=== PATIENT | male | born 1940 | race Caucasian/White ===

== ENCOUNTER 2019-05-10 14:50 | Outpatient (RCR) | payer MEDICARE, SELFPAY ==
[2019-05-10 15:14] LABS: Basophils % 0.4 %; Eosinophils # 0.1 10^3/uL (0.0-0.8); Eosinophils % 1.7 %; Hematocrit 33.7 % (42.0-52.0); Hemoglobin 11.3 g/dL (11.7-16.6); Lymphocytes # 1.3 10^3/uL (0.8-4.8); Lymphocytes % 24.7 %; Mean Corpuscular HGB Conc 33.5 g/dL (30.0-36.0); Mean Corpuscular Hemoglobin 32.1 pg (28.0-34.0); Mean Corpuscular Volume 95.7 fL (80-94); Mean Platelet Volume 10.3 fL (7.4-10.4); Monocytes # 0.6 10^3/uL (0.2-0.9); Monocytes % 11.3 %; Neutrophils # 3.3 10^3/uL (1.8-7.7); Neutrophils % 61.7 %; Nucleated Red Blood Cells % 0 %; Platelet Count 207 10^3/cmm (130-400); Red Blood Count 3.52 10^6/uL (4.1-5.3); Red Cell Distribution Width 12.4 % (12.1-15.1); White Blood Count 5.4 10^3/uL (4.0-10.0)
[2019-05-10 16:06] LABS: Prostate Specific Antigen 6.06 ng/mL (0-4)
[2019-05-10 16:17] LABS: Alanine Aminotransferase 18 U/L (0-41); Albumin Level 4.3 g/dL (3.5-5.2); Alkaline Phosphatase 73 IU/L (40-130); Anion Gap 15.7 (5-19); Aspartate Amino Transferase 27 U/L (0-40); Blood Urea Nitrogen 14 mg/dL (8-23); Calcium 9.5 mg/Dl (8.8-10.2); Carbon Dioxide 27 mmol/L (22-29); Chloride 94 mmol/L (98-107); Globulin 2.6 g/dL (1.3-4.6); Glucose 111 mg/dL (74-106); Potassium 4.7 mmol/L (3.5-5.1); Sodium 132 mmol/L (136-145); Total Bilirubin 0.2 mg/dL (0.15-1.2); Total Protein 6.9 g/dL (6.6-8.7)
--- NOTE | 2019-05-14 06:52 | ONC FU_ITS ---
Dr. Boyce Patient Follow-Up Note Patient: Matthew Case Unit #: [id number]: 1940 Dicatated By: Hubert Boyec M.D.Date of Visit:May 10, 2019 Onc Med Follow-up/Prog Note Chief Complaint: Prostate cancer. History of Present Illness: This is a 79 year-old man with [place] score 9 adenocarcinoma of the prostate. By clinical evaluation his disease is stage IV (T2c, N1, M1a). He had presented with a significantly elevated PSA level. By his account it was 28 ng/mL when Dr. Benedict checked it in March. As of 05/05/2018 it had increased to 66 ng/mL. He was referred to Dr. Copeland, and he underwent TRUSP/biopsy on 06/02/2018. Pathology showed prostatic adenocarcinoma involving both lobes. The Alex scores varied from 7 to 9. His staging CT abdomen/pelvis on 06/21/2018 showed heterogeneously enhancing enlarged prostate measuring 4.1 x 4.2 x 5.7 cm. There were enlarged periaortic, aortocaval, and retroperitoneal lymph nodes, the largest measuring 2.5-3 cm, consistent with metastatic disease. There were additional enlarged iliac chain lymph nodes, right geater than left, measuring 1.5-2.0 cm, also consistent with metastatic disease. Also noted was a lytic lesion within the right ilium measuring 2.1 cm, indeterminate. Additional smaller lytic lesions were noted in the ileum bilaterally. There were no sclerotic or blastic lesions identified. An hepatic cyst near the dome of the liver measured 2.7 cm. Bone scan on 06/21/2018 showed no evidence for metastatic disease. In particular, there was no uptake noted in the right ilium. He had seen Dr. Copeland for follow-up on 06/23/2018. Given the CT findings, he was recommended to begin androgen deprivation therapy, and he was given a prescription for bicalutamide 50 mg daily. I had seen him initially on 07/07/2018. At that point he had not started the medication yet. I had a fairly lengthy discussion with him regarding treatment options. He ultimately decided on antiandrogen therapy with bicalutamide 150 mg daily. His other medical illnesses include GERD, degenerative arthritis, and glaucoma. He has a history of smoking 2 packs of cigarettes daily for 20 years. He quit smoking 35 years ago. INTERIM HISTORY: He was seen for a follow-up visit on 08/17/2018. He was tolerating the bicalutamide well, and his PSA level had decreased to 2.97 ng/mL. As of his follow-up visit on 11/07/2018 there was further decrease in the PSA to 0.75 ng/mL. He continued treatment with bicalutamide 150 mg daily. However, in December he opted to stop treatment due to worsening symptoms, mainlly pain and swelling in his breasts. At his followup visit on 02/07/2019 his PSA had increased to 2.95 ng/mL. He then restarted the bicalutamide. He is seen for a scheduled visit. He has been feeling good generally. His breasts have been sensitive since he has been back on the bicalutamide, but it has been tolerable. He has otherwise been tolerating the treatment well. He has good energy and activity tolerance. His appetite has been good. He has gained weight. He has no fever, night sweats, or hot flashes. He has no shortness of breath, cough, or chest pain. He has no GI complaints. He has no complaints other than urinary frequency and nocturia. He had been having pain in his right hip area, but it resolved with Celebrex. He has no other joint or bone pain. He has no focal neurologic symptoms. Medications: C 1000 1 Tablet (of 1000 mg) Oral daily, CeleBREX 1 Capsule (of 200 mg) Oral daily PRN, Cholecalciferol 1 Tablet (of 4000 Units) Oral daily, Flomax 1 (0.4 mg) Capsule Oral at bedtime, Lucentis 1 Injectable q 12 weeks, Lumigan 1 drop(s) (of 0.01 %) Solution Ophthalmic at bedtime, Move Free Joint Health Advance 1 Tablet Oral daily, NexIUM 1 Capsule (of 20 mg) Capsule Delayed Release Oral daily, PreserVision AREDS 2 1 Capsule Oral daily, salmom 1 Capsule daily, SM Lutein 1 Capsule (of 20 mg) Oral daily, Sudafed 1 Tablet (of 30 mg) Oral daily PRN, Turmeric 1 - 2 Capsule Oral daily PRN, ZyrTEC Allergy 1 Tablet (of 10 mg) Oral PRN Allergies: No Known Allergies. Review of Systems: Constitutional - His energy is good. He has normal activity. His appetite is good. His weight is up a 5 pounds. No fever, night sweats, or hot flashes. ECOG score is 0, ENMT - No sinus congestion/drainage. No mouth sores. No sore throat or difficulty swallowing, Hematologic/Lymphatic - No abnormal bruising or bleeding, Breasts - He has breast tenderness, Respiratory - No shortness of breath. No cough. No pleuritic pain or hemoptysis, Cardiovascular - No angina pain. No palpitations, Gastrointestinal - No nausea or vomiting. His acid reflux is managed adequately with Nexium. No diarrhea or constipation. No blood in the stool or black stools, Genitourinary (M) - No dysuria or hematuria. He has frequent urination. No urgency or incontinence, Musculoskeletal - He was having pain in his right hip area, but it improved with Celebrex, Integumentary - No skin complications, Neurologic - He has occasional headache. No dizziness. No numbness/paresthesias or other focal neurologic symptoms, Psychiatric - No anxiety or depression. No insomnia. Vital Signs: Performed on May 10, 2019 16:11 Height - 72.00 in Weight - 161.4 lbs (HIGH) BSA - 1.94 sq.m BMI - 21.89 Temperature - 98.4 F Pulse - 75 /min Respiration - 22 /min BP - 115/78 mm(hg) O2 Sat - 99 % Pain - 0 Physical Examination: Constitutional - He looks pretty good generally, Eyes - Sclerae nonicteric. Conjunctivae clear, ENMT - No lesions noted in the oral cavity, Hematologic/Lymphatic - No cervical, clavicular, or axillary adenopathy, Respiratory - Lungs are clear with good air movement bilaterally, Cardiovascular - Heart rhythm is regular. There is a I/ systolic murmur. There is no gallop or rub noted, Abdomen - Soft. Liver and spleen are not enlarged. There is no abdominal mass or ascites noted and there is no inguinal adenopathy, Extremities - No edema. Pedal pulses are palpable bilaterally, Neurologic - No focal neurologic deficits noted. Lab/Imaging: Test performed on May 10, 2019 14:55 Glucose 111 mg/dL BUN 14 mg/dL Creatinine 1.1 mg/dL Cr Clearance (Est) 58.24 mL/min Sodium 132 mmol/L Potassium 4.7 mmol/L Chloride 94 mmol/L CO2 27 mmol/L Calcium 9.5 mg/dL Protein, Total 6.9 g/dL Albumin 4.3 g/dL Globulin 2.6 g/dL Bilirubin, Total 0.2 mg/dL Alkaline Phosphatase 73 IU/L AST (SGOT) 27 IU/L ALT (SGPT) 18 IU/L WBC 5.4 10^9/L RBC 3.52 10^12/L HGB 11.3 g/dL HCT 33.7 % MCV 95.7 fl MCH 32.1 pg MCHC 33.5 g/dL RDW 12.4 % Platelet Count 207 10^9/L MPV 10.3 fL Neutrophils (Gran) 3.3 10^9/L Lymphocytes 1.3 10^9/L Monocytes 0.6 10^9/L Eosinophils 0.1 10^9/L Basophils 0.0 10^9/L Manual Lymphocytes 24.7 % Manual Monocytes 11.3 % Manual Eosinophils 1.7 % Manual Basophils 0.4 % NRBCs 0.0 /100 WBC PSA 6.06 ng/mL Impression: 1. Patient with Alex score 9 adenocarcinoma of the prostate. By clinical evaluation his disease was stage IV (T2c, N1, M1a) with CT evidence of retroperitoneal and bilateral iliac chain lymph node involvement. 2. There was also possible lytic bone involvementin the right ilium by CT scan. 3. He had bladder outlet obstructive symptoms, but those improved with tamsulosin. His other medical illnesses include: 4. GERD. 5. Degenerative arthritis. 6. Glaucoma. In July 2018 he began antiandrogen therapy with bicalutamide 150 mg daily. As of his follow-up visit on 11/07/2018 he had been tolerating it well. He had been showing a very good clinical response with his PSA level decreased to 0.75 ng/mL. However, in December he stopped the medication due to increasing swelling and tenderness in both breasts. As such, there has been an increase in his PSA level. As of his follow-up visit on 02/07/2019 his PSA level had increased to 2.95 ng/mL. He then restarted the bicalutamide at 150 mg daily. He has been able to tolerate it with acceptable toxicity, but his PSA level has continued to increase, now to 6.06 ng/mL. Plan: We discussed the fact that increasing PSA level is an indication that his prostate cancer is progressing. He has not been overtly symptomatic with it, and at least for now he prefers to just continue taking bicalutamide 150 mg daily, as he has been opposed to standard androgen deprivation therapy. He will return for repeat PSA level in 6 weeks and for a follow-up visit in 3 months. Signed By: Hubert Boyce M.D. <<Signature on File>>
== END 2019-06-08 23:59 | disposition home or self-care (01) ==
LOC: ONCMED 14:50
PROVIDERS: Family Provider Internal Medicine; PCP Internal Medicine; Visit Provider Internal Medicine Medical Oncology
DX: C61 Malignant neoplasm of prostate (principal); C77.8 Secondary and unspecified malignant neoplasm of lymph nodes of multiple regions; R97.21 Rising PSA following treatment for malignant neoplasm of prostate; K21.9 Gastro-esophageal reflux disease without esophagitis; M19.90 Unspecified osteoarthritis, unspecified site; H40.9 Unspecified glaucoma; Z79.899 Other long term (current) drug therapy; Z87.891 Personal history of nicotine dependence
CPT/HCPCS: 36415; 80053; 84153; 85025; 99214

== ENCOUNTER 2019-06-21 06:07 | Outpatient (RCR) | payer MEDICARE, SELFPAY ==
[2019-06-21 16:07] LABS: Prostate Specific Antigen 17.92 ng/mL (0-4)
== END 2019-07-07 23:59 | disposition home or self-care (01) ==
LOC: ONCMED 06:07
PROVIDERS: Family Provider Internal Medicine; PCP Internal Medicine; Visit Provider Internal Medicine Medical Oncology
DX: C61 Malignant neoplasm of prostate (principal)
CPT/HCPCS: 36415; 84153

== ENCOUNTER 2019-08-02 10:27 | Outpatient (CLI) | payer MEDICARE, SELFPAY ==
[2019-08-02 10:55] LABS: Basophils % 0.7 %; Eosinophils # 0.1 10^3/uL (0.0-0.8); Eosinophils % 0.8 %; Hematocrit 37.4 % (42.0-52.0); Hemoglobin 12.3 g/dL (11.7-16.6); Lymphocytes # 0.9 10^3/uL (0.8-4.8); Lymphocytes % 15.6 %; Mean Corpuscular HGB Conc 32.9 g/dL (30.0-36.0); Mean Corpuscular Hemoglobin 31.3 pg (28.0-34.0); Mean Corpuscular Volume 95.2 fL (80-94); Mean Platelet Volume 10.3 fL (7.4-10.4); Monocytes # 0.6 10^3/uL (0.2-0.9); Monocytes % 9.2 %; Neutrophils # 4.4 10^3/uL (1.8-7.7); Neutrophils % 73.5 %; Nucleated Red Blood Cells % 0 %; Platelet Count 210 10^3/cmm (130-400); Red Blood Count 3.93 10^6/uL (4.1-5.3)
[2019-08-02 11:15] LABS: Alanine Aminotransferase 15 U/L (0-41); Albumin Level 4.4 g/dL (3.5-5.2); Alkaline Phosphatase 81 IU/L (40-130); Anion Gap 15.6 (5-19); Aspartate Amino Transferase 26 U/L (0-40); Blood Urea Nitrogen 11 mg/dL (8-23); Calcium 9.7 mg/dL (8.5-10.5); Carbon Dioxide 27 mmol/L (22-29); Chloride 95 mmol/L (98-107); Globulin 2.3 g/dL (1.3-4.6); Glucose 99 mg/dL (65-115); Osmolality Calculated 272 mOsm/kg (285-295); Potassium 4.6 mmol/L (3.5-5.1); Sodium 133 mmol/L (136-145); Total Bilirubin 0.2 mg/dL (0.15-1.2); Total Protein 6.7 g/dL (6.6-8.7)
[2019-08-02 11:22] LABS: Prostate Specific Antigen 54.03 ng/mL (0-4)
--- NOTE | 2019-08-02 18:38 | ONC FU_ITS ---
Dr. Boyce Patient Follow-Up Note Patient: Matthew Case Unit #: [id number]: [id number] Dicatated By: Hubert Boyce M.D.Date of Visit:Aug 02, 2019 Onc Med Follow-up/Prog Note Chief Complaint: Prostate cancer. History of Present Illness: This is a 79 year-old man with [place] score 9 adenocarcinoma of the prostate. By clinical evaluation his disease is stage IV (T2c, N1, M1a). He had presented with a significantly elevated PSA level. By his account it was 28 ng/mL when Dr. Benedict checked it in March. As of 05/05/2018 it had increased to 66 ng/mL. He was referred to Dr. Copeland, and he underwent TRUSP/biopsy on 06/02/2018. Pathology showed prostatic adenocarcinoma involving both lobes. The Alex scores varied from 7 to 9. His staging CT abdomen/pelvis on 06/21/2018 showed heterogeneously enhancing enlarged prostate measuring 4.1 x 4.2 x 5.7 cm. There were enlarged periaortic, aortocaval, and retroperitoneal lymph nodes, the largest measuring 2.5-3 cm, consistent with metastatic disease. There were additional enlarged iliac chain lymph nodes, right geater than left, measuring 1.5-2.0 cm, also consistent with metastatic disease. Also noted was a lytic lesion within the right ilium measuring 2.1 cm, indeterminate. Additional smaller lytic lesions were noted in the ileum bilaterally. There were no sclerotic or blastic lesions identified. An hepatic cyst near the dome of the liver measured 2.7 cm. Bone scan on 06/21/2018 showed no evidence for metastatic disease. In particular, there was no uptake noted in the right ilium. He had seen Dr. Copeland for follow-up on 06/23/2018. Given the CT findings, he was recommended to begin androgen deprivation therapy, and he was given a prescription for bicalutamide 50 mg daily. I had seen him initially on 07/07/2018. At that point he had not started the medication yet. I had a fairly lengthy discussion with him regarding treatment options. He ultimately decided on antiandrogen therapy with bicalutamide 150 mg daily. His other medical illnesses include GERD, degenerative arthritis, and glaucoma. He has a history of smoking 2 packs of cigarettes daily for 20 years. He quit smoking 35 years ago. INTERIM HISTORY: He was seen for a follow-up visit on 08/17/2018. He was tolerating the bicalutamide well, and his PSA level had decreased to 2.97 ng/mL. As of his follow-up visit on 11/07/2018 there was further decrease in the PSA to 0.75 ng/mL. He continued treatment with bicalutamide 150 mg daily. However, in December he opted to stop treatment due to worsening symptoms, mainlly pain and swelling in his breasts. At his followup visit on 02/07/2019 his PSA had increased to 2.95 ng/mL. He then restarted the bicalutamide. At his followup visit on 05/10/2019 his PSA was up to 6.06 ng/mL, and as of 06/21/2019 it was up to 17.92 ng/mL. He is seen for a scheduled visit. He is still feeling pretty good. His energy has been OK. His ECOG score is 0. His appetite has not been as good. He has been losing weight gradually. He has no fever, hot flashes, or night sweats. He continues to have some soreness in his nipples. He indicates that he had not been taking his bicalutamide consistently since his last visit, and recently he has not been taking it at all. He has no shortness of breath, cough, or chest pain. He has had some nausea in the morning, and on one occasion he had vomiting. Bowel function has been OK. He has urinary frequency and nocturia. He takes glucosamine for joint pain. He has no focal neurologic symptoms. Medications: C 1000 1 Tablet (of 1000 mg) Oral daily, CeleBREX 1 Capsule (of 200 mg) Oral daily PRN, Cholecalciferol 1 Tablet (of 4000 Units) Oral daily, Flomax 1 (0.4 mg) Capsule Oral at bedtime, Lucentis 1 Injectable q 12 weeks, Lumigan 1 drop(s) (of 0.01 %) Solution Ophthalmic at bedtime, Move Free Joint Health Advance 1 Tablet Oral daily, NexIUM 1 Capsule (of 20 mg) Capsule Delayed Release Oral daily, PreserVision AREDS 2 1 Capsule Oral daily, salmom 1 Capsule daily, SM Lutein 1 Capsule (of 20 mg) Oral daily, Sudafed 1 Tablet (of 30 mg) Oral daily PRN, Turmeric 1 - 2 Capsule Oral daily PRN, ZyrTEC Allergy 1 Tablet (of 10 mg) Oral PRN Allergies: No Known Allergies. Review of Systems: Constitutional - His energy level is good. He is able to do all his normal activities. His appetite is good and weight is down a few pounds from his last visit. No fever, chills, hot flashes, or night sweats. ECOG score is 0, ENMT - He has chronic allergies. No mouth sores. No sore throat or difficulty swallowing, Hematologic/Lymphatic - No abnormal bruising or bleeding, Respiratory - No shortness of breath. No cough. No pleuritic pain or hemoptysis, Cardiovascular - No angina pain. No palpitations, Gastrointestinal - He has been having intermittent nausea in the mornings for a few weeks. He had one episode of vomiting. No heartburn or acid reflux. No diarrhea or constipation. No blood in the stool or black stools, Genitourinary (M) - No dysuria or hematuria. He has urinary frequency mainly at night. No urgency or incontinence, Musculoskeletal - No joint or bone pain, Integumentary - No skin complications, Neurologic - No headache or dizziness. No numbness/paresthesias or other focal neurologic symptoms, Psychiatric - No anxiety or depression. No insomnia. Vital Signs: Performed on Aug 02, 2019 12:47 Height - 72.00 in Weight - 158 lbs (LOW) BSA - 1.93 sq.m BMI - 21.43 Temperature - 97.2 F (LOW) Pulse - 72 /min Respiration - 17 /min BP - 106/68 mm(hg) O2 Sat - 98 % Pain - 0 Physical Examination: Constitutional - He looks pretty good generally, Eyes - Sclerae nonicteric. Conjunctivae clear, ENMT - No lesions noted in the oral cavity, Hematologic/Lymphatic - No cervical, clavicular, or axillary adenopathy, Respiratory - Lungs are clear with good air movement bilaterally, Cardiovascular - Heart rhythm is regular. There is a I/ systolic murmur. There is no gallop or rub noted, Abdomen - Soft. Liver and spleen are not enlarged. There is no abdominal mass or ascites noted and there is no inguinal adenopathy, Extremities - No edema, Neurologic - No focal neurologic deficits noted. Lab/Imaging: Test performed on Aug 02, 2019 10:40 Sodium 133 mmol/L Potassium 4.6 mmol/L Chloride 95 mmol/L CO2 27 mmol/L Anion Gap 15.6 BUN 11 mg/dL Creatinine 1.2 mg/dL Cr Clearance (Est) 52.26 mL/min Glucose 99 mg/dL Calcium 9.7 mg/dL Protein, Total 6.7 g/dL Albumin 4.4 g/dL Globulin 2.3 g/dL Bilirubin, Total 0.2 mg/dL ALT (SGPT) 15 U/L AST (SGOT) 26 U/L Alkaline Phosphatase 81 IU/L WBC 6.0 10 3/uL RBC 3.93 10 6/uL HGB 12.3 g/dL HCT 37.4 % MCV 95.2 fL MCH 31.3 pg MCHC 32.9 g/dL RDW 12.0 % Platelet Count 210 10 3/cmm MPV 10.3 fL Neutrophils 4.4 10 3/uL Lymphocytes 0.9 10 3/uL Monocytes 0.6 10 3/uL Eosinophils 0.1 10 3/uL Basophils 0.0 10 3/uL Neutrophil % 73.5 % Lymphocyte % 15.6 % Monocyte % 9.2 % Eosinophil % 0.8 % Basophils % 0.7 % PSA 54.03 ng/mL Impression: 1. Patient with [place] score 9 adenocarcinoma of the prostate. By clinical evaluation his disease was stage IV (T2c, N1, M1a) with CT evidence of retroperitoneal and bilateral iliac chain lymph node involvement. 2. There was also possible lytic bone involvementin the right ilium by CT scan. 3. He had bladder outlet obstructive symptoms, but those improved with tamsulosin. His other medical illnesses include: 4. GERD. 5. Degenerative arthritis. 6. Glaucoma. In July 2018 he began antiandrogen therapy with bicalutamide 150 mg daily. As of his follow-up visit on 11/07/2018 he had been tolerating it well. He had been showing a very good clinical response with his PSA level decreased to 0.75 ng/mL. However, in December he stopped the medication due to increasing swelling and tenderness in both breasts. As such, there has been an increase in his PSA level. As of his follow-up visit on 02/07/2019 his PSA level had increased to 2.95 ng/mL. He then restarted the bicalutamide at 150 mg daily. He has been able to tolerate it with acceptable toxicity, but his PSA level continued to increase. As of 05/10/2027 was up to 6.06 ng/mL and by 06/21/2019 it was up to 17.92 ng/mL. It has now further increased to 54.03 ng/mL, though he has pretty much been off treatment during this time. As yet he is not overtly symptomatic with the prostate cancer, but the rate of increase of his PSA level is a poor prognostic indication. Plan: We discussed options for further management. He has been very reluctant about the prospect of going on androgen deprivation therapy, but at this point with his PSA level increasing as it is, I have encouraged him to begin treatment with Zoladex in combination with enzalutamide. He is aware that this will likely cause hot flashes and his breast symptoms may worsen. He is likely to experience at least some fatigue. However, he indicates that he is willing now to proceed with treatment, and I will have him return for his initial Zoladex injection as soon as we have verification of insurance coverage for it and the enzalutamide. Signed By: Hubert Boyce M.D. <<Signature on File>>
== END 2019-08-02 10:28 | disposition home or self-care (01) ==
LOC: ONCMED 10:29
PROVIDERS: Family Provider Internal Medicine; PCP Internal Medicine; Visit Provider Internal Medicine Medical Oncology
DX: C61 Malignant neoplasm of prostate (principal); C77.8 Secondary and unspecified malignant neoplasm of lymph nodes of multiple regions; R97.21 Rising PSA following treatment for malignant neoplasm of prostate; T38.6X Poisoning by, adverse effect of and underdosing of antigonadotrophins, antiestrogens, antiandrogens, not elsewhere classified; Z91.128 Patient's intentional underdosing of medication regimen for other reason; K21.9 Gastro-esophageal reflux disease without esophagitis; M19.90 Unspecified osteoarthritis, unspecified site; H40.9 Unspecified glaucoma; Z79.899 Other long term (current) drug therapy; Z87.891 Personal history of nicotine dependence
CPT/HCPCS: 36415; 80053; 84153; 85025; 99214

== ENCOUNTER 2019-09-03 10:47 | Outpatient (CLI) | payer MEDICARE, SELFPAY ==
[2019-09-03 11:40] LABS: Basophils % 0.7 %; Eosinophils # 0.1 10^3/uL (0.0-0.8); Eosinophils % 1.4 %; Hematocrit 36.2 % (42.0-52.0); Lymphocytes % 23.7 %; Mean Corpuscular HGB Conc 33.1 g/dL (30.0-36.0); Mean Corpuscular Volume 96.5 fL (80-94); Mean Platelet Volume 10.4 fL (7.4-10.4); Monocytes # 0.5 10^3/uL (0.2-0.9); Monocytes % 12.8 %; Neutrophils # 2.5 10^3/uL (1.8-7.7); Neutrophils % 61.2 %; Nucleated Red Blood Cells % 0 %; Platelet Count 218 10^3/cmm (130-400); Red Blood Count 3.75 10^6/uL (4.1-5.3); Red Cell Distribution Width 12.2 % (12.1-15.1); White Blood Count 4.1 10^3/uL (4.0-10.0)
[2019-09-03 12:15] LABS: Prostate Specific Antigen Scr 61.38 ng/mL (0-4)
[2019-09-03 12:27] LABS: Alanine Aminotransferase 15 U/L (0-41); Albumin Level 4.3 g/dL (3.5-5.2); Alkaline Phosphatase 86 IU/L (40-130); Anion Gap 16.6 (5-19); Aspartate Amino Transferase 26 U/L (0-40); Blood Urea Nitrogen 15 mg/dL (8-23); Calcium 9.6 mg/dL (8.5-10.5); Carbon Dioxide 26 mmol/L (22-29); Chloride 94 mmol/L (98-107); Globulin 2.8 g/dL (1.3-4.6); Glucose 103 mg/dL (65-115); Osmolality Calculated 271 mOsm/kg (285-295); Potassium 4.6 mmol/L (3.5-5.1); Sodium 132 mmol/L (136-145); Total Bilirubin 0.2 mg/dL (0.15-1.2); Total Protein 7.1 g/dL (6.6-8.7)
== END 2019-09-03 10:48 | disposition home or self-care (01) ==
PROVIDERS: Family Provider Internal Medicine; PCP Internal Medicine; Visit Provider Internal Medicine Medical Oncology
DX: C61 Malignant neoplasm of prostate (principal); C77.2 Secondary and unspecified malignant neoplasm of intra-abdominal lymph nodes; R97.21 Rising PSA following treatment for malignant neoplasm of prostate; Z79.818 Long term (current) use of other agents affecting estrogen receptors and estrogen levels; Z79.899 Other long term (current) drug therapy
CPT/HCPCS: 36415; 80053; 84403; 85025; G0103

== ENCOUNTER 2019-09-04 14:09 | Outpatient (CLI) | payer MEDICARE, SELFPAY ==
[2019-09-04] MEDS: goserelin acetate 10.8 mg Implant IM (15:20)
--- NOTE | 2019-09-05 14:15 | ONC FU_ITS ---
Dr. Boyce Patient Follow-Up Note Patient: Matthew Case Unit #: [id number]: 1940 Dicatated By: Hubert Boyce M.D.Date of Visit:Sep 04, 2019 Onc Med Follow-up/Prog Note Chief Complaint: Prostate cancer. History of Present Illness: This is a 79 year-old man with [place] score 9 adenocarcinoma of the prostate. By clinical evaluation his disease is stage IV (T2c, N1, M1a). He had presented with a significantly elevated PSA level. By his account it was 28 ng/mL when Dr. Benedict checked it in March. As of 05/05/2018 it had increased to 66 ng/mL. He was referred to Dr. Copeland, and he underwent TRUSP/biopsy on 06/02/2018. Pathology showed prostatic adenocarcinoma involving both lobes. The Alex scores varied from 7 to 9. His staging CT abdomen/pelvis on 06/21/2018 showed heterogeneously enhancing enlarged prostate measuring 4.1 x 4.2 x 5.7 cm. There were enlarged periaortic, aortocaval, and retroperitoneal lymph nodes, the largest measuring 2.5-3 cm, consistent with metastatic disease. There were additional enlarged iliac chain lymph nodes, right geater than left, measuring 1.5-2.0 cm, also consistent with metastatic disease. Also noted was a lytic lesion within the right ilium measuring 2.1 cm, indeterminate. Additional smaller lytic lesions were noted in the ileum bilaterally. There were no sclerotic or blastic lesions identified. An hepatic cyst near the dome of the liver measured 2.7 cm. Bone scan on 06/21/2018 showed no evidence for metastatic disease. In particular, there was no uptake noted in the right ilium. He had seen Dr. Copeland for follow-up on 06/23/2018. Given the CT findings, he was recommended to begin androgen deprivation therapy, and he was given a prescription for bicalutamide 50 mg daily. I had seen him initially on 07/07/2018. At that point he had not started the medication yet. I had a fairly lengthy discussion with him regarding treatment options. He ultimately decided on antiandrogen therapy with bicalutamide 150 mg daily. His other medical illnesses include GERD, degenerative arthritis, and glaucoma. He has a history of smoking 2 packs of cigarettes daily for 20 years. He quit smoking 35 years ago. INTERIM HISTORY: He was seen for a follow-up visit on 08/17/2018. He was tolerating the bicalutamide well, and his PSA level had decreased to 2.97 ng/mL. As of his follow-up visit on 11/07/2018 there was further decrease in the PSA to 0.75 ng/mL. He continued treatment with bicalutamide 150 mg daily. However, in December he opted to stop treatment due to worsening symptoms, mainlly pain and swelling in his breasts. At his followup visit on 02/07/2019 his PSA had increased to 2.95 ng/mL. He then restarted the bicalutamide. At his followup visit on 05/10/2019 his PSA was up to 6.06 ng/mL, and as of 06/21/2019 it was up to 17.92 ng/mL. At that time he was still very reluctant to begin on standard androgen deprivation therapy, preferring to continue bicalutamide 150 mg daily. As of 08/02/2019 the PSA had increased to 54.03, and at that point he did agree to begin the process of a insurance coverage for treatment with Zoladex in combination with enzalutamide. He is seen for a scheduled visit. He is still feeling okay. He says he has good energy and activity tolerance. His ECOG score is 0. Appetite is been okay and his weight has been stable. He does complain that he has nausea, like morning sickness, which he thinks may be associated with the bicalutamide. He has had vomiting occasionally. His acid reflux has been adequately managed with Nexium. He has had no diarrhea. He does not have fever, night sweats, or hot flashes. He does have urinary frequency and nocturia. He has pain occasionally in his right shoulder, but no other joint or bone pain. He has no focal neurologic symptoms. Medications: C 1000 1 Tablet (of 1000 mg) Oral daily, CeleBREX 1 Capsule (of 200 mg) Oral daily PRN, Cholecalciferol 1 Tablet (of 4000 Units) Oral daily, Flomax 1 (0.4 mg) Capsule Oral at bedtime, Lucentis 1 Injectable q 12 weeks, Lumigan 1 drop(s) (of 0.01 %) Solution Ophthalmic at bedtime, Move Free [facility] Advance 1 Tablet Oral daily, NexIUM 1 Capsule (of 20 mg) Capsule Delayed Release Oral daily, PreserVision AREDS 2 1 Capsule Oral daily, salmom 1 Capsule daily, SM Lutein 1 Capsule (of 20 mg) Oral daily, Sudafed 1 Tablet (of 30 mg) Oral daily PRN, Turmeric 1 - 2 Capsule Oral daily PRN, ZyrTEC Allergy 1 Tablet (of 10 mg) Oral PRN Allergies: No Known Allergies. Review of Systems: Constitutional - His energy level is good. He is able to do all his normal activities. His appetite is good and weight is down a few pounds from his last visit. No fever, chills, hot flashes, or night sweats. ECOG score is 0, ENMT - He has chronic allergies. No mouth sores. No sore throat or difficulty swallowing, Hematologic/Lymphatic - No abnormal bruising or bleeding, Respiratory - No shortness of breath. No cough. No pleuritic pain or hemoptysis, Cardiovascular - No angina pain. No palpitations, Gastrointestinal - He has been having intermittent nausea in the mornings for a few weeks. He had one episode of vomiting. No heartburn or acid reflux. No diarrhea or constipation. No blood in the stool or black stools, Genitourinary (M) - No dysuria or hematuria. He has urinary frequency mainly at night. No urgency or incontinence, Musculoskeletal - No joint or bone pain, Integumentary - No skin complications, Neurologic - No headache or dizziness. No numbness/paresthesias or other focal neurologic symptoms, Psychiatric - No anxiety or depression. No insomnia. Vital Signs: Performed on Sep 04, 2019 14:19 Height - 72.00 in Weight - 155.6 lbs (LOW) BSA - 1.91 sq.m BMI - 21.10 Temperature - 98.2 F (LOW) Pulse - 79 /min Respiration - 20 /min BP - 120/75 mm(hg) O2 Sat - 99 % Pain - 0 Physical Examination: Constitutional - He looks pretty good generally, Eyes - Sclerae nonicteric. Conjunctivae clear, ENMT - No lesions noted in the oral cavity, Hematologic/Lymphatic - No cervical, clavicular, or axillary adenopathy, Respiratory - Lungs are clear with good air movement bilaterally, Cardiovascular - Heart rhythm is regular. There is no murmur, gallop, or rub noted, Abdomen - Soft. Liver and spleen are not enlarged. There is no abdominal mass or ascites noted and there is no inguinal adenopathy, Extremities - No edema, Neurologic - No focal neurologic deficits noted. Lab/Imaging: CBC shows hemoglobin 12.0 g, white blood cell count 4100, and platelet count 218,000. Comprehensive metabolic profile is unremarkable. The PSA level is now up to 61.38 ng/mL. Impression: 1. Patient with [place] score 9 adenocarcinoma of the prostate. By clinical evaluation his disease was stage IV (T2c, N1, M1a) with CT evidence of retroperitoneal and bilateral iliac chain lymph node involvement. 2. There was also possible lytic bone involvementin the right ilium by CT scan. 3. He had bladder outlet obstructive symptoms, but those improved with tamsulosin. His other medical illnesses include: 4. GERD. 5. Degenerative arthritis. 6. Glaucoma. In July 2018 he began antiandrogen therapy with bicalutamide 150 mg daily. As of his follow-up visit on 11/07/2018 he had been tolerating it well. He had been showing a very good clinical response with his PSA level decreased to 0.75 ng/mL. However, in December he stopped the medication due to increasing swelling and tenderness in both breasts. As such, there has been an increase in his PSA level. As of his follow-up visit on 02/07/2019 his PSA level had increased to 2.95 ng/mL. He then restarted the bicalutamide at 150 mg daily. He has been able to tolerate it with acceptable toxicity, but his PSA level continued to increase. As of 05/10/2027 was up to 6.06 ng/mL and by 06/21/2019 it was up to 17.92 ng/mL. As of 08/02/2019 it had further increased to 54.03 ng/mL, and at that point he did agree to begin the process of getting insurance approval for androgen deprivation therapy with Zoladex in combination with enzalutamide. During that interval there has been further increase in the PSA level to 61.38 ng/mL. Plan: He will now start androgen deprivation therapy with Zoladex 10.8 mg every 3 months. He will continue bicalutamide 50 mg daily for the next 7 days and then start the enzalutamide at 160 mg daily. I reviewed anticipated side effects. He is well aware of the fact that it will likely cause hot flashes that may increase his breast tenderness. There can be mood changes and it is likely that he will experience some fatigue with the enzalutamide. Due to potential for medication interaction, he will transition from Nexium to famotidine 20 mg twice daily. He will be given a prescription for a ondansetron to take as needed for nausea. There is also potential for interaction with Celebrex, but he takes that only very occasionally. He will be scheduled for a follow-up visit in 1 month. Signed By: Hubert Boyce M.D. <<Signature on File>>
== END 2019-09-04 14:10 | disposition home or self-care (01) ==
LOC: ONCMED 14:09
PROVIDERS: Family Provider Internal Medicine; PCP Internal Medicine; Visit Provider Internal Medicine Medical Oncology
DX: C61 Malignant neoplasm of prostate (principal); C77.8 Secondary and unspecified malignant neoplasm of lymph nodes of multiple regions; K21.9 Gastro-esophageal reflux disease without esophagitis; M19.90 Unspecified osteoarthritis, unspecified site; H40.9 Unspecified glaucoma; Z79.818 Long term (current) use of other agents affecting estrogen receptors and estrogen levels; Z79.899 Other long term (current) drug therapy
CPT/HCPCS: 96372; 96402; 99214; J9202

== ENCOUNTER 2019-09-19 13:56 | Outpatient (CLI) | payer MEDICARE, SELFPAY ==
--- NOTE | 2019-09-21 16:01 | ONC FU_ITS ---
[facility] Patient Note Patient: Matthew Case Unit #: [id number]: 1940 Dictated By: Solange McfarlaneDate of Visit: September 19, 2019 Onc MED Follow-Up/Prog Note Chief Complaint: Prostate cancer. History of Present Illness: This is a 79 year-old man with [place] score 9 adenocarcinoma of the prostate. By clinical evaluation his disease is stage IV (T2c, N1, M1a). He had presented with a significantly elevated PSA level. By his account it was 28 ng/mL when Dr. Benedict checked it in March. As of 05/05/2018 it had increased to 66 ng/mL. He was referred to Dr. Copeland, and he underwent TRUSP/biopsy on 06/02/2018. Pathology showed prostatic adenocarcinoma involving both lobes. The [place] scores varied from 7 to 9. His staging CT abdomen/pelvis on 06/21/2018 showed heterogeneously enhancing enlarged prostate measuring 4.1 x 4.2 x 5.7 cm. There were enlarged periaortic, aortocaval, and retroperitoneal lymph nodes, the largest measuring 2.5-3 cm, consistent with metastatic disease. There were additional enlarged iliac chain lymph nodes, right geater than left, measuring 1.5-2.0 cm, also consistent with metastatic disease. Also noted was a lytic lesion within the right ilium measuring 2.1 cm, indeterminate. Additional smaller lytic lesions were noted in the ileum bilaterally. There were no sclerotic or blastic lesions identified. An hepatic cyst near the dome of the liver measured 2.7 cm. Bone scan on 06/21/2018 showed no evidence for metastatic disease. In particular, there was no uptake noted in the right ilium. He had seen Dr. Copeland for follow-up on 06/23/2018. Given the CT findings, he was recommended to begin androgen deprivation therapy, and he was given a prescription for bicalutamide [address] Boyce had seen him initially on 07/07/2018. At that point he had not started the medication yet. Dr Boyce had a fairly lengthy discussion with him regarding treatment options. He ultimately decided on antiandrogen therapy with bicalutamide 150 mg daily. His other medical illnesses include GERD, degenerative arthritis, and glaucoma. He has a history of smoking 2 packs of cigarettes daily for 20 years. He quit smoking 35 years ago. INTERIM HISTORY: He was seen for a follow-up visit on 08/17/2018. He was tolerating the bicalutamide well, and his PSA level had decreased to 2.97 ng/mL. As of his follow-up visit on 11/07/2018 there was further decrease in the PSA to 0.75 ng/mL. He continued treatment with bicalutamide 150 mg daily. However, in December he opted to stop treatment due to worsening symptoms, mainlly pain and swelling in his breasts. At his followup visit on 02/07/2019 his PSA had increased to 2.95 ng/mL. He then restarted the bicalutamide. At his followup visit on 05/10/2019 his PSA was up to 6.06 ng/mL, and as of 06/21/2019 it was up to 17.92 ng/mL. At that time he was still very reluctant to begin on standard androgen deprivation therapy, preferring to continue bicalutamide 150 mg daily. As of 08/02/2019 the PSA had increased to 54.03, and at that point he did agree to begin the process of a insurance coverage for treatment with Zoladex in combination with enzalutamide. Mr Case did have Zoladex injection at 10.8 mg on September 04, 2019. He states that he began the Xtandi approximately 10 days ago. Mr. Case is here today for follow-up after starting the Xtandi and for concerns of persistent, worsening constipation. He states he is taking Xtandi 4-40 mg tablets daily. He states he has been having significant constipation. He had some prior to starting the Xtandi but has worsened since starting the Xtandi. He states he is taking 2-3 stool softeners daily, he is using psyllium seeds and is drinking prune juice and eating prunes. He states he has had a small amount of bowel movement 2 to 3 days ago but none since. He did resort to using an enema and states that he did get some results at that time but has still felt pretty uncomfortable abdomen cardona. He states when his constipation as is it currently is, he does not eat as well as normal. He has had no vomiting. He denies any nausea. He denies any fever or chills. He states other than the constipation he would feel really good. His ECOG is 1 Past Medical History: Gastroesophageal reflux disease Glaucoma Osteoarthritis Past Surgical History: Bilateral cataract excisions Dental implants Right inguinal hernia repair Tonsillectomy TRUSP/biopsy in 2019 Colonoscopy in 2012 Allergies: No Known Allergies. Medications: C 1000 1 Tablet (of 1000 mg) Oral daily CeleBREX 1 Capsule (of 200 mg) Oral daily PRN Cholecalciferol 1 Tablet (of 4000 Units) Oral daily Enzalutamide 160 mg (of 40 mg) Capsule Oral daily Flomax 1 (0.4 mg) Capsule Oral at bedtime Lucentis 1 Injectable q 12 weeks Lumigan 1 drop(s) (of 0.01 %) Solution Ophthalmic at bedtime Move Free [facility] Advance 1 Tablet Oral daily PreserVision AREDS 2 1 Capsule Oral daily salmom 1 Capsule daily SM Lutein 1 Capsule (of 20 mg) Oral daily Sudafed 1 Tablet (of 30 mg) Oral daily PRN Turmeric 1 - 2 Capsule Oral daily PRN Zoladex Subcutaneous ZyrTEC Allergy 1 Tablet (of 10 mg) Oral PRN Family History: Mr. Case's mother at age 49: scleroderma. Mr. Case's father at age 86: Alzheimer's disease. Mr. Case has 3 brothers: 2 alive, 1 . Mr. Case's first brother's prostate cancer. Another brother's colon cancer. He has 1 sister who is alive. Father with dementia at age 86. Mother with scleroderma at age 49. One brother had colon cancer and heart disease and at age 86. Another brother has been treated for prostate cancer. Social History: Mr. Case is and he is retired. Mr. Case quit smoking 35 years ago but had smoked 2.0 packs/day for 20 years. He is a former drinker who had consumed 7 drinks/day 2 days/week. He has a history of smoking 2 packs of cigarettes daily for 20 years. He quit smoking 35 years ago. He drinks 2 glasses of wine daily. Review Of Symptoms: Constitutional Denies fevers, chills, night sweats, excessive fatigue or weight loss. Appetite okay . Allergic/Immunologic No reactions. Eyes Denies significant visual changes. No diplopia. No amaurosis. ENMT Denies changes in hearing, sore throat, mouth sores, difficulty or changes in swallowing ability, and/or sinus drainage. Hematologic/Lymphatic Denies easy bruising or bleeding. The patient denies any tender or palpable lymph nodes. Respiratory Denies dyspnea on exertion, chest pain, cough or hemoptysis. Denies orthopnea. Cardiovascular Denies anginal chest pain, palpitations or orthopnea. Gastrointestinal Denies nausea, vomiting, diarrhea, GI bleeding. Denies change in stool color and heartburn or early satiety. Significant constipation-see above. Genitourinary (M) Denies hematuria, dysuria, increased frequency, urgency, hesitancy or incontinence. Musculoskeletal Denies joint pain, swelling or redness. No decreased range of motion. Integumentary Denies chronic rashes, inflammation, ulcerations or skin changes. Neurologic Denies headache, blurred vision, and no areas of focal weakness or numbness. Normal gait. No sensory problems. Psychiatric Denies insomnia, depression, kurtis or mood swings. Vital Signs: Performed on September 19, 2019 14:10 Height - 72.00 in Weight - 154.2 lbs (LOW) BSA - 1.91 sq.m BMI - 20.91 Temperature - 98.1 F (LOW) Pulse - 78 /min Respiration - 17 /min BP - 122/80 mm(hg) O2 Sat - 100 % Pain - 0,1 - No physically strenuous activity, but ambulatory and able to carry out light or sedentary work (e.g. office work, light house work). (ECOG) Physical Examination: Constitutional Alert, oriented, no acute distress. Skin pink, warm and dry. Head Normocephalic; atraumatic. Eyes Conjunctivae and sclerae are clear and without icterus. Pupils are reactive and equal. ENMT No oral exudates, ulcers, masses, thrush or mucositis. Oropharynx clear. Tongue normal. Neck Supple without masses or thyromegaly. No jugular venous distension. Respiratory Lungs are clear to auscultation without rhonchi or wheezing. Cardiovascular Regular rate and rhythm of heart without murmurs,clicks, gallops or rubs. Abdomen Non-tender, non-distended, no masses or ascites. Good bowel sounds noted in all quads. No guarding or rebound tenderness. No pulsatile masses. Back/Spine Non-tender to palpation. Extremities No visible deformities, no cyanosis, clubbing or edema. Musculoskeletal No tenderness or swelling, normal range of motion without obvious weakness. Integumentary No rashes or lesions. Neurologic No sensory or motor deficits, normal cerebellar function, normal gait. Psychiatric Alert and oriented times three. Coherent speech. Verbalizes understanding of our discussions today. Laboratory:Test performed on Sep 03, 2019 11:10 Sodium 132 mmol/L Testosterone, Total 1053.0 ng/dL Potassium 4.6 mmol/L Chloride 94 mmol/L CO2 26 mmol/L Anion Gap 16.6 BUN 15 mg/dL Creatinine 1.1 mg/dL Cr Clearance (Est) 56.14 mL/min Glucose 103 mg/dL Calcium 9.6 mg/dL Protein, Total 7.1 g/dL Albumin 4.3 g/dL Globulin 2.8 g/dL Bilirubin, Total 0.2 mg/dL ALT (SGPT) 15 U/L AST (SGOT) 26 U/L Alkaline Phosphatase 86 IU/L WBC 4.1 10 3/uL RBC 3.75 10 6/uL HGB 12.0 g/dL HCT 36.2 % MCV 96.5 fL MCH 32.0 pg MCHC 33.1 g/dL RDW 12.2 % Platelet Count 218 10 3/cmm MPV 10.4 fL Neutrophils 2.5 10 3/uL Lymphocytes 1.0 10 3/uL Monocytes 0.5 10 3/uL Eosinophils 0.1 10 3/uL Basophils 0.0 10 3/uL Neutrophil % 61.2 % Lymphocyte % 23.7 % Monocyte % 12.8 % Eosinophil % 1.4 % Basophils % 0.7 % PSA 61.38 ng/mL Impression: 1. Patient with Alex score 9 adenocarcinoma of the prostate. By clinical evaluation his disease was stage IV (T2c, N1, M1a) with CT evidence of retroperitoneal and bilateral iliac chain lymph node involvement. 2. There was also possible lytic bone involvementin the right ilium by CT scan. 3. He had bladder outlet obstructive symptoms, but those improved with tamsulosin. His other medical illnesses include: 4. GERD. 5. Degenerative arthritis. 6. Glaucoma. In July 2018 he began antiandrogen therapy with bicalutamide 150 mg daily. As of his follow-up visit on 11/07/2018 he had been tolerating it well. He had been showing a very good clinical response with his PSA level decreased to 0.75 ng/mL. However, in December he stopped the medication due to increasing swelling and tenderness in both breasts. As such, there has been an increase in his PSA level. As of his follow-up visit on 02/07/2019 his PSA level had increased to 2.95 ng/mL. He then restarted the bicalutamide at 150 mg daily. He has been able to tolerate it with acceptable toxicity, but his PSA level continued to increase. As of 05/10/2027 was up to 6.06 ng/mL and by 06/21/2019 it was up to 17.92 ng/mL. As of 08/02/2019 it had further increased to 54.03 ng/mL, and at that point he did agree to begin the process of getting insurance approval for androgen deprivation therapy with Zoladex in combination with enzalutamide. During that interval there has been further increase in the PSA level to 61.38 ng/mL. Mr. Case began androgen deprivation therapy with Zoladex 10.8 mg on September 04, 2019. He has stopped the bicalutamide. He has started enzalutamide (Xtandi) at 160 mg daily (this is four 40 mg tablets daily). He states he started it approximately 7-10 days ago. He now presents with concerns of significant constipation. Plan: 1. I have asked Mr. Case to hold his Xtandi for the next 3 to 4 days to see if we can get his bowels to moving more normally. 2. We have discussed increasing his stool softeners up to a max of 8 a day. I did encourage him to try senna S for stimulation of the bowel. We also discussed that he could try MiraLAX but once his bowels get moving we would like for him to stop that. He is aware that we could call in prescription lactulose but he wants to try these couple of things first. 3. If his bowels move well with just increasing his stool softeners and adding the senna S he may resume the Xtandi at 2 tablets daily for 2 to 3 days and increase to 3-day for 3 to 4 days and then 4 daily to see if this will help avoid the severe constipation that he is currently having. 4. Mr. Case has been instructed to contact me no later than Tuesday if he is not having relief with his current plan. 5. He is scheduled for follow-up lab on October 04 and follow-up visit on October 09, 2019 and December 04, 2019. 6. Mr. Case was encouraged to contact us in the interim again as instructed if his constipation is not getting relief or if he is having any other questions or problems. Signed By: Solange Mcfarlane-VIKTOR, AOCNP Hubert Boyce MD <<Signature on File>>
== END 2019-09-19 13:57 | disposition home or self-care (01) ==
LOC: ONCMED 13:59
PROVIDERS: PCP Internal Medicine; Visit Provider Nurse Practitioner
DX: C61 Malignant neoplasm of prostate (principal); C77.2 Secondary and unspecified malignant neoplasm of intra-abdominal lymph nodes; K59.03 Drug induced constipation; T38.6X5A Adverse effect of antigonadotrophins, antiestrogens, antiandrogens, not elsewhere classified, initial encounter; K21.9 Gastro-esophageal reflux disease without esophagitis; M19.90 Unspecified osteoarthritis, unspecified site; H40.9 Unspecified glaucoma; Z79.818 Long term (current) use of other agents affecting estrogen receptors and estrogen levels
CPT/HCPCS: 99214

== ENCOUNTER 2019-10-05 10:15 | Outpatient (CLI) | payer MEDICARE, SELFPAY ==
[2019-10-05 10:42] LABS: Basophils # 0.1 10^3/uL (0.0-0.1); Eosinophils # 0.1 10^3/uL (0.0-0.8); Hematocrit 36.2 % (42.0-52.0); Hemoglobin 11.6 g/dL (11.7-16.6); Lymphocytes # 1.3 10^3/uL (0.8-4.8); Lymphocytes % 24.6 %; Mean Corpuscular Volume 96.8 fL (80-94); Mean Platelet Volume 10.4 fL (7.4-10.4); Monocytes # 0.6 10^3/uL (0.2-0.9); Neutrophils # 3.1 10^3/uL (1.8-7.7); Neutrophils % 60.2 %; Nucleated Red Blood Cells % 0 %; Platelet Count 213 10^3/cmm (130-400); Red Blood Count 3.74 10^6/uL (4.1-5.3); Red Cell Distribution Width 12.5 % (12.1-15.1); White Blood Count 5.1 10^3/uL (4.0-10.0)
[2019-10-05 11:37] LABS: Prostate Specific Antigen 9.14 ng/mL (0-4)
== END 2019-10-05 10:16 | disposition home or self-care (01) ==
LOC: ONCMED 10:16
PROVIDERS: PCP Internal Medicine; Visit Provider Internal Medicine Medical Oncology
DX: C61 Malignant neoplasm of prostate (principal); C77.2 Secondary and unspecified malignant neoplasm of intra-abdominal lymph nodes
CPT/HCPCS: 36415; 84153; 85025

== ENCOUNTER 2019-10-09 12:45 | Outpatient (CLI) | payer MEDICARE, SELFPAY ==
--- NOTE | 2019-10-13 10:58 | ONC FU_ITS ---
Dr. Boyce Patient Follow-Up Note Patient: Matthew Case Unit #: [id number]: 1940 Dicatated By: Hubert Boyce M.D.Date of Visit:Oct 09, 2019 Onc Med Follow-up/Prog Note Chief Complaint: Prostate cancer. History of Present Illness: This is a 79 year-old man with [place] score 9 adenocarcinoma of the prostate. By clinical evaluation his disease is stage IV (T2c, N1, M1a). He had presented with a significantly elevated PSA level. By his account it was 28 ng/mL when Dr. Benedict checked it in March. As of 05/05/2018 it had increased to 66 ng/mL. He was referred to Dr. Copeland, and he underwent TRUSP/biopsy on 06/02/2018. Pathology showed prostatic adenocarcinoma involving both lobes. The Alex scores varied from 7 to 9. His staging CT abdomen/pelvis on 06/21/2018 showed heterogeneously enhancing enlarged prostate measuring 4.1 x 4.2 x 5.7 cm. There were enlarged periaortic, aortocaval, and retroperitoneal lymph nodes, the largest measuring 2.5-3 cm, consistent with metastatic disease. There were additional enlarged iliac chain lymph nodes, right geater than left, measuring 1.5-2.0 cm, also consistent with metastatic disease. Also noted was a lytic lesion within the right ilium measuring 2.1 cm, indeterminate. Additional smaller lytic lesions were noted in the ileum bilaterally. There were no sclerotic or blastic lesions identified. An hepatic cyst near the dome of the liver measured 2.7 cm. Bone scan on 06/21/2018 showed no evidence for metastatic disease. In particular, there was no uptake noted in the right ilium. He had seen Dr. Copeland for follow-up on 06/23/2018. Given the CT findings, he was recommended to begin androgen deprivation therapy, and he was given a prescription for bicalutamide 50 mg daily. I had seen him initially on 07/07/2018. At that point he had not started the medication yet. I had a fairly lengthy discussion with him regarding treatment options. He ultimately decided on antiandrogen therapy with bicalutamide 150 mg daily. His other medical illnesses include GERD, degenerative arthritis, and glaucoma. He has a history of smoking 2 packs of cigarettes daily for 20 years. He quit smoking 35 years ago. INTERIM HISTORY: He was seen for a follow-up visit on 08/17/2018. He was tolerating the bicalutamide well, and his PSA level had decreased to 2.97 ng/mL. As of his follow-up visit on 11/07/2018 there was further decrease in the PSA to 0.75 ng/mL. He continued treatment with bicalutamide 150 mg daily. However, in December he opted to stop treatment due to worsening symptoms, mainlly pain and swelling in his breasts. At his followup visit on 02/07/2019 his PSA had increased to 2.95 ng/mL. He then restarted the bicalutamide. At his followup visit on 05/10/2019 his PSA was up to 6.06 ng/mL, and as of 06/21/2019 it was up to 17.92 ng/mL. At that time he was still very reluctant to begin on standard androgen deprivation therapy, preferring to continue bicalutamide 150 mg daily. As of 08/02/2019 the PSA had increased to 54.03, and at that point he did agree to begin treatment with Zoladex in combination with enzalutamide. He received his initial infusion of Zoladex on 09/04/2019. He began enzalutamide at 160 mg daily on 09/11/2019. He is seen for a scheduled visit. He indicates that he had developed constipation after starting the enzalutamide. He initially was not able to manage it adequately with senna/docusate, but bowel function has been better lately with MiraLAX. He did stop his enzalutamide for for 5 days, but then restarted it at 120 mg daily. His energy is still pretty good, though he does have some fatigue. His ECOG score is 1. He has good appetite. He has not had fever. He is having some hot flashes and night sweating. He has no shortness of breath, cough, or chest pain. He reports having occasional nausea. His acid reflux is managed adequately with Pepcid. He has some urinary frequency and urgency. Recently he has had a little bit of pain at the base of his spine. He has no other joint or bone pain. He has no focal neurologic symptoms. Medications: C 1000 1 Tablet (of 1000 mg) Oral daily, CeleBREX 1 Capsule (of 200 mg) Oral daily PRN, Cholecalciferol 1 Tablet (of 4000 Units) Oral daily, Enzalutamide 160 mg (of 40 mg) Capsule Oral daily, Flomax 1 (0.4 mg) Capsule Oral at bedtime, Lucentis 1 Injectable q 12 weeks, Lumigan 1 drop(s) (of 0.01 %) Solution Ophthalmic at bedtime, Move Free [employer] [facility] Advance 1 Tablet Oral daily, PreserVision AREDS 2 1 Capsule Oral daily, salmom 1 Capsule daily, SM Lutein 1 Capsule (of 20 mg) Oral daily, Sudafed 1 Tablet (of 30 mg) Oral daily PRN, Turmeric 1 - 2 Capsule Oral daily PRN, Zoladex Subcutaneous, ZyrTEC Allergy 1 Tablet (of 10 mg) Oral PRN Allergies: No Known Allergies. Review of Systems: Constitutional - He feels pretty good generally. He does have some fatigue. His appetite is good and weight is stable. No fever. He does have some hot flashes and night sweating. ECOG score is 1, ENMT - He has seasonal allergies. This is well managed with over the counter medications. No mouth sores. No sore throat or difficulty swallowing, Hematologic/Lymphatic - No abnormal bruising or bleeding, Respiratory - No shortness of breath. No cough. No pleuritic pain or hemoptysis, Cardiovascular - No angina pain. No palpitations, Gastrointestinal - He has nausea or vomiting. He had occasional heartburn that is adequately managed with Tums. No diarrhea or constipation. No blood in the stool or black stools, Genitourinary (M) - No dysuria or hematuria. He has urinary frequency with urgency. No incontinence, Musculoskeletal - He has some pain in his back today, Integumentary - No skin complications, Neurologic - He has only rare headache. No dizziness. No numbness or tingling. No other focal neurologic symptoms, Psychiatric - No anxiety or depression. No insomnia. Vital Signs: Performed on Oct 09, 2019 13:08 Height - 72.00 in Weight - 152.6 lbs (LOW) BSA - 1.90 sq.m BMI - 20.70 Temperature - 98.0 F (LOW) Pulse - 83 /min Respiration - 18 /min BP - 95/67 mm(hg) O2 Sat - 99 % Pain - 2 Physical Examination: Constitutional - He looks pretty good generally, Eyes - Sclerae nonicteric. Conjunctivae clear, ENMT - No lesions noted in the oral cavity, Hematologic/Lymphatic - No cervical, clavicular, or axillary adenopathy, Respiratory - Lungs are clear with good air movement bilaterally, Cardiovascular - Heart rhythm is regular. There is no murmur, gallop, or rub noted, Abdomen - Soft. Liver and spleen are not enlarged. There is no abdominal mass or ascites noted and there is no inguinal adenopathy, Extremities - No edema, Neurologic - No focal neurologic deficits noted. Lab/Imaging: Test performed on October 05, 2019 10:22 WBC 5.1 10 3/uL RBC 3.74 10 6/uL HGB 11.6 g/dL HCT 36.2 % MCV 96.8 fL MCH 31.0 pg MCHC 32.0 g/dL RDW 12.5 % Platelet Count 213 10 3/cmm MPV 10.4 fL Neutrophils 3.1 10 3/uL Lymphocytes 1.3 10 3/uL Monocytes 0.6 10 3/uL Eosinophils 0.1 10 3/uL Basophils 0.1 10 3/uL Neutrophil % 60.2 % Lymphocyte % 24.6 % Monocyte % 12.0 % Eosinophil % 2.0 % Basophils % 1.0 % PSA 9.14 ng/mL Impression: 1. Patient with Alex score 9 adenocarcinoma of the prostate. By clinical evaluation his disease was stage IV (T2c, N1, M1a) with CT evidence of retroperitoneal and bilateral iliac chain lymph node involvement. 2. There was also possible lytic bone involvementin the right ilium by CT scan. 3. He had bladder outlet obstructive symptoms, but those improved with tamsulosin. His other medical illnesses include: 4. GERD. 5. Degenerative arthritis. 6. Glaucoma. In July 2018 he began antiandrogen therapy with bicalutamide 150 mg daily. As of his follow-up visit on 11/07/2018 he had been tolerating it well. He had been showing a very good clinical response with his PSA level decreased to 0.75 ng/mL. However, in December he stopped the medication due to increasing swelling and tenderness in both breasts. As such, there has been an increase in his PSA level. As of his follow-up visit on 02/07/2019 his PSA level had increased to 2.95 ng/mL. He then restarted the bicalutamide at 150 mg daily. He has been able to tolerate it with acceptable toxicity, but his PSA level continued to increase. As of 08/02/2019 his PSA had increased to 54.03 ng/mL. At that point he did agree to begin treatment with Zoladex in combination with enzalutamide. He received his initial injection of Zoladex on 09/04/2019, and he began enzalutamide at 160 mg daily on 09/11/2019. He did develop constipation initially after starting the enzalutamide, but that is now being managed adequately with MiraLAX. He also is having some fatigue. As expected, he has some hot flashes and night sweating. Overall, he is still doing pretty well clinically, and there has been a significant decline in the PSA level. Plan: He will continue enzalutamide with the dosage reduced to 120 mg daily. He will be scheduled for a follow-up visit in 1 month, at which time he will be due for his second dose of Zoladex. Signed By: Hubert Boyce M.D. <<Signature on File>>
== END 2019-10-09 12:46 | disposition home or self-care (01) ==
LOC: ONCMED 12:47
PROVIDERS: PCP Internal Medicine; Visit Provider Internal Medicine Medical Oncology
DX: C61 Malignant neoplasm of prostate (principal); C77.8 Secondary and unspecified malignant neoplasm of lymph nodes of multiple regions; R53.83 Other fatigue; K21.9 Gastro-esophageal reflux disease without esophagitis; M19.90 Unspecified osteoarthritis, unspecified site; H40.9 Unspecified glaucoma; Z79.818 Long term (current) use of other agents affecting estrogen receptors and estrogen levels; Z79.899 Other long term (current) drug therapy
CPT/HCPCS: 99214

== ENCOUNTER 2019-11-06 10:46 | Outpatient (CLI) | payer MEDICARE, SELFPAY ==
[2019-11-06 11:45] LABS: Prostate Specific Antigen Scr 1.72 ng/mL (0-4)
== END 2019-11-06 10:47 | disposition home or self-care (01) ==
LOC: ONCMED 10:51
PROVIDERS: PCP Internal Medicine; Visit Provider Internal Medicine Medical Oncology
DX: C61 Malignant neoplasm of prostate (principal); C77.2 Secondary and unspecified malignant neoplasm of intra-abdominal lymph nodes
CPT/HCPCS: 36415; 84153; G0103

== ENCOUNTER 2019-11-08 15:57 | Outpatient (CLI) | payer MEDICARE, SELFPAY ==
--- NOTE | 2019-11-11 09:09 | ONC FU_ITS ---
Dr. Boyce Patient Follow-Up Note Patient: Matthew Case Unit #: [id number]: 1940 Dicatated By: Hubert Boyce M.D.Date of Visit:Nov 08, 2019 Onc Med Follow-up/Prog Note Chief Complaint: Prostate cancer. History of Present Illness: This is a 79 year-old man with [place] score 9 adenocarcinoma of the prostate. By clinical evaluation his disease is stage IV (T2c, N1, M1a). He had presented with a significantly elevated PSA level. By his account it was 28 ng/mL when Dr. Benedict checked it in March. As of 05/05/2018 it had increased to 66 ng/mL. He was referred to Dr. Copeland, and he underwent TRUSP/biopsy on 06/02/2018. Pathology showed prostatic adenocarcinoma involving both lobes. The Alex scores varied from 7 to 9. His staging CT abdomen/pelvis on 06/21/2018 showed heterogeneously enhancing enlarged prostate measuring 4.1 x 4.2 x 5.7 cm. There were enlarged periaortic, aortocaval, and retroperitoneal lymph nodes, the largest measuring 2.5-3 cm, consistent with metastatic disease. There were additional enlarged iliac chain lymph nodes, right geater than left, measuring 1.5-2.0 cm, also consistent with metastatic disease. Also noted was a lytic lesion within the right ilium measuring 2.1 cm, indeterminate. Additional smaller lytic lesions were noted in the ileum bilaterally. There were no sclerotic or blastic lesions identified. An hepatic cyst near the dome of the liver measured 2.7 cm. Bone scan on 06/21/2018 showed no evidence for metastatic disease. In particular, there was no uptake noted in the right ilium. He had seen Dr. Copeland for follow-up on 06/23/2018. Given the CT findings, he was recommended to begin androgen deprivation therapy, and he was given a prescription for bicalutamide 50 mg daily. I had seen him initially on 07/07/2018. At that point he had not started the medication yet. I had a fairly lengthy discussion with him regarding treatment options. He ultimately decided on antiandrogen therapy with bicalutamide 150 mg daily. His other medical illnesses include GERD, degenerative arthritis, and glaucoma. He has a history of smoking 2 packs of cigarettes daily for 20 years. He quit smoking 35 years ago. INTERIM HISTORY: He was seen for a follow-up visit on 08/17/2018. He was tolerating the bicalutamide well, and his PSA level had decreased to 2.97 ng/mL. As of his follow-up visit on 11/07/2018 there was further decrease in the PSA to 0.75 ng/mL. He continued treatment with bicalutamide 150 mg daily. However, in December he opted to stop treatment due to worsening symptoms, mainlly pain and swelling in his breasts. At his followup visit on 02/07/2019 his PSA had increased to 2.95 ng/mL. He then restarted the bicalutamide. At his followup visit on 05/10/2019 his PSA was up to 6.06 ng/mL, and as of 06/21/2019 it was up to 17.92 ng/mL. At that time he was still very reluctant to begin on standard androgen deprivation therapy, preferring to continue bicalutamide 150 mg daily. As of 08/02/2019 the PSA had increased to 54.03, and at that point he did agree to begin treatment with Zoladex in combination with enzalutamide. He received his initial infusion of Zoladex on 09/04/2019. He began enzalutamide at 160 mg daily on 09/11/2019. I had seen him for a follow-up visit on 10/09/2019. He was having significant fatigue with the enzalutamide, but his PSA level had decreased to 9.14 ng/mL. He continued treatment, but with the dosage reduced to 120 mg daily. He is seen for a scheduled visit. He has been feeling pretty good generally. He has been having hot flashes, and he has been sweating a lot, but with the dosage of enzalutamide reduced 220 mg daily he has better energy and he has normal activity. His appetite is good and his weight is stable. He has had no fever. He has some allergy related sinus symptoms. He has no shortness of breath, cough, or chest pain. He still has nausea occasionally. He has ongoing problems with constipation, but he is managing it adequately taking MiraLAX every other day. He has urinary frequency and nocturia. He has a little joint pain and he says his back hurts a little bit. He says the right side of his head has been sore to touch. He has no focal neurologic symptoms. Medications: C 1000 1 Tablet (of 1000 mg) Oral daily, CeleBREX 1 Capsule (of 200 mg) Oral daily PRN, Cholecalciferol 1 Tablet (of 4000 Units) Oral daily, Enzalutamide 160 mg (of 40 mg) Capsule Oral daily, Flomax 1 (0.4 mg) Capsule Oral at bedtime, Lucentis 1 Injectable q 12 weeks, Lumigan 1 drop(s) (of 0.01 %) Solution Ophthalmic at bedtime, Move Free [employer] [facility] Advance 1 Tablet Oral daily, PreserVision AREDS 2 1 Capsule Oral daily, salmom 1 Capsule daily, SM Lutein 1 Capsule (of 20 mg) Oral daily, Sudafed 1 Tablet (of 30 mg) Oral daily PRN, Turmeric 1 - 2 Capsule Oral daily PRN, Zoladex Subcutaneous, ZyrTEC Allergy 1 Tablet (of 10 mg) Oral PRN Allergies: No Known Allergies. Review of Systems: Constitutional - He has good energy, and he has normal activity. Appetite is good and weight is stable. No fever. He is having hot flashes and sweating. ECOG score is 0, ENMT - He has allergy related sinus symptoms. No mouth sores. No sore throat or difficulty swallowing, Hematologic/Lymphatic - No abnormal bruising or bleeding, Respiratory - No shortness of breath. No cough. No pleuritic pain or hemoptysis, Cardiovascular - No angina pain. No palpitations, Gastrointestinal - He has occasional nausea but no vomiting. No heartburn or acid reflux. He has constipation, which he is managed adequately taking Miralax every other day. No blood in the stool or black stools, Genitourinary (M) - No dysuria or hematuria. He has urinary frequency and nocturia. No urgency or incontinence, Musculoskeletal - He has some joint pain, and he has a little pain in his back, Integumentary - No skin rash, Neurologic - No actual headache, but the right side of his head is sore to touch. No dizziness. No numbness or tingling. No other focal neurologic symptoms, Psychiatric - No anxiety or depression. He has difficulty sleeping. Vital Signs: Performed on Nov 08, 2019 16:05 Height - 72.00 in Weight - 168.2 lbs (HIGH) BSA - 1.98 sq.m BMI - 22.81 Temperature - 97.3 F (LOW) Pulse - 82 /min Respiration - 18 /min BP - 126/82 mm(hg) O2 Sat - 100 % Pain - 1 Physical Examination: Constitutional - He looks pretty good generally, Eyes - Sclerae nonicteric. Conjunctivae clear, ENMT - No lesions noted in the oral cavity, Hematologic/Lymphatic - No cervical, clavicular, or axillary adenopathy, Respiratory - Lungs are clear with good air movement bilaterally, Cardiovascular - Heart rhythm is regular. There is no murmur, gallop, or rub noted, Abdomen - Soft. Liver and spleen are not enlarged. There is no abdominal mass or ascites noted and there is no inguinal adenopathy, Extremities - No edema, Neurologic - No focal neurologic deficits noted. Lab/Imaging: His PSA on 11/06/2019 had decreased to 1.72 ng/mL. Impression: 1. Patient with Alex score 9 adenocarcinoma of the prostate. By clinical evaluation his disease was stage IV (T2c, N1, M1a) with CT evidence of retroperitoneal and bilateral iliac chain lymph node involvement. 2. There was also possible lytic bone involvementin the right ilium by CT scan. 3. He had bladder outlet obstructive symptoms, but those improved with tamsulosin. His other medical illnesses include: 4. GERD. 5. Degenerative arthritis. 6. Glaucoma. In July 2018 he began antiandrogen therapy with bicalutamide 150 mg daily. As of his follow-up visit on 11/07/2018 he had been tolerating it well. He had been showing a very good clinical response with his PSA level decreased to 0.75 ng/mL. However, in December he stopped the medication due to increasing swelling and tenderness in both breasts. As such, there has been an increase in his PSA level. As of his follow-up visit on 02/07/2019 his PSA level had increased to 2.95 ng/mL. He then restarted the bicalutamide at 150 mg daily. He has been able to tolerate it with acceptable toxicity, but his PSA level continued to increase. As of 08/02/2019 his PSA had increased to 54.03 ng/mL. At that point he did agree to begin treatment with Zoladex in combination with enzalutamide. He received his initial injection of Zoladex on 09/04/2019, and he began enzalutamide at 160 mg daily on 09/11/2019. He developed constipation initially after starting the enzalutamide, but that has been managed adequately with MiraLAX. As expected, he also had hot flashes and sweating, and he initially was having significant fatigue. The fatigue has improved with a dose reduction to 120 mg daily. Overall, he has been doing pretty well clinically, and he has had a significant decline in his PSA level. Plan: He will continue enzalutamide at 120 mg daily. He will be scheduled for a follow-up visit in 1 month, at which time he will be due for his second dose of Zoladex. Signed By: Hubert Boyce M.D. <<Signature on File>>
== END 2019-11-08 15:58 | disposition home or self-care (01) ==
LOC: ONCMED 16:00
PROVIDERS: PCP Internal Medicine; Visit Provider Internal Medicine Medical Oncology
DX: C61 Malignant neoplasm of prostate (principal); C77.2 Secondary and unspecified malignant neoplasm of intra-abdominal lymph nodes; M19.90 Unspecified osteoarthritis, unspecified site; H40.9 Unspecified glaucoma; K21.9 Gastro-esophageal reflux disease without esophagitis
CPT/HCPCS: 99214

== ENCOUNTER 2019-12-05 15:32 | Outpatient (CLI) | payer MEDICARE, SELFPAY ==
[2019-12-05 16:10] LABS: Basophils % 0.6 %; Eosinophils # 0.1 10^3/uL (0.0-0.8); Eosinophils % 1.8 %; Hematocrit 35.2 % (42.0-52.0); Hemoglobin 11.3 g/dL (11.7-16.6); Lymphocytes # 1.4 10^3/uL (0.8-4.8); Lymphocytes % 28.7 %; Mean Corpuscular HGB Conc 32.1 g/dL (30.0-36.0); Mean Corpuscular Hemoglobin 31.6 pg (28.0-34.0); Mean Corpuscular Volume 98.3 fL (80-94); Mean Platelet Volume 10.6 fL (7.4-10.4); Monocytes # 0.7 10^3/uL (0.2-0.9); Monocytes % 12.9 %; Neutrophils # 2.77 10^3/uL (1.8-7.7); Neutrophils % 55.2 %; Nucleated Red Blood Cells % 0 %; Platelet Count 215 10^3/cmm (130-400); Red Blood Count 3.58 10^6/uL (4.1-5.3); Red Cell Distribution Width 12.9 % (12.1-15.1)
[2019-12-05 16:38] LABS: Prostate Specific Antigen 0.908 ng/mL (0-4)
[2019-12-05 16:52] LABS: Alanine Aminotransferase 18 U/L (0-41); Albumin Level 4.4 g/dL (3.5-5.2); Alkaline Phosphatase 79 IU/L (40-130); Anion Gap 13.6 (5-19); Aspartate Amino Transferase 22 U/L (0-40); Blood Urea Nitrogen 14 mg/dL (8-23); Calcium 9.2 mg/dL (8.5-10.5); Carbon Dioxide 28 mmol/L (22-29); Chloride 103 mmol/L (98-107); Globulin 2.4 g/dL (1.3-4.6); Glucose 93 mg/dL (65-115); Osmolality Calculated 286 mOsm/kg (285-295); Potassium 4.6 mmol/L (3.5-5.1); Sodium 140 mmol/L (136-145); Total Bilirubin 0.2 mg/dL (0.15-1.2); Total Protein 6.8 g/dL (6.6-8.7)
[2019-12-05 18:26] LABS: Testosterone Total 2.5 ng/dL (193-740)
== END 2019-12-05 15:33 | disposition home or self-care (01) ==
LOC: ONCMED 15:35
PROVIDERS: PCP Internal Medicine; Visit Provider Internal Medicine Medical Oncology
DX: C61 Malignant neoplasm of prostate (principal); C77.2 Secondary and unspecified malignant neoplasm of intra-abdominal lymph nodes; K21.9 Gastro-esophageal reflux disease without esophagitis; M19.90 Unspecified osteoarthritis, unspecified site; H40.9 Unspecified glaucoma
CPT/HCPCS: 80053; 84153; 84403; 85025

== ENCOUNTER 2019-12-10 14:33 | Outpatient (CLI) | payer MEDICARE, SELFPAY ==
[2019-12-10] MEDS: lidocaine 1% INJ 20 mL INJECTION (15:29)
[2019-12-10] MEDS: goserelin acetate 10.8 mg Implant IM (15:40)
--- NOTE | 2019-12-14 23:57 | ONC FU_ITS ---
Jul[facility]apata Patient Note Patient: Matthew Case Unit #: [id number]: [id number] Dictated By: Solange McfarlaneDate of Visit: Dec 10, 2019 Onc MED Follow-Up/Prog Note Chief Complaint: Prostate cancer. 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 By clinical evaluation his disease is stage IV (T2c, N1, M1a). He had presented with a significantly elevated PSA level. By his account it was 28 ng/mL when Dr. Benedict checked it in March. As of 05/05/2018 it had increased to 66 ng/mL. He was referred to Dr. Copeland, and he underwent TRUSP/biopsy on 06/02/2018. Pathology showed prostatic adenocarcinoma involving both lobes. The Alex scores varied from 7 to 9. His staging CT abdomen/pelvis on 06/21/2018 showed heterogeneously enhancing enlarged prostate measuring 4.1 x 4.2 x 5.7 cm. There were enlarged periaortic, aortocaval, and retroperitoneal lymph nodes, the largest measuring 2.5-3 cm, consistent with metastatic disease. There were additional enlarged iliac chain lymph nodes, right geater than left, measuring 1.5-2.0 cm, also consistent with metastatic disease. Also noted was a lytic lesion within the right ilium measuring 2.1 cm, indeterminate. Additional smaller lytic lesions were noted in the ileum bilaterally. There were no sclerotic or blastic lesions identified. An hepatic cyst near the dome of the liver measured 2.7 cm. Bone scan on 06/21/2018 showed no evidence for metastatic disease. In particular, there was no uptake noted in the right ilium. He had seen Dr. Copeland for follow-up on 06/23/2018. Given the CT findings, he was recommended to begin androgen deprivation therapy, and he was given a prescription for bicalutamide [address] Boyce had seen him initially on 07/07/2018. At that point he had not started the medication yet. Dr Boyce had a fairly lengthy discussion with him regarding treatment options. He ultimately decided on antiandrogen therapy with bicalutamide 150 mg daily. His other medical illnesses include GERD, degenerative arthritis, and glaucoma. He has a history of smoking 2 packs of cigarettes daily for 20 years. He quit smoking 35 years ago. INTERIM HISTORY: He was seen for a follow-up visit on 08/17/2018. He was tolerating the bicalutamide well, and his PSA level had decreased to 2.97 ng/mL. As of his follow-up visit on 11/07/2018 there was further decrease in the PSA to 0.75 ng/mL. He continued treatment with bicalutamide 150 mg daily. However, in December he opted to stop treatment due to worsening symptoms, mainlly pain and swelling in his breasts. At his followup visit on 02/07/2019 his PSA had increased to 2.95 ng/mL. He then restarted the bicalutamide. At his followup visit on 05/10/2019 his PSA was up to 6.06 ng/mL, and as of 06/21/2019 it was up to 17.92 ng/mL. At that time he was still very reluctant to begin on standard androgen deprivation therapy, preferring to continue bicalutamide 150 mg daily. As of 08/02/2019 the PSA had increased to 54.03, and at that point he did agree to begin treatment with Zoladex in combination with enzalutamide. He received his initial infusion of Zoladex on 09/04/2019. He began enzalutamide at 160 mg daily on 09/11/2019. Dr Boyce had seen him for a follow-up visit on 10/09/2019. He was having significant fatigue with the enzalutamide, but his PSA level had decreased to 9.14 ng/mL. He continued treatment, but with the dosage reduced to 120 mg daily. He was seen for a scheduled visit in November 2019. He had been feeling pretty good generally. He had been having hot flashes, and he had been sweating a lot, but with the dosage of enzalutamide reduced 120 mg daily he had better energy and he had normal activity. Mr. Case is here today for follow-up. He clarifies that he is taking the enzalutamide at 2 tablets daily which is 80 mg. He states he reduced it after his last visit here. He states overall he feels that he is doing well. He states that he has been having sweating but is not interested in trying Effexor at this time. He has had slight gynecomastia but states is not a problem at this point. He will watch this and let us know if he feels it is worsening. He states he has had no further breast tenderness. He states his appetite is good. He denies any pain. He states he has had some itching on his back and has some moles that are that he cannot watch and would like referral to the whipper. We will set this up for him to see dermatology. He denies any shortness of breath orthopnea. He denies any nausea or vomiting. He is had no diarrhea or constipation. He states his face is puffy at times but that is not bothersome. He remains very active. He states his energy is good. His ECOG is 0. Past Medical History: Gastroesophageal reflux disease Glaucoma Osteoarthritis Past Surgical History: Bilateral cataract excisions Dental implants Right inguinal hernia repair Tonsillectomy TRUSP/biopsy in 2019 Colonoscopy in 2012 Allergies: No Known Allergies. Medications: C 1000 1 Tablet (of 1000 mg) Oral daily CeleBREX 1 Capsule (of 200 mg) Oral daily PRN Cholecalciferol 1 Tablet (of 4000 Units) Oral daily Enzalutamide 2 Capsule (of 40 mg) Oral daily Flomax 1 (0.4 mg) Capsule Oral at bedtime Krill Oil Capsule Oral Lucentis 1 Injectable q 12 weeks Lumigan 1 drop(s) (of 0.01 %) Solution Ophthalmic at bedtime Move Free [employer] Advance 1 Tablet Oral daily PreserVision AREDS 2 1 Capsule Oral daily Sudafed 1 Tablet (of 30 mg) Oral daily PRN Turmeric 1 - 2 Capsule Oral daily PRN Zoladex Subcutaneous ZyrTEC Allergy 1 Tablet (of 10 mg) Oral PRN Family History: Mr. Case's mother at age 49: scleroderma. Mr. Case's father at age 86: Alzheimer's disease. Mr. Case has 3 brothers: 2 alive, 1 . Mr. Case's first brother's prostate cancer. Another brother's colon cancer. He has 1 sister who is alive. Father with dementia at age 86. Mother with scleroderma at age 49. One brother had colon cancer and heart disease and at age 86. Another brother has been treated for prostate cancer. Social History: Mr. Case is and he is retired. Mr. Case quit smoking 35 years ago but had smoked 2.0 packs/day for 20 years. He is a former drinker who had consumed 7 drinks/day 2 days/week. He has a history of smoking 2 packs of cigarettes daily for 20 years. He quit smoking 35 years ago. He drinks 2 glasses of wine daily. Review Of Symptoms: Constitutional Denies fevers, chills, night sweats, excessive fatigue or weight loss. Appetite okay . Allergic/Immunologic No reactions. Eyes Denies significant visual changes. No diplopia. No amaurosis. ENMT Denies changes in hearing, sore throat, mouth sores, difficulty or changes in swallowing ability, and/or sinus drainage. Hematologic/Lymphatic Denies easy bruising or bleeding. The patient denies any tender or palpable lymph nodes. Respiratory Denies dyspnea on exertion, chest pain, cough or hemoptysis. Denies orthopnea. Cardiovascular Denies anginal chest pain, palpitations or orthopnea. Gastrointestinal Denies nausea, vomiting, diarrhea, GI bleeding. Denies change in stool color and heartburn or early satiety. Chronic constipation-see above. Genitourinary (M) Denies hematuria, dysuria, increased frequency, urgency, hesitancy or incontinence. Musculoskeletal Denies joint pain, swelling or redness. No decreased range of motion. Integumentary Denies chronic rashes, inflammation, ulcerations or skin changes. Neurologic Denies headache, blurred vision, and no areas of focal weakness or numbness. Normal gait. No sensory problems. Psychiatric Denies insomnia, depression, kurtis or mood swings. Vital Signs: Performed on Dec 10, 2019 14:49 Height - 72.00 in Weight - 164.2 lbs (LOW) BSA - 1.96 sq.m BMI - 22.27 Temperature - 98.6 F Pulse - 80 /min Respiration - 17 /min BP - 128/75 mm(hg) O2 Sat - 99 % Pain - 0,0 - Fully active, able to carry on all predisease activities without restrictions. (ECOG) Physical Examination: Constitutional Alert, oriented, no acute distress. Skin pink, warm and dry. Head Normocephalic; atraumatic. Eyes Conjunctivae and sclerae are clear and without icterus. Pupils are reactive and equal. Neck Supple without masses or thyromegaly. No jugular venous distension. Respiratory Lungs are clear to auscultation without rhonchi or wheezing. Cardiovascular Regular rate and rhythm of heart without murmurs,clicks, gallops or rubs. Abdomen Non-tender, non-distended, no masses or ascites. Good bowel sounds noted in all quads. No guarding or rebound tenderness. No pulsatile masses. Back/Spine Non-tender to palpation. Extremities No visible deformities, no cyanosis, clubbing or edema. Musculoskeletal No tenderness or swelling, normal range of motion without obvious weakness. Integumentary No rashes or lesions. Neurologic No sensory or motor deficits, normal cerebellar function, normal gait. Psychiatric Alert and oriented times three. Coherent speech. Verbalizes understanding of our discussions today. Laboratory:Test performed on Dec 05, 2019 15:40 Sodium 140 mmol/L Testosterone, Total 2.5 ng/dL Potassium 4.6 mmol/L Chloride 103 mmol/L CO2 28 mmol/L Anion Gap 13.6 BUN 14 mg/dL Creatinine 1.1 mg/dL Cr Clearance (Est) 60.6900 mL/min Glucose 93 mg/dL Calcium 9.2 mg/dL Protein, Total 6.8 g/dL Albumin 4.4 g/dL Globulin 2.4 g/dL Bilirubin, Total 0.2 mg/dL ALT (SGPT) 18 U/L AST (SGOT) 22 U/L Alkaline Phosphatase 79 IU/L WBC 5.0 10 3/uL RBC 3.58 10 6/uL HGB 11.3 g/dL HCT 35.2 % MCV 98.3 fL MCH 31.6 pg MCHC 32.1 g/dL RDW 12.9 % Platelet Count 215 10 3/cmm MPV 10.6 fL Neutrophils 2.77 10 3/uL Lymphocytes 1.4 10 3/uL Monocytes 0.7 10 3/uL Eosinophils 0.1 10 3/uL Basophils 0.0 10 3/uL Neutrophil % 55.2 % Lymphocyte % 28.7 % Monocyte % 12.9 % Eosinophil % 1.8 % Basophils % 0.6 % NRBC % 0 % PSA 0.908 ng/mL Impression: 1. 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 By clinical evaluation his disease was stage IV (T2c, N1, M1a) with CT evidence of retroperitoneal and bilateral iliac chain lymph node involvement. 2. There was also possible lytic bone involvementin the right ilium by CT scan. 3. He had bladder outlet obstructive symptoms, but those improved with tamsulosin. His other medical illnesses include: 4. GERD. 5. Degenerative arthritis. 6. Glaucoma. In July 2018 he began antiandrogen therapy with bicalutamide 150 mg daily. As of his follow-up visit on 11/07/2018 he had been tolerating it well. He had been showing a very good clinical response with his PSA level decreased to 0.75 ng/mL. However, in December he stopped the medication due to increasing swelling and tenderness in both breasts. As such, there has been an increase in his PSA level. As of his follow-up visit on 02/07/2019 his PSA level had increased to 2.95 ng/mL. He then restarted the bicalutamide at 150 mg daily. He has been able to tolerate it with acceptable toxicity, but his PSA level continued to increase. As of 08/02/2019 his PSA had increased to 54.03 ng/mL. At that point he did agree to begin treatment with Zoladex in combination with enzalutamide. He received his initial injection of Zoladex on 09/04/2019, and he began enzalutamide at 160 mg daily on 09/11/2019. He developed constipation initially after starting the enzalutamide, but that has been managed adequately with MiraLAX. As expected, he also had hot flashes and sweating, and he initially was having significant fatigue. The fatigue has improved with a dose reduction to 120 mg daily. on 12/10/2019, Mr Case stated that he has been taking 80 mg (2 tablets not 3) of the Xtandi since his last visit. Overall, he has been doing pretty well clinically, and he has had a significant decline in his PSA level. Plan: 1. Continue enzalutamide (Xtandi) at 80 mg po daily. 2. Continue Zoladex 10.8 mg-he is due today. 3. He states he would like to see whipper for multiple moles on his back. He states he cannot monitor them obviously as they are on his back. We [place] this [place] with [place] [facility] [place] 4. Labs from December 05, 2019 were reviewed in detail and discussed with Mr. Case and a copy was given to him. CBC is 5.0, hemoglobin 11.3, platelets 215,000 ANC is 2700. Creatinine 1.1 LFTs are normal his PSA is 0.91. 5. He will continue his bowel regimen with 2 stool softeners and laxatives twice a day as needed for constipation. 6. We will plan to see him back in 6 weeks with CBC CMP PSA. He is tolerating the enzalutamide at 80 mg well. And his PSA is remaining low. It has improved from 61.4 on September 03 2019-0.91 today. 7. Mr. Case was instructed to contact us in interim should questions or problems arise. Signed By: Solange Mcfarlane-, AOP Hubert Boyce MD <<Signature on File>>
== END 2019-12-10 14:34 | disposition home or self-care (01) ==
LOC: ONCMED 14:39
PROVIDERS: PCP Internal Medicine; Visit Provider Nurse Practitioner
DX: C61 Malignant neoplasm of prostate (principal); C77.2 Secondary and unspecified malignant neoplasm of intra-abdominal lymph nodes; K21.9 Gastro-esophageal reflux disease without esophagitis; M19.90 Unspecified osteoarthritis, unspecified site; H40.9 Unspecified glaucoma; N32.0 Bladder-neck obstruction; Z79.899 Other long term (current) drug therapy; Z79.818 Long term (current) use of other agents affecting estrogen receptors and estrogen levels; Z87.891 Personal history of nicotine dependence
CPT/HCPCS: 96372; 96402; 99214; J9202

== ENCOUNTER 2020-01-22 14:55 | Outpatient (CLI) | payer MEDICARE, SELFPAY ==
[2020-01-22 15:30] LABS: Basophils % 0.5 %; Eosinophils # 0.1 10^3/uL (0.0-0.8); Eosinophils % 1.1 %; Hematocrit 38.8 % (42.0-52.0); Hemoglobin 12.6 g/dL (11.7-16.6); Lymphocytes # 1.5 10^3/uL (0.8-4.8); Lymphocytes % 20.5 %; Mean Corpuscular HGB Conc 32.5 g/dL (30.0-36.0); Mean Corpuscular Hemoglobin 31.7 pg (28.0-34.0); Mean Corpuscular Volume 97.5 fL (80-94); Mean Platelet Volume 10.9 fL (7.4-10.4); Monocytes # 0.7 10^3/uL (0.2-0.9); Monocytes % 9.8 %; Neutrophils # 5.08 10^3/uL (1.8-7.7); Neutrophils % 67.8 %; Nucleated Red Blood Cells % 0 %; Platelet Count 204 10^3/cmm (130-400); Red Blood Count 3.98 10^6/uL (4.1-5.3); Red Cell Distribution Width 12.5 % (12.1-15.1); White Blood Count 7.5 10^3/uL (4.0-10.0)
[2020-01-22 15:53] LABS: Alanine Aminotransferase 18 U/L (0-41); Albumin Level 4.4 g/dL (3.5-5.2); Alkaline Phosphatase 79 IU/L (40-130); Anion Gap 15.1 (5-19); Aspartate Amino Transferase 21 U/L (0-40); Blood Urea Nitrogen 17 mg/dL (8-23); Calcium 8.9 mg/dL (8.5-10.5); Carbon Dioxide 27 mmol/L (22-29); Chloride 97 mmol/L (98-107); Globulin 2.9 g/dL (1.3-4.6); Glucose 99 mg/dL (65-115); Osmolality Calculated 274 mOsm/kg (285-295); Potassium 5.1 mmol/L (3.5-5.1); Sodium 134 mmol/L (136-145); Total Bilirubin 0.2 mg/dL (0.15-1.2); Total Protein 7.3 g/dL (6.6-8.7)
[2020-01-22 18:37] LABS: Prostate Specific Antigen 0.601 ng/mL (0-4)
== END 2020-01-22 14:56 | disposition home or self-care (01) ==
LOC: ONCMED 15:00
PROVIDERS: PCP Internal Medicine; Visit Provider Nurse Practitioner
DX: C61 Malignant neoplasm of prostate (principal); C77.2 Secondary and unspecified malignant neoplasm of intra-abdominal lymph nodes; Z51.81 Encounter for therapeutic drug level monitoring; Z79.899 Other long term (current) drug therapy
CPT/HCPCS: 80053; 84153; 85025

== ENCOUNTER 2020-01-24 05:55 | Outpatient (CLI) | payer MEDICARE, SELFPAY ==
--- NOTE | 2020-01-27 09:56 | ONC FU_ITS ---
Dr. Boyce Patient Follow-Up Note Patient: Matthew Case Unit #: [id number]: [id number] Dicatated By: Hubert Boyce M.D.Date of Visit:Jan 24, 2020 Onc Med Follow-up/Prog Note Chief Complaint: Prostate cancer. History of Present Illness: This is a 79 year-old man with Screven score 9 adenocarcinoma of the prostate. By clinical evaluation his disease is stage IV (T2c, N1, M1a). He had presented with a significantly elevated PSA level. By his account it was 28 ng/mL when Dr. Benedict checked it in March. As of 05/05/2018 it had increased to 66 ng/mL. He was referred to Dr. Copeland, and he underwent TRUSP/biopsy on 06/02/2018. Pathology showed prostatic adenocarcinoma involving both lobes. The Alex scores varied from 7 to 9. His staging CT abdomen/pelvis on 06/21/2018 showed heterogeneously enhancing enlarged prostate measuring 4.1 x 4.2 x 5.7 cm. There were enlarged periaortic, aortocaval, and retroperitoneal lymph nodes, the largest measuring 2.5-3 cm, consistent with metastatic disease. There were additional enlarged iliac chain lymph nodes, right geater than left, measuring 1.5-2.0 cm, also consistent with metastatic disease. Also noted was a lytic lesion within the right ilium measuring 2.1 cm, indeterminate. Additional smaller lytic lesions were noted in the ileum bilaterally. There were no sclerotic or blastic lesions identified. An hepatic cyst near the dome of the liver measured 2.7 cm. Bone scan on 06/21/2018 showed no evidence for metastatic disease. In particular, there was no uptake noted in the right ilium. He had seen Dr. Copeland for follow-up on 06/23/2018. Given the CT findings, he was recommended to begin androgen deprivation therapy, and he was given a prescription for bicalutamide 50 mg daily. I had seen him initially on 07/07/2018. At that point he had not started the medication yet. I had a fairly lengthy discussion with him regarding treatment options. He ultimately decided on antiandrogen therapy with bicalutamide 150 mg daily. His other medical illnesses include GERD, degenerative arthritis, and glaucoma. He has a history of smoking 2 packs of cigarettes daily for 20 years. He quit smoking 35 years ago. INTERIM HISTORY: He was seen for a follow-up visit on 08/17/2018. He was tolerating the bicalutamide well, and his PSA level had decreased to 2.97 ng/mL. As of his follow-up visit on 11/07/2018 there was further decrease in the PSA to 0.75 ng/mL. He continued treatment with bicalutamide 150 mg daily. However, in December he opted to stop treatment due to worsening symptoms, mainlly pain and swelling in his breasts. At his followup visit on 02/07/2019 his PSA had increased to 2.95 ng/mL. He then restarted the bicalutamide. At his followup visit on 05/10/2019 his PSA was up to 6.06 ng/mL, and as of 06/21/2019 it was up to 17.92 ng/mL. At that time he was still very reluctant to begin on standard androgen deprivation therapy, preferring to continue bicalutamide 150 mg daily. As of 08/02/2019 the PSA had increased to 54.03, and at that point he did agree to begin treatment with Zoladex in combination with enzalutamide. He received his initial infusion of Zoladex on 09/04/2019. He began enzalutamide at 160 mg daily on 09/11/2019. I had seen him for a follow-up visit on 10/09/2019. He was having significant fatigue with the enzalutamide, but his PSA level had decreased to 9.14 ng/mL. He continued treatment, but with the dosage reduced to 120 mg daily. As of 11/06/2019 the PSA had decreased to 1.72 ng/mL on 12/05/2019 it had further decreased to 0.908 ng/mL. At that point he had further decreased the enzalutamide dosage to 80 mg daily due to worsening fatigue. He is seen for a scheduled visit. He has been feeling pretty good generally. He says his energy is good. He has normal activity. ECOG score is 0. Appetite also is good. He has not had fever or night sweats, but he still has lots of hot flashes. He has no shortness of breath, cough, or chest pain. He occasionally has had nausea, but none recently. Bowel function has been adequate with senna/docusate. He has frequent urination. He does have some back pain with activity. He has no other joint or bone pain. He has no focal neurologic symptoms. Medications: C 1000 1 Tablet (of 1000 mg) Oral daily, CeleBREX 1 Capsule (of 200 mg) Oral daily PRN, Cholecalciferol 1 Tablet (of 4000 Units) Oral daily, Enzalutamide 2 Capsule (of 40 mg) Oral daily, Flomax 1 (0.4 mg) Capsule Oral at bedtime, Krill Oil Capsule Oral, Lucentis 1 Injectable q 12 weeks, Lumigan 1 drop(s) (of 0.01 %) Solution Ophthalmic at bedtime, Move Free [facility] Advance 1 Tablet Oral daily, PreserVision AREDS 2 1 Capsule Oral daily, Sudafed 1 Tablet (of 30 mg) Oral daily PRN, Turmeric 1 - 2 Capsule Oral daily PRN, Zoladex Subcutaneous, ZyrTEC Allergy 1 Tablet (of 10 mg) Oral PRN Allergies: No Known Allergies. Review of Systems: Constitutional - He has good energy and activity tolerance. Appetite is good and weight is stable. No fever or night sweats. He is having lots of hot flashes. ECOG score is 0, ENMT - He has nasal congestion. No mouth sores. No sore throat or difficulty swallowing, Hematologic/Lymphatic - No abnormal bruising or bleeding, Respiratory - No shortness of breath. No cough. No pleuritic pain or hemoptysis, Cardiovascular - No angina pain. No palpitations, Gastrointestinal - He has had occasional nausea, but none lately. No heartburn or acid reflux. His constipation is adequately managed with senna/docusate. No blood in the stool or black stools, Genitourinary (M) - No dysuria or hematuria. He has urinary frequency. No urgency or incontinence, Musculoskeletal - He has some back pain with activity, Integumentary - No skin rash, Neurologic - No headache or dizziness. No numbness or tingling. No other focal neurologic symptoms, Psychiatric - No anxiety or depression. No insomnia. Vital Signs: Performed on Jan 24, 2020 12:49 Height - 72.00 in Weight - 169.2 lbs (HIGH) BSA - 1.98 sq.m BMI - 22.95 Temperature - 97.5 F (LOW) Pulse - 78 /min Respiration - 18 /min BP - 117/72 mm(hg) O2 Sat - 99 % Pain - 1 Physical Examination: Constitutional - He looks pretty good generally, Eyes - Sclerae nonicteric. Conjunctivae clear, ENMT - No lesions noted in the oral cavity, Hematologic/Lymphatic - No cervical, clavicular, or axillary adenopathy, Respiratory - Lungs are clear with good air movement bilaterally, Cardiovascular - Heart rhythm is regular. There is no murmur, gallop, or rub noted, Abdomen - Soft. Liver and spleen are not enlarged. There is no abdominal mass or ascites noted and there is no inguinal adenopathy, Extremities - No edema, Integumentary - He has extensive seborrheic keratoses, particularly on the back. There is a more prominent lesion on the left arm just above the elbow, a complement of which has more of a wart-like appearance, Neurologic - No focal neurologic deficits noted. Lab/Imaging: CBC shows hemoglobin 12.6 g, white blood cell count 7500, and platelet count 204,000. Comprehensive metabolic profile is unremarkable except for mildly elevated creatinine at 1.4 mg/dL. The PSA level is down to 0.601 ng/mL. Impression: 1. Patient with Screven score 9 adenocarcinoma of the prostate. By clinical evaluation his disease was stage IV (T2c, N1, M1a) with CT evidence of retroperitoneal and bilateral iliac chain lymph node involvement. 2. There was also possible lytic bone involvementin the right ilium by CT scan. 3. He had bladder outlet obstructive symptoms, but those improved with tamsulosin. His other medical illnesses include: 4. GERD. 5. Degenerative arthritis. 6. Glaucoma. In July 2018 he began antiandrogen therapy with bicalutamide 150 mg daily. As of his follow-up visit on 11/07/2018 he had been tolerating it well. He had been showing a very good clinical response with his PSA level decreased to 0.75 ng/mL. However, in December he stopped the medication due to increasing swelling and tenderness in both breasts. As such, there has been an increase in his PSA level. As of his follow-up visit on 02/07/2019 his PSA level had increased to 2.95 ng/mL. He then restarted the bicalutamide at 150 mg daily. He has been able to tolerate it with acceptable toxicity, but his PSA level continued to increase. As of 08/02/2019 his PSA had increased to 54.03 ng/mL. At that point he did agree to begin treatment with Zoladex in combination with enzalutamide. He received his initial injection of Zoladex on 09/04/2019, and he began enzalutamide at 160 mg daily on 09/11/2019. He developed constipation initially after starting the enzalutamide, but that is now being managed adequately with senna/docusate. During follow-up he has been showing a very good response by PSA level. He has had some additional side effects with the enzalutamide, mainly fatigue and hot flashes. The fatigue has been significant enough to necessitate dose reductions. He is currently tolerating it at 80 mg daily. Plan: He will continue enzalutamide at 80 mg daily. He will be scheduled for a follow-up visit in 6 weeks, at which time he will be due for his next dose of Zoladex. In the meantime, I will schedule appointment with a manager business operations to check his skin lesions. These all have a benign appearance, but some of them are irritating to him. Signed By: Hubert Boyce M.D. <<Signature on File>>
== END 2020-01-24 05:56 | disposition home or self-care (01) ==
LOC: ONCMED 05:57
PROVIDERS: PCP Internal Medicine; Visit Provider Internal Medicine Medical Oncology
DX: C61 Malignant neoplasm of prostate (principal); C77.2 Secondary and unspecified malignant neoplasm of intra-abdominal lymph nodes; K21.9 Gastro-esophageal reflux disease without esophagitis; M19.90 Unspecified osteoarthritis, unspecified site; H40.9 Unspecified glaucoma; Z79.818 Long term (current) use of other agents affecting estrogen receptors and estrogen levels
CPT/HCPCS: 99214

== ENCOUNTER 2020-03-10 15:00 | Outpatient (CLI) | payer MEDICARE, SELFPAY ==
[2020-03-10 15:36] LABS: Basophils % 0.5 %; Eosinophils # 0.1 10^3/uL (0.0-0.8); Eosinophils % 1.5 %; Hematocrit 36.4 % (42.0-52.0); Hemoglobin 11.9 g/dL (11.7-16.6); Lymphocytes # 1.7 10^3/uL (0.8-4.8); Lymphocytes % 28.5 %; Mean Corpuscular HGB Conc 32.7 g/dL (30.0-36.0); Mean Corpuscular Hemoglobin 31.1 pg (28.0-34.0); Mean Platelet Volume 11.1 fL (7.4-10.4); Monocytes # 0.7 10^3/uL (0.2-0.9); Monocytes % 11.3 %; Nucleated Red Blood Cells % 0 %; Platelet Count 199 10^3/cmm (130-400); Red Blood Count 3.83 10^6/uL (4.1-5.3); Red Cell Distribution Width 12.6 % (12.1-15.1); White Blood Count 5.9 10^3/uL (4.0-10.0)
[2020-03-10 16:05] LABS: Prostate Specific Antigen 0.328 ng/mL (0-4)
[2020-03-10 16:16] LABS: Alanine Aminotransferase 16 U/L (0-41); Albumin Level 4.2 g/dL (3.5-5.2); Alkaline Phosphatase 89 IU/L (40-130); Anion Gap 14.4 (5-19); Aspartate Amino Transferase 20 U/L (0-40); Blood Urea Nitrogen 17 mg/dL (8-23); Calcium 9.3 mg/dL (8.5-10.5); Carbon Dioxide 29 mmol/L (22-29); Chloride 100 mmol/L (98-107); Globulin 2.6 g/dL (1.3-4.6); Glucose 123 mg/dL (65-115); Osmolality Calculated 291 mOsm/kg (285-295); Potassium 4.4 mmol/L (3.5-5.1); Sodium 139 mmol/L (136-145); Total Bilirubin 0.2 mg/dL (0.15-1.2); Total Protein 6.8 g/dL (6.6-8.7)
== END 2020-03-10 15:01 | disposition home or self-care (01) ==
LOC: ONCMED 15:04
PROVIDERS: PCP Internal Medicine; Visit Provider Internal Medicine Medical Oncology
DX: C61 Malignant neoplasm of prostate (principal); C77.2 Secondary and unspecified malignant neoplasm of intra-abdominal lymph nodes
CPT/HCPCS: 36415; 80053; 84153; 85025

== ENCOUNTER 2020-03-11 15:26 | Outpatient (CLI) | payer MEDICARE, SELFPAY ==
[2020-03-11] MEDS: lidocaine 1% INJ 20 mL INJECTION (16:04)
[2020-03-11] MEDS: goserelin acetate 10.8 mg Implant IM (16:15)
--- NOTE | 2020-03-12 07:55 | ONC FU_ITS ---
Dr. Boyce Patient Follow-Up Note Patient: Matthew Case Unit #: [id number]: 1940 Dicatated By: Hubert Boyce M.D.Date of Visit:Mar 11, 2020 Onc Med Follow-up/Prog Note Chief Complaint: Prostate cancer. History of Present Illness: This is a 80 year-old man with [place] score 9 adenocarcinoma of the prostate. By clinical evaluation his disease is stage IV (T2c, N1, M1a). He had presented with a significantly elevated PSA level. By his account it was 28 ng/mL when Dr. Benedict checked it in March. As of 05/05/2018 it had increased to 66 ng/mL. He was referred to Dr. Copeland, and he underwent TRUSP/biopsy on 06/02/2018. Pathology showed prostatic adenocarcinoma involving both lobes. The Alex scores varied from 7 to 9. His staging CT abdomen/pelvis on 06/21/2018 showed heterogeneously enhancing enlarged prostate measuring 4.1 x 4.2 x 5.7 cm. There were enlarged periaortic, aortocaval, and retroperitoneal lymph nodes, the largest measuring 2.5-3 cm, consistent with metastatic disease. There were additional enlarged iliac chain lymph nodes, right geater than left, measuring 1.5-2.0 cm, also consistent with metastatic disease. Also noted was a lytic lesion within the right ilium measuring 2.1 cm, indeterminate. Additional smaller lytic lesions were noted in the ileum bilaterally. There were no sclerotic or blastic lesions identified. An hepatic cyst near the dome of the liver measured 2.7 cm. Bone scan on 06/21/2018 showed no evidence for metastatic disease. In particular, there was no uptake noted in the right ilium. He had seen Dr. Copeland for follow-up on 06/23/2018. Given the CT findings, he was recommended to begin androgen deprivation therapy, and he was given a prescription for bicalutamide 50 mg daily. I had seen him initially on 07/07/2018. At that point he had not started the medication yet. I had a fairly lengthy discussion with him regarding treatment options. He ultimately decided on antiandrogen therapy with bicalutamide 150 mg daily. His other medical illnesses include GERD, degenerative arthritis, and glaucoma. He has a history of smoking 2 packs of cigarettes daily for 20 years. He quit smoking 35 years ago. INTERIM HISTORY: He was seen for a follow-up visit on 08/17/2018. He was tolerating the bicalutamide well, and his PSA level had decreased to 2.97 ng/mL. As of his follow-up visit on 11/07/2018 there was further decrease in the PSA to 0.75 ng/mL. He continued treatment with bicalutamide 150 mg daily. However, in December he opted to stop treatment due to worsening symptoms, mainlly pain and swelling in his breasts. At his followup visit on 02/07/2019 his PSA had increased to 2.95 ng/mL. He then restarted the bicalutamide. At his followup visit on 05/10/2019 his PSA was up to 6.06 ng/mL, and as of 06/21/2019 it was up to 17.92 ng/mL. At that time he was still very reluctant to begin on standard androgen deprivation therapy, preferring to continue bicalutamide 150 mg daily. As of 08/02/2019 the PSA had increased to 54.03, and at that point he did agree to begin treatment with Zoladex in combination with enzalutamide. He received his initial infusion of Zoladex on 09/04/2019. He began enzalutamide at 160 mg daily on 09/11/2019. I had seen him for a follow-up visit on 10/09/2019. He was having significant fatigue with the enzalutamide, but his PSA level had decreased to 9.14 ng/mL. He continued treatment, but with the dosage reduced to 120 mg daily. As of 11/06/2019 the PSA had decreased to 1.72 ng/mL on 12/05/2019 it had further decreased to 0.908 ng/mL. At that point he had further decreased the enzalutamide dosage to 80 mg daily due to worsening fatigue. During further follow-up he was able to tolerate the enzalutamide at the reduced dosage, and there was a continued decline in his PSA level. He is seen for a scheduled visit. He has been feeling pretty good generally. Energy has been okay. He has normal activity. ECOG score is 0. His appetite is good. He has not had fever. He does have a lot of hot flashes and sweating. He has no shortness of breath, cough, or chest pain. He has occasional nausea. He has ongoing problems with constipation, but it is managed adequately with senna/docusate along with MiraLAX as needed. He has urinary frequency and nocturia. He has a little back pain and he has some stiffness in his hands, attributable to gardening. He does not complain of headache or dizziness. He has no focal neurologic symptoms. Medications: C 1000 1 Tablet (of 1000 mg) Oral daily, CeleBREX 1 Capsule (of 200 mg) Oral daily PRN, Cholecalciferol 1 Tablet (of 4000 Units) Oral daily, Enzalutamide 2 Capsule (of 40 mg) Oral daily, Flomax 1 (0.4 mg) Capsule Oral at bedtime, Krill Oil Capsule Oral, Lucentis 1 Injectable q 12 weeks, Lumigan 1 drop(s) (of 0.01 %) Solution Ophthalmic at bedtime, Move Free [facility] Advance 1 Tablet Oral daily, PreserVision AREDS 2 1 Capsule Oral daily, Sudafed 1 Tablet (of 30 mg) Oral daily PRN, Turmeric 1 - 2 Capsule Oral daily PRN, Zoladex Subcutaneous, ZyrTEC Allergy 1 Tablet (of 10 mg) Oral PRN Allergies: No Known Allergies. Review of Systems: Constitutional - His energy has been okay. He has normal activity. Appetite is good. He has not had fever. He does have a lot of hot flashes and sweating. ECOG score is 0, ENMT - No sinus congestion/drainage. No mouth sores. No sore throat or difficulty swallowing, Hematologic/Lymphatic - No abnormal bruising or bleeding, Respiratory - No shortness of breath. No cough. No pleuritic pain or hemoptysis, Cardiovascular - No angina pain. No palpitations, Gastrointestinal - He occasionally has nausea. No heartburn or acid reflux. He has constipation, but bowel function remains adequate with senna/docusate along with MiraLAX as needed. No blood in the stool or black stools, Genitourinary (M) - No dysuria or hematuria. He has urinary frequency and nocturia. No urgency or incontinence, Musculoskeletal - He has had a little back pain. He occasionally has stiffness in his hands. This he attributes to activity, Integumentary - No skin rash, Neurologic - No headache or dizziness. No numbness or tingling. No other focal neurologic symptoms, Psychiatric - No anxiety or depression. He does not sleep well at night. Vital Signs: Performed on Mar 11, 2020 15:40 Height - 72.00 in Weight - 170.6 lbs (HIGH) BSA - 1.99 sq.m BMI - 23.14 Temperature - 98.3 F (LOW) Pulse - 73 /min Respiration - 20 /min BP - 129/67 mm(hg) O2 Sat - 98 % Pain - 0 Physical Examination: Constitutional - He looks pretty good generally, Eyes - Sclerae nonicteric. Conjunctivae clear, ENMT - No lesions noted in the oral cavity, Hematologic/Lymphatic - No cervical, clavicular, or axillary adenopathy, Respiratory - Lungs are clear with good air movement bilaterally, Cardiovascular - Heart rhythm is regular. There is no murmur, gallop, or rub noted, Abdomen - Soft. Liver and spleen are not enlarged. There is no abdominal mass or ascites noted and there is no inguinal adenopathy, Extremities - No edema, Neurologic - No focal neurologic deficits noted. Lab/Imaging: CBC shows hemoglobin 11.9 g, white blood cell count 5900, and platelet count 199,000. Comprehensive metabolic profile shows renal function stable with creatinine 1.3 mg/dL. Liver enzymes are normal. There has been further decrease in the PSA level, now to 0.328 ng/mL. Impression: 1. Patient with [place] score 9 adenocarcinoma of the prostate. By clinical evaluation his disease was stage IV (T2c, N1, M1a) with CT evidence of retroperitoneal and bilateral iliac chain lymph node involvement. 2. There was also possible lytic bone involvementin the right ilium by CT scan. 3. He had bladder outlet obstructive symptoms, but those improved with tamsulosin. His other medical illnesses include: 4. GERD. 5. Degenerative arthritis. 6. Glaucoma. In July 2018 he began antiandrogen therapy with bicalutamide 150 mg daily. As of his follow-up visit on 11/07/2018 he had been tolerating it well. He had been showing a very good clinical response with his PSA level decreased to 0.75 ng/mL. However, in December he stopped the medication due to increasing swelling and tenderness in both breasts. As such, there has been an increase in his PSA level. As of his follow-up visit on 02/07/2019 his PSA level had increased to 2.95 ng/mL. He then restarted the bicalutamide at 150 mg daily. He has been able to tolerate it with acceptable toxicity, but his PSA level continued to increase. As of 08/02/2019 his PSA had increased to 54.03 ng/mL. At that point he did agree to begin treatment with Zoladex in combination with enzalutamide. He received his initial injection of Zoladex on 09/04/2019, and he began enzalutamide at 160 mg daily on 09/11/2019. He developed constipation initially after starting the enzalutamide, but that is now being managed adequately with senna/docusate. During follow-up he has been showing a very good response by PSA level. He has had some additional side effects with the enzalutamide, mainly fatigue and hot flashes. With the enzalutamide dosage reduced to 80 mg daily, he has been able to tolerate it with acceptable toxicity, and there has been further gradual decline in the PSA level. Plan: He will be given Zoladex 10.8 mg by subcutaneous injection and he will continue enzalutamide 80 mg daily. He will be scheduled for a follow-up visit in 3 months. He declines a flu shot. Signed By: Hubert Boyce M.D. <<Signature on File>>
== END 2020-03-11 15:27 | disposition home or self-care (01) ==
LOC: ONCMED 15:29
PROVIDERS: PCP Internal Medicine; Visit Provider Internal Medicine Medical Oncology
DX: C61 Malignant neoplasm of prostate (principal); C77.2 Secondary and unspecified malignant neoplasm of intra-abdominal lymph nodes; C79.51 Secondary malignant neoplasm of bone; N32.0 Bladder-neck obstruction; K21.9 Gastro-esophageal reflux disease without esophagitis; M19.90 Unspecified osteoarthritis, unspecified site; H40.9 Unspecified glaucoma; R97.20 Elevated prostate specific antigen [PSA]; Z79.899 Other long term (current) drug therapy; Z79.818 Long term (current) use of other agents affecting estrogen receptors and estrogen levels
CPT/HCPCS: 96372; 96402; 99214; J9202

== ENCOUNTER 2020-06-16 13:24 | Outpatient (CLI) | payer MEDICARE, SELFPAY ==
[2020-06-16 14:16] LABS: Basophils % 0.6 %; Eosinophils # 0.1 10^3/uL (0.0-0.8); Eosinophils % 1.6 %; Hematocrit 36.8 % (42.0-52.0); Hemoglobin 11.7 g/dL (11.7-16.6); Lymphocytes # 1.2 10^3/uL (0.8-4.8); Lymphocytes % 25.2 %; Mean Corpuscular HGB Conc 31.8 g/dL (30.0-36.0); Mean Corpuscular Volume 97.4 fL (80-94); Mean Platelet Volume 10.6 fL (7.4-10.4); Monocytes # 0.7 10^3/uL (0.2-0.9); Monocytes % 13.5 %; Neutrophils # 2.87 10^3/uL (1.8-7.7); Neutrophils % 58.9 %; Nucleated Red Blood Cells % 0 %; Platelet Count 229 10^3/cmm (130-400); Red Blood Count 3.78 10^6/uL (4.1-5.3); Red Cell Distribution Width 13.2 % (12.1-15.1); White Blood Count 4.9 10^3/uL (4.0-10.0)
[2020-06-16 14:45] LABS: Prostate Specific Antigen 0.135 ng/mL (0-4); Testosterone Total 2.5 ng/dL (193-740)
[2020-06-16 14:56] LABS: Alanine Aminotransferase 12 U/L (0-41); Alkaline Phosphatase 98 IU/L (40-130); Anion Gap 10.6 (5-19); Aspartate Amino Transferase 16 U/L (0-40); Blood Urea Nitrogen 16 mg/dL (8-23); Calcium 9.1 mg/dL (8.5-10.5); Carbon Dioxide 32 mmol/L (22-29); Chloride 103 mmol/L (98-107); Globulin 3.2 g/dL (1.3-4.6); Glucose 89 mg/dL (65-115); Osmolality Calculated 293 mOsm/kg (285-295); Potassium 4.6 mmol/L (3.5-5.1); Sodium 141 mmol/L (136-145); Total Bilirubin 0.2 mg/dL (0.15-1.2); Total Protein 7.2 g/dL (6.6-8.7)
== END 2020-06-16 13:25 | disposition home or self-care (01) ==
LOC: ONCMED 13:30
PROVIDERS: PCP Internal Medicine; Visit Provider Internal Medicine Medical Oncology
DX: C61 Malignant neoplasm of prostate (principal); C77.2 Secondary and unspecified malignant neoplasm of intra-abdominal lymph nodes
CPT/HCPCS: 80053; 84153; 84403; 85025

== ENCOUNTER 2020-06-17 05:56 | Outpatient (CLI) | payer MEDICARE, SELFPAY ==
[2020-06-17] MEDS: lidocaine 1% INJ 20 mL INJECTION (14:00)
[2020-06-17] MEDS: goserelin acetate 10.8 mg Implant IM (14:10)
--- NOTE | 2020-06-18 10:26 | ONC FU_ITS ---
Dr. Boyce Patient Follow-Up Note Patient: Matthew Case Unit #: [id number]: 1940 Dicatated By: Hubert Boyce M.D.Date of Visit:Jun 17, 2020 Onc Med Follow-up/Prog Note Chief Complaint: Prostate cancer. History of Present Illness: This is a 80 year-old man with [place] score 9 adenocarcinoma of the prostate. By clinical evaluation his disease is stage IV (T2c, N1, M1a). He had presented with a significantly elevated PSA level. By his account it was 28 ng/mL when Dr. Benedict checked it in March. As of 05/05/2018 it had increased to 66 ng/mL. He was referred to Dr. Copeland, and he underwent TRUSP/biopsy on 06/02/2018. Pathology showed prostatic adenocarcinoma involving both lobes. The Alex scores varied from 7 to 9. His staging CT abdomen/pelvis on 06/21/2018 showed heterogeneously enhancing enlarged prostate measuring 4.1 x 4.2 x 5.7 cm. There were enlarged periaortic, aortocaval, and retroperitoneal lymph nodes, the largest measuring 2.5-3 cm, consistent with metastatic disease. There were additional enlarged iliac chain lymph nodes, right geater than left, measuring 1.5-2.0 cm, also consistent with metastatic disease. Also noted was a lytic lesion within the right ilium measuring 2.1 cm, indeterminate. Additional smaller lytic lesions were noted in the ileum bilaterally. There were no sclerotic or blastic lesions identified. An hepatic cyst near the dome of the liver measured 2.7 cm. Bone scan on 06/21/2018 showed no evidence for metastatic disease. In particular, there was no uptake noted in the right ilium. He had seen Dr. Copeland for follow-up on 06/23/2018. Given the CT findings, he was recommended to begin androgen deprivation therapy, and he was given a prescription for bicalutamide 50 mg daily. I had seen him initially on 07/07/2018. At that point he had not started the medication yet. I had a fairly lengthy discussion with him regarding treatment options. He ultimately decided on antiandrogen therapy with bicalutamide 150 mg daily. His other medical illnesses include GERD, degenerative arthritis, and glaucoma. He has a history of smoking 2 packs of cigarettes daily for 20 years. He quit smoking 35 years ago. INTERIM HISTORY: He was seen for a follow-up visit on 08/17/2018. He was tolerating the bicalutamide well, and his PSA level had decreased to 2.97 ng/mL. As of his follow-up visit on 11/07/2018 there was further decrease in the PSA to 0.75 ng/mL. He continued treatment with bicalutamide 150 mg daily. However, in December he opted to stop treatment due to worsening symptoms, mainlly pain and swelling in his breasts. At his followup visit on 02/07/2019 his PSA had increased to 2.95 ng/mL. He then restarted the bicalutamide. At his followup visit on 05/10/2019 his PSA was up to 6.06 ng/mL, and as of 06/21/2019 it was up to 17.92 ng/mL. At that time he was still very reluctant to begin on standard androgen deprivation therapy, preferring to continue bicalutamide 150 mg daily. As of 08/02/2019 the PSA had increased to 54.03, and at that point he did agree to begin treatment with Zoladex in combination with enzalutamide. He received his initial infusion of Zoladex on 09/04/2019. He began enzalutamide at 160 mg daily on 09/11/2019. I had seen him for a follow-up visit on 10/09/2019. He was having significant fatigue with the enzalutamide, but his PSA level had decreased to 9.14 ng/mL. He continued treatment, but with the dosage reduced to 120 mg daily. As of 11/06/2019 the PSA had decreased to 1.72 ng/mL on 12/05/2019 it had further decreased to 0.908 ng/mL. At that point he had further decreased the enzalutamide dosage to 80 mg daily due to worsening fatigue. During further follow-up he was able to tolerate the enzalutamide at the reduced dosage, and there was a continued gradual decline in his PSA level. He is seen for a scheduled visit. He has been feeling pretty good generally, though he says his energy has been slacking off and he has not been as active. ECOG score is 1. He has good appetite. He has not had fever. He does have hot flashes and sweating, and he has developed an associated skin eruption in the axillary area on both sides. He is managing it with powder. He also complains that he has had persistent sinus congestion for the past 6 weeks. He has used [id number] nasal spray and he has had antibiotic therapy with no improvement. He sometimes has shortness of breath. He does not complain of cough and he has not been having chest pain. He occasionally has nausea. His acid reflux is managed adequately with medication. He has constipation, but bowel function has been adequate with a stool softener/laxative. He has urinary frequency and nocturia. He has had some pain in the left wrist. He has no other joint or bone pain. He does not complain of headache or dizziness. He has no focal neurologic symptoms. Medications: Benadryl Allergy 1 Tablet (of 25 mg) Oral daily, C 1000 1 Tablet (of 1000 mg) Oral daily, CeleBREX 1 Capsule (of 200 mg) Oral daily PRN, Cholecalciferol 1 Tablet (of 4000 Units) Oral daily, Enzalutamide 2 Capsule (of 40 mg) Oral daily, Flomax 1 (0.4 mg) Capsule Oral at bedtime, Krill Oil Capsule Oral, Lucentis 1 Injectable q 12 weeks, Lumigan 1 drop(s) (of 0.01 %) Solution Ophthalmic at bedtime, Move Free [facility] Advance 1 Tablet Oral daily, PreserVision AREDS 2 1 Capsule Oral daily, Turmeric 1 - 2 Capsule Oral daily PRN, Zoladex Subcutaneous Allergies: No Known Allergies. Vital Signs: Performed on Jun 17, 2020 13:14 Height - 72.00 in Weight - 170.6 lbs BSA - 1.99 sq.m BMI - 23.14 Temperature - 97.7 F (LOW) Pulse - 76 /min Respiration - 16 /min BP - 142/81 mm(hg) (HIGH) O2 Sat - 100 % Pain - 0 Physical Examination: Constitutional - He looks pretty good generally, Eyes - Sclerae nonicteric. Conjunctivae clear, ENMT - No lesions noted in the oral cavity, Hematologic/Lymphatic - No cervical, clavicular, or axillary adenopathy, Respiratory - Lungs are clear with good air movement bilaterally, Cardiovascular - Heart rhythm is regular. There is no murmur, gallop, or rub noted, Abdomen - Soft. Liver and spleen are not enlarged. There is no abdominal mass or ascites noted and there is no inguinal adenopathy, Extremities - No edema, Integumentary - There is a mild erythematous skin eruption in both axilla, Neurologic - No focal neurologic deficits noted. Lab/Imaging: CBC shows hemoglobin 11.7 g, white blood cell count 4900, and platelet count 229,000. Comprehensive metabolic profile is unremarkable. PSA has further decreased to 0.135 ng/mL. Problem List: 1. [place] score 9 adenocarcinoma of the prostate. By clinical evaluation his disease was stage IV (T2c, N1, M1a) with CT evidence of retroperitoneal and bilateral iliac chain lymph node involvement. There was also possible lytic bone involvementin the right ilium by CT scan. 2. He had bladder outlet obstructive symptoms, but those improved with tamsulosin. 3. GERD. 4. Degenerative arthritis. 5. Glaucoma. Problems Addressed with this Encounter and Plan: 1. [place] score 9 adenocarcinoma of the prostate. By clinical evaluation his disease was stage IV (T2c, N1, M1a) with CT evidence of retroperitoneal and bilateral iliac chain lymph node involvement. There was also possible lytic bone involvementin the right ilium by CT scan. His baseline PSA level was 66.71 ng/mL on 05/05/2018. In July 2018 he began antiandrogen therapy with bicalutamide, as he was opposed to undergoing standard androgen deprivation therapy. He did show a very good clinical response with PSA decreasing to 0.75 ng/mL. In December 2018 he had stopped treatment due to side effects. He restarted it in February 2019, but his PSA level continued to increase. As of 08/02/2019 his PSA level was back up to 54.03 ng/mL, and at that point he began androgen deprivation therapy with Zoladex in combination with enzalutamide 160 mg daily. During subsequent follow-up the enzalutamide was decreased to 80 mg daily, but he has been able to tolerate it at the reduced dosage, and he has had continued gradual decline in the PSA level. At this point he is having a little more fatigue but overall he appears to be doing well clinically with no evidence of progression of the prostate cancer. He will be given Zoladex 10.8 mg by subcutaneous injection and he will continue enzalutamide 80 mg daily. He will be scheduled for a follow-up visit in 3 months. 2. He has a skin eruption in both axilla. This appears to be associated with excessive sweating. He is getting some benefit applying a powder topically, but he has not been using it very consistently. He is instructed now to apply the powder twice a day on a regular basis. He also will be given a prescription for Elocon cream to apply once a day. 3. He has had persistent sinusitis symptoms. He will be given a prescription for Flonase nasal spray to use twice daily and for Claritin-D to take 1 tablet twice daily for 10 days. Signed By: Hubert Boyce M.D. <<Signature on File>>
== END 2020-06-17 05:57 | disposition home or self-care (01) ==
LOC: ONCMED 05:57
PROVIDERS: PCP Internal Medicine; Visit Provider Internal Medicine Medical Oncology
DX: C61 Malignant neoplasm of prostate (principal); C77.8 Secondary and unspecified malignant neoplasm of lymph nodes of multiple regions; R21 Rash and other nonspecific skin eruption; J32.9 Chronic sinusitis, unspecified; Z79.818 Long term (current) use of other agents affecting estrogen receptors and estrogen levels; Z79.899 Other long term (current) drug therapy; Z87.891 Personal history of nicotine dependence
CPT/HCPCS: 96372; 96402; 99214; J9202

== ENCOUNTER 2020-09-15 11:01 | Outpatient (CLI) | payer MEDICARE, SELFPAY ==
[2020-09-15 11:46] LABS: Basophils % 0.5 %; Eosinophils # 0.1 10^3/uL (0.0-0.8); Eosinophils % 1.1 %; Hematocrit 38.8 % (42.0-52.0); Hemoglobin 12.4 g/dL (11.7-16.6); Lymphocytes # 1.1 10^3/uL (0.8-4.8); Lymphocytes % 17.4 %; Mean Corpuscular Hemoglobin 30.9 pg (28.0-34.0); Mean Corpuscular Volume 96.8 fL (80-94); Mean Platelet Volume 10.8 fL (7.4-10.4); Monocytes # 0.6 10^3/uL (0.2-0.9); Monocytes % 9.2 %; Neutrophils # 4.35 10^3/uL (1.8-7.7); Neutrophils % 71.5 %; Nucleated Red Blood Cells % 0 %; Platelet Count 216 10^3/cmm (130-400); Red Blood Count 4.01 10^6/uL (4.1-5.3); Red Cell Distribution Width 12.7 % (12.1-15.1); White Blood Count 6.1 10^3/uL (4.0-10.0)
[2020-09-15 12:36] LABS: Alanine Aminotransferase 17 U/L (0-41); Albumin Level 4.2 g/dL (3.5-5.2); Alkaline Phosphatase 93 IU/L (40-130); Anion Gap 14.2 (5-19); Aspartate Amino Transferase 24 U/L (0-40); Blood Urea Nitrogen 15 mg/dL (8-23); Calcium 9.3 mg/dL (8.5-10.5); Carbon Dioxide 29 mmol/L (22-29); Chloride 100 mmol/L (98-107); Globulin 2.6 g/dL (1.3-4.6); Glucose 141 mg/dL (65-115); Osmolality Calculated 291 mOsm/kg (285-295); Potassium 4.2 mmol/L (3.5-5.1); Sodium 139 mmol/L (136-145); Total Bilirubin 0.3 mg/dL (0.15-1.2); Total Protein 6.8 g/dL (6.6-8.7)
[2020-09-15] MEDS: lidocaine 1% INJ 20 mL INJECTION (12:52)
[2020-09-15] MEDS: goserelin acetate 10.8 mg Implant SUBCUT (13:10)
[2020-09-15 13:12] LABS: Testosterone Total 2.5 ng/dL (193-740)
--- NOTE | 2020-09-19 08:59 | ONC FU_ITS ---
Dr. Boyce Patient Follow-Up Note Patient: Matthew Case Unit #: [id number]: [id number] Dicatated By: Hubert Boyce M.D.Date of Visit:September 15, 2020 Onc Med Follow-up/Prog Note Chief Complaint: Prostate cancer. History of Present Illness: This is a 80 year-old man with [place] score 9 adenocarcinoma of the prostate. By clinical evaluation his disease is stage IV (T2c, N1, M1a). He had presented with a significantly elevated PSA level. By his account it was 28 ng/mL when Dr. Benedict checked it in March. As of 05/05/2018 it had increased to 66 ng/mL. He was referred to Dr. Copeland, and he underwent TRUSP/biopsy on 06/02/2018. Pathology showed prostatic adenocarcinoma involving both lobes. The Alex scores varied from 7 to 9. His staging CT abdomen/pelvis on 06/21/2018 showed heterogeneously enhancing enlarged prostate measuring 4.1 x 4.2 x 5.7 cm. There were enlarged periaortic, aortocaval, and retroperitoneal lymph nodes, the largest measuring 2.5-3 cm, consistent with metastatic disease. There were additional enlarged iliac chain lymph nodes, right geater than left, measuring 1.5-2.0 cm, also consistent with metastatic disease. Also noted was a lytic lesion within the right ilium measuring 2.1 cm, indeterminate. Additional smaller lytic lesions were noted in the ileum bilaterally. There were no sclerotic or blastic lesions identified. An hepatic cyst near the dome of the liver measured 2.7 cm. Bone scan on 06/21/2018 showed no evidence for metastatic disease. In particular, there was no uptake noted in the right ilium. He had seen Dr. Copeland for follow-up on 06/23/2018. Given the CT findings, he was recommended to begin androgen deprivation therapy, and he was given a prescription for bicalutamide 50 mg daily. I had seen him initially on 07/07/2018. At that point he had not started the medication yet. I had a fairly lengthy discussion with him regarding treatment options. He ultimately decided on antiandrogen therapy with bicalutamide 150 mg daily. His other medical illnesses include GERD, degenerative arthritis, and glaucoma. He has a history of smoking 2 packs of cigarettes daily for 20 years. He quit smoking 35 years ago. INTERIM HISTORY: He was seen for a follow-up visit on 08/17/2018. He was tolerating the bicalutamide well, and his PSA level had decreased to 2.97 ng/mL. As of his follow-up visit on 11/07/2018 there was further decrease in the PSA to 0.75 ng/mL. He continued treatment with bicalutamide 150 mg daily. However, in December he opted to stop treatment due to worsening symptoms, mainlly pain and swelling in his breasts. At his followup visit on 02/07/2019 his PSA had increased to 2.95 ng/mL. He then restarted the bicalutamide. At his followup visit on 05/10/2019 his PSA was up to 6.06 ng/mL, and as of 06/21/2019 it was up to 17.92 ng/mL. At that time he was still very reluctant to begin on standard androgen deprivation therapy, preferring to continue bicalutamide 150 mg daily. As of 08/02/2019 the PSA had increased to 54.03, and at that point he did agree to begin treatment with Zoladex in combination with enzalutamide. He received his initial infusion of Zoladex on 09/04/2019. He began enzalutamide at 160 mg daily on 09/11/2019. I had seen him for a follow-up visit on 10/09/2019. He was having significant fatigue with the enzalutamide, but his PSA level had decreased to 9.14 ng/mL. He continued treatment, but with the dosage reduced to 120 mg daily. As of 11/06/2019 the PSA had decreased to 1.72 ng/mL on 12/05/2019 it had further decreased to 0.908 ng/mL. At that point he had further decreased the enzalutamide dosage to 80 mg daily due to worsening fatigue. During further follow-up he was able to tolerate the enzalutamide at the reduced dosage, and there was a continued gradual decline in his PSA level. He is seen for a scheduled visit. He has been feeling pretty good generally, though he does have some fatigue, and he says he has been spending more time lying down. He is still doing light work. ECOG score is 1. He has good appetite. He has not had fever. He does have frequent hot flashes and sweating. He has chronic sinus symptoms. He does not complain of cough and he has not been having shortness of breath or chest pain. His stomach occasionally feels queasy. He has had some ongoing problems with constipation, though bowel function lately has been pretty good. He has frequent urination. He has been having pain in his right shoulder. He gets worse with activity. He has also been having pain in his left wrist. He has no other joint or bone pain. He has just occasional headache. He has no focal neurologic symptoms. Medications: Benadryl Allergy 1 Tablet (of 25 mg) Oral daily, C 1000 1 Tablet (of 1000 mg) Oral daily, CeleBREX 1 Capsule (of 200 mg) Oral daily PRN, Cholecalciferol 1 Tablet (of 4000 Units) Oral daily, Enzalutamide 2 Capsule (of 40 mg) Oral daily, Flomax 1 (0.4 mg) Capsule Oral at bedtime, Krill Oil Capsule Oral, Lucentis 1 Injectable q 12 weeks, Lumigan 1 drop(s) (of 0.01 %) Solution Ophthalmic at bedtime, Move Free [facility] Advance 1 Tablet Oral daily, PreserVision AREDS 2 1 Capsule Oral daily, Turmeric 1 - 2 Capsule Oral daily PRN, Zoladex Subcutaneous Allergies: No Known Allergies. Vital Signs: Performed on September 15, 2020 13:40 Height - 72.00 in Weight - 172 lbs (HIGH) BSA - 2.00 sq.m BMI - 23.33 Temperature - 98.8 F Pulse - 75 /min Respiration - 18 /min BP - 129/77 mm(hg) O2 Sat - 95 % (LOW) Pain - 0 Fatigue - 0 Physical Examination: Constitutional - He looks pretty good generally, Eyes - Sclerae nonicteric. Conjunctivae clear, ENMT - No lesions noted in the oral cavity, Hematologic/Lymphatic - No cervical, clavicular, or axillary adenopathy, Respiratory - Lungs are clear with good air movement bilaterally, Cardiovascular - Heart rhythm is regular. There is no murmur, gallop, or rub noted, Abdomen - Soft. Liver and spleen are not enlarged. There is no abdominal mass or ascites noted and there is no inguinal adenopathy, Extremities - No edema, Neurologic - No focal neurologic deficits noted. Lab/Imaging: Test performed on September 15, 2020 11:22 Sodium 139 mmol/L Testosterone, Total 2.5 ng/dL Potassium 4.2 mmol/L Chloride 100 mmol/L CO2 29 mmol/L Anion Gap 14.2 BUN 15 mg/dL Creatinine 1.0 mg/dL Cr Clearance (Est) 67.18 mL/min Glucose 141 mg/dL Osmolality - Calculated 291 mOsm/kg Calcium 9.3 mg/dL Protein, Total 6.8 g/dL Albumin 4.2 g/dL Globulin 2.6 g/dL Bilirubin, Total 0.3 mg/dL ALT (SGPT) 17 U/L AST (SGOT) 24 U/L Alkaline Phosphatase 93 IU/L WBC 6.1 10 3/uL RBC 4.01 10 6/uL HGB 12.4 g/dL HCT 38.8 % MCV 96.8 fL MCH 30.9 pg MCHC 32.0 g/dL RDW 12.7 % Platelet Count 216 10 3/cmm MPV 10.8 fL Neutrophils 4.35 10 3/uL Lymphocytes 1.1 10 3/uL Monocytes 0.6 10 3/uL Eosinophils 0.1 10 3/uL Basophils 0.0 10 3/uL Neutrophil % 71.5 % Lymphocyte % 17.4 % Monocyte % 9.2 % Eosinophil % 1.1 % Basophils % 0.5 % NRBC % 0 % PSA 0.070 ng/mL Problem List: 1. Alex score 9 adenocarcinoma of the prostate. By clinical evaluation his disease was stage IV (T2c, N1, M1a) with CT evidence of retroperitoneal and bilateral iliac chain lymph node involvement. There was also possible lytic bone involvementin the right ilium by CT scan. 2. He had bladder outlet obstructive symptoms, but those improved with tamsulosin. 3. GERD. 4. Degenerative arthritis. 5. Glaucoma. Problems Addressed with this Encounter and Plan: Patient with [place] score 9 adenocarcinoma of the prostate. By clinical evaluation his disease was stage IV (T2c, N1, M1a) with CT evidence of retroperitoneal and bilateral iliac chain lymph node involvement. There was also possible lytic bone involvementin the right ilium by CT scan. His baseline PSA level was 66.71 ng/mL on 05/05/2018. In July 2018 he began antiandrogen therapy with bicalutamide, as he was opposed to undergoing standard androgen deprivation therapy. He did show a very good clinical response with PSA decreasing to 0.75 ng/mL. In December 2018 he had stopped treatment due to side effects. He restarted it in February 2019, but his PSA level continued to increase. As of 08/02/2019 his PSA level was back up to 54.03 ng/mL, and at that point he began androgen deprivation therapy with Zoladex in combination with enzalutamide 160 mg daily. During subsequent follow-up the enzalutamide was decreased to 80 mg daily, but he has been able to tolerate it at the reduced dosage, and he has had a continued gradual decline in the PSA level, now to 0.070 ng/mL. At this point he is having a little more fatigue but overall he appears to be doing well clinically with no evidence of progression of the prostate cancer. He will be given Zoladex 10.8 mg by subcutaneous injection and he will continue enzalutamide 80 mg daily. He will be scheduled for a follow-up visit in 3 months. Signed By: Hubert Boyce M.D. <<Signature on File>>
== END 2020-09-15 11:02 | disposition home or self-care (01) ==
LOC: ONCMED 11:05
PROVIDERS: PCP Internal Medicine; Visit Provider Internal Medicine Medical Oncology
DX: C61 Malignant neoplasm of prostate (principal); C77.8 Secondary and unspecified malignant neoplasm of lymph nodes of multiple regions; Z79.818 Long term (current) use of other agents affecting estrogen receptors and estrogen levels; Z79.899 Other long term (current) drug therapy; Z87.891 Personal history of nicotine dependence
CPT/HCPCS: 80053; 84153; 84403; 85025; 96402; 99214; J9202

== ENCOUNTER 2020-12-08 11:13 | Outpatient (CLI) | payer MEDICARE, SELFPAY ==
[2020-12-08 12:05] LABS: Basophils % 0.6 %; Eosinophils # 0.1 10^3/uL (0.0-0.8); Eosinophils % 2.6 %; Hematocrit 39.7 % (42.0-52.0); Hemoglobin 12.6 g/dL (11.7-16.6); Lymphocytes # 1.5 10^3/uL (0.8-4.8); Lymphocytes % 27.1 %; Mean Corpuscular HGB Conc 31.7 g/dL (30.0-36.0); Mean Corpuscular Volume 97.8 fL (80-94); Mean Platelet Volume 11.2 fL (7.4-10.4); Monocytes # 0.6 10^3/uL (0.2-0.9); Monocytes % 10.2 %; Neutrophils # 3.18 10^3/uL (1.8-7.7); Neutrophils % 59.1 %; Nucleated Red Blood Cells % 0 %; Platelet Count 208 10^3/cmm (130-400); Red Blood Count 4.06 10^6/uL (4.1-5.3); Red Cell Distribution Width 13.8 % (12.1-15.1); White Blood Count 5.4 10^3/uL (4.0-10.0)
[2020-12-08 12:53] LABS: Prostate Specific Antigen 0.096 ng/mL (0-4); Testosterone Total 2.5 ng/dL (193-740)
[2020-12-08] MEDS: lidocaine 1% INJ 20 mL INJECTION (13:03)
[2020-12-08 13:05] LABS: Alanine Aminotransferase 9 U/L (0-41); Alkaline Phosphatase 103 IU/L (40-130); Anion Gap 13.1 (5-19); Aspartate Amino Transferase 16 U/L (0-40); Blood Urea Nitrogen 12 mg/dL (8-23); Calcium 8.9 mg/dL (8.5-10.5); Carbon Dioxide 27 mmol/L (22-29); Chloride 103 mmol/L (98-107); Globulin 2.7 g/dL (1.3-4.6); Glucose 108 mg/dL (65-115); Osmolality Calculated 288 mOsm/kg (285-295); Potassium 4.1 mmol/L (3.5-5.1); Sodium 139 mmol/L (136-145); Total Bilirubin 0.3 mg/dL (0.15-1.2); Total Protein 6.7 g/dL (6.6-8.7)
[2020-12-08] MEDS: goserelin acetate 10.8 mg Implant SUBCUT (13:15)
--- NOTE | 2020-12-12 13:19 | ONC FU_ITS ---
Dr. Boyce Patient Follow-Up Note Patient: Matthew Case Unit #: [id number]: [id number] Dicatated By: Hubert Boyce M.D.Date of Visit:Dec 08, 2020 Onc Med Follow-up/Prog Note Chief Complaint: Prostate cancer. History of Present Illness: This is a 80 year-old man with [place] score 9 adenocarcinoma of the prostate. By clinical evaluation his disease is stage IV (T2c, N1, M1a). He had presented with a significantly elevated PSA level. By his account it was 28 ng/mL when Dr. Benedict checked it in March. As of 05/05/2018 it had increased to 66 ng/mL. He was referred to Dr. Copeland, and he underwent TRUSP/biopsy on 06/02/2018. Pathology showed prostatic adenocarcinoma involving both lobes. The Alex scores varied from 7 to 9. His staging CT abdomen/pelvis on 06/21/2018 showed heterogeneously enhancing enlarged prostate measuring 4.1 x 4.2 x 5.7 cm. There were enlarged periaortic, aortocaval, and retroperitoneal lymph nodes, the largest measuring 2.5-3 cm, consistent with metastatic disease. There were additional enlarged iliac chain lymph nodes, right geater than left, measuring 1.5-2.0 cm, also consistent with metastatic disease. Also noted was a lytic lesion within the right ilium measuring 2.1 cm, indeterminate. Additional smaller lytic lesions were noted in the ileum bilaterally. There were no sclerotic or blastic lesions identified. An hepatic cyst near the dome of the liver measured 2.7 cm. Bone scan on 06/21/2018 showed no evidence for metastatic disease. In particular, there was no uptake noted in the right ilium. He had seen Dr. Copeland for follow-up on 06/23/2018. Given the CT findings, he was recommended to begin androgen deprivation therapy, and he was given a prescription for bicalutamide 50 mg daily. I had seen him initially on 07/07/2018. At that point he had not started the medication yet. I had a fairly lengthy discussion with him regarding treatment options. He ultimately decided on antiandrogen therapy with bicalutamide 150 mg daily. His other medical illnesses include GERD, degenerative arthritis, and glaucoma. He has a history of smoking 2 packs of cigarettes daily for 20 years. He quit smoking 35 years ago. INTERIM HISTORY: He was seen for a follow-up visit on 08/17/2018. He was tolerating the bicalutamide well, and his PSA level had decreased to 2.97 ng/mL. As of his follow-up visit on 11/07/2018 there was further decrease in the PSA to 0.75 ng/mL. He continued treatment with bicalutamide 150 mg daily. However, in December he opted to stop treatment due to worsening symptoms, mainlly pain and swelling in his breasts. At his followup visit on 02/07/2019 his PSA had increased to 2.95 ng/mL. He then restarted the bicalutamide. At his followup visit on 05/10/2019 his PSA was up to 6.06 ng/mL, and as of 06/21/2019 it was up to 17.92 ng/mL. At that time he was still very reluctant to begin on standard androgen deprivation therapy, preferring to continue bicalutamide 150 mg daily. As of 08/02/2019 the PSA had increased to 54.03, and at that point he did agree to begin treatment with Zoladex in combination with enzalutamide. He received his initial infusion of Zoladex on 09/04/2019. He began enzalutamide at 160 mg daily on 09/11/2019. I had seen him for a follow-up visit on 10/09/2019. He was having significant fatigue with the enzalutamide, but his PSA level had decreased to 9.14 ng/mL. He continued treatment, but with the dosage reduced to 120 mg daily. As of 11/06/2019 the PSA had decreased to 1.72 ng/mL on 12/05/2019 it had further decreased to 0.908 ng/mL. At that point he had further decreased the enzalutamide dosage to 80 mg daily due to worsening fatigue. During further follow-up he was able to tolerate the enzalutamide at the reduced dosage, and there was a continued gradual decline in his PSA level. He is seen for a scheduled visit. He does not have as much energy. He gets tired. His ECOG score is 1. He has good appetite. He has not had fever. He has a lot of hot flashes and sweating. He has no shortness of breath, cough, or chest pain. He has some nausea and he has some acid reflux. He has been having more bowel symptoms. He is prone to having constipation, for which he has been taking senna and docusate. However, lately he also has been having wet farts . Bladder function remains adequate with tamsulosin. He does have frequent urination. He has pain in his right knee. He does not complain of headache or dizziness. He has no focal neurologic symptoms. Medications: Benadryl Allergy 1 Tablet (of 25 mg) Oral daily, C 1000 1 Tablet (of 1000 mg) Oral daily, CeleBREX 1 Capsule (of 200 mg) Oral daily PRN, Cholecalciferol 1 Tablet (of 4000 Units) Oral daily, Enzalutamide 2 Capsule (of 40 mg) Oral daily, Flomax 1 (0.4 mg) Capsule Oral at bedtime, Krill Oil Capsule Oral, Lucentis 1 Injectable q 12 weeks, Lumigan 1 drop(s) (of 0.01 %) Solution Ophthalmic at bedtime, Move Free [facility] Advance 1 Tablet Oral daily, PreserVision AREDS 2 1 Capsule Oral daily, Turmeric 1 - 2 Capsule Oral daily PRN, Zoladex Subcutaneous Allergies: No Known Allergies. Vital Signs: Performed on Dec 08, 2020 12:51 Height - 72.00 in Weight - 171.8 lbs (LOW) BSA - 2.00 sq.m BMI - 23.30 Temperature - 97.4 F (LOW) Pulse - 62 /min Respiration - 18 /min BP - 137/78 mm(hg) O2 Sat - 99 % Pain - 0 Fatigue - 0 Physical Examination: Constitutional - He looks pretty good generally, Eyes - Sclerae nonicteric. Conjunctivae clear, ENMT - No lesions noted in the oral cavity, Hematologic/Lymphatic - No cervical, clavicular, or axillary adenopathy, Respiratory - Lungs are clear with good air movement bilaterally, Cardiovascular - Heart rhythm is regular. There is no murmur, gallop, or rub noted, Abdomen - Soft. Liver and spleen are not enlarged. There is no abdominal mass or ascites noted and there is no inguinal adenopathy, Extremities - No edema, Neurologic - No focal neurologic deficits noted. Lab/Imaging: Test performed on Dec 08, 2020 11:21 Sodium 139 mmol/L Testosterone, Total 2.5 ng/dL Potassium 4.1 mmol/L Chloride 103 mmol/L CO2 27 mmol/L Anion Gap 13.1 BUN 12 mg/dL Creatinine 1.0 mg/dL Cr Clearance (Est) 67.1100 mL/min Glucose 108 mg/dL Osmolality - Calculated 288 mOsm/kg Calcium 8.9 mg/dL Protein, Total 6.7 g/dL Albumin 4.0 g/dL Globulin 2.7 g/dL Bilirubin, Total 0.3 mg/dL ALT (SGPT) 9 U/L AST (SGOT) 16 U/L Alkaline Phosphatase 103 IU/L WBC 5.4 10 3/uL RBC 4.06 10 6/uL HGB 12.6 g/dL HCT 39.7 % MCV 97.8 fL MCH 31.0 pg MCHC 31.7 g/dL RDW 13.8 % Platelet Count 208 10 3/cmm MPV 11.2 fL Neutrophils 3.18 10 3/uL Lymphocytes 1.5 10 3/uL Monocytes 0.6 10 3/uL Eosinophils 0.1 10 3/uL Basophils 0.0 10 3/uL Neutrophil % 59.1 % Lymphocyte % 27.1 % Monocyte % 10.2 % Eosinophil % 2.6 % Basophils % 0.6 % NRBC % 0 % PSA 0.096 ng/mL Problem List: 1. Alex score 9 adenocarcinoma of the prostate. By clinical evaluation his disease was stage IV (T2c, N1, M1a) with CT evidence of retroperitoneal and bilateral iliac chain lymph node involvement. There was also possible lytic bone involvementin the right ilium by CT scan. 2. He had bladder outlet obstructive symptoms, but those improved with tamsulosin. 3. GERD. 4. Degenerative arthritis. 5. Glaucoma. Problems Addressed with this Encounter and Plan: Patient with [place] score 9 adenocarcinoma of the prostate. By clinical evaluation his disease was stage IV (T2c, N1, M1a) with CT evidence of retroperitoneal and bilateral iliac chain lymph node involvement. There was also possible lytic bone involvementin the right ilium by CT scan. His baseline PSA level was 66.71 ng/mL on 05/05/2018. In July 2018 he began antiandrogen therapy with bicalutamide, as he was opposed to undergoing standard androgen deprivation therapy. He did show a very good clinical response with PSA decreasing to 0.75 ng/mL. In December 2018 he had stopped treatment due to side effects. He restarted it in February 2019, but his PSA level continued to increase. As of 08/02/2019 his PSA level was back up to 54.03 ng/mL, and at that point he began androgen deprivation therapy with Zoladex in combination with enzalutamide 160 mg daily. During subsequent follow-up the enzalutamide was decreased to 80 mg daily, but he has been able to tolerate it at the reduced dosage, and he had a continued gradual decline in the PSA level. It has stabilized at 0.1 ng/mL. During followup he has continued to have fatigue and he has pretty severe hot flashes. Overall, though, he continues to do well clinically, and thus far there has been no evidence of progression of the prostate cancer. He will be given Zoladex 10.8 mg by subcutaneous injection and he will continue enzalutamide 80 mg daily. He will be scheduled for a follow-up visit in 3 months. Signed By: Hubert Boyce M.D. <<Signature on File>>
== END 2020-12-08 11:14 | disposition home or self-care (01) ==
PROVIDERS: PCP Internal Medicine; Visit Provider Internal Medicine Medical Oncology
DX: Z51.11 Encounter for antineoplastic chemotherapy (principal); C61 Malignant neoplasm of prostate; C77.8 Secondary and unspecified malignant neoplasm of lymph nodes of multiple regions; C79.51 Secondary malignant neoplasm of bone; N32.0 Bladder-neck obstruction; K21.9 Gastro-esophageal reflux disease without esophagitis; M19.90 Unspecified osteoarthritis, unspecified site; H40.9 Unspecified glaucoma; Z79.899 Other long term (current) drug therapy
CPT/HCPCS: 36415; 80053; 84153; 84403; 85025; 96372; 96402; 99214; J9202

== ENCOUNTER 2021-03-12 13:51 | Outpatient (CLI) | payer MEDICARE, SELFPAY ==
[2021-03-12 14:20] LABS: Basophils % 0.5 %; Eosinophils # 0.1 10^3/uL (0.0-0.8); Eosinophils % 1.2 %; Hematocrit 41.4 % (42.0-52.0); Hemoglobin 13.7 g/dL (11.7-16.6); Lymphocytes # 1.4 10^3/uL (0.8-4.8); Lymphocytes % 21.5 %; Mean Corpuscular HGB Conc 33.1 g/dL (30.0-36.0); Mean Corpuscular Volume 96.7 fl (80-94); Mean Platelet Volume 10.8 fL (7.4-10.4); Monocytes # 0.6 10^3/uL (0.2-0.9); Monocytes % 9.7 %; Neutrophils # 4.37 10^3/uL (1.8-7.7); Neutrophils % 66.9 %; Nucleated Red Blood Cells % 0 %; Platelet Count 218 10^3/cmm (130-400); Red Blood Count 4.28 10^6/uL (4.1-5.3); Red Cell Distribution Width 12.9 % (12.1-15.1); White Blood Count 6.5 10^3/uL (4.0-10.0)
[2021-03-12 15:05] LABS: Testosterone Total 2.5 ng/dL (193-740)
[2021-03-12 15:16] LABS: Alanine Aminotransferase 11 U/L (0-41); Albumin Level 4.3 g/dL (3.5-5.2); Alkaline Phosphatase 102 IU/L (40-130); Anion Gap 14.4 (5-19); Aspartate Amino Transferase 16 U/L (0-40); Blood Urea Nitrogen 20 mg/dL (8-23); Calcium 9.2 mg/dL (8.5-10.5); Carbon Dioxide 28 mmol/L (22-29); Chloride 102 mmol/L (98-107); Globulin 2.9 g/dL (1.3-4.6); Glucose 124 mg/dL (65-115); Osmolality Calculated 294 mOsm/kg (285-295); Potassium 4.4 mmol/L (3.5-5.1); Sodium 140 mmol/L (136-145); Total Bilirubin 0.3 mg/dL (0.15-1.2); Total Protein 7.2 g/dL (6.6-8.7)
[2021-03-12] MEDS: lidocaine 1% INJ 20 mL INJECTION (16:30)
[2021-03-12] MEDS: goserelin acetate 10.8 mg Implant SUBCUT (16:40)
--- NOTE | 2021-03-14 11:30 | ONC FU_ITS ---
Dr. Boyce Patient Follow-Up Note Patient: Matthew Case Unit #: [id number]: 1940 Dicatated By: Hubert Boyce M.D.Date of Visit:Mar 12, 2021 Onc Med Follow-up/Prog Note Chief Complaint: Prostate cancer. History of Present Illness: This is a 81 year-old man with [place] score 9 adenocarcinoma of the prostate. By clinical evaluation his disease is stage IV (T2c, N1, M1a). He had presented with a significantly elevated PSA level. By his account it was 28 ng/mL when Dr. Benedict checked it in March. As of 05/05/2018 it had increased to 66 ng/mL. He was referred to Dr. Copeland, and he underwent TRUSP/biopsy on 06/02/2018. Pathology showed prostatic adenocarcinoma involving both lobes. The Alex scores varied from 7 to 9. His staging CT abdomen/pelvis on 06/21/2018 showed heterogeneously enhancing enlarged prostate measuring 4.1 x 4.2 x 5.7 cm. There were enlarged periaortic, aortocaval, and retroperitoneal lymph nodes, the largest measuring 2.5-3 cm, consistent with metastatic disease. There were additional enlarged iliac chain lymph nodes, right geater than left, measuring 1.5-2.0 cm, also consistent with metastatic disease. Also noted was a lytic lesion within the right ilium measuring 2.1 cm, indeterminate. Additional smaller lytic lesions were noted in the ileum bilaterally. There were no sclerotic or blastic lesions identified. An hepatic cyst near the dome of the liver measured 2.7 cm. Bone scan on 06/21/2018 showed no evidence for metastatic disease. In particular, there was no uptake noted in the right ilium. He had seen Dr. Copeland for follow-up on 06/23/2018. Given the CT findings, he was recommended to begin androgen deprivation therapy, and he was given a prescription for bicalutamide 50 mg daily. I had seen him initially on 07/07/2018. At that point he had not started the medication yet. I had a fairly lengthy discussion with him regarding treatment options. He ultimately decided on antiandrogen therapy with bicalutamide 150 mg daily. His other medical illnesses include GERD, degenerative arthritis, and glaucoma. He has a history of smoking 2 packs of cigarettes daily for 20 years. He quit smoking 35 years ago. INTERIM HISTORY: He was seen for a follow-up visit on 08/17/2018. He was tolerating the bicalutamide well, and his PSA level had decreased to 2.97 ng/mL. As of his follow-up visit on 11/07/2018 there was further decrease in the PSA to 0.75 ng/mL. He continued treatment with bicalutamide 150 mg daily. However, in December he opted to stop treatment due to worsening symptoms, mainlly pain and swelling in his breasts. At his followup visit on 02/07/2019 his PSA had increased to 2.95 ng/mL. He then restarted the bicalutamide. At his followup visit on 05/10/2019 his PSA was up to 6.06 ng/mL, and as of 06/21/2019 it was up to 17.92 ng/mL. At that time he was still very reluctant to begin on standard androgen deprivation therapy, preferring to continue bicalutamide 150 mg daily. As of 08/02/2019 the PSA had increased to 54.03, and at that point he did agree to begin treatment with Zoladex in combination with enzalutamide. He received his initial infusion of Zoladex on 09/04/2019. He began enzalutamide at 160 mg daily on 09/11/2019. I had seen him for a follow-up visit on 10/09/2019. He was having significant fatigue with the enzalutamide, but his PSA level had decreased to 9.14 ng/mL. He continued treatment, but with the dosage reduced to 120 mg daily. As of 11/06/2019 the PSA had decreased to 1.72 ng/mL on 12/05/2019 it had further decreased to 0.908 ng/mL. At that point he had further decreased the enzalutamide dosage to 80 mg daily due to worsening fatigue. During further follow-up he was able to tolerate the enzalutamide at the reduced dosage, and there was a continued gradual decline in his PSA level. He is seen for a scheduled visit. Thus far he has been able to continue the enzalutamide at 80 mg daily. He still has some fatigue, but he is able to do what he needs to. His ECOG score is 1. He has good appetite. He has not had fever. He has frequent hot flashes/sweating. His sinus symptoms are adequately managed with medication. He has not had sore mouth or throat, and he does not complain of cough. He occasionally gets a little short of breath. He does not complain of chest pain. He has occasional acid reflux and he sometimes has constipation. He has frequent urination. He has no significant joint or bone pain. He does not complain of headache or dizziness, and he has no focal neurologic symptoms. Medications: C 1000 1 Tablet (of 1000 mg) Oral daily, CeleBREX 1 Capsule (of 200 mg) Oral daily PRN, Cholecalciferol 1 Tablet (of 4000 Units) Oral daily, Enzalutamide 2 Capsule (of 40 mg) Oral daily, Flomax 1 (0.4 mg) Capsule Oral at bedtime, Lucentis 1 Injectable q 12 weeks, Lumigan 1 drop(s) (of 0.01 %) Solution Ophthalmic at bedtime, Move Free [facility] Advance 1 Tablet Oral daily, PreserVision AREDS 2 1 Capsule Oral daily, Turmeric 1 - 2 Capsule Oral daily PRN, Zoladex Subcutaneous Allergies: No Known Allergies. Vital Signs: Performed on Mar 12, 2021 15:55 Height - 72.00 in Weight - 174.6 lbs (HIGH) BSA - 2.01 sq.m BMI - 23.68 Temperature - 96.6 F (LOW) Pulse - 76 /min Respiration - 18 /min BP - 150/79 mm(hg) (HIGH) O2 Sat - 96 % Pain - 0 Fatigue - 5 Physical Examination: Constitutional - He looks pretty good generally, Eyes - Sclerae nonicteric. Conjunctivae clear, ENMT - No lesions noted in the oral cavity, Hematologic/Lymphatic - No cervical, clavicular, or axillary adenopathy, Respiratory - Lungs are clear with good air movement bilaterally, Cardiovascular - Heart rhythm is regular. There is no murmur, gallop, or rub noted, Abdomen - Soft. Liver and spleen are not enlarged. There is no abdominal mass or ascites noted and there is no inguinal adenopathy, Extremities - No edema, Neurologic - No focal neurologic deficits noted. Lab/Imaging: Test performed on Mar 12, 2021 14:07 Sodium 140 mmol/L Testosterone, Total 2.5 ng/dL Potassium 4.4 mmol/L Chloride 102 mmol/L CO2 28 mmol/L Anion Gap 14.4 BUN 20 mg/dL Creatinine 0.9 mg/dL Cr Clearance (Est) 74.55 mL/min Glucose 124 mg/dL Osmolality - Calculated 294 mOsm/kg Calcium 9.2 mg/dL Protein, Total 7.2 g/dL Albumin 4.3 g/dL Globulin 2.9 g/dL Bilirubin, Total 0.3 mg/dL ALT (SGPT) 11 U/L AST (SGOT) 16 U/L Alkaline Phosphatase 102 IU/L WBC 6.5 10 3/uL RBC 4.28 10 6/uL HGB 13.7 g/dL HCT 41.4 % MCV 96.7 fl MCH 32.0 pg MCHC 33.1 g/dL RDW 12.9 % Platelet Count 218 10 3/cmm MPV 10.8 fL Neutrophils 4.37 10 3/uL Lymphocytes 1.4 10 3/uL Monocytes 0.6 10 3/uL Eosinophils 0.1 10 3/uL Basophils 0.0 10 3/uL Neutrophil % 66.9 % Lymphocyte % 21.5 % Monocyte % 9.7 % Eosinophil % 1.2 % Basophils % 0.5 % NRBC % 0 % PSA 1.560 ng/mL Problem List: 1. [place] score 9 adenocarcinoma of the prostate. By clinical evaluation his disease was stage IV (T2c, N1, M1a) with CT evidence of retroperitoneal and bilateral iliac chain lymph node involvement. There was also possible lytic bone involvementin the right ilium by CT scan. 2. He had bladder outlet obstructive symptoms, but those improved with tamsulosin. 3. GERD. 4. Degenerative arthritis. 5. Glaucoma. Problems Addressed with this Encounter and Plan: Patient with [place] score 9 adenocarcinoma of the prostate. By clinical evaluation his disease was stage IV (T2c, N1, M1a) with CT evidence of retroperitoneal and bilateral iliac chain lymph node involvement. There was also possible lytic bone involvementin the right ilium by CT scan. His baseline PSA level was 66.71 ng/mL on 05/05/2018. In July 2018 he began antiandrogen therapy with bicalutamide, as he was opposed to undergoing standard androgen deprivation therapy. He did show a very good clinical response with PSA decreasing to 0.75 ng/mL. In December 2018 he had stopped treatment due to side effects. He restarted it in February 2019, but his PSA level continued to increase. As of 08/02/2019 his PSA level was back up to 54.03 ng/mL, and at that point he began androgen deprivation therapy with Zoladex in combination with enzalutamide 160 mg daily. During subsequent follow-up the enzalutamide was decreased to 80 mg daily, but he has been able to tolerate it at the reduced dosage, and he had a continued gradual decline in the PSA level. It has stabilized at 0.1 ng/mL. During followup he has continued to have fatigue and he has pretty severe hot flashes. However, he has been able to tolerate the enzalutamide at 80 mg daily. There has now been a slight increase in his PSA level to 1.560 ng/mL compared to 0.096 ng/mL in December. With that finding, he is going to try increasing the enzalutamide to 120 mg daily. He will be given his scheduled dose of Zoladex 10.8 mg. I will see him again in 3 months, or sooner as needed. Signed By: Hubert Boyce M.D. <<Signature on File>>
== END 2021-03-12 13:52 | disposition home or self-care (01) ==
PROVIDERS: PCP Internal Medicine; Visit Provider Internal Medicine Medical Oncology
DX: C61 Malignant neoplasm of prostate (principal); C77.8 Secondary and unspecified malignant neoplasm of lymph nodes of multiple regions; C79.51 Secondary malignant neoplasm of bone; N32.0 Bladder-neck obstruction; K21.9 Gastro-esophageal reflux disease without esophagitis; M19.90 Unspecified osteoarthritis, unspecified site; H40.9 Unspecified glaucoma; Z79.899 Other long term (current) drug therapy; Z79.818 Long term (current) use of other agents affecting estrogen receptors and estrogen levels
CPT/HCPCS: 36415; 80053; 84153; 84403; 85025; 96402; 99214; J9202

== ENCOUNTER 2021-06-09 12:21 | Outpatient (CLI) | payer MEDICARE, SELFPAY ==
[2021-06-09 13:00] LABS: Basophils % 0.5 %; Eosinophils # 0.1 10^3/uL (0.0-0.8); Eosinophils % 1.2 %; Hematocrit 40.3 % (42.0-52.0); Lymphocytes # 1.5 10^3/uL (0.8-4.8); Lymphocytes % 24.5 %; Mean Corpuscular HGB Conc 32.3 g/dL (30.0-36.0); Mean Corpuscular Hemoglobin 31.2 pg (28.0-34.0); Mean Corpuscular Volume 96.6 fl (80-94); Mean Platelet Volume 10.9 fL (7.4-10.4); Monocytes # 0.8 10^3/uL (0.2-0.9); Neutrophils # 3.67 10^3/uL (1.8-7.7); Neutrophils % 60.5 %; Nucleated Red Blood Cells % 0 %; Platelet Count 227 10^3/cmm (130-400); Red Blood Count 4.17 10^6/uL (4.1-5.3); Red Cell Distribution Width 13.9 % (12.1-15.1); White Blood Count 6.1 10^3/uL (4.0-10.0)
[2021-06-09 14:02] LABS: Alanine Aminotransferase 10 U/L (0-41); Albumin Level 4.2 g/dL (3.5-5.2); Alkaline Phosphatase 118 IU/L (40-130); Aspartate Amino Transferase 18 U/L (0-40); Blood Urea Nitrogen 17 mg/dL (8-23); Calcium 8.9 mg/dL (8.5-10.5); Carbon Dioxide 28 mmol/L (22-29); Chloride 102 mmol/L (98-107); Globulin 3.1 g/dL (1.3-4.6); Glucose 93 mg/dL (65-115); Osmolality Calculated 289 mOsm/kg (285-295); Sodium 139 mmol/L (136-145); Testosterone Total 2.5 ng/dL (193-740); Total Bilirubin 0.4 mg/dL (0.15-1.2); Total Protein 7.3 g/dL (6.6-8.7)
[2021-06-09 14:06] LABS: Anion Gap 13.6 (5-19); Potassium 4.6 mmol/L (3.5-5.1)
[2021-06-09] MEDS: lidocaine 1% INJ 20 mL INJECTION (14:55)
[2021-06-09] MEDS: goserelin acetate 10.8 mg Implant SUBCUT (15:10)
== END 2021-06-09 12:22 | disposition home or self-care (01) ==
LOC: ONCMED 12:25
PROVIDERS: PCP Internal Medicine; Visit Provider Nurse Practitioner Family
DX: C61 Malignant neoplasm of prostate (principal); C77.8 Secondary and unspecified malignant neoplasm of lymph nodes of multiple regions; C79.51 Secondary malignant neoplasm of bone; N32.0 Bladder-neck obstruction; K21.9 Gastro-esophageal reflux disease without esophagitis; M19.90 Unspecified osteoarthritis, unspecified site; H40.9 Unspecified glaucoma; Z79.899 Other long term (current) drug therapy; Z79.818 Long term (current) use of other agents affecting estrogen receptors and estrogen levels
CPT/HCPCS: 36415; 80053; 84153; 84403; 85025; 96372; 96402; 99215; J9202

== ENCOUNTER 2021-07-07 13:47 | Outpatient (CLI) | payer MEDICARE, SELFPAY | END 2021-07-07 13:48 | disposition home or self-care (01) | PROVIDERS: PCP Internal Medicine; Visit Provider Internal Medicine Medical Oncology | DX: C61 Malignant neoplasm of prostate (principal) | CPT/HCPCS: 36415; 84153 ==

== ENCOUNTER 2021-08-10 13:43 | Outpatient (CLI) | payer MEDICARE, SELFPAY ==
[2021-08-10 14:16] LABS: Basophils % 0.8 %; Eosinophils # 0.1 10^3/uL (0.0-0.8); Eosinophils % 2.3 %; Hematocrit 38.5 % (42.0-52.0); Hemoglobin 12.6 g/dL (11.7-16.6); Lymphocytes # 1.2 10^3/uL (0.8-4.8); Lymphocytes % 22.4 %; Mean Corpuscular HGB Conc 32.7 g/dL (30.0-36.0); Mean Corpuscular Hemoglobin 31.7 pg (28.0-34.0); Mean Corpuscular Volume 96.7 fl (80-94); Mean Platelet Volume 11.2 fL (7.4-10.4); Monocytes # 0.7 10^3/uL (0.2-0.9); Monocytes % 12.6 %; Neutrophils # 3.22 10^3/uL (1.8-7.7); Neutrophils % 61.7 %; Nucleated Red Blood Cells % 0 %; Platelet Count 182 10^3/cmm (130-400); Red Blood Count 3.98 10^6/uL (4.1-5.3); Red Cell Distribution Width 13.2 % (12.1-15.1); White Blood Count 5.2 10^3/uL (4.0-10.0)
[2021-08-10 15:03] LABS: Alanine Aminotransferase 10 U/L (0-41); Albumin Level 4.1 g/dL (3.5-5.2); Alkaline Phosphatase 112 IU/L (40-130); Anion Gap 13.3 (5-19); Aspartate Amino Transferase 18 U/L (0-40); Blood Urea Nitrogen 18 mg/dL (8-23); Calcium 9.3 mg/dL (8.5-10.5); Carbon Dioxide 25 mmol/L (22-29); Chloride 103 mmol/L (98-107); Globulin 2.5 g/dL (1.3-4.6); Glucose 123 mg/dL (65-115); Osmolality Calculated 287 mOsm/kg (285-295); Potassium 4.3 mmol/L (3.5-5.1); Sodium 137 mmol/L (136-145); Total Bilirubin 0.3 mg/dL (0.15-1.2); Total Protein 6.6 g/dL (6.6-8.7)
== END 2021-08-10 13:44 | disposition home or self-care (01) ==
PROVIDERS: Nurse Practitioner Family; PCP Internal Medicine; Visit Provider Internal Medicine Medical Oncology
DX: C61 Malignant neoplasm of prostate (principal); C77.2 Secondary and unspecified malignant neoplasm of intra-abdominal lymph nodes
CPT/HCPCS: 36415; 80053; 84153; 85025

== ENCOUNTER 2021-09-14 11:05 | Oncology outpatient (recurring) (ONCR) | payer MEDICARE, SELFPAY ==
[2021-09-14 11:38] LABS: Basophils % 0.5 %; Eosinophils # 0.1 10^3/uL (0.0-0.8); Eosinophils % 2.6 %; Hematocrit 39.9 % (42.0-52.0); Hemoglobin 13.2 g/dL (11.7-16.6); Lymphocytes # 1.2 10^3/uL (0.8-4.8); Lymphocytes % 31.1 %; Mean Corpuscular HGB Conc 33.1 g/dL (30.0-36.0); Mean Corpuscular Hemoglobin 31.6 pg (28.0-34.0); Mean Corpuscular Volume 95.5 fl (80-94); Mean Platelet Volume 10.8 fL (7.4-10.4); Monocytes # 0.4 10^3/uL (0.2-0.9); Monocytes % 11.2 %; Neutrophils # 2.08 10^3/uL (1.8-7.7); Neutrophils % 54.3 %; Nucleated Red Blood Cells % 0 %; Platelet Count 197 10^3/cmm (130-400); Red Blood Count 4.18 10^6/uL (4.1-5.3); Red Cell Distribution Width 12.7 % (12.1-15.1); White Blood Count 3.8 10^3/uL (4.0-10.0)
[2021-09-14 12:31] LABS: Alanine Aminotransferase 11 U/L (0-41); Albumin Level 4.4 g/dL (3.5-5.2); Alkaline Phosphatase 104 IU/L (40-130); Anion Gap 15.1 (5-19); Aspartate Amino Transferase 16 U/L (0-40); Blood Urea Nitrogen 16 mg/dL (8-23); Calcium 9.5 mg/dL (8.5-10.5); Carbon Dioxide 27 mmol/L (22-29); Chloride 102 mmol/L (98-107); Globulin 2.7 g/dL (1.3-4.6); Glucose 105 mg/dL (65-115); Osmolality Calculated 292 mOsm/kg (285-295); Potassium 4.1 mmol/L (3.5-5.1); Sodium 140 mmol/L (136-145); Total Bilirubin 0.3 mg/dL (0.15-1.2); Total Protein 7.1 g/dL (6.6-8.7)
[2021-09-14] MEDS: lidocaine 1% INJ 20 mL SUBCUT (13:12)
[2021-09-14] MEDS: goserelin acetate 10.8 mg Implant SUBCUT (13:24)
== END 2021-10-06 23:59 | disposition home or self-care (01) ==
PROVIDERS: Nurse Practitioner Family; PCP Internal Medicine; Referring Provider Urology; Visit Provider Internal Medicine Medical Oncology
DX: Z51.11 Encounter for antineoplastic chemotherapy (principal); C61 Malignant neoplasm of prostate; C79.51 Secondary malignant neoplasm of bone; C77.8 Secondary and unspecified malignant neoplasm of lymph nodes of multiple regions; Z79.52 Long term (current) use of systemic steroids; Z79.818 Long term (current) use of other agents affecting estrogen receptors and estrogen levels; Z79.899 Other long term (current) drug therapy
CPT/HCPCS: 80053; 84153; 85025; 96372; 96377; 96402; 99215; 99999; J9202

== ENCOUNTER 2021-11-24 09:00 | Oncology outpatient (recurring) (ONCR) | payer MEDICARE, SELFPAY | END 2021-12-06 23:59 | disposition home or self-care (01) | PROVIDERS: PCP Internal Medicine; Referring Provider Urology; Visit Provider Internal Medicine Medical Oncology | DX: C61 Malignant neoplasm of prostate (principal); C77.2 Secondary and unspecified malignant neoplasm of intra-abdominal lymph nodes; C79.51 Secondary malignant neoplasm of bone; Z79.818 Long term (current) use of other agents affecting estrogen receptors and estrogen levels; Z87.891 Personal history of nicotine dependence | CPT/HCPCS: 36415; 84153; 99214 ==

== ENCOUNTER 2021-12-16 11:04 | Oncology outpatient (recurring) (ONCR) | payer MEDICARE, SELFPAY ==
[2021-12-16] MEDS: lidocaine 1% INJ 20 mL SUBCUT (13:51)
[2021-12-16] MEDS: goserelin acetate 10.8 mg Implant SUBCUT (13:54)
== END 2022-01-06 23:59 | disposition home or self-care (01) ==
PROVIDERS: PCP Internal Medicine; Visit Provider Internal Medicine Medical Oncology
DX: C61 Malignant neoplasm of prostate (principal); Z79.818 Long term (current) use of other agents affecting estrogen receptors and estrogen levels; Z87.891 Personal history of nicotine dependence; Z79.899 Other long term (current) drug therapy
CPT/HCPCS: 36415; 80053; 84153; 85025; 96372; 96401; 96402; 99214; 99215; J9202

== ENCOUNTER 2022-01-14 14:38 | Oncology outpatient (recurring) (ONCR) | payer MEDICARE, SELFPAY | END 2022-02-05 23:59 | disposition home or self-care (01) | PROVIDERS: PCP Internal Medicine; Visit Provider Internal Medicine Medical Oncology | DX: C61 Malignant neoplasm of prostate (principal) | CPT/HCPCS: 84153 ==

== ENCOUNTER → 2022-02-11 10:58 | Outpatient (BNVA) | payer MEDICARE, SELFPAY | PROVIDERS: PCP Internal Medicine; Visit Provider Podiatrist Foot & Ankle Surgery | DX: I73.9 Peripheral vascular disease, unspecified (principal); L60.3 Nail dystrophy | CPT/HCPCS: 99213 ==

== ENCOUNTER 2022-02-12 09:10 | Outpatient (CLI) | payer MEDICARE, SELFPAY ==
--- NOTE | 2022-02-12 09:17 | NM_ITS ---
WS: [id number] NUCLEAR MEDICINE BONE SCAN Radiopharmaceutical: 24.3 Tc-99m MDP mCi IV Injection site: antecubital Postinjection imaging delay: 1 hr CLINICAL INFORMATION: back pain COMPARISON: and CT February 12, 2022 FINDINGS: Bone lesions: Intense radiotracer uptake involving the LEFT ilium adjacent to the SI joint and medial to the SI joint involving the adjacent sacrum compatible with metastatic disease. This corresponds t o blastic lesions seen on the concurrent CT. No abnormal uptake in the RIGHT ilium. Soft tissue contours: Normal. Kidneys: Normal. Other findings: None. NM/NM bone scan whole body* [id number] IMPRESSION: 1. Metastatic disease involving the LEFT iliac wing lateral to the SI joint an d also medial to the SI joint involving the adjacent sacrum. This corresponds t o patchy blastic bony lesions on the concurrent CT. 2. No other abnormal foci of bony uptake.
[2022-02-12] MEDS: iohexol 350 mg/mL 100 mL Btl PO (09:38)
[2022-02-12] MEDS: iohexol 350 mg/mL 100 mL Btl IV (09:38)
--- NOTE | 2022-02-12 10:30 | CT_ITS ---
WS: [id number] CT ABDOMEN PELVIS TECHNIQUE: Contrast-enhanced CT of the abdomen and pelvis with coronal and sagittal reformatted image s. CLINICAL INFORMATION: Restaging COMPARISON: 2 DLP: 956.[address] scans at [facility] use at least one of these dose optimization techniques: automated e xposure control; mA and/or kV adjustment per patient size (includes targeted exams where dose is matc hed to clinical indication); or iterative reconstruction. FINDINGS: New blastic metastatic lesions involving the LEFT ilium adjacent to the SI joint and medial to the SI joint involving the adjacent sacrum compatible with metastatic disease. Slight bibasilar atelectasis. Normal GE junction. Diffuse fatty infiltration of the liver. Hepatomega ly. Hepatic cyst measuring 2.6 cm. Additional tiny hepatic cyst in the dome of the liver. Normal sple en. Normal pancreatic parenchymal enhancement. Adrenal glands are normal. Normal renal parenchymal en hancement. No hydronephrosis. Small bilateral simple renal cysts. Normal caliber abdominal aorta. Sonia iac and SMA are patent. No periaortic lymphadenopathy. No pelvic lymphadenopathy. No inguinal lymphad enopathy. Previously described lymphadenopathy has resolved. Tiny fat-containing umbilical hernia. Grade 1 anterolisthesis L4 on L5. Lucent lesions in the RIGHT i lium are stable and did not demonstrate activity on the prior bone scans. Sigmoid diverticulosis. No evidence of acute diverticulitis. Normal appendix. Prostate is decreased in size compared to previous today measuring 2.[address]/CT abdomen pelvis w con* [id number] IMPRESSION: 1. New blastic metastatic lesions involving the LEFT ilium adjacent to the SI joint and medial to the SI joint involving the adjacent sacrum compatible with metastatic disease. 2. Previously described lymphadenopathy abdomen and pelvis has resolved. 3. Prostate is decreased in size compared to previous today measuring 2.2 x 2. 9 cm. 4. No other acute findings.
== END 2022-02-12 09:11 | disposition home or self-care (01) ==
LOC: RAD 09:11
PROVIDERS: PCP Internal Medicine; Visit Provider Internal Medicine Medical Oncology
DX: C61 Malignant neoplasm of prostate (principal); C77.2 Secondary and unspecified malignant neoplasm of intra-abdominal lymph nodes
CPT/HCPCS: 74177; 78306; A9561

== ENCOUNTER 2022-02-24 11:26 | Oncology outpatient (recurring) (ONCR) | payer MEDICARE, SELFPAY ==
--- NOTE | 2022-02-10 09:43 | XR_ITS ---
WS: [id number] XR thoracic spine 2V [id number] REASON FOR EXAM: back pain FINDINGS: Mild scoliosis convex left. Mild wedging of the vertebral bodies in the mid and lower thoracic spine, chronic. No significant focal vertebral body abnormality. Mild narrowing of the intervertebral disc spaces with minor anterior osteophytosis in the mid and low er thoracic spine. XR/XR thoracic spine 2V [id number] IMPRESSION: Mild to moderate degenerative spondylosis in the thoracic spine as above.
--- NOTE | 2022-02-10 09:43 | XR_ITS ---
WS: [id number] XR lumbar spine 2-3V* [id number] REASON FOR EXAM: back pain FINDINGS: Relatively normal lumbar spine curvatures. No focal lumbar vertebral body abnormality. Intervertebral disc spaces are relatively well-maintained. There is a millimeters of anterolisthesis of L4 in relation to L3 and 4 mm of anterolisthesis of L4 i n relation to L5. Moderate degenerative change in the facet joints L3-S1. XR/XR lumbar spine 2-3V* [id number] IMPRESSION: Degenerative spondylosis of the lumbar spine as above.
--- NOTE | 2022-02-10 09:43 | XR_ITS ---
WS: [id number] XR cervical spine 3V* [id number] REASON FOR EXAM: back pain FINDINGS: Straightening of the normal lordosis of the cervical spine. No focal abnormality of the odontoid were cervical vertebrae. Moderate narrowing of the intervertebral disc spaces C4-C7. Minimal anterolisthesis of C4 on C5. Degenerative facet joint changes C4-C5. Moderate anterior and uncinate osteophytosis C4-C7. XR/XR cervical spine 3V* [id number] IMPRESSION: Degenerative spondylosis of the cervical spine as above.
--- NOTE | 2022-02-19 10:35 | N.ONRAD NP_ITS ---
Radiation Oncology Consultation Patient Name: Matthew Case Date of : 1940 Date of Service: 02/19/2022 Attending Physician: Collins Spencer M.D. Matthew Case was seen in consultation this afternoon at the request of Hubert Boyce M.D. for consideration of palliative radiotherapy in the management of metastatic prostate cancer. The patient was diagnosed in May of 2018 following an evaluation for an elevated PSA level. The initial PSA was 66 ng/mL. A TRUS biopsy diagnosed an adenocarcinoma of the prostate with a [place] score of 4+ 4 (Grade Group 4). An abdominopelvic CT scan revealed pelvic, periaortic, and retroperitoneal lymphadenopathy, in addition to lytic lesions within the bilateral thu. Androgen deprivation therapy was prescribed (August 2019) with enzalutamide (September 2019). The PSA level nadired at 0.07 ng/mL in September of 2020. The PSA gradually increased to 24.2 ng/mL in September of 2021. His treatment was changed to abiraterone and prednisone. The PSA level continued to increase and abiraterone was discontinued in November of 2021. During a routine follow-up appointment, he described worsening back pain. A nuclear bone scintigraphy (independently reviewed in [facility]) ordered on February 12, 2022 described intense radiotracer uptake involving the left ilium and sacrum that corresponded to CT imaging findings of a new blastic metastatic lesion. The previously described lymphadenopathy had resolved. A recent PSA level was 115.4 ng/mL. He was evaluated for palliative radiotherapy to the left ilium and sacrum. I discussed with Mr. Case the role for palliative radiotherapy. A planning CT scan will be acquired prior to beginning treatment to delineate the clinical target volume. The potential toxicities of pelvic radiotherapy were reviewed. The patient has verbalized understanding would like to proceed as recommended. The patient???s medical treatment has been discussed with Hubert Boyce M.D. Signed by: Dr. Collins Spencer 02/23/2022 1:53:29 PM
== END 2022-03-08 23:59 | disposition home or self-care (01) ==
PROVIDERS: PCP Internal Medicine; Visit Provider Internal Medicine Medical Oncology
DX: C61 Malignant neoplasm of prostate (principal); C77.8 Secondary and unspecified malignant neoplasm of lymph nodes of multiple regions; C79.51 Secondary malignant neoplasm of bone; Z79.52 Long term (current) use of systemic steroids; Z79.818 Long term (current) use of other agents affecting estrogen receptors and estrogen levels; Z79.899 Other long term (current) drug therapy; R11.2 Nausea with vomiting, unspecified; K59.00 Constipation, unspecified; Z87.891 Personal history of nicotine dependence
CPT/HCPCS: 36415; 72040; 72070; 72100; 84153; 99214

== ENCOUNTER 2022-03-17 09:55 | Emergency (ER) | payer MEDICARE, SELFPAY ==
[2022-03-17 10:44] VITALS: BMI 22.4
[2022-03-17 10:51] VITALS: BP 103/62; PULSE 67; RESP 16; TEMP 36.8; O2SAT 100
--- NOTE | 2022-03-17 11:05 | ED_ITS ---
HPI - Back Pain/Injury General: Chief Complaint: Back Pain/Injury Stated Complaint: Back pain, cancer pt Time Seen by Provider: 03/17/22 11:05 History of Present Illness: Mr. Case is an 82-year-old gentleman with significant past medical history of metastatic prostate cancer presenting to the emergency department due to back pain. He reports it started approximately 4 days ago overnight after he spent the day installing new blinds. He reports since that time having moderate to severe low back pain associated with movement and some radiation down the left lower extremity. Denies associated weakness. Denies falls or other trauma. No changes in ability to have bowel movements or urinate. Has tried home medications with mild to moderate relief however is now out of his home hydromorphone. No other specific changes in health, exacerbating, or alleviating factors identified. Onset (ago): day(s) Timing: constant Severity: severe Location: lumbar spine and sacrum Radiation: left upper leg Exacerbating factors: movement and walking Review of Systems General: Reports: 10 or more systems reviewed and unremarkable except in HPI and below PFSH ED PFSH: Medical History Degenerative arthritis GERD (gastroesophageal reflux disease) Glaucoma Prostate cancer Surgical History H/O cataract extraction History of hernia repair Hx of prostate biopsy (~05/2018) TRUSP with biopsy Hx of tonsillectomy Family History Father Cancer skin Brother Cancer colon Brother Cancer prostate Social History Smoking and tobacco status: former smoker Alcohol intake: current Physical Exam Const: COMMON NORMALS: alert GENERAL APPEARANCE: cooperative and well developed HENMT: COMMON NORMALS: normocephalic and atraumatic HEAD & SCALP: normocephalic and atraumatic Eye: COMMON NORMALS: conjunctivae normal CONJUNCTIVA: Yes conjunctivae normal SCLERA: sclerae normal Neck/C-Spine: COMMON NORMALS: supple GENERAL: Yes trachea midline Resp: COMMON NORMALS: normal respiratory effort EFFORT & INSPECTION: Yes able to speak in complete sentences Cardio: COMMON NORMALS: regular rate and regular rhythm RATE: regular rate RHYTHM: regular rhythm GI: COMMON NORMALS: Soft to palpation PALPATION: Yes Soft to palpation and No Tenderness to palpation present (GI) PERCUSSION: normal to percussion Back/Pelvis: LUMBAR SPINE/LOWER BACK: Yes lumbar spinal tenderness (Lower) SACRUM: tenderness Extremity: GENERAL: Yes normal exam except as noted and No edema Neuro: COMMON NORMALS: moves all extremities SENSORIUM/ORIENTATION: Yes alert and No Orientation impaired Psych: COMMON NORMALS: mental status grossly normal and Normal thought process present THOUGHT PROCESS: Normal thought process present Course Vital Signs: Vital signs: Vital Signs Temperature 98.2 F 03/17/22 10:51 Pulse Rate 77 03/17/22 13:58 Respiratory Rate 18 03/17/22 11:46 Blood Pressure 118/69 03/17/22 13:58 Pulse Oximetry 98 03/17/22 13:58 Oxygen Delivery Me thod 03/17/22 10:51 MDM - Back Pain/Injury Medical Decision Making 82-year-old gentleman with history of metastatic prostate cancer presenting with back pain. Given symptoms and clinical history no admission for laboratory studies. There is, however, indication for imaging to evaluate for pathologic fractures. CT negative for acute fracture further pathology to explain symptoms, was moderate if not worse degenerative changes Patient significantly improved with multimodal approach to pain control. Given history of cancer is reasonable to refill patient's prescriptions as well as plan for outpatient management low back pain in the context of known metastatic lesions. The results of ED evaluation were discussed with the patient including prescriptions and/or symptomatic cares (if applicable) including appropriate and responsible use, followup plan, and return precautions. The patient verbalized understanding and felt safe for discharge. Medical Records I reviewed the patient's medical records. Labs I reviewed the patient's lab results. Radiology Impressions Lumbar Spine CT 03/17/22 11:48 IMPRESSION: 1. No pathological fracture in the LEFT ilium at the site of the known metastatic bone disease. No displacement. 2. Severe central, bilateral subarticular recess and foraminal stenosis at L4- 5. 3. Moderate central with moderate to severe bilateral subarticular recess and foraminal stenosis at L5-S1. 4. Mild central, foraminal and subarticular recess stenosis at L3-4. 5. LEFT foraminal disc protrusion at L2-3. ADDENDUM: 03/18/22 1152 IMPRESSION: NEW pathologic fracture in the LEFT ilium at the site of the known metastatic bone disease. No displacement. Discharge Plan Discharge Patient Disposition: Home Clinical Impression: Acute lumbar back pain, Metastatic cancer Condition: Stable Prescriptions: New prednisone 10 mg tablet See Taper PO DAILY Qty: 42 0RF Taper: predniSONE 60-10 60 mg Daily for 2 Days and 0 Hour 50 mg Daily for 2 Days and 0 Hour 40 mg Daily for 2 Days and 0 Hour 30 mg Daily for 2 Days and 0 Hour 20 mg Daily for 2 Days and 0 Hour 10 mg Daily for 2 Days and 0 Hour Valium 2 mg tablet 2 mg PO TID PRN (Reason: muscle spasm) Qty: 10 0RF Discontinued hydromorphone 2 mg tablet 2 - 4 mg PO Q4H PRN (Reason: pain) 30 Days Qty: 60 0RF No Action triamcinolone acetonide 0.1 % ointment 1 applic topical BID Qty: 80 0RF Rx Instructions: apply to affected area no more than 2 weeks per month. not for face mupirocin 2 % ointment 1 applic topical BID Qty: 22 1RF Rx Instructions: Apply to affected areas until healed then discontinue. ascorbic acid (vitamin C) 1,000 mg tablet 1 gm PO DAILY cholecalciferol (vitamin D3) 100 mcg (4,000 unit) capsule 100 mcg PO DAILY krill oil 500 mg capsule PO Lumigan 0.01 % drops 1 drop ophthalmic (eye) DAILY PreserVision AREDS [id number] capsule 1 cap PO BID turmeric 400 mg capsule PO Lucentis 0.5 mg/0.05 mL syringe 0.5 mg INTRAVITRE Q28D Zoladex 10.8 mg implant SUBCUT celecoxib [Celebrex] 200 mg capsule 200 mg PO DAILY PRN ketoconazole 2 % shampoo 1 applic TOPICAL .2 x weekly Qty: 120 3RF Rx Instructions: Lather into scalp 2 times weekly. Allow to sit on scalp for 5 minutes before rinsing. prednisone 5 mg tablet 5 mg PO DAILY ondansetron HCl 4 mg tablet 4 mg PO Q8H PRN (Reason: nausea and vomiting) Qty: 60 0RF meloxicam 15 mg tablet 15 mg PO DAILY Qty: 30 2RF famotidine 20 mg tablet 20 mg PO BID Qty: 180 3RF tamsulosin 0.4 mg capsule See Rx Instructions .ROUTE .COMPLEX Qty: 90 3RF Dose Instruction: TAKE 1 CAPSULE BY MOUTH DAILY AT BEDTIME Rx Instructions: TAKE 1 CAPSULE BY MOUTH DAILY AT BEDTIME lubiprostone [Amitiza] 24 mcg capsule 24 mcg PO BID Qty: 60 0RF Xtandi 40 mg capsule 160 mg PO DAILY Qty: 120 0RF hydromorphone 2 mg tablet 2 - 4 mg PO QID PRN (Reason: pain) 30 Days Qty: 120 0RF Discharge Orders: Discharge ED (Routine); Ordered 03/17/22 Ordered By: Sukhjinder Bronson Referrals: Hubert Benedict DO [Primary Care Provider] - Discharge Diet: Usual diet Discharge Activity: Increase activity as tolerated Patient Instructions: Diazepam (By mouth), Acute Low Back Pain (ED), Lumbar Radiculopathy (ED), Opioid Safety, Pain Management Activity Restrictions/Additional Instructions: Thank you for visiting the emergency department. You were seen and evaluated for back pain. The exact cause of your symptoms is unclear though likely a combination of exacerbation of bone pain related to cancer and degenerative disc disease with nerve root irritation. I will refill your hydromorphone. Please use this cautiously as discussed. I will also give you a prescription for Valium for more muscle related type pain. Use these to extremely cautiously and space them out. Ensure that if using the se medications that you have someone around who can watch you for signs of [employer] or respiratory depression. Please follow-up with your primary care provider and oncologist. Return to the emergency department for uncontrolled symptoms, any numbness in the groin or perennial area, loss of control of bowel or bladder, or anything else that you are concerned about a feel needs emergency department evaluation. 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
[2022-03-17 11:46] VITALS: RESP 18
[2022-03-17] MEDS: acetaminophen 1,000 MG/100 ML PIGGYBACK 400 MG IV (11:46)
[2022-03-17] MEDS: diazePAM 2 mg Tablet PO (11:46)
[2022-03-17] MEDS: HYDROmorphone 1 mg/mL INJ 1 mL IVP (11:46)
[2022-03-17] MEDS: ketorolac 30 mg/mL INJ 15 MG IVP (11:47)
--- NOTE | 2022-03-17 11:48 | CT_ITS ---
WS: [id number] CT LUMBAR SPINE, noncontrast. HISTORY: low back pain, hx cancer TECHNIQUE: Contiguous 2.0 mm axial imaging are performed. Sagittal and coronal reformats are submitte d and reviewed. All CT scans at [facility] use at least one of these dose optimization techni ques: automated exposure control; mA and/or kV adjustment per patient size (includes targeted exams w here dose is matched to clinical indication); or iterative reconstruction. IV contrast: None DLP: 474.79 mGy.cm COMPARISON: 02/12/2022 L4 anterolisthesis by 4 mm. No acute fractures. Lytic lesion inferior L2 vertebral body. L1-2: Mild disc bulging and osteophytic ridging. L2-3: Asymmetric disc bulging. LEFT foraminal disc protrusion. L3-4: Mild annular disc bulging with ligamentum flavum and facet arthritis. Mild central, foraminal a nd subarticular stenosis. L4-5: Annular disc bulging and osteophytic ridging. Facet and ligamentum flavum hypertrophy. Severe c entral, bilateral subarticular recess and foraminal stenosis. L5-S1: Diffuse annular disc bulging encroaching upon the ventral thecal sac. Effacement of fat in the foramina. Moderate central with moderate to severe bilateral subarticular recess and foraminal steno sis. Known metastatic osteoblastic and osteolytic bone disease. Most significant involvement is in the LEF T sacrum and ilium. New pathologic fracture extends through the mixed lytic metastatic lesion in the LEFT ilium. Fracture was not present on 02/12/2022. LEFT renal cyst. CT/CT lumbar spine wo con* [id number] IMPRESSION: 1. No pathological fracture in the LEFT ilium at the site of the known metasta tic bone disease. No displacement. 2. Severe central, bilateral subarticular recess and foraminal stenosis at L4- 5. 3. Moderate central with moderate to severe bilateral subarticular recess and foraminal stenosis at L5-S1. 4. Mild central, foraminal and subarticular recess stenosis at L3-4. 5. LEFT foraminal disc protrusion at L2-3.
[2022-03-17 13:58] VITALS: BP 118/69; PULSE 77; O2SAT 98
== END 2022-03-17 14:00 | disposition home or self-care (01) ==
PROVIDERS: Emergency Provider Emergency Medicine; PCP Internal Medicine
DX: M54.50 Low back pain, unspecified (principal); C61 Malignant neoplasm of prostate; C79.51 Secondary malignant neoplasm of bone; M84.454A Pathological fracture, pelvis, initial encounter for fracture
CPT/HCPCS: 72131; 96365; 96375; 99285; J0131; J1170; J1885

== ENCOUNTER → 2022-04-06 09:02 | Outpatient (BNVA) | payer MEDICARE, SELFPAY | PROVIDERS: PCP Internal Medicine; Visit Provider Anesthesiology Pain Medicine | DX: M48.062 Spinal stenosis, lumbar region with neurogenic claudication (principal); M47.816 Spondylosis without myelopathy or radiculopathy, lumbar region; C79.51 Secondary malignant neoplasm of bone; C77.2 Secondary and unspecified malignant neoplasm of intra-abdominal lymph nodes; C61 Malignant neoplasm of prostate; I48.91 Unspecified atrial fibrillation; Z87.891 Personal history of nicotine dependence | CPT/HCPCS: 99214 ==

== ENCOUNTER 2022-04-07 14:15 | Oncology outpatient (recurring) (ONCR) | payer MEDICARE, SELFPAY ==
[2022-03-10 12:52] LABS: Basophils # 0.1 10^3/uL (0.0-0.1); Basophils % 0.6 %; Eosinophils # 0.1 10^3/uL (0.0-0.8); Eosinophils % 1.7 %; Hematocrit 34.7 % (42.0-52.0); Lymphocytes # 0.7 10^3/uL (0.8-4.8); Lymphocytes % 8.7 %; Mean Corpuscular HGB Conc 31.7 g/dL (30.0-36.0); Mean Corpuscular Hemoglobin 30.1 pg (28.0-34.0); Mean Corpuscular Volume 94.8 fl (80-94); Mean Platelet Volume 10.3 fL (7.4-10.4); Monocytes # 0.6 10^3/uL (0.2-0.9); Monocytes % 7.6 %; Neutrophils # 6.31 10^3/uL (1.8-7.7); Neutrophils % 81.1 %; Nucleated Red Blood Cells % 0 %; Platelet Count 222 10^3/cmm (130-400); Red Blood Count 3.66 10^6/uL (4.1-5.3); Red Cell Distribution Width 13.7 % (12.1-15.1); White Blood Count 7.8 10^3/uL (4.0-10.0)
[2022-03-10 13:27] LABS: Alanine Aminotransferase 12 U/L (0-41); Albumin Level 4.1 g/dL (3.5-5.2); Alkaline Phosphatase 166 U/L (40-130); Aspartate Amino Transferase 17 U/L (0-40); Blood Urea Nitrogen 17 mg/dL (8-23); Calcium 9.3 mg/dL (8.5-10.5); Carbon Dioxide 26 mmol/L (22-29); Chloride 101 mmol/L (98-107); Globulin 2.7 g/dL (1.3-4.6); Glucose 128 mg/dL (65-115); Osmolality Calculated 287 mOsm/kg (285-295); Sodium 137 mmol/L (136-145); Total Bilirubin 0.2 mg/dL (0.15-1.2); Total Protein 6.8 g/dL (6.6-8.7)
[2022-03-10] MEDS: lidocaine 1% INJ 20 mL MDV (mL) SUBCUT (16:31)
[2022-03-10] MEDS: denosumab 120 mg SDV SUBCUT (16:33)
[2022-03-10] MEDS: goserelin acetate 10.8 mg Implant SUBCUT (16:51)
--- NOTE | 2022-03-18 | CT_ITS ---
Radiation Therapy Planning CT images; total exam DLP: 685.85 mGy-cm MTDD
--- NOTE | 2022-03-18 15:00 | N.ONRD TS_ITS ---
Radiation OncologyTreatment Summary Patient Name: Matthew Case Date of : 1940 Date of Service: 03/18/2022 Attending Physician: Collins Spencer M.D. Matthew Case has completed palliative radiotherapy for the management of metastatic prostate cancer. The patient was diagnosed in May of 2018 following an evaluation for an elevated PSA level. The initial PSA was 66 ng/mL. A TRUS biopsy diagnosed an adenocarcinoma of the prostate with a [place] score of 4+ 4 (Grade Group 4). An abdominopelvic CT scan revealed pelvic, periaortic, and retroperitoneal lymphadenopathy, in addition to lytic lesions within the bilateral thu. Androgen deprivation therapy was prescribed (August 2019) with enzalutamide (September 2019). The PSA level nadired at 0.07 ng/mL in September of 2020. The PSA gradually increased to 24.2 ng/mL in September of 2021. His treatment was changed to abiraterone and prednisone. The PSA level continued to increase and abiraterone was discontinued in November of 2021. During a routine follow-up appointment, he described worsening back pain. A nuclear bone scintigraphy (independently reviewed in [facility]) ordered on February 12, 2022 described intense radiotracer uptake involving the left ilium and sacrum that corresponded to CT imaging findings of a new blastic metastatic lesion. The previously described lymphadenopathy had resolved. A recent PSA level was 115.4 ng/mL. Daily radiotherapy was administered on March 18, 2022 through March 05, 2022. A prescribed dose of 8 Gy was delivered in one fraction encompassing 0 elapsed days. The left ilium and sacrum were treated utilizing a 3-dimensional conformal radiotherapy plan with an AP/PA portal field design. The AP field utilized a 0??? gantry angle with a collimator angle of 0???. The field size measured 12 cm x 12 cm within the X-direction and 10 cm x 10 cm within the Y-direction. The SSD measured 87.8 cm with the field delivering 404 monitor units. The PA port employed a gantry angle of 180??? and a collimator angle of 0???. The field size spanned 12 cm x 12 cm within the X-direction and 10 cm x 10 cm within the Y-direction. The SSD was 91.9 cm with the port administering 446 monitor units. All treatments were performed with the Kira [employer]ent linear accelerator and an isocentric technique. The dose was calculated by Anisotropic Analytic Algorithm. Photon energies of 15 MV were prescribed with the plan normalized to deliver 100% of the prescription dose to 99% of the planning target volume. Signed by: Dr. Collins Spencer 03/18/2022 2:58:32 PM
[2022-03-25 10:17] VITALS: RESP 20
[2022-03-25] MEDS: HYDROmorphone 1 mg/mL INJ 1 mL 2 MG SUBCUT (10:17)
[2022-03-25 13:53] VITALS: BP 98/71; PULSE 52; RESP 18; TEMP 35.8; O2SAT 98
--- NOTE | 2022-03-25 15:53 | XR_ITS ---
WS: [id number] Exam: XR lumbar spine min 4V [id number] Date/Time of Exam: 03/25/2022 4:17 PM Reason For Exam: M54.9 - Dorsalgia, unspecified Comparison 02/10/2022. No acute fracture or dislocation. Mild degenerative anterolisthesis of L4 on L5 and L5 on S1. There i s about 5 mm forward movement of L4 on L5 and approximately 7 mm forward movement of L5 on S1. Facet arthropathy at all levels. Minimal degenerative retrolisthesis of L2 on L3. Mild degenerative disc na rrowing at all levels with the exception of the L3-4 level which is preserved. DJD of the SI joints. XR/XR lumbar spine min 4V [id number] IMPRESSION: 1. No acute fracture or dislocation. 2. Degenerative changes as detailed above. 3. Mild degenerative anterolisthesis of L4 on L5 and L5 on S1. Mild degenerativ e retrolisthesis of L2 on L3.
[2022-04-07] MEDS: denosumab 120 mg SDV SUBCUT (16:10)
--- NOTE | 2022-04-07 16:14 | PC.NURSE ---
Xgeva SQ given in upper outer left arm with no issues and follow up with Dr Boyce.mm
== END 2022-04-07 23:59 | disposition home or self-care (01) ==
PROVIDERS: Internal Medicine Medical Oncology; PCP Internal Medicine; Visit Provider Radiology Radiation Oncology
DX: C61 Malignant neoplasm of prostate (principal); C77.8 Secondary and unspecified malignant neoplasm of lymph nodes of multiple regions; C79.51 Secondary malignant neoplasm of bone; M54.50 Low back pain, unspecified; M25.552 Pain in left hip; R00.0 Tachycardia, unspecified; Z79.818 Long term (current) use of other agents affecting estrogen receptors and estrogen levels; Z79.899 Other long term (current) drug therapy; Z92.3 Personal history of irradiation; Z92.21 Personal history of antineoplastic chemotherapy; Z87.891 Personal history of nicotine dependence
CPT/HCPCS: 20553; 72110; 77280; 77290; 77295; 77300; 77334; 77336; 77412; 80053; 84153; 85025; 96372; 96402; 99024; 99205; 99214; J0897; J1030; J1170; J3490; J9202

== ENCOUNTER 2022-04-08 13:03 | Emergency (ER) | payer MEDICARE, SELFPAY ==
[2022-04-08] VITALS (25 sets, daily range): BP systolic 116–132; BP diastolic 78–97; PULSE 74–147; RESP 7–25; TEMP 36.4; O2SAT 96–100; BMI 22.2
--- NOTE | 2022-04-08 13:18 | ECG_ITS ---
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 Measurements Intervals [place] Rate: 144 P: 242 MI: 81 QRS: -60 QRSD: 144 T: 83 QT: 335 QTc: 520 Interpretive Statements POSSIBLE ATRIAL FLUTTER RIGHT BUNDLE BRANCH BLOCK [120+ ms QRS DURATION, UPRIGHT V1, 40+ ms S IN I/aVL/V4/V5/V6] LEFT ANTERIOR FASCICULAR BLOCK [QRS AXIS <= -45, QR IN I, RS IN II] No previous ECG available for comparison Electronically Signed On 04-10-2022 7:54:02 [employer]UNICATIONS SUPERINTENDENT by Romelia Alvarado M.D. [email or web address] [facility] hospital of meridianNeurosearchmercy health urb[facility] hospital.F2G/store/NU/[id number]
--- NOTE | 2022-04-08 13:53 | XRR_ITS ---
PROCEDURE INFORMATION: Exam: XR Chest Exam date and time: 04/08/2022 2:12 PM Age: 82 years old Clinical indication: Shortness of breath; Additional info: A-fib TECHNIQUE: Imaging protocol: Radiologic exam of the chest. Views: 1 view. COMPARISON: No relevant prior studies available. FINDINGS: Lungs: No pulmonary vascular congestion, pulmonary edema or pneumonia. Pleural spaces: No pleural effusion or pneumothorax. Heart/Mediastinum: The cardiac silhouette is not enlarged. The mediastinal contours are normal. Bones/joints: No acute osseous abnormality. XR/XR chest 1V portable [id number] IMPRESSION: No acute finding.
--- NOTE | 2022-04-08 13:56 | W.ED.ARRPALP ---
HPI - Arrhythmia/Palpitations General: Chief Complaint: Arrhythmia/Palpitations Stated Complaint: Austen sent for rapid hr Time Seen by Provider: 04/08/22 13:44 Source: patient Mode of arrival: ambulatory Limitations: no limitations History of Present Illness: This patient was referred to the emergency department by oncology because of a rapid heart rate. This is apparently discovered approximately 2 days ago and the nurse practitioner started him on a beta-migdalia he took 1 dose of that yesterday. He saw his oncologist again in follow-up today who noted that his heart rate was still persistently fast and referred him to the emergency department for further evaluation. He specifically denies any history of arrhythmias that have been diagnosed but he is aware from time to time when he is not active that his heart seems to be beating fast. He is attributed this as to hot flashes that he gets from time to time due to his metastatic prostate cancer treatment. He also states that he has been more fatigued over the past weeks than usual but he is also attributed that to her age as well as his other treatments. He denies any known history of coronary artery disease. He has been taking pseudoephedrine for the past year but stopped that 2 days ago at the recommendation of his oncologist. Denies any history of thyroid problems. He does have a mixed drink on occasion but no excessive alcohol consumption. No history of recent illness. MD complaint: rapid heart beat Onset (ago): unknown Associated symptoms: Deny anxiety, nausea, pre-syncope, syncope or vomiting Review of Systems Const: Denies: fever(s) or chills Eyes: Denies: change in vision ENMT: Denies: throat pain, odynophagia, nasal congestion or nasal obstruction Card: Reports: palpitations and dyspnea on exertion; Denies: chest pain, syncope or pre-syncope Resp: Denies: productive cough, non-productive cough, wheezing or stridor GI: Denies: abdominal pain, nausea, vomiting or diarrhea : Denies: flank pain, dysuria or urinary frequency Musc: Denies: neck pain, back pain, extremity pain or extremity swelling Skin/Breast: Denies: rash or pruritus Neuro: Denies: headache(s), numbness in extremities, weakness in extremities, frequent falls or dizziness Psych: Denies: anxiety or depression Endo: Denies: polyuria or polydipsia PFS ED PFSH: Medical History Degenerative arthritis GERD (gastroesophageal reflux disease) Glaucoma Prostate cancer Surgical History H/O cataract extraction History of hernia repair Hx of prostate biopsy (~05/2018) TRUSP with biopsy Hx of tonsillectomy Family History Father Cancer skin Brother Cancer colon Brother Cancer prostate Social History Smoking and tobacco status: former smoker Alcohol intake: current Physical Exam Narrative: EXAM NARRATIVE: He appears to be comfortable. He is pleasant makes good eye contact speech is goal-directed. Const: COMMON NORMALS: no acute distress, average body habitus, patient oriented x3 and alert GENERAL APPEARANCE: cooperative and comfortable HENMT: COMMON NORMALS: normocephalic, Normal nasal mucous membranes and turbinates present and moist oral mucous membranes HEAD & SCALP: normocephalic NOSE: Normal nasal mucous membranes and turbinates present Eye: COMMON NORMALS: Equal, round and reactive pupils present, EOMs intact bilaterally and conjunctivae normal CONJUNCTIVA: Yes conjunctivae normal PUPIL: Yes Equal, round and reactive pupils present Neck/C-Spine: COMMON NORMALS: full ROM, supple, no JVD, Thyroid normal and No carotid bruits THYROID: Thyroid normal Chest: COMMONS NORMALS: normal inspection of the chest and normal palpation of entire chest wall Resp: COMMON NORMALS: normal respiratory effort, No retractions and clear to auscultation bilaterally AUSCULTATION: clear to auscultation bilaterally Cardio: COMMON NORMALS: no JVD, No murmurs present (Cardio) and Peripheral pulses 2+ throughout RATE: tachycardic PERIPHERAL PULSES: Peripheral pulses 2+ throughout GI: COMMON NORMALS: Normal to inspection, nondistended, normoactive bowel sounds present, Soft to palpation and non-tender PALPATION: Yes Soft to palpation : COMMON NORMALS: Yes no CVA tenderness BLADDER/KIDNEY EXAM: Yes no CVA tenderness Back/Pelvis: COMMON NORMALS: no CVA tenderness, thoracic and lumbar spine normal to inspection, no thoracic nor lumbar tenderness and thoraco-lumbar ROM normal Extremity: COMMON NORMALS: normal to inspection, full ROM, capillary refill normal, no calf tenderness and no pedal edema Neuro: COMMON NORMALS: patient oriented x3, moves all extremities, no focal motor deficits and no sensory deficits noted SENSORIUM/ORIENTATION: Yes alert CRANIAL NERVES: Yes CN normal except as noted SPEECH: speech normal Psych: COMMON NORMALS: mental status grossly normal Skin: COMMON NORMALS: no rashes or lesions noted and turgor normal GENERAL SKIN EXAM: no rashes or lesions noted and turgor normal Course Reevaluation(s): Reevaluation #1: Patient's ventricular rate is well controlled after 20 mg of IV diltiazem. Underlying rhythm is consistent with atrial fibrillation/flutter. Time: 14:47 Reevaluation #2: Patient was reevaluated. His heart rate continues to be controlled in the 70s to 90 range. He was given additional 60 mg of diltiazem orally. His pressures have been very normal. No new findings on repeat examination. Discussed with Dr. Grady consulting heavy lift rigger who will follow him up. Time: 15:23 Vital Signs: Vital signs: Vital Signs Temperature 97.6 F 04/08/22 13:11 Pulse Rate 88 04/08/22 15:05 Respiratory Rate 25 H 04/08/22 15:05 Blood Pressure 127/81 04/08/22 15:05 Pulse Oximetry 97 04/08/22 15:05 Oxygen Delivery Me thod 04/08/22 14:30 MDM - Arrhythmia/Palpitations Medical Decision Making This patient presented as a referral from oncology clinic. On presentation to the emergency department he was noted to be in atrial fibrillation with a rapid ventricular response. He responded to fluids as well as a single dose of 20 mg of Cardizem IV. His laboratories are reassuring without any evidence of electrolyte abnormalities etc. His chest x-ray is normal. He has been well controlled with normal pressures since his diltiazem dose. He is clinically stable and suitable for discharge to an outpatient work-up. We discussed with on-call heavy lift rigger who agrees with the plan. We will continue him on a dose of diltiazem as well as a DOAC for stroke prevention (this was reviewed and discussed with the patient who agreed to proceed). We will order an outpatient echocardiogram as well. Stable for discharge with return precautions. Lab Data I reviewed the patient's lab results. 04/08/22 13:40 04/08/22 13:40 Radiology Impressions Chest X-Ray 04/08/22 13:53 IMPRESSION: No acute finding. Laboratory Results WBC 4.9 10^3/uL (4.0-10.0) 04/08/22 13:40 RBC 3.82 10^6/uL (4.1-5.3) L 04/08/22 13:40 Hgb 11.3 g/dL (11.7-16.6) L 04/08/22 13:40 Hct 35.9 % (42.0-52.0) L 04/08/22 13:40 MCV 94.0 fl (80-94) 04/08/22 13:40 MCH 29.6 pg (28.0-34.0) 04/08/22 13:40 MCHC 31.5 g/dL (30.0-36.0) 04/08/22 13:40 RDW 15.2 % (12.1-15.1) H 04/08/22 13:40 Plt Count 201 10^3/cmm (130-400) 04/08/22 13:40 MPV 10.4 fL (7.4-10.4) 04/08/22 13:40 Neut % (Auto) 70.2 % 04/08/22 13:40 Lymph % (Auto) 17.9 % 04/08/22 13:40 [place] % (Auto) 8.4 % 04/08/22 13:40 Eos % (Auto) 2.9 % 04/08/22 13:40 Baso % (Auto) 0.4 % 04/08/22 13:40 Neut # (Auto) 3.42 10^3/uL (1.8-7.7) 04/08/22 13:40 Lymph # (Auto) 0.9 10^3/uL (0.8-4.8) 04/08/22 13:40 [place] # (Auto) 0.4 10^3/uL (0.2-0.9) 04/08/22 13:40 Eos # (Auto) 0.1 10^3/uL (0.0-0.8) 04/08/22 13:40 Baso # (Auto) 0.0 10^3/uL (0.0-0.1) 04/08/22 13:40 Nucleated RBC % (auto) 0 % 04/08/22 13:40 Nucleated RBCs # 0.0 /100WBC 04/08/22 13:40 Sodium 137 mmol/L (136-145) 04/08/22 13:40 Potassium 4.3 mmol/L (3.5-5.1) 04/08/22 13:40 Chloride 103 mmol/L (98-107) 04/08/22 13:40 Carbon Dioxide 24 mmol/L (22-29) 04/08/22 13:40 Anion Gap 14.3 (5-19) 04/08/22 13:40 BUN 13 mg/dL (8-23) 04/08/22 13:40 Creatinine 0.9 mg/dL (0.7-1.2) 04/08/22 13:40 GFR Calculation Not Reportable 04/08/22 13:40 Glucose 108 mg/dL (65-115) 04/08/22 13:40 Calculated Osmolality 285 mOsm/kg (285-295) 04/08/22 13:40 Calcium 9.1 mg/dL (8.5-10.5) 04/08/22 13:40 Total Bilirubin 0.2 mg/dL (0.15-1.2) 04/08/22 13:40 AST 27 U/L (0-40) 04/08/22 13:40 ALT 24 U/L (0-41) 04/08/22 13:40 Alkaline Phosphatase 118 U/L (40-130) 04/08/22 13:40 Total Protein 7.0 g/dL (6.6-8.7) 04/08/22 13:40 Albumin 3.9 g/dL (3.5-5.2) 04/08/22 13:40 Globulin 3.1 g/dL (1.3-4.6) 04/08/22 13:40 TSH 3.54 uIU/mL (0.27-4.20) 04/08/22 13:40 EKG Data EKG 1: I personally reviewed and interpreted this EKG as follows: Interpretation: Initial EKG reveals a ventricular rate of 144 bpm. Suggestive of possible atrial fibrillation/atrial flutter. No acute ST-T wave changes noted. Other EKG comments: Chest X-Ray 04/08/22 13:53 IMPRESSION: No acute finding. Discharge Plan Discharge Patient Disposition: Home Clinical Impression: Atrial flutter, Atrial fibrillation Condition: Stable Prescriptions: New diltiazem HCl 120 mg capsule,extended release 24hr 120 mg PO DAILY Qty: 30 1RF rivaroxaban 2.5 mg tablet 2.5 mg PO BID Qty: 60 1RF No Action ascorbic acid (vitamin C) 1,000 mg tablet 1 gm PO DAILY krill oil 500 mg capsule 500 mg PO DAILY Lumigan 0.01 % drops 1 drop ophthalmic (eye) DAILY PreserVision AREDS [id number] capsule 1 cap PO BID turmeric 400 mg capsule 400 mg PO DAILY Lucentis 0.5 mg/0.05 mL syringe 0.5 mg INTRAVITRE Q28D Rx Instructions: left eye last injected 04/06/22 rigt eye due in May Zoladex 10.8 mg implant See Rx Instructions .ROUTE .COMPLEX Rx Instructions: subcutaneously ;last implanted in february ondansetron HCl 4 mg tablet 4 mg PO Q8H PRN (Reason: nausea and vomiting) Qty: 60 0RF bupivacaine (PF) 0.25 % (2.5 mg/mL) solution 1 ml intra-articular ONCE Qty: 1 0RF meloxicam 15 mg tablet 15 mg PO DAILY Qty: 30 2RF famotidine 20 mg tablet 20 mg PO BID Qty: 180 3RF Xtandi 40 mg capsule 160 mg PO DAILY Qty: 120 0RF Vitamin D3 50 mcg (2,000 unit) Tablet 50 mcg PO DAILY salmon oil-omega-3 fatty acids 1,000-210 mg Capsule 1 cap PO DAILY ketoconazole 2 % shampoo 1 applic TOPICAL . TWICE WEEKLY Rx Instructions: Lather into scalp 2 times weekly. Allow to sit on scalp for 5 minutes before rinsing. tamsulosin 0.4 mg capsule 0.4 mg PO BEDTIME Senna Lax 8.6 mg Tablet 17.2 mg PO BID Stool Softener 100 mg Capsule 200 mg PO BID fluticasone propionate 50 mcg/actuation spray,suspension 1 spray INTRANASAL BID oxycodone 10 mg tablet 10 - 20 mg PO Q4H PRN (Reason: Pain) acetaminophen 325 mg Tablet 325 mg PO QID PRN (Reason: Pain) Discharge Orders: Discharge ED (Routine); Ordered 04/08/22 Ordered By: Dario Kang Referrals: Romelia Alvarado MD [Physician] - 3 weeks Hubert Benedict DO [Primary Care Provider] - Discharge Diet: Usual diet Discharge Activity: Increase activity as tolerated Patient Instructions: Atrial Fibrillation, Opioid Safety, Pain Management Activity Restrictions/Additional Instructions: As we discussed you have a condition called atrial fibrillation. We have prescribed 2 medications: A. Diltiazem to help control your rate B. A blood thinning medication to help reduce your risk of stroke cardiology will call you for a follow-up appointment and outpatient will call you for outpatient appointment to get your echocardiogram. If you develop chest pain, shortness of breath or any other concerning symptoms return to this or the nearest emergency department. Coding Level of Care Code ED Customer Service Technician for Chg Fwd Exam Comprehensive
[2022-04-08 14:01] LABS: Basophils % 0.4 %; Eosinophils # 0.1 10^3/uL (0.0-0.8); Eosinophils % 2.9 %; Hematocrit 35.9 % (42.0-52.0); Hemoglobin 11.3 g/dL (11.7-16.6); Lymphocytes # 0.9 10^3/uL (0.8-4.8); Lymphocytes % 17.9 %; Mean Corpuscular HGB Conc 31.5 g/dL (30.0-36.0); Mean Corpuscular Hemoglobin 29.6 pg (28.0-34.0); Mean Platelet Volume 10.4 fL (7.4-10.4); Monocytes # 0.4 10^3/uL (0.2-0.9); Monocytes % 8.4 %; Neutrophils # 3.42 10^3/uL (1.8-7.7); Neutrophils % 70.2 %; Nucleated Red Blood Cells % 0 %; Platelet Count 201 10^3/cmm (130-400); Red Blood Count 3.82 10^6/uL (4.1-5.3); Red Cell Distribution Width 15.2 % (12.1-15.1); White Blood Count 4.9 10^3/uL (4.0-10.0)
--- NOTE | 2022-04-08 14:10 | ECG_ITS ---
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 Measurements Intervals [place] Rate: 119 P: 0 ND: 0 QRS: -49 QRSD: 174 T: 70 QT: 388 QTc: 548 Interpretive Statements ATRIAL FLUTTER WITH RAPID VENTRICULAR RESPONSE RIGHT BUNDLE BRANCH BLOCK [120+ ms QRS DURATION, UPRIGHT V1, 40+ ms S IN I/aVL/V4/V5/V6] LEFT ANTERIOR FASCICULAR BLOCK [QRS AXIS <= -45, QR IN I, RS IN II] Compared to ECG 04/08/2022 13:18:36 No significant changes Electronically Signed On 04-08-2022 18:53:32 [facility] by Romelia Alvarado M.D. [email or web address].iCrimefighteryalobusha general hospitalMWImercy health st[facility].[employer]/store/OM/[id number]
[2022-04-08] MEDS: sodium chloride 0.9% 500 ML IV (14:13)
[2022-04-08] MEDS: dilTIAZem 5 mg/mL SDV 5 mL 20 MG IVP (14:13)
[2022-04-08 14:30] LABS: Alanine Aminotransferase 24 U/L (0-41); Albumin Level 3.9 g/dL (3.5-5.2); Alkaline Phosphatase 118 U/L (40-130); Anion Gap 14.3 (5-19); Aspartate Amino Transferase 27 U/L (0-40); Blood Urea Nitrogen 13 mg/dL (8-23); Calcium 9.1 mg/dL (8.5-10.5); Carbon Dioxide 24 mmol/L (22-29); Chloride 103 mmol/L (98-107); Globulin 3.1 g/dL (1.3-4.6); Glucose 108 mg/dL (65-115); Osmolality Calculated 285 mOsm/kg (285-295); Potassium 4.3 mmol/L (3.5-5.1); Sodium 137 mmol/L (136-145); Thyroid Stimulating Hormone 3.54 uIU/mL (0.27-4.20); Total Bilirubin 0.2 mg/dL (0.15-1.2)
[2022-04-08] MEDS: dilTIAZem 60 mg Tablet PO (15:09)
--- NOTE | 2022-04-09 12:42 | DCPLANNER ---
Addendum entered by Yesy Guillen 05/06/22 15:41: Patient had a follow up appointment scheduled with heart care - patient did attend appointment. Patient had an outpatient echo scheduled - patient did attend the appointment. Addendum entered by Yesy Guillen 04/16/22 13:55: Patient has a follow up appointment scheduled for Thursday, May 26, 2022 at 1:[address] Correia at [facility]. Clinic will call patient with appointment information. Addendum entered by Yesy Guillen 04/09/22 12:46: manager telemarketing sent patients primary care physician notification that this test was ordered by the ER physician. Original Note: manager telemarketing had message to schedule a follow up appointment for patient with heart care. manager telemarketing sent patients information to the front office staff at [facility]. Patients information will be printed and reviewed. Clinic will call patient with appointment information. manager telemarketing also had message to schedule an outpatient echocardiogram. manager telemarketing faxed signed order to centralized scheduling, who will call patient with appointment information.
== END 2022-04-08 16:08 | disposition home or self-care (01) ==
PROVIDERS: Emergency Provider Emergency Medicine; PCP Internal Medicine
DX: I48.92 Unspecified atrial flutter (principal); I48.91 Unspecified atrial fibrillation; Z85.46 Personal history of malignant neoplasm of prostate; Z87.891 Personal history of nicotine dependence
CPT/HCPCS: 71045; 80053; 84443; 85025; 93005; 96361; 96374; 99285; J3490; J7040

== ENCOUNTER 2022-04-15 11:14 | Emergency (ER) | payer MEDICARE, SELFPAY ==
[2022-04-15 11:33] VITALS: BP 124/82; PULSE 141; RESP 16; TEMP 36.6; O2SAT 97; BMI 23.6
--- NOTE | 2022-04-15 11:39 | ECG_ITS ---
[facility] Test Date: 2022-04-15 Pat Name: Matthew Case Department: Room: Gender: Male Insole Filler: : 1940 Requested By: Dio Ness Order Number: [id number] Shannan MD: Edward Correia M.D. Measurements Intervals [place] Rate: 112 P: 0 LA: 0 QRS: -66 QRSD: 136 T: -67 QT: 401 QTc: 548 Interpretive Statements ATRIAL FLUTTER/TACHYCARDIA WITH RAPID VENTRICULAR RESPONSE RIGHT BUNDLE BRANCH BLOCK [120+ ms QRS DURATION, UPRIGHT V1, 40+ ms S IN I/aVL/V4/V5/V6] LEFT ANTERIOR FASCICULAR BLOCK [QRS AXIS <= -45, QR IN I, RS IN II] ST DEVIATION AND MODERATE T-WAVE ABNORMALITY, CONSIDER LATERAL ISCHEMIA [-0.1+ mV T-WAVE IN I/aVL/V5/V6] ST DEVIATION AND MODERATE T-WAVE ABNORMALITY, CONSIDER INFERIOR ISCHEMIA [-0.1+ mV T-WAVE IN II/aVF] Compared to ECG 04/08/2022 14:10:59 T-wave abnormality now present Possible ischemia now present Electronically Signed On 04-15-2022 13:46:45 POLYSOMNOGRAPHIC TECHNOLOGIST by Edward Correia M.D. [email or web address].[email or web address]/[id number]
--- NOTE | 2022-04-15 12:12 | ED_ITS ---
HPI - General Adult General: Chief complaint: General Medical Stated complaint: high heart rate Time Seen by Provider: 04/15/22 11:57 Source: patient Mode of arrival: ambulatory History of Present Illness: 82-year-old male with a known history of atrial fibrillation presents emergency room with a rapid heart rate. He was recently seen and started on diltiazem 120 p.o. daily he is also on anticoagulation. Sees primary care doctor yesterday his heart rate was still running in the 100-1 20 range. He was advised of his PCP to get a home monitor This morning he was in the 140s to contact Dr. garcia to return here. On arrival here his initial EKG shows A. fib flutter with a rate of 112 bedside monitoring shows variation with rates up into the 140s at times and the majority of them are around 110- 115. Onset (ago): week(s) Relieving factors: none Exacerbating factors: none Associated symptoms: Reports dyspnea and palpitations; Deny chest pain, confusion, cough, diaphoresis, decreased appetite, fevers /chills, headache(s), malaise, nausea, rash, seizures, short of breath, syncope, vomiting or weakness Treatments prior to arrival: none Review of Systems Const: Denies: fever(s), chills, malaise or diaphoresis ENMT: Denies: throat pain, ear or mastoid pain, nasal discharge or nasal congestion Card: Reports: palpitations and irregular heart rhythm; Denies: chest pain or syncope Resp: Reports: dyspnea; Denies: productive cough or non-productive cough GI: Denies: nausea or vomiting : Denies: flank pain, dysuria, urinary frequency or urinary urgency Skin/Breast: Denies: rash Neuro: Denies: headache(s) or confusion PFS ED PFSH: Medical History Degenerative arthritis GERD (gastroesophageal reflux disease) Glaucoma Prostate cancer Surgical History H/O cataract extraction History of hernia repair Hx of prostate biopsy (~05/2018) TRUSP with biopsy Hx of tonsillectomy Family History Father Cancer skin Brother Cancer colon Brother Cancer prostate Social History Smoking and tobacco status: former smoker Alcohol intake: current Physical Exam Const: GENERAL APPEARANCE: cooperative and comfortable ORIENTATION/CONSCIOUSNESS: Yes awake, Yes oriented to person, Yes oriented to place and Yes oriented to time HENMT: COMMON NORMALS: normocephalic, atraumatic and hearing grossly normal bilaterally HEAD & SCALP: normocephalic and atraumatic Resp: COMMON NORMALS: normal respiratory effort, No retractions, No use of accessory muscles and clear to auscultation bilaterally AUSCULTATION: clear to auscultation bilaterally Cardio: RATE: tachycardic RHYTHM: abnormal rhythm irregularly irregular GI: COMMON NORMALS: Soft to palpation and No hepatosplenomegaly present AUSCULTATION: Yes normoactive bowel sounds PALPATION: Yes Soft to palpation, No Tenderness to palpation present (GI), No Guarding due to palpation present (GI) and Yes No hepatosplenomegaly present Extremity: COMMON NORMALS: normal to inspection, capillary refill normal, no clubbing, cyanosis or edema, no calf tenderness and no pedal edema Neuro: SENSORIUM/ORIENTATION: Yes oriented to person, Yes oriented to place and Yes oriented to time Skin: COMMON NORMALS: no rashes or lesions noted GENERAL SKIN EXAM: no rashes or lesions noted Course Vital Signs: Vital signs: Vital Signs Temperature 97.9 F 04/15/22 11:33 Pulse Rate 87 04/15/22 14:06 Respiratory Rate 16 04/15/22 11:33 Blood Pressure 124/72 04/15/22 14:06 Pulse Oximetry 97 04/15/22 11:33 Oxygen Delivery Me thod 04/15/22 11:33 MDM - General Adult Medical Decision Making Rate controlled with IV push Cardizem and increase to his p.o. Cardizem. Given 60 p.o. immediate release discharged home on 180 mg p.o. extended release daily follow-up with primary care doctor within 1 week return if is further problems. Medical Records I reviewed the patient's medical records. Lab Data I reviewed the patient's lab results. 04/15/22 11:55 04/15/22 11:55 Radiology Impressions Chest X-Ray 04/15/22 13:26 IMPRESSION: Unremarkable frontal portable chest x-ray. Laboratory Results WBC 4.6 10^3/uL (4.0-10.0) 04/15/22 11:55 RBC 4.04 10^6/uL (4.1-5.3) L 04/15/22 11:55 Hgb 11.8 g/dL (11.7-16.6) 04/15/22 11:55 Hct 37.7 % (42.0-52.0) L 04/15/22 11:55 MCV 93.3 fl (80-94) 04/15/22 11:55 MCH 29.2 pg (28.0-34.0) 04/15/22 11:55 MCHC 31.3 g/dL (30.0-36.0) 04/15/22 11:55 RDW 15.6 % (12.1-15.1) H 04/15/22 11:55 Plt Count 212 10^3/cmm (130-400) 04/15/22 11:55 MPV 11.0 fL (7.4-10.4) H 04/15/22 11:55 Neut % (Auto) 67.4 % 04/15/22 11:55 Lymph % (Auto) 18.6 % 04/15/22 11:55 [place] % (Auto) 10.5 % 04/15/22 11:55 Eos % (Auto) 2.4 % 04/15/22 11:55 Baso % (Auto) 0.7 % 04/15/22 11:55 Neut # (Auto) 3.08 10^3/uL (1.8-7.7) 04/15/22 11:55 Lymph # (Auto) 0.9 10^3/uL (0.8-4.8) 04/15/22 11:55 [place] # (Auto) 0.5 10^3/uL (0.2-0.9) 04/15/22 11:55 Eos # (Auto) 0.1 10^3/uL (0.0-0.8) 04/15/22 11:55 Baso # (Auto) 0.0 10^3/uL (0.0-0.1) 04/15/22 11:55 Nucleated RBC % (auto) 0 % 04/15/22 11:55 Nucleated RBCs # 0.0 /100WBC 04/15/22 11:55 Sodium 139 mmol/L (136-145) 04/15/22 11:55 Potassium 4.2 mmol/L (3.5-5.1) 04/15/22 11:55 Chloride 102 mmol/L (98-107) 04/15/22 11:55 Carbon Dioxide 26 mmol/L (22-29) 04/15/22 11:55 Anion Gap 15.2 (5-19) 04/15/22 11:55 BUN 16 mg/dL (8-23) 04/15/22 11:55 Creatinine 0.9 mg/dL (0.7-1.2) 04/15/22 11:55 GFR Calculation Not Reportable 04/15/22 11:55 Glucose 118 mg/dL (65-115) H 04/15/22 11:55 Calculated Osmolality 290 mOsm/kg (285-295) 04/15/22 11:55 Calcium 9.5 mg/dL (8.5-10.5) 04/15/22 11:55 Total Bilirubin 0.3 mg/dL (0.15-1.2) 04/15/22 11:55 AST 20 U/L (0-40) 04/15/22 11:55 ALT 30 U/L (0-41) 04/15/22 11:55 Alkaline Phosphatase 140 U/L (40-130) H 04/15/22 11:55 Total Protein 7.8 g/dL (6.6-8.7) 04/15/22 11:55 Albumin 4.5 g/dL (3.5-5.2) 04/15/22 11:55 Globulin 3.3 g/dL (1.3-4.6) 04/15/22 11:55 Discharge Plan Discharge Patient Disposition: Home Clinical Impression: Atrial fibrillation Condition: Stable Prescriptions: New diltiazem HCl 180 mg capsule,extended release 24 hr 180 mg PO DAILY Qty: 30 0RF Discontinued diltiazem HCl 120 mg capsule,extended release 24hr 120 mg PO DAILY Qty: 30 1RF No Action ascorbic acid (vitamin C) 1,000 mg tablet 1 gm PO DAILY Lumigan 0.01 % drops 1 drop ophthalmic (eye) DAILY PreserVision AREDS [phone] [id number]-yw-hdsg capsule 1 cap PO BID turmeric 400 mg capsule 400 mg PO DAILY Lucentis 0.5 mg/0.05 mL syringe 0.5 mg INTRAVITRE Q28D Rx Instructions: left eye last injected 04/06/22 rigt eye due in May Zoladex 10.8 mg implant See Rx Instructions .ROUTE .COMPLEX Rx Instructions: subcutaneously ;last implanted in february ondansetron HCl 4 mg tablet 4 mg PO Q8H PRN (Reason: nausea and vomiting) Qty: 60 0RF famotidine 20 mg tablet 20 mg PO BID Qty: 180 3RF Xtandi 40 mg capsule 160 mg PO DAILY Qty: 120 0RF meloxicam 15 mg tablet See Rx Instructions .ROUTE .COMPLEX Qty: 30 2RF Dose Instruction: TAKE 1 TABLET BY MOUTH ONCE DAILY Rx Instructions: TAKE 1 TABLET BY MOUTH ONCE DAILY cholecalciferol (vitamin D3) [Vitamin D3] 50 mcg (2,000 unit) Tablet 50 mcg PO DAILY salmon oil-omega-3 fatty acids 1,000-210 mg Capsule 1 cap PO DAILY ketoconazole 2 % shampoo 1 applic TOPICAL . TWICE WEEKLY Rx Instructions: Lather into scalp 2 times weekly. Allow to sit on scalp for 5 minutes before rinsing. tamsulosin 0.4 mg capsule 0.4 mg PO BEDTIME sennosides [Senna Lax] 8.6 mg Tablet 17.2 mg PO BID docusate sodium [Stool Softener] 100 mg Capsule 200 mg PO BID fluticasone propionate 50 mcg/actuation spray,suspension 1 spray INTRANASAL BID oxycodone 10 mg tablet 10 - 20 mg PO Q4H PRN (Reason: Pain) acetaminophen 325 mg Tablet 325 mg PO QID PRN (Reason: Pain) rivaroxaban 2.5 mg tablet 2.5 mg PO BID Qty: 60 1RF Discharge Orders: Discharge ED (Routine); Ordered 04/15/22 Ordered By: Dio Monge Referrals: Hubert Benedict DO [Primary Care Provider] - Discharge Diet: Usual diet Discharge Activity: Increase activity as tolerated Patient Instructions: Opioid Safety, Pain Management Activity Restrictions/Additional Instructions: You were seen today for atrial fibrillation with rapid ventricular response. The heart rate responded quickly to the medications given. You were given extra dose of the diltiazem you are already taking. Recommend that starting tomorrow you increase the diltiazem 24-hour extended release 180 mg once daily and follow-up with your primary care doctor within the week to reevaluate blood pressure and rate control. Coding Level of Care Code ED Therapeutic Dietitian for Noreen Fwd Exam Detailed
[2022-04-15] MEDS: dilTIAZem 5 mg/mL SDV 5 mL 10 MG IVP (12:15)
[2022-04-15] MEDS: dilTIAZem 60 mg Tablet PO (12:15)
[2022-04-15 12:39] VITALS: BP 117/85; PULSE 85
--- NOTE | 2022-04-15 13:26 | XR_ITS ---
WS: [email or web address] EXAMINATION: XR chest 1V portable [id number] REASON FOR EXAM: dyspnea/cough COMPARISON: 04/08/2022 ORDER DATE: 04/15/2022 1:26 PM TECHNIQUE: A single, portable frontal chest x-ray was obtained. X-RAY FINDINGS: The lungs are clear. Pleural spaces are clear. No pleural effusions or pneumothorax. Cardiomediastinal silhouette is normal. No evidence for pulmonary edema. Soft tissue and osseous structures are unremarkable. No tubes or lines are present. XR/XR chest 1V portable [id number] IMPRESSION: Unremarkable frontal portable chest x-ray.
[2022-04-15 13:35] LABS: Basophils % 0.7 %; Eosinophils # 0.1 10^3/uL (0.0-0.8); Eosinophils % 2.4 %; Hematocrit 37.7 % (42.0-52.0); Hemoglobin 11.8 g/dL (11.7-16.6); Lymphocytes # 0.9 10^3/uL (0.8-4.8); Lymphocytes % 18.6 %; Mean Corpuscular HGB Conc 31.3 g/dL (30.0-36.0); Mean Corpuscular Hemoglobin 29.2 pg (28.0-34.0); Mean Corpuscular Volume 93.3 fl (80-94); Monocytes # 0.5 10^3/uL (0.2-0.9); Monocytes % 10.5 %; Neutrophils # 3.08 10^3/uL (1.8-7.7); Neutrophils % 67.4 %; Nucleated Red Blood Cells % 0 %; Platelet Count 212 10^3/cmm (130-400); Red Blood Count 4.04 10^6/uL (4.1-5.3); Red Cell Distribution Width 15.6 % (12.1-15.1); White Blood Count 4.6 10^3/uL (4.0-10.0)
[2022-04-15 13:45] LABS: Alanine Aminotransferase 30 U/L (0-41); Albumin Level 4.5 g/dL (3.5-5.2); Alkaline Phosphatase 140 U/L (40-130); Anion Gap 15.2 (5-19); Aspartate Amino Transferase 20 U/L (0-40); Blood Urea Nitrogen 16 mg/dL (8-23); Calcium 9.5 mg/dL (8.5-10.5); Carbon Dioxide 26 mmol/L (22-29); Chloride 102 mmol/L (98-107); Globulin 3.3 g/dL (1.3-4.6); Glucose 118 mg/dL (65-115); Osmolality Calculated 290 mOsm/kg (285-295); Potassium 4.2 mmol/L (3.5-5.1); Sodium 139 mmol/L (136-145); Total Bilirubin 0.3 mg/dL (0.15-1.2); Total Protein 7.8 g/dL (6.6-8.7)
[2022-04-15 14:06] VITALS: BP 124/72; PULSE 87
== END 2022-04-15 14:05 | disposition home or self-care (01) ==
PROVIDERS: Emergency Provider Family Medicine; PCP Internal Medicine
DX: I48.91 Unspecified atrial fibrillation (principal); Z87.891 Personal history of nicotine dependence; Z85.46 Personal history of malignant neoplasm of prostate
CPT/HCPCS: 71045; 80053; 85025; 93005; 96374; 99285; J3490

== ENCOUNTER → 2022-05-04 09:40 | Outpatient (BNVA) | payer MEDICARE, SELFPAY | PROVIDERS: PCP Internal Medicine; Visit Provider Internal Medicine Cardiovascular Disease | DX: I48.92 Unspecified atrial flutter (principal); K21.9 Gastro-esophageal reflux disease without esophagitis; C61 Malignant neoplasm of prostate; C79.51 Secondary malignant neoplasm of bone; M48.062 Spinal stenosis, lumbar region with neurogenic claudication; Z87.891 Personal history of nicotine dependence | CPT/HCPCS: 99204 ==

== ENCOUNTER 2022-05-06 13:39 | Outpatient (CLI) | payer MEDICARE, SELFPAY ==
--- NOTE | 2022-05-06 13:45 | USCV_ITS ---
Matthew Case Age: 82 Gender: M : 1940 Exam Date: 05/06/2022 13:56 Ordering Phys: Romelia Alvarado MD ([email or web address]) Technologist: Umm Bess [place] [facility] [place]: ATRIAL FLUTTER BP: 114 / 78 HR: 79 Rhythm: Sinus Technical Quality: Adequate MEASUREMENTS (Male / Female) Normal Values 2D ECHO LV Diastolic Diameter PLAX 3.3 cm 4.2 - 5.9 / 3.9 - 5.3 cm LV Systolic Diameter PLAX 2.8 cm LV Chamber Size 3.0 cm IVS Diastolic Thickness 1.1 cm 0.6 - 1.0 / 0.6 - 0.9 cm IVS Systolic Thickness 1.7 cm LVPW Diastolic Thickness 1.2 cm 0.6 - 1.0 / 0.6 - 0.9 cm LVPW Systolic Thickness 1.7 cm RV Chamber Size 2.5 cm LVOT Diameter 2.0 cm LV Ejection Fraction 2D Teich 35.3 % LV Ejection Fraction MOD 2C 40.6 % LV Ejection Fraction 2C AL 41.7 % LA Diameter 3.5 cm LA Width 3.6 cm LA Height 3.1 cm RA Width 4.0 cm RA Height 4.8 cm Aorta at Sinotubular Diameter 2.9 cm IVC Diameter 1.7 cm M-MODE Aortic Annulus Diameter 3.9 cm LA Ao Ratio MM 0.9 MV E Point Septal Separation 0.5 cm DOPPLER AV Peak Velocity 100.7 cm/s LVOT Peak Velocity 70.3 cm/s AV Area Cont Eq vti 2.2 cm squared AV Area Cont Eq pk 2.2 cm squared MV Area PHT 5.4 cm squared MV E' Velocity 50.0 cm/s Mitral E to MV E' Ratio 6.2 Mitral E to LV E' Lateral Ratio 6.1 Mitral E to LV E' Septal Ratio 6.2 TR Peak Velocity 218.2 cm/s TR Peak Gradient 19.0 mmHg TR Mean Velocity 159.5 cm/s TR Mean Gradient 11.1 mmHg TR Velocity Time Integral 58.3 cm TV Peak E Velocity 76.0 cm/s Right Atrial Pressure 3.0 mmHg Pulmonary Artery Systolic Pressu 22.0 mmHg RV Acceleration Time 0.1 s RV Ejection Time 0.3 s RV AcT/ET 0.3 FINDINGS Left Ventricle Normal left ventricular size, systolic function and wall thickness, with no regional wall motion abnormalities. Left ventricular ejection fraction is estimated at 60 %. Rhythm precludes evaluation of diastolic function. Right Ventricle Normal right ventricular size and systolic function. Right ventricular systolic pressure 29 mmHg. Right Atrium Mildly to moderately increased right atrial size. Left Atrium Mildly increased left atrial size. Mitral Valve Structurally normal mitral valve. No mitral valve stenosis. Mild mitral valve regurgitation. Aortic Valve Structurally normal trileaflet aortic valve. No aortic valve stenosis. No aortic valve regurgitation. Tricuspid Valve Structurally normal tricuspid valve. No tricuspid valve stenosis. Moderate tricuspid valve regurgitation. Pulmonic Valve Structurally normal pulmonic valve. No pulmonary valve regurgitation. Pericardium No pericardial effusion. Aorta Normal size aortic root and proximal ascending aorta. IVC Normal IVC dimension with >50% respiratory change of the inferior vena cava. CONCLUSIONS 1. Normal left ventricular size, systolic function and wall thickness, with no regional wall motion abnormalities. Left ventricular ejection fraction is estimated at 60 %. 2. Normal right ventricular size and systolic function. 3. Mildly to moderately increased right atrial size. 4. Moderate tricuspid valve regurgitation. 5. Mildly increased left atrial size. 6. No prior similar studies to compare. Romelia Alvarado MD (Electronically Signed) Final Date: 08 May 2022 17:14 S
== END 2022-05-06 13:40 | disposition home or self-care (01) ==
PROVIDERS: PCP Internal Medicine; Visit Provider Internal Medicine Cardiovascular Disease
DX: I48.92 Unspecified atrial flutter (principal); I07.1 Rheumatic tricuspid insufficiency
CPT/HCPCS: 93306

== ENCOUNTER 2022-05-12 09:28 | Oncology outpatient (recurring) (ONCR) | payer MEDICARE, SELFPAY ==
[2022-05-12 10:29] LABS: Basophils % 0.3 %; Eosinophils # 0.1 10^3/uL (0.0-0.8); Eosinophils % 1.9 %; Hematocrit 35.4 % (42.0-52.0); Hemoglobin 11.1 g/dL (11.7-16.6); Lymphocytes # 0.9 10^3/uL (0.8-4.8); Lymphocytes % 14.9 %; Mean Corpuscular HGB Conc 31.4 g/dL (30.0-36.0); Mean Corpuscular Hemoglobin 28.7 pg (28.0-34.0); Mean Corpuscular Volume 91.5 fl (80-94); Mean Platelet Volume 10.2 fL (7.4-10.4); Monocytes # 0.5 10^3/uL (0.2-0.9); Monocytes % 7.6 %; Neutrophils # 4.42 10^3/uL (1.8-7.7); Nucleated Red Blood Cells % 0 %; Platelet Count 179 10^3/cmm (130-400); Red Blood Count 3.87 10^6/uL (4.1-5.3); Red Cell Distribution Width 14.5 % (12.1-15.1); White Blood Count 5.9 10^3/uL (4.0-10.0)
[2022-05-12 11:01] LABS: Alanine Aminotransferase 18 U/L (0-41); Albumin Level 4.1 g/dL (3.5-5.2); Alkaline Phosphatase 112 U/L (40-130); Anion Gap 15.3 (5-19); Aspartate Amino Transferase 20 U/L (0-40); Blood Urea Nitrogen 12 mg/dL (8-23); Calcium 8.8 mg/dL (8.5-10.5); Carbon Dioxide 25 mmol/L (22-29); Chloride 103 mmol/L (98-107); Globulin 2.7 g/dL (1.3-4.6); Glucose 118 mg/dL (65-115); Osmolality Calculated 289 mOsm/kg (285-295); Potassium 4.3 mmol/L (3.5-5.1); Sodium 139 mmol/L (136-145); Total Bilirubin 0.3 mg/dL (0.15-1.2); Total Protein 6.8 g/dL (6.6-8.7)
== END 2022-06-08 23:59 | disposition home or self-care (01) ==
PROVIDERS: Internal Medicine Medical Oncology; PCP Internal Medicine; Visit Provider Radiology Radiation Oncology
DX: C61 Malignant neoplasm of prostate (principal); C77.8 Secondary and unspecified malignant neoplasm of lymph nodes of multiple regions; C79.51 Secondary malignant neoplasm of bone; M51.37 Other intervertebral disc degeneration, lumbosacral region; M16.12 Unilateral primary osteoarthritis, left hip; I48.92 Unspecified atrial flutter; I47.29 Other ventricular tachycardia; Z79.818 Long term (current) use of other agents affecting estrogen receptors and estrogen levels; Z79.899 Other long term (current) drug therapy; Z87.891 Personal history of nicotine dependence
CPT/HCPCS: 36415; 80053; 84153; 85025; 99214

== ENCOUNTER → 2022-05-13 13:24 | Outpatient (BNVA) | payer MEDICARE, SELFPAY | PROVIDERS: PCP Internal Medicine; Visit Provider Podiatrist Foot & Ankle Surgery | DX: I73.9 Peripheral vascular disease, unspecified (principal); L60.3 Nail dystrophy | CPT/HCPCS: 11721 ==

== ENCOUNTER → 2022-06-04 09:17 | Outpatient (BNVA) | payer MEDICARE, SELFPAY | PROVIDERS: PCP Internal Medicine; Visit Provider Nurse Practitioner Family | DX: I48.92 Unspecified atrial flutter (principal) | CPT/HCPCS: 99214 ==

== ENCOUNTER 2022-06-28 13:40 | Oncology outpatient (recurring) (ONCR) | payer MEDICARE, SELFPAY ==
[2022-06-28 14:35] LABS: Testosterone Total < 2.5 ng/dL (193-740)
== END 2022-07-06 23:59 | disposition home or self-care (01) ==
PROVIDERS: Internal Medicine Medical Oncology; PCP Internal Medicine; Visit Provider Radiology Radiation Oncology
DX: C61 Malignant neoplasm of prostate (principal); C77.8 Secondary and unspecified malignant neoplasm of lymph nodes of multiple regions; C79.51 Secondary malignant neoplasm of bone; M51.37 Other intervertebral disc degeneration, lumbosacral region; M16.12 Unilateral primary osteoarthritis, left hip; I48.92 Unspecified atrial flutter; I47.29 Other ventricular tachycardia; Z79.818 Long term (current) use of other agents affecting estrogen receptors and estrogen levels; Z79.899 Other long term (current) drug therapy; Z87.891 Personal history of nicotine dependence; Z79.891 Long term (current) use of opiate analgesic; M47.816 Spondylosis without myelopathy or radiculopathy, lumbar region; M48.062 Spinal stenosis, lumbar region with neurogenic claudication; Z79.52 Long term (current) use of systemic steroids; G89.3 Neoplasm related pain (acute) (chronic)
CPT/HCPCS: 36415; 84153; 84403; 99214

== ENCOUNTER → 2022-07-22 14:04 | Outpatient (BNVA) | payer MEDICARE, SELFPAY | PROVIDERS: PCP Internal Medicine; Visit Provider Podiatrist Foot & Ankle Surgery | DX: L60.0 Ingrowing nail (principal); I73.9 Peripheral vascular disease, unspecified; L60.3 Nail dystrophy | CPT/HCPCS: 11721; 11750; A6219 ==

== ENCOUNTER 2022-07-26 12:01 | Oncology outpatient (recurring) (ONCR) | payer MEDICARE, SELFPAY ==
[2022-07-26 13:42] LABS: Testosterone Total 2.5 ng/dL (193-740)
== END 2022-08-06 23:59 | disposition home or self-care (01) ==
PROVIDERS: Nurse Practitioner Family; PCP Internal Medicine; Visit Provider Radiology Radiation Oncology
DX: C61 Malignant neoplasm of prostate (principal); C77.8 Secondary and unspecified malignant neoplasm of lymph nodes of multiple regions; C79.51 Secondary malignant neoplasm of bone; M51.37 Other intervertebral disc degeneration, lumbosacral region; M16.12 Unilateral primary osteoarthritis, left hip; M47.816 Spondylosis without myelopathy or radiculopathy, lumbar region; M48.062 Spinal stenosis, lumbar region with neurogenic claudication; G89.3 Neoplasm related pain (acute) (chronic); Z79.52 Long term (current) use of systemic steroids; Z79.818 Long term (current) use of other agents affecting estrogen receptors and estrogen levels; Z79.891 Long term (current) use of opiate analgesic; Z79.899 Other long term (current) drug therapy; Z87.891 Personal history of nicotine dependence
CPT/HCPCS: 36415; 84153; 84403; 99213; 99214

== ENCOUNTER → 2022-08-02 14:56 | Outpatient (BNVA) | payer MEDICARE, SELFPAY | PROVIDERS: PCP Internal Medicine; Visit Provider Nurse Practitioner Family | DX: I48.92 Unspecified atrial flutter (principal); Z79.01 Long term (current) use of anticoagulants; Z87.891 Personal history of nicotine dependence | CPT/HCPCS: 99213 ==

== ENCOUNTER → 2022-08-03 09:46 | Outpatient (BNVA) | payer MEDICARE, SELFPAY | PROVIDERS: PCP Internal Medicine; Visit Provider Podiatrist Foot & Ankle Surgery | DX: I73.9 Peripheral vascular disease, unspecified (principal); L60.3 Nail dystrophy | CPT/HCPCS: 99213 ==

== ENCOUNTER 2022-08-26 09:59 | Oncology outpatient (recurring) (ONCR) | payer MEDICARE, SELFPAY ==
[2022-08-26 10:42] LABS: Basophils % 0.5 %; Eosinophils # 0.1 10^3/uL (0.0-0.8); Eosinophils % 1.4 %; Hematocrit 39.1 % (42.0-52.0); Hemoglobin 12.1 g/dL (11.7-16.6); Lymphocytes # 0.8 10^3/uL (0.8-4.8); Lymphocytes % 12.6 %; Mean Corpuscular HGB Conc 30.9 g/dL (30.0-36.0); Mean Corpuscular Hemoglobin 28.7 pg (28.0-34.0); Mean Corpuscular Volume 92.7 fl (80-94); Mean Platelet Volume 9.7 fL (7.4-10.4); Monocytes # 0.4 10^3/uL (0.2-0.9); Monocytes % 6.6 %; Neutrophils # 5.09 10^3/uL (1.8-7.7); Neutrophils % 78.1 %; Nucleated Red Blood Cells % 0 %; Platelet Count 168 10^3/cmm (130-400); Red Blood Count 4.22 10^6/uL (4.1-5.3); Red Cell Distribution Width 18.7 % (12.1-15.1); White Blood Count 6.5 10^3/uL (4.0-10.0)
[2022-08-26 11:17] LABS: Alanine Aminotransferase 24 U/L (0-41); Albumin Level 3.9 g/dL (3.5-5.2); Alkaline Phosphatase 73 U/L (40-130); Anion Gap 14.6 (5-19); Aspartate Amino Transferase 19 U/L (0-40); Blood Urea Nitrogen 24 mg/dL (8-23); Calcium 8.4 mg/dL (8.5-10.5); Carbon Dioxide 25 mmol/L (22-29); Chloride 103 mmol/L (98-107); Globulin 2.6 g/dL (1.3-4.6); Glucose 140 mg/dL (65-115); Osmolality Calculated 292 mOsm/kg (285-295); Potassium 4.6 mmol/L (3.5-5.1); Sodium 138 mmol/L (136-145); Testosterone Total 2.5 ng/dL (193-740); Total Bilirubin 0.3 mg/dL (0.15-1.2); Total Protein 6.5 g/dL (6.6-8.7)
== END 2022-09-05 23:59 | disposition home or self-care (01) ==
PROVIDERS: Internal Medicine Medical Oncology; PCP Internal Medicine; Visit Provider Radiology Radiation Oncology
DX: C61 Malignant neoplasm of prostate (principal); C77.8 Secondary and unspecified malignant neoplasm of lymph nodes of multiple regions; C79.51 Secondary malignant neoplasm of bone; G89.3 Neoplasm related pain (acute) (chronic); Z79.52 Long term (current) use of systemic steroids; Z79.891 Long term (current) use of opiate analgesic; Z79.899 Other long term (current) drug therapy; Z87.891 Personal history of nicotine dependence
CPT/HCPCS: 80053; 84153; 84403; 85025; 99214

== ENCOUNTER 2022-10-06 15:47 | Oncology outpatient (recurring) (ONCR) | payer MEDICARE, SELFPAY ==
--- NOTE | 2022-10-06 16:15 | XR_ITS ---
WS: [id number] Exam: XR shoulder LT min 2V* [id number] Date/Time of Exam: 10/06/2022 4:15 PM Reason For Exam: pain No fracture or dislocation noted. Minimal AC joint DJD. No sign of bone destruction. Normal soft tiss ues. XR/XR shoulder LT min 2V* [id number] IMPRESSION: 1. Minimal AC joint DJD. No other significant finding.
--- NOTE | 2022-10-06 16:15 | XR_ITS ---
WS: [email or web address] Exam: XR cervical spine 3V* [id number] Date/Time of Exam: 10/06/2022 4:15 PM Reason For Exam: pain Comparison 02/10/2022. No fracture or dislocation noted. Early degenerative disc narrowing from C4 to C7 and mild spondylosi s. Moderate facet arthropathy at all levels. Normal paraspinal soft tissues. The odontoid is intact. There is straightening. XR/XR cervical spine 3V* [id number] IMPRESSION: 1. Ldlp-cn-dwottesf degenerative changes and straightening. 2. No fracture or malalignment. No sign of bone destruction.
== END 2022-10-06 23:59 | disposition home or self-care (01) ==
LOC: RAD 15:48 → ONCMED 10-12 14:46
PROVIDERS: PCP Internal Medicine; Visit Provider Internal Medicine Medical Oncology
DX: M50.321 Other cervical disc degeneration at C4-C5 level (principal); M19.012 Primary osteoarthritis, left shoulder; C79.51 Secondary malignant neoplasm of bone
CPT/HCPCS: 36415; 72040; 73030; 84153

== ENCOUNTER → 2022-10-12 10:01 | Outpatient (BNVA) | payer MEDICARE, SELFPAY | PROVIDERS: PCP Internal Medicine; Referring Provider Internal Medicine Medical Oncology; Visit Provider Physician Assistant | DX: M75.42 Impingement syndrome of left shoulder (principal); M54.2 Cervicalgia | CPT/HCPCS: 20610; 72050; 99203; J1040; J2795 ==

== ENCOUNTER → 2022-10-14 11:47 | Day surgery (SDC) | payer MEDICARE, SELFPAY ==
--- NOTE | 2022-10-14 11:57 | XR_ITS ---
WS: [id number] Portable AP upright chest, 10/14/2022 Clinical Data: Post Picc insertion Comparison: Portable chest, 04/15/2022 Findings: Right PICC line enters the superior vena cava and ends in the midportion. No pneumothorax i s seen. XR/XR chest 1V portable [id number] Impression: Satisfactory placement of right PICC line.
[2022-10-14 12:00] VITALS: BP 119/79; PULSE 83; RESP 18; TEMP 36.4; O2SAT 97
--- NOTE | 2022-10-14 12:35 | PC.NURSE ---
[facility], Dr. Boyce for PICC placement. Pt to start chemotherapy as soon as possible. Informed consent obtained from patient prior to placement. Assessment revealed 6 mm right brachial vein, appearing straight, and best choice for line placement. Double lumen PICC placed with some difficulty to right brachial vein. First attempt, catheter would not thread just beyond dilator. Site removed. Pressure held until hemostasis obtained. Second attempt tried proximal to first attempt with success. Trimmed cath length 36 cm with 1 cm external length noted. Mid-arm circumference measured 10 cm from right AC 28 cm. CXR show tip in mid SVC, in good position to use per radiologist. Gauze placed over site and secured with statlock and transparent semipermeable membrane (TSM). Surgilast placed over site to keep line secure to body. Pt scheduled at [facility] tomorrow at 1130 for PICC dressing change.
== END ==
LOC: GILAB 11:50
PROVIDERS: PCP Internal Medicine; Visit Provider Internal Medicine Medical Oncology
DX: C61 Malignant neoplasm of prostate (principal); C79.51 Secondary malignant neoplasm of bone
CPT/HCPCS: 36569; 71045

== ENCOUNTER 2022-11-02 14:00 | Oncology outpatient (recurring) (ONCR) | payer MEDICARE, SELFPAY ==
[2022-10-15 12:17] LABS: Basophils % 0.3 %; Eosinophils # 0.1 10^3/uL (0.0-0.8); Eosinophils % 0.6 %; Hematocrit 33.2 % (42.0-52.0); Hemoglobin 10.5 g/dL (11.7-16.6); Lymphocytes # 1.3 10^3/uL (0.8-4.8); Lymphocytes % 11.7 %; Mean Corpuscular HGB Conc 31.6 g/dL (30.0-36.0); Mean Corpuscular Hemoglobin 30.2 pg (28.0-34.0); Mean Corpuscular Volume 95.4 fl (80-94); Mean Platelet Volume 9.6 fL (7.4-10.4); Monocytes # 0.8 10^3/uL (0.2-0.9); Monocytes % 7.3 %; Neutrophils # 8.46 10^3/uL (1.8-7.7); Neutrophils % 77.6 %; Nucleated Red Blood Cells % 0 %; Platelet Count 401 10^3/cmm (130-400); Red Blood Count 3.48 10^6/uL (4.1-5.3); Red Cell Distribution Width 16.8 % (12.1-15.1); White Blood Count 10.9 10^3/uL (4.0-10.0)
--- NOTE | 2022-10-15 12:27 | PC.NURSE ---
PICC Line Dressing Change PICC line dressing was changed on 10/15/22 at 12:15 using sterile technique. No redness or irritation noted at insertion site. Pt tolerated well.
[2022-10-18 10:24] VITALS: BP 109/73; PULSE 83; RESP 16; TEMP 35.8; O2SAT 97
[2022-10-18 11:05] LABS: Alanine Aminotransferase 32 U/L (0-41); Albumin Level 3.7 g/dL (3.5-5.2); Alkaline Phosphatase 120 U/L (40-130); Aspartate Amino Transferase 25 U/L (0-40); Blood Urea Nitrogen 27 mg/dL (8-23); Calcium 8.6 mg/dL (8.5-10.5); Carbon Dioxide 22 mmol/L (22-29); Chloride 102 mmol/L (98-107); Globulin 2.7 g/dL (1.3-4.6); Glucose 137 mg/dL (65-115); Osmolality Calculated 285 mOsm/kg (285-295); Sodium 134 mmol/L (136-145); Total Bilirubin 0.2 mg/dL (0.15-1.2); Total Protein 6.4 g/dL (6.6-8.7)
[2022-10-18 11:06] LABS: Anion Gap 14.9 (5-19); Potassium 4.9 mmol/L (3.5-5.1)
[2022-10-18 11:40] LABS: Testosterone Total 2.5 ng/dL (193-740)
[2022-10-19 13:38] VITALS: BP 97/65; PULSE 90; RESP 16; TEMP 36.3; O2SAT 98
[2022-10-19] MEDS: sodium chloride 0.9% 250 ML 75 ML IV (13:54)
[2022-10-19] MEDS: famotidine 20 mg/2 mL INJ IVP (13:58)
[2022-10-19] MEDS: palonosetron 0.25 mg/5 mL SDV IVP (14:00)
[2022-10-19] MEDS: diphenhydrAMINE 50 mg/mL SDV 1mL 25 MG IVP (14:04)
[2022-10-19] MEDS: [UNRECOGNIZED DRUG - REMARK] 256 MG IV (14:36)
[2022-10-19 16:00] VITALS: BP 100/66; PULSE 84; O2SAT 98
[2022-10-26 14:01] VITALS: BP 105/64; PULSE 72; RESP 18; TEMP 35.9; O2SAT 97
[2022-10-26 14:18] LABS: Basophils # 0.1 10^3/uL (0.0-0.1); Basophils % 1.8 %; Eosinophils % 0.4 %; Hematocrit 36.4 % (42.0-52.0); Hemoglobin 11.5 g/dL (11.7-16.6); Lymphocytes # 0.6 10^3/uL (0.8-4.8); Lymphocytes % 10.4 %; Mean Corpuscular HGB Conc 31.6 g/dL (30.0-36.0); Mean Corpuscular Hemoglobin 29.9 pg (28.0-34.0); Mean Corpuscular Volume 94.8 fl (80-94); Mean Platelet Volume 10.6 fL (7.4-10.4); Monocytes # 0.2 10^3/uL (0.2-0.9); Monocytes % 2.7 %; Neutrophils # 4.59 10^3/uL (1.8-7.7); Neutrophils % 81.8 %; Nucleated Red Blood Cells % 0 %; Platelet Count 276 10^3/cmm (130-400); Red Blood Count 3.84 10^6/uL (4.1-5.3); Red Cell Distribution Width 16.2 % (12.1-15.1); White Blood Count 5.6 10^3/uL (4.0-10.0)
[2022-11-02 13:52] VITALS: BP 93/59; PULSE 74; RESP 18; TEMP 36.6; O2SAT 96
[2022-11-02 14:13] LABS: Hematocrit 33.8 % (42.0-52.0); Hemoglobin 10.4 g/dL (11.7-16.6); Mean Corpuscular HGB Conc 30.8 g/dL (30.0-36.0); Mean Corpuscular Hemoglobin 29.6 pg (28.0-34.0); Mean Corpuscular Volume 96.3 fl (80-94); Mean Platelet Volume 10.7 fL (7.4-10.4); Platelet Count 167 10^3/cmm (130-400); Red Blood Count 3.51 10^6/uL (4.1-5.3); Red Cell Distribution Width 17.1 % (12.1-15.1); White Blood Count 5.5 10^3/uL (4.0-10.0)
[2022-11-02 14:38] LABS: Alanine Aminotransferase 38 U/L (0-41); Albumin Level 3.6 g/dL (3.5-5.2); Alkaline Phosphatase 71 U/L (40-130); Blood Urea Nitrogen 26 mg/dL (8-23); Calcium 8.4 mg/dL (8.5-10.5); Carbon Dioxide 23 mmol/L (22-29); Chloride 104 mmol/L (98-107); Globulin 2.2 g/dL (1.3-4.6); Glucose 143 mg/dL (65-115); Osmolality Calculated 291 mOsm/kg (285-295); Sodium 137 mmol/L (136-145); Total Bilirubin 0.4 mg/dL (0.15-1.2); Total Protein 5.8 g/dL (6.6-8.7)
[2022-11-02 14:39] LABS: Anion Gap 16.2 (5-19); Aspartate Amino Transferase 32 U/L (0-40); Potassium 6.2 mmol/L (3.5-5.1)
[2022-11-02 15:07] LABS: Slide Review Slide Review Perform
[2022-11-02 15:45] LABS: Absolute Segmented Neutrophil 2.9 10/cmm (1.6-7.1); Band Neutrophils Absolute 0.1 10^3/cmm (0.0-1.2); Eosinophils 0 %; Lymphocytes 22 %; Lymphocytes Absolute 1.2 10^3/cmm (1.2-3.4); Macrocytosis 1+; Microcytosis 1+; Platelet Estimate Normal (Normal); Polychromasia 1+; Segmented Neutrophils 53 %; Spherocytes 1+; Target Cells 1+; Total Cells Counted 100 (0-100); Toxic Granulation 1+
== END 2022-11-05 23:59 | disposition home or self-care (01) ==
PROVIDERS: PCP Internal Medicine; Visit Provider Internal Medicine Medical Oncology
DX: C61 Malignant neoplasm of prostate (principal)
CPT/HCPCS: 36592; 80053; 84153; 84403; 85007; 85025; 96367; 96375; 96413; 99215; J1100; J1200; J1642; J2469; J3490; J7050; J9171

== ENCOUNTER 2022-12-02 09:30 | Oncology outpatient (recurring) (ONCR) | payer MEDICARE, SELFPAY ==
[2022-11-10 14:41] LABS: Basophils % 0.2 %; Hematocrit 34.3 % (42.0-52.0); Hemoglobin 10.8 g/dL (11.7-16.6); Lymphocytes # 0.8 10^3/uL (0.8-4.8); Lymphocytes % 8.2 %; Mean Corpuscular HGB Conc 31.5 g/dL (30.0-36.0); Mean Corpuscular Hemoglobin 30.9 pg (28.0-34.0); Mean Corpuscular Volume 98.3 fl (80-94); Mean Platelet Volume 10.9 fL (7.4-10.4); Monocytes # 0.6 10^3/uL (0.2-0.9); Monocytes % 6.2 %; Neutrophils # 8.12 10^3/uL (1.8-7.7); Neutrophils % 83.4 %; Nucleated Red Blood Cells % 0.2 %; Platelet Count 142 10^3/cmm (130-400); Red Blood Count 3.49 10^6/uL (4.1-5.3); White Blood Count 9.7 10^3/uL (4.0-10.0)
[2022-11-10 16:02] LABS: Alanine Aminotransferase 28 U/L (0-41); Albumin Level 3.6 g/dL (3.5-5.2); Alkaline Phosphatase 71 U/L (40-130); Aspartate Amino Transferase 18 U/L (0-40); Blood Urea Nitrogen 29 mg/dL (8-23); Calcium 8.4 mg/dL (8.5-10.5); Carbon Dioxide 25 mmol/L (22-29); Chloride 105 mmol/L (98-107); Globulin 1.9 g/dL (1.3-4.6); Glucose 106 mg/dL (65-115); Osmolality Calculated 290 mOsm/kg (285-295); Sodium 137 mmol/L (136-145); Total Bilirubin 0.3 mg/dL (0.15-1.2); Total Protein 5.5 g/dL (6.6-8.7)
--- NOTE | 2022-11-10 16:25 | PC.NURSE ---
PICC line dressing change completed via sterile technique. No redness or irritation noted. Pt tolerated well. Pt did have some bleeding from previous bandage. JW
[2022-11-11 11:06] VITALS: BP 104/73; PULSE 73; RESP 18; TEMP 36.6; O2SAT 98
[2022-11-11] MEDS: sodium chloride 0.9% 250 ML 75 ML IV (11:14)
[2022-11-11] MEDS: palonosetron 0.25 mg/5 mL SDV IVP (11:15)
[2022-11-11] MEDS: famotidine 20 mg/2 mL INJ IVP (11:18)
[2022-11-11] MEDS: diphenhydrAMINE 50 mg/mL SDV 1mL 25 MG IVP (11:20)
[2022-11-11 13:05] VITALS: BP 114/72; PULSE 68; RESP 16; TEMP 35.7; O2SAT 97
[2022-11-18 11:28] VITALS: BP 80/65; PULSE 129; RESP 18; TEMP 36.1; O2SAT 95
[2022-11-18] MEDS: ondansetron 2 mg/ML SDV 2 mL 8 MG IVP (11:54)
[2022-11-18] MEDS: sodium chloride 0.9% 500 ML 999 ML IV (11:54)
[2022-11-18 12:30] VITALS: BP 120/89; PULSE 112; RESP 18; TEMP 36.6; O2SAT 97
[2022-11-18 12:35] VITALS: BP 147/78; PULSE 61; RESP 18; TEMP 36.6; O2SAT 98
[2022-11-25 14:52] VITALS: BP 95/60; PULSE 120; RESP 18; TEMP 36
[2022-11-25] MEDS: sodium chloride 0.9% 1,000 ML 999 ML IV (15:00)
[2022-11-25 15:06] LABS: Hematocrit 30.1 % (42.0-52.0); Hemoglobin 9.6 g/dL (11.7-16.6); Mean Corpuscular HGB Conc 31.9 g/dL (30.0-36.0); Mean Corpuscular Hemoglobin 31.5 pg (28.0-34.0); Mean Corpuscular Volume 98.7 fl (80-94); Mean Platelet Volume 10.2 fL (7.4-10.4); Platelet Count 270 10^3/cmm (130-400); Red Blood Count 3.05 10^6/uL (4.1-5.3); Red Cell Distribution Width 18.5 % (12.1-15.1); White Blood Count 10.4 10^3/uL (4.0-10.0)
[2022-11-25 15:08] LABS: Slide Review Slide Review Perform
[2022-11-25 16:09] LABS: Absolute Segmented Neutrophil 8.7 10/cmm (1.6-7.1); Eosinophils 0 %; Lymphocytes 4 %; Lymphocytes Absolute 0.5 10^3/cmm (1.2-3.4); Monocytes Absolute 0.5 10^3/cmm (0.1-0.6); Segmented Neutrophils 84 %; Total Cells Counted 100 (0-100)
[2022-11-25 16:10] LABS: Absolute Neutrophil 8.7 10^3/cmm (1.4-6.5); Corrected White Blood Count 9.5 10^3/cmm (4.8-10.8); Platelet Estimate Normal (Normal); Polychromasia 1+
[2022-11-25 16:11] LABS: Anisocytosis 1+; Macrocytosis 1+
[2022-11-25 16:15] VITALS: BP 108/69; PULSE 69; TEMP 35.9; O2SAT 98
--- NOTE | 2022-11-25 16:41 | PC.NURSE ---
Dr. Boyce brought pt back to infusion suite for EKG and hydration. 12 lead EKG completed for pt, results shown to Dr. Boyce. No concerns at this time. JW
[2022-12-02 09:51] VITALS: BP 95/60; PULSE 121; RESP 18; TEMP 36.3; O2SAT 94
[2022-12-02 09:53] VITALS: BMI 23.0
[2022-12-02 10:10] LABS: Basophils # 0.1 10^3/uL (0.0-0.1); Basophils % 0.5 %; Eosinophils % 0.1 %; Hematocrit 29.4 % (42.0-52.0); Hemoglobin 9.5 g/dL (11.7-16.6); Lymphocytes # 0.5 10^3/uL (0.8-4.8); Lymphocytes % 4.8 %; Mean Corpuscular HGB Conc 32.3 g/dL (30.0-36.0); Mean Corpuscular Hemoglobin 31.8 pg (28.0-34.0); Mean Corpuscular Volume 98.3 fl (80-94); Mean Platelet Volume 9.4 fL (7.4-10.4); Monocytes # 0.8 10^3/uL (0.2-0.9); Neutrophils # 9.49 10^3/uL (1.8-7.7); Neutrophils % 86.1 %; Nucleated Red Blood Cells % 0.3 %; Platelet Count 293 10^3/cmm (130-400); Red Blood Count 2.99 10^6/uL (4.1-5.3); Red Cell Distribution Width 18.4 % (12.1-15.1)
--- NOTE | 2022-12-02 10:20 | PC.NURSE ---
Received verbal orders to remove pts PICC line due to line being out 22cm. Small amount of purulent draininage noted. Removed 36cm of catheter line. Pt tolerated removal well. Pressure dressing applied. Educated pt on leaving dressing until tomorrow. Monitoring pt until office visit. CHARLES
[2022-12-02 10:48] LABS: Alanine Aminotransferase 36 U/L (0-41); Albumin Level 3.3 g/dL (3.5-5.2); Alkaline Phosphatase 121 U/L (40-130); Anion Gap 13.7 (5-19); Aspartate Amino Transferase 23 U/L (0-40); Blood Urea Nitrogen 20 mg/dL (8-23); Calcium 8.2 mg/dL (8.5-10.5); Carbon Dioxide 23 mmol/L (22-29); Chloride 104 mmol/L (98-107); Creatinine Clr Calc Pharmacy 53.7531; Globulin 2.1 g/dL (1.3-4.6); Glucose 107 mg/dL (65-115); Osmolality Calculated 285 mOsm/kg (285-295); Potassium 4.7 mmol/L (3.5-5.1); Sodium 136 mmol/L (136-145); Total Bilirubin 0.2 mg/dL (0.15-1.2); Total Protein 5.4 g/dL (6.6-8.7)
== END 2022-12-06 23:59 | disposition home or self-care (01) ==
PROVIDERS: Internal Medicine Medical Oncology; PCP Internal Medicine; Visit Provider Internal Medicine Medical Oncology
DX: C61 Malignant neoplasm of prostate (principal); C77.8 Secondary and unspecified malignant neoplasm of lymph nodes of multiple regions; D64.81 Anemia due to antineoplastic chemotherapy; T45.1X5A Adverse effect of antineoplastic and immunosuppressive drugs, initial encounter; C79.51 Secondary malignant neoplasm of bone; G89.3 Neoplasm related pain (acute) (chronic); Z79.52 Long term (current) use of systemic steroids; Z79.899 Other long term (current) drug therapy; Z92.21 Personal history of antineoplastic chemotherapy; Z92.3 Personal history of irradiation
CPT/HCPCS: 36592; 80053; 84153; 85007; 85025; 93005; 96360; 96361; 96367; 96374; 96375; 96376; 96413; 99215; J1100; J1200; J1642; J2405; J2469; J3490; J7030; J7040; J7050; J9171

== ENCOUNTER 2022-12-23 08:03 | Oncology outpatient (recurring) (ONCR) | payer MEDICARE, SELFPAY ==
[2022-12-23 08:31] VITALS: BMI 22.8
[2022-12-23 08:32] VITALS: BP 106/74; PULSE 81; RESP 18; TEMP 36.3; O2SAT 97
[2022-12-23 08:45] LABS: Basophils # 0.1 10^3/uL (0.0-0.1); Basophils % 0.8 %; Eosinophils # 0.1 10^3/uL (0.0-0.8); Hematocrit 32.5 % (42.0-52.0); Hemoglobin 10.1 g/dL (11.7-16.6); Lymphocytes # 1.3 10^3/uL (0.8-4.8); Lymphocytes % 20.7 %; Mean Corpuscular HGB Conc 31.1 g/dL (30.0-36.0); Mean Corpuscular Hemoglobin 30.6 pg (28.0-34.0); Mean Corpuscular Volume 98.5 fl (80-94); Mean Platelet Volume 9.9 fL (7.4-10.4); Monocytes # 0.5 10^3/uL (0.2-0.9); Monocytes % 8.3 %; Neutrophils # 4.29 10^3/uL (1.8-7.7); Neutrophils % 68.9 %; Nucleated Red Blood Cells % 0 %; Platelet Count 180 10^3/cmm (130-400); Red Cell Distribution Width 18.3 % (12.1-15.1); White Blood Count 6.2 10^3/uL (4.0-10.0)
[2022-12-23 09:38] LABS: Alanine Aminotransferase 14 U/L (0-41); Albumin Level 3.7 g/dL (3.5-5.2); Alkaline Phosphatase 98 U/L (40-130); Anion Gap 14.6 (5-19); Aspartate Amino Transferase 18 U/L (0-40); Blood Urea Nitrogen 21 mg/dL (8-23); Calcium 8.8 mg/dL (8.5-10.5); Carbon Dioxide 23 mmol/L (22-29); Chloride 107 mmol/L (98-107); Globulin 2.4 g/dL (1.3-4.6); Glucose 98 mg/dL (65-115); Osmolality Calculated 293 mOsm/kg (285-295); Potassium 4.6 mmol/L (3.5-5.1); Sodium 140 mmol/L (136-145); Total Bilirubin 0.4 mg/dL (0.15-1.2); Total Protein 6.1 g/dL (6.6-8.7)
== END 2023-01-06 23:59 | disposition home or self-care (01) ==
PROVIDERS: PCP Internal Medicine; Visit Provider Internal Medicine Medical Oncology
DX: C61 Malignant neoplasm of prostate (principal); C79.51 Secondary malignant neoplasm of bone; C77.8 Secondary and unspecified malignant neoplasm of lymph nodes of multiple regions; G89.3 Neoplasm related pain (acute) (chronic); Z79.52 Long term (current) use of systemic steroids; Z79.818 Long term (current) use of other agents affecting estrogen receptors and estrogen levels; Z79.891 Long term (current) use of opiate analgesic; Z79.899 Other long term (current) drug therapy; Z87.891 Personal history of nicotine dependence
CPT/HCPCS: 36415; 80053; 84153; 85025; 99214

== ENCOUNTER 2023-01-14 08:44 | Outpatient (CLI) | payer MEDICARE, SELFPAY ==
--- NOTE | 2023-01-14 09:00 | NM_ITS ---
WS: [id number] NUCLEAR MEDICINE BONE SCAN Radiopharmaceutical: 24.4 Tc-99m MDP mCi IV Injection site: Antecubital Postinjection imaging delay: 1 hr CLINICAL INFORMATION: MALIGNANT NEOPLASM OF PROSTATE COMPARISON: 02/12/2022 FINDINGS: Bone lesions: There is a progressive new osseous metastasis compared to previous. New metastatic lesi ons visualized in the midthoracic and lower thoracic spine. Focal lesion at the T12 vertebral body as seen on the recent CT. Small areas of metastatic disease in the midthoracic spine at the costoverteb ral junction posteriorly. New uptake involving LEFT L5-S1 posteriorly. Several new metastatic rib les ions. Suspicious focal uptake involving the RIGHT glenoid. Progressed osseous metastatic disease involving the LEFT sacrum, LEFT ilium and bilateral acetabulum. New area of uptake involving the RIGHT ischium. New area of focal uptake involving the LEFT lesser t rochanter. Soft tissue contours: Normal. Kidneys: Normal. Other findings: None. IMPRESSION: Progressed bony metastatic disease compared to previous described above.
[2023-01-14] MEDS: iohexol 350 mg/mL 500 mL Btl (per mL) PO (10:00)
[2023-01-14] MEDS: iohexol 350 mg/mL 500 mL Btl (per mL) IV (10:29)
--- NOTE | 2023-01-14 12:15 | CT_ITS ---
WS: [id number] CT ABDOMEN PELVIS TECHNIQUE: Contrast-enhanced CT of the abdomen and pelvis with coronal and sagittal reformatted image s. CLINICAL INFORMATION: prostate ca COMPARISON: CT 02/12/22 DLP: 351.[address] scans at [facility] use at least one of these dose optimization techniques: automated e xposure control; mA and/or kV adjustment per patient size (includes targeted exams where dose is matc hed to clinical indication); or iterative reconstruction. FINDINGS: Tiny bilateral pleural effusions. Bibasilar atelectasis. Hepatomegaly with coarse heterogeneous hepat ic enhancement. Stable LEFT hepatic cyst measuring 2.7 cm. Normal portal vein and splenic vein. Rylie l GE junction. Adrenal glands are normal. Normal renal parenchymal enhancement. Small bilateral renal cysts. Normal caliber abdominal aorta. Aortic calcification. Sigmoid diverticulosis. Tiny fat-containing umbilical hernia. No abdominal or pelvic lymphadenopathy. No inguinal lymphadenopathy. Bladder is decompressed with mild diffuse bladder wall thickening. Stab le grade 1 anterolisthesis L4 on L5. New blastic metastasis T12 vertebral body. Previously described blastic metastatic lesions in the LE FT sacrum and ilium appears progressed compared to previous with increased sclerosis. Recommend corre lation with following bone scan later today. New blastic metastatic lesions involving the LEFT acetab ulum RIGHT acetabulum and RIGHT inferior pubic ramus. This is new compared to previous. New tiny dee dee tic lesion in the RIGHT ilium adjacent to the SI joint. IMPRESSION: 1. Bony metastasis appears progressed compared to previous described above. Notable new T12 vertebra l body lesion. Recommend correlation with bone scan later today. 2. Tiny bilateral pleural effusions. 3. No abdominal or pelvic lymphadenopathy. 4. Prostate is stable in appearance. 5. Diffuse heterogeneous hepatic enhancement more coarse compared to previous. Recommend correlation with liver function tests. 6. Stable LEFT hepatic cyst.
== END 2023-01-14 08:45 | disposition home or self-care (01) ==
PROVIDERS: PCP Internal Medicine; Visit Provider Internal Medicine Medical Oncology
DX: C61 Malignant neoplasm of prostate (principal); C79.51 Secondary malignant neoplasm of bone; J90 Pleural effusion, not elsewhere classified
CPT/HCPCS: 74177; 78306; A9561; Q9967

== ENCOUNTER → 2023-02-02 15:53 | Outpatient (BNVA) | payer MEDICARE, SELFPAY | PROVIDERS: PCP Internal Medicine; Visit Provider Internal Medicine Cardiovascular Disease | DX: I48.92 Unspecified atrial flutter (principal); Z79.01 Long term (current) use of anticoagulants; Z87.891 Personal history of nicotine dependence | CPT/HCPCS: 99214 ==

== ENCOUNTER → 2023-03-03 13:12 | Outpatient (BNVA) | payer MEDICARE, SELFPAY | PROVIDERS: PCP Internal Medicine; Visit Provider Nurse Practitioner Family | DX: L82.0 Inflamed seborrheic keratosis (principal) | CPT/HCPCS: 17000; 17110; 99213 ==

== ENCOUNTER 2023-03-19 11:46 | Observation (INO) | payer MEDICARE, SELFPAY ==
[2023-03-19] VITALS (8 sets, daily range): BP systolic 96–134; BP diastolic 59–86; PULSE 73–132; RESP 14–18; TEMP 36.6–36.7; O2SAT 94–100; BMI 20.3
--- NOTE | 2023-03-19 12:53 | XRR_ITS ---
PROCEDURE INFORMATION: Exam: XR Lumbosacral Spine Exam date and time: 03/19/2023 1:21 PM Age: 83 years old Clinical indication: Low back pain; Patient HX: Lower back/lt sided pelvic pain; Bone cancer TECHNIQUE: Imaging protocol: Radiologic exam of the lumbosacral spine. Views: 2 or 3 views. COMPARISON: NM bone scan whole body* [id number] 01/14/2023 9:00 AM FINDINGS: Bones/joints: Mild scoliosis. A metastasis is suspected in the left L4 pedicle or possibly the inferior left L3 facet. Grade 1 spondylolisthesis of L4 anteriorly on L5 and of L5 anteriorly on S1. 3 mm retrolisthesis of L1 and L2. Bilateral L4-L5 and L5-S1 facet osteoarthritis. Otherwise, unremarkable. Soft tissues: Unremarkable. XR/XR lumbar spine 2-3V* [id number] IMPRESSION: 1. Suspect a metastasis in the left L4 pedicle or the inferior left L3 facet. 2. Additional details as above. Chronic.
--- NOTE | 2023-03-19 12:53 | XRR_ITS ---
PROCEDURE INFORMATION: Exam: XR Abdomen Exam date and time: 03/19/2023 1:21 PM Age: 83 years old Clinical indication: Bloating and constipation; Patient HX: Constipation; Abdominal distention; Cough TECHNIQUE: Imaging protocol: Radiologic exam of the abdomen. Views: 2 Views. Upright and supine views. COMPARISON: CT abdomen pelvis w con* [id number] 01/14/2023 10:35 AM FINDINGS: Gastrointestinal tract: Bowel-gas pattern suggests adynamic ileus or gastroenteritis. Not suggestive of bowel obstruction. Moderate amount of stool consistent with constipation. Intraperitoneal space: Normal. No free air. Bones/joints: Mild scoliosis and multilevel spondylosis. Osseous metastatic disease. XR/XR acute abdomen series [id number] IMPRESSION: 1. Probable adynamic ileus and/or gastroenteritis. 2. Probable constipation. 3. Additional details as above.
--- NOTE | 2023-03-19 12:53 | XRR_ITS ---
PROCEDURE INFORMATION: Exam: XR Pelvis Exam date and time: 03/19/2023 1:21 PM Age: 83 years old Clinical indication: Patient HX: Lower back/lt sided pelvic pain; Bone cancer TECHNIQUE: Imaging protocol: Radiologic exam of the pelvis. Views: 1 or 2 view. COMPARISON: CT abdomen pelvis w con* [id number] 01/14/2023 10:35 AM FINDINGS: Bones/joints: The iliac crests are not included in the field of view. Degenerative changes at the lumbosacral junction. Multifocal sclerotic metastatic disease is again noted. Mild bilateral hip arthritis. Otherwise, unremarkable. Soft tissues: Unremarkable. Vasculature: Several small calcifications in the pelvis are highly likely to be phleboliths. However, in the proper clinical setting a distal ureteral calculus may need to be considered. XR/XR pelvis 1-2V* [id number] IMPRESSION: Osseous metastatic disease. No acute findings.
[2023-03-19 13:09] LABS: Basophils % 0.2 %; Eosinophils % 0.1 %; Hematocrit 37.1 % (37-53); Lymphocytes # 0.6 10^3/uL (0.8-4.8); Lymphocytes % 6.6 %; Mean Corpuscular HGB Conc 32.1 g/dL (30-55); Mean Corpuscular Hemoglobin 27.5 pg (27-33); Mean Corpuscular Volume 85.7 fl (82-101); Monocytes # 0.7 10^3/uL (0.2-0.9); Neutrophils # 8.28 10^3/uL (1.8-7.7); Neutrophils % 85.7 %; Nucleated Red Blood Cells % 0 %; Platelet Count 207 10^3/cmm (157-399); Red Blood Count 4.33 10^6/uL (3.85-5.65); Red Cell Distribution Width 15.9 % (12.1-15.1); White Blood Count 9.67 10^3/uL (3.29-11.43)
[2023-03-19] MEDS: ondansetron 2 mg/ML SDV 2 mL 4 MG IVP (13:17)
[2023-03-19] MEDS: HYDROmorphone 1 mg/mL INJ 1 mL IVP (13:18)
[2023-03-19 13:21] LABS: Alanine Aminotransferase 11 U/L (0-41); Albumin Level 4.4 g/dL (3.5-5.2); Alkaline Phosphatase 216 U/L (40-130); Anion Gap 19.6 (5-19); Aspartate Amino Transferase 22 U/L (0-40); Blood Urea Nitrogen 19 mg/dL (8-23); Calcium 10.6 mg/dL (8.5-10.5); Carbon Dioxide 25 mmol/L (22-29); Chloride 91 mmol/L (98-107); Globulin 3.3 g/dL (1.3-4.6); Glucose 123 mg/dL (65-115); Osmolality Calculated 276 mOsm/kg (285-295); Potassium 4.6 mmol/L (3.5-5.1); Sodium 131 mmol/L (136-145); Total Bilirubin 0.6 mg/dL (0.15-1.2); Total Protein 7.7 g/dL (6.6-8.7)
[2023-03-19] MEDS: sodium chloride 0.9% 1,000 ML 999 ML IV (13:21)
--- NOTE | 2023-03-19 14:05 | PC.NURSE ---
Aniceto Case (brother) cell: [phone]/house: [phone]
[2023-03-19 14:55] LABS: Add Urine Microscopic? NO; Charge for UA Resulting for Rev
[2023-03-19 14:57] LABS: Bilirubin Urine Neg (Negative); Blood Urine Neg (Negative); Glucose Urine UA Norm (Normal); Ketones Urine 2+ (Negative); Leukocyte Esterase Urine Negative (Negative); Nitrate Urine Negative (Negative); Protein Urine Neg (Negative); Specific Gravity, Urine 1.025 (1.005-1.030); Urine Appearance Clear (CLEAR); Urine Color Yellow (Yellow); Urobilinogen Urine Norm (Negative); pH Urine 5 (5-7)
--- NOTE | 2023-03-19 15:18 | ED_ITS ---
HPI - Back Pain/Injury General: Chief Complaint: Back Pain/Injury Stated Complaint: back pain,contipated,terminal cancer Time Seen by Provider: 03/19/23 12:40 History of Present Illness: This patient is an 83-year-old white male who presents to the emergency department with severe low back pain and constipation. Patient states he has metastatic prostate cancer to the bone and he states that he is terminal. He states he has not had a bowel movement for 2 weeks. He has been taking oxycodone for pain and he has used up all of his hydromorphone. He had been seeing Dr. Boyce the oncologist. Patient states he has an appointment at [facility] on March 29 for targeted radiation therapy. Review of Systems General: Reports: 10 or more systems reviewed and unremarkable except in HPI and below GI: Reports: constipation Musc: Reports: back pain PFSH ED PFSH: Medical History Atrial flutter Degenerative arthritis GERD (gastroesophageal reflux disease) Glaucoma Prostate cancer Surgical History H/O cataract extraction History of hernia repair Hx of prostate biopsy (~05/2018) TRUSP with biopsy Hx of tonsillectomy Family History Father Cancer skin Brother Cancer colon Brother Cancer prostate Social History Smoking and tobacco/nicotine status: former use of tobacco/nicotine Quit status (tobacco/nicotine): has quit using Year quit tobacco: Quit 1985 Smoked for 20 y Alcohol intake: current Alcohol intake frequency: 0-2 Drinks per Day Alcohol type: wine Physical Exam Narrative: EXAM NARRATIVE: Cachectic Const: COMMON NORMALS: patient oriented x3 and no limitations GENERAL APPEARANCE: cooperative HENMT: COMMON NORMALS: normocephalic, atraumatic, Normal nasal mucous membranes and turbinates present, moist oral mucous membranes and oropharynx normal HEAD & SCALP: normal to inspection, normocephalic and atraumatic FACE & SINUS: normal facial exam NOSE: Normal nasal mucous membranes and turbinates present Eye: COMMON NORMALS: Equal, round and reactive pupils present, EOMs intact bilaterally and conjunctivae normal GENERAL EYE: appearance normal, both eyes and all related structures CONJUNCTIVA: Yes conjunctivae normal PUPIL: Yes Equal, round and reactive pupils present Neck/C-Spine: COMMON NORMALS: supple and no JVD Chest: COMMONS NORMALS: normal inspection of the chest Resp: COMMON NORMALS: normal respiratory effort and clear to auscultation bilaterally AUSCULTATION: clear to auscultation bilaterally Cardio: COMMON NORMALS: no JVD, regular rate, regular rhythm, No gallops present (Cardio), No murmurs present (Cardio) and No rub (Cardio) RATE: regular rate RHYTHM: regular rhythm GI: COMMON NORMALS: Normal to inspection, nondistended, normoactive bowel sounds present, Soft to palpation and non-tender AUSCULTATION: Yes normoactive bowel sounds PALPATION: Yes Soft to palpation Back/Pelvis: GENERAL BACK: Yes tenderness OTHER: Diffuse lumbar tenderness. Severe pain with movement. Extremity: COMMON NORMALS: normal to inspection Neuro: COMMON NORMALS: patient oriented x3 and CN's II-XII intact bilaterally Psych: COMMON NORMALS: mental status grossly normal, Normal thought process present and cooperative THOUGHT PROCESS: Normal thought process present Course Vital Signs: Vital signs: Vital Signs Temperature 97.8 F 03/19/23 11:57 Pulse Rate 82 03/19/23 15:05 Respiratory Rate 16 03/19/23 15:05 Blood Pressure 134/86 03/19/23 15:05 Pulse Oximetry 98 03/19/23 15:05 Oxygen Delivery Me thod Room Air 03/19/23 15:05 MDM - Back Pain/Injury Medical Decision Making Patient was given IV Dilaudid for his pain. CBC was normal. CMP reveals an alk phos of 216. Urinalysis normal except for ketones. X-rays of the lumbar spine were read by the radiologist. There is metastasis to L3 and L4. Pelvis again revealed reveals metastatic disease. Abdominal flatplate and upright films are consistent with constipation. Patient is in such severe pain I feel he needs to be admitted. I discussed hospice with him and he is in agreement. He feels like he is at the end of his road . I did discuss the case with Dr. Delaney, hospitalist. We will admit him to observation to help get him cleaned out in terms of the constipation and treat his pain as well as get him set up with hospice care. Patient will be sent to the floor shortly. He is stable. Labs 11/11/23 12:55 03/19/23 12:55 Radiology Impressions Chest/Abdomen X-ray 03/19/23 12:53 IMPRESSION: 1. Probable adynamic ileus and/or gastroenteritis. 2. Probable constipation. 3. Additional details as above. Lumbar Spine X-Ray 03/19/23 12:53 IMPRESSION: 1. Suspect a metastasis in the left L4 pedicle or the inferior left L3 facet. 2. Additional details as above. Chronic. Pelvis X-Ray 03/19/23 12:53 IMPRESSION: Osseous metastatic disease. No acute findings. Laboratory Results WBC 9.67 10^3/uL (3.29-11.43) 03/19/23 12:55 RBC 4.33 10^6/uL (3.85-5.65) 03/19/23 12:55 Hgb 11.90 g/dL (11.27-16.99) 03/19/23 12:55 Hct 37.1 % (37-53) 03/19/23 12:55 MCV 85.7 fl (82-101) 03/19/23 12:55 MCH 27.5 pg (27-33) 03/19/23 12:55 MCHC 32.1 g/dL (30-55) 03/19/23 12:55 RDW 15.9 % (12.1-15.1) H 03/19/23 12:55 Plt Count 207 10^3/cmm (157-399) 03/19/23 12:55 MPV 10.0 fL (7.4-10.4) 03/19/23 12:55 Neut % (Auto) 85.7 % 03/19/23 12:55 Lymph % (Auto) 6.6 % 03/19/23 12:55 [place] % (Auto) 7.0 % 03/19/23 12:55 Eos % (Auto) 0.1 % 03/19/23 12:55 Baso % (Auto) 0.2 % 03/19/23 12:55 Neut # (Auto) 8.28 10^3/uL (1.8-7.7) H 03/19/23 12:55 Lymph # (Auto) 0.6 10^3/uL (0.8-4.8) L 03/19/23 12:55 [place] # (Auto) 0.7 10^3/uL (0.2-0.9) 03/19/23 12:55 Eos # (Auto) 0.0 10^3/uL (0.0-0.8) 03/19/23 12:55 Baso # (Auto) 0.0 10^3/uL (0.0-0.1) 03/19/23 12:55 Nucleated RBC % (auto) 0 % 03/19/23 12:55 Nucleated RBCs # 0.0 /100WBC 03/19/23 12:55 Sodium 131 mmol/L (136-145) L 03/19/23 12:55 Potassium 4.6 mmol/L (3.5-5.1) 03/19/23 12:55 Chloride 91 mmol/L (98-107) L 03/19/23 12:55 Carbon Dioxide 25 mmol/L (22-29) 03/19/23 12:55 Anion Gap 19.6 (5-19) H 03/19/23 12:55 BUN 19 mg/dL (8-23) 03/19/23 12:55 Creatinine 1.4 mg/dL (0.7-1.2) H 03/19/23 12:55 GFR Calculation Not Reportable 03/19/23 12:55 Glucose 123 mg/dL (65-115) H 03/19/23 12:55 Calculated Osmolality 276 mOsm/kg (285-295) L 03/19/23 12:55 Calcium 10.6 mg/dL (8.5-10.5) H 03/19/23 12:55 Total Bilirubin 0.6 mg/dL (0.15-1.2) 03/19/23 12:55 AST 22 U/L (0-40) 03/19/23 12:55 ALT 11 U/L (0-41) 03/19/23 12:55 Alkaline Phosphatase 216 U/L (40-130) H 03/19/23 12:55 Total Protein 7.7 g/dL (6.6-8.7) 03/19/23 12:55 Albumin 4.4 g/dL (3.5-5.2) 03/19/23 12:55 Globulin 3.3 g/dL (1.3-4.6) 03/19/23 12:55 Urine Color Yellow (Yellow) 03/19/23 14:40 Urine Appearance Clear (CLEAR) 03/19/23 14:40 Urine pH 5 (5-7) 03/19/23 14:40 Ur Specific [place] 1.025 (1.005-1.030) 03/19/23 14:40 Urine Protein Neg (Negative) 03/19/23 14:40 Urine Glucose (UA) Norm (Normal) 03/19/23 14:40 Urine Ketones 2+ (Negative) H 03/19/23 14:40 Urine Blood Neg (Negative) 03/19/23 14:40 Urine Nitrate Negative (Negative) 03/19/23 14:40 Urine Bilirubin Neg (Negative) 03/19/23 14:40 Urine Urobilinogen Norm mg/dL (Negative) 03/19/23 14:40 Ur Leukocyte Esterase Negative (Negative) 03/19/23 14:40 All radiology interpretation(s) finalized by discharge Discharge Plan Discharge Patient Disposition: Admitted As Inpatient Clinical Impression: Cancer, metastatic to bone, Low back pain, Constipation due to opioid therapy Condition: Stable Coding Level of Care Code ED Senior National Account Manager for Noreen Hooper
--- NOTE | 2023-03-19 16:27 | PM.HP ---
Providers/Chief Complaint Admitting Physician: Eduar Delaney MD Primary Care Provider: Hubert Benedict DO Chief Complaint: back pain,contipated,terminal cancer History of Present Illness Matthew Case is a 83 year old male with a past medical history significant for metastatic prostate cancer with extensive metastasis, atrial flutter on Xarelto, glaucoma, and GERD who presented to the emergency department with severe back pain x several days. Reports pain 10 out of 10. Reports radiation down legs. Reports movement exacerbates pain. Rest improves pain. Tried hydromorphone and oxycodone at home without much improvement. Also on meloxicam and prednisone. He has a history of metastatic prostate cancer. He saw Dr Boyce last in December. He has been referred to [facility] for targeted radioactive treatment with lutetium 177 later this month. He inquires about hospice care. He states he lives alone and caring for himself is becoming more difficult. He reports has a brother that lives out of state. Patient also endorses severe constipation. Reports last bowel movement was about 2 weeks ago. Reports taking bowel regimen at home without much improvement. States his food intake has been rather poor. He denies feelings of abdominal distention or abdominal pains. Reports flatus. Denies fevers, chills, nausea or emesis. Review of Systems Narrative: A complete review of systems was obtained and is negative except as stated in HPI. Medications/Allergies Home Medications Medication Instructions Recorded Confirmed Last Taken Type bimatoprost 0.01 % eye drops 1 drop ophthalmic (eye) DAILY 02/20/20 03/19/23 10/14/22 History (Lumigan) vitamins A,C,B-fhqj-nwckfa 4,296 1 cap PO BID 02/20/20 03/19/23 10/14/22 History mcg-226 mg-90 mg capsule (PreserVision AREDS) acetaminophen 325 mg tablet 325 mg PO QID PRN Pain 04/08/22 03/19/23 10/14/22 History docusate sodium 100 mg capsule 200 mg PO BID PRN Constipation 06/28/22 03/19/23 10/14/22 History (Stool Softener) ranibizumab 0.5 mg/0.05 mL 0.5 mg intravitreal .COMPLEX 06/28/22 03/19/23 10/14/22 History intravitreal syringe (Lucentis) sennosides 8.6 mg tablet (Senna 17.2 mg PO BID PRN Constipation 06/28/22 03/19/23 10/14/22 History Lax) fluticasone propionate 50 1 spray intranasal BID PRN nasal 08/02/22 03/19/23 10/14/22 History mcg/actuation nasal congestion spray,suspension ketoconazole 2 % shampoo 1 applic topical . TWICE WEEKLY 08/26/22 03/19/23 10/14/22 History PRN Itching alprazolam 0.5 mg tablet 0.5 mg PO .COMPLEX PRN Anxiety 09/23/22 03/19/23 10/14/22 History ondansetron HCl 4 mg tablet 4 mg PO Q8H PRN nausea and 10/18/22 03/19/23 Unknown Rx vomiting #60 tabs prochlorperazine maleate 10 mg 10 mg PO Q6H PRN nausea and 10/18/22 03/19/23 Unknown Rx tablet (Compazine) vomiting #30 tabs lorazepam 1 mg tablet 0.5 - 1 mg PO Q6H PRN Severe 10/19/22 03/19/23 Unknown Rx Nausea #30 tabs famotidine 20 mg tablet See Rx Instructions .Route 11/22/22 03/19/23 Unknown Rx .COMPLEX #180 tabs rivaroxaban 20 mg tablet (Xarelto) 20 mg PO DAILY #90 tabs 02/02/23 03/19/23 Unknown Rx lubiprostone 24 mcg capsule 24 mcg PO BID #60 caps 02/15/23 03/19/23 Unknown Rx (Amitiza) metoprolol tartrate 25 mg tablet See Rx Instructions .Route 02/25/23 03/19/23 Unknown Rx .COMPLEX #180 tabs prednisone 5 mg tablet See Rx Instructions .Route 03/09/23 03/19/23 Unknown Rx .COMPLEX #60 tabs tamsulosin 0.4 mg capsule 0.4 mg PO BEDTIME #90 caps 03/09/23 03/19/23 Unknown Rx meloxicam 15 mg tablet See Rx Instructions .Route 03/10/23 03/19/23 Unknown Rx .COMPLEX #30 tabs Allergies Allergy/AdvReac Type Severity Reaction Status Date / Time No Known Allergies Allergy Verified 02/02/23 13:45 PFSH Acute PFSH: Medical History Antineoplastic chemotherapy induced anemia Atrial flutter Chemotherapy induced nausea and vomiting Chemotherapy management, encounter for Degenerative arthritis Facet arthritis, degenerative, lumbar spine GERD (gastroesophageal reflux disease) Glaucoma History of chemotherapy History of radiation therapy Impingement syndrome, shoulder, left Low back pain Lumbar stenosis with neurogenic claudication Neck pain Onychodystrophy Prostate cancer 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 Surgical History H/O cataract extraction History of hernia repair Hx of prostate biopsy (~05/2018) TRUSP with biopsy Hx of tonsillectomy Family History Father Cancer skin Brother Cancer colon Brother Cancer prostate Social History Smoking and tobacco/nicotine status: former use of tobacco/nicotine Quit status (tobacco/nicotine): has quit using Year quit tobacco: Quit 1985 Smoked for 20 y Alcohol intake: current Alcohol intake frequency: 0-2 Drinks per Day Alcohol type: wine Vitals/I&O/Wt Last Vital Signs Temp 97.8 F 03/19/23 11:57 Pulse 82 03/19/23 15:05 Resp 16 03/19/23 15:05 BP 134/86 03/19/23 15:05 Pulse Ox 98 03/19/23 15:05 O2 Del Method Room Air 03/19/23 15:05 Weight last 48 hrs Weight 68.039 kg Physical Exam Narrative: General: Patient is awake. Appears fatigued. Head: Normocephalic. Atraumatic. EOM intact. Neck: No JVD. Cardiovascular: RRR. No gallops. No murmurs. No peripheral edema. Lungs: Clear to auscultation, no use of accessory muscles, no crackles or wheezes. Skin: No jaundice. No rashes. Abdomen: Normal bowel sounds and non-tender. Mild distention. No guarding. Extremities: No cyanosis or clubbing. Musculoskeletal: No erythematous joints. Neurological: Moves all 4 extremities. No myoclonus. Data 03/19/23 12:55 03/19/23 12:55 A&P Assessment and plan (1) Cancer, metastatic to bone: Metastatic prostate cancer complicated by severe, uncontrolled pain Patient taking hydromorphone and oxycodone prior to admission, but unsure of doses Start Oxycontin 10 mg BID Start oxycodone IR 10 PRN for moderate pain IV hydromorphone for severe pain Track morphine equivalence, goal to titrate to appropriate level of opiate analgesia Taking prednisone, escalate treatment to dexamethasone, benefits>risks for steroids treatment Start gabapentin 100mg TID to address neuropathic pain, titrate to effect Rotate to alternative NSAID, will use diclofenac PPI for GI protection given NSAID, steroid, and DOAC He has been referred to [facility] for Lutathera for bone pain treatment Would benefit from hospice evaluation (2) Constipation due to opioid therapy: Reports last BM about 2 weeks ago Start scheduled Senna Start scheduled MiraLAX Monitor response, will likely need escalation (3) Hypercalcemia: Suspect 2/2 to bone mets Status post IV fluids in ED Consider bisphosphonate for Ca and bone mets (4) Malignant neoplasm of prostate: as above (5) Atrial flutter: Continue home metoprolol (6) GERD (gastroesophageal reflux disease): Continue home famotidine Plan DVT ppx: Lovenox Attestations Medical Necessity Statement*: Patient presents with severe metastatic cancer pain and constipation with expected hospitalization not to cross two midnights for titration of analgesics and bowel regimen. Coding Level of Care Code Acute Code for Chg Fwd Diagnoses Cancer, metastatic to bone C79.51 Constipation due to opioid therapy K59.03; T40.2X5A Hypercalcemia E83.52 Malignant neoplasm of prostate C61 Atrial flutter I48.92 GERD (gastroesophageal reflux disease) K21.9
[2023-03-19] MEDS: diclofenac 75 mg DR Tablet PO (18:38)
[2023-03-19] MEDS: oxyCODONE 10 mg ER (12 HR) Tablet PO (18:38)
[2023-03-19] MEDS: polyethylene glycol 3350 Pkt 17 gm 34 GM PO (18:39)
[2023-03-19] MEDS: metoprolol tartrate 25 mg Tablet PO (18:39)
[2023-03-19] MEDS: sennosides-docusate Tablet 2 TAB PO (18:39)
[2023-03-19] MEDS: dexamethasone 10 mg/mL INJ IVP (18:39)
[2023-03-19] MEDS: famotidine 20 mg Tablet PO (18:39)
[2023-03-19] MEDS: gabapentin 100 mg Capsule PO (20:43)
[2023-03-19] MEDS: tamsulosin 0.4 mg Capsule PO (20:43)
[2023-03-19] MEDS: oxyCODONE 5 mg IR Tab/Cap 10 MG PO (21:34)
[2023-03-20] VITALS (8 sets, daily range): BP systolic 92–115; BP diastolic 54–77; PULSE 65–131; RESP 16–18; TEMP 36.4–36.8; O2SAT 95–98
[2023-03-20] MEDS: ondansetron 4 MG Tablet PO (01:03)
[2023-03-20] MEDS: famotidine 20 mg Tablet PO ×2 (08:58→17:10)
[2023-03-20] MEDS: diclofenac 75 mg DR Tablet PO ×2 (08:58→17:10)
[2023-03-20] MEDS: dexamethasone 10 mg/mL INJ IVP (08:58)
[2023-03-20] MEDS: oxyCODONE 10 mg ER (12 HR) Tablet PO ×2 (08:58→17:10)
[2023-03-20] MEDS: pantoprazole DR 40 mg Tablet PO (08:58)
[2023-03-20] MEDS: gabapentin 100 mg Capsule PO ×2 (08:58→15:04)
[2023-03-20] MEDS: sennosides-docusate Tablet 2 TAB PO ×2 (08:58→17:10)
[2023-03-20] MEDS: metoprolol tartrate 25 mg Tablet PO ×2 (08:58→17:10)
[2023-03-20] MEDS: polyethylene glycol 3350 Pkt 17 gm 34 GM PO ×2 (08:59→17:10)
[2023-03-20 10:29] LABS: Ionized Calcium 1.2 mmol/L (1.1-1.4)
[2023-03-20 10:48] LABS: Anion Gap 16.9 (5-19); Blood Urea Nitrogen 29 mg/dL (8-23); Calcium 9.8 mg/dL (8.5-10.5); Carbon Dioxide 27 mmol/L (22-29); Chloride 94 mmol/L (98-107); Glucose 202 mg/dL (65-115); Phosphorus 4.6 mg/dL (2.5-4.5); Potassium 4.9 mmol/L (3.5-5.1); Sodium 133 mmol/L (136-145)
--- NOTE | 2023-03-20 15:28 | PM.PN ---
Subjective Subjective: Patient reports pain has improved at rest at least. He states the pain is still unbearable with movement, worse in his left leg. Endorses shooting pains down the leg. Denies any sedation from medications. Vitals/I&O/Wt Last Vital Signs Temp 98.3 F 03/20/23 12:00 Pulse 131 H 03/20/23 12:00 Resp 18 03/20/23 12:00 BP 109/67 03/20/23 12:00 Pulse Ox 98 03/20/23 12:00 O2 Del Method Room Air 03/19/23 17:09 03/20/23 03/20/23 03/20/23 06:59 14:59 22:59 Intake Total 240 / 1360 600 / 600 Balance 240 / 1360 600 / 600 Weight last 48 hrs Weight 68.039 kg Physical Exam Narrative: General: Patient is awake. Alert. Head: Normocephalic. Atraumatic. EOM intact. Neck: No JVD. Cardiovascular: RRR. No gallops. No murmurs. Lungs: Clear to auscultation, no use of accessory muscles, no crackles or wheezes. Skin: No jaundice. No rashes. Abdomen: Normal bowel sounds and non-tender. Mild distention. No guarding. Extremities: No cyanosis or clubbing. Musculoskeletal: No erythematous joints. Neurological: Moves all 4 extremities. No myoclonus. Data 03/19/23 12:55 03/20/23 10:22 A&P Assessment and plan (1) Cancer, metastatic to bone: Metastatic prostate cancer complicated by severe, uncontrolled pain Patient taking hydromorphone and oxycodone prior to admission, but unsure of doses Continue Oxycontin 10 mg BID Continue oxycodone IR 10 PRN for moderate breakthrough pain IV hydromorphone for severe pain Tracking morphine equivalence, goal to titrate to appropriate level of opiate analgesia Taking prednisone prior to admission, escalate treatment to dexamethasone, change to PO, benefits>risks for steroids treatment Worst pain seems to be neuropathic, no sedation so far; increase gabapentin to 200 mg TID Prevously on mobic, continue w/ stronger diclofenac PPI for GI protection given NSAID, steroid, and DOAC He has been referred to [facility] for Lutathera for bone pain treatment Would benefit from hospice evaluation Case management consultation is pending; patient lives home alone as his cancer is progressing so is his debility; hospice usually does not accept without a caregiver. Patient has a brother from [place] who is travelling in and will be here on Tuesday to help arrange a plan (2) Constipation due to opioid therapy: Reports last BM about 2 weeks ago Patient not responding to treatment as intended, will escalate bowel regimen May eventually need Relistor or similar for opiate-induced constipation (3) Hypercalcemia: Suspect 2/2 to bone mets Consider bisphosphonate for Ca and bone mets Check ionized Ca (4) Malignant neoplasm of prostate: as above (5) Atrial flutter: Continue home metoprolol Restart DOAC, monitor for bleed PPI empirically started, felt benefits>risks (6) GERD (gastroesophageal reflux disease): Continue home famotidine PPI as above Plan DVT ppx: DOAC Attestations Medical Necessity Statement*: Patient not responding to treatment as intended requiring ongoing hospitalization for treatment of refactory constipation, pain adjustment, and CM consultation. Coding Level of Care Code Acute Code for g Fwd Diagnoses Cancer, metastatic to bone C79.51 Constipation due to opioid therapy K59.03; T40.2X5A Hypercalcemia E83.52 Malignant neoplasm of prostate C61 Atrial flutter I48.92 GERD (gastroesophageal reflux disease) K21.9
[2023-03-20] MEDS: tamsulosin 0.4 mg Capsule PO (20:34)
[2023-03-20] MEDS: gabapentin 100 mg Capsule 200 MG PO (20:34)
[2023-03-20] MEDS: cyclobenzaprine 10 mg Tablet 5 MG PO (23:22)
[2023-03-20] MEDS: ALPRAZolam 0.5 mg Tablet PO (23:22)
[2023-03-20 23:39] LABS: Magnesium 2.2 mg/dL (1.7-2.3)
--- NOTE | 2023-03-20 23:45 | ECG_ITS ---
[facility] Test Date: 2023-03-21 Pat Name: Matthew Case Department: Room: 268 Gender: Male Patient Manager: : 1940 Requested By: Matthew Connor Order Number: [id number] Shannan MD: Sandra Bo M.D. Measurements Intervals [place] Rate: 115 P: 204 NE: 191 QRS: -69 QRSD: 139 T: -72 QT: 387 QTc: 536 Interpretive Statements Atrial flutter with variable block RIGHT BUNDLE BRANCH BLOCK [120+ ms QRS DURATION, UPRIGHT V1, 40+ ms S IN I/aVL/V4/V5/V6] LEFT ANTERIOR FASCICULAR BLOCK [QRS AXIS <= -45, QR IN I, RS IN II] MODERATE T-WAVE ABNORMALITY, CONSIDER LATERAL ISCHEMIA [-0.1+ mV T-WAVE IN I/aVL/V5/V6] MODERATE T-WAVE ABNORMALITY, CONSIDER INFERIOR ISCHEMIA [-0.1+ mV T-WAVE IN II/aVF] Compared to ECG 04/15/2022 11:53:15 Atrial flutter no longer present T-wave abnormality still present Possible ischemia still present Electronically Signed On 03-22-2023 23:23:10 [employer] by Sandra Bo M.D. [id number]
[2023-03-21] VITALS (7 sets, daily range): BP systolic 98–123; BP diastolic 61–81; PULSE 88–130; RESP 16–18; TEMP 36.4–36.6; O2SAT 96–98
[2023-03-21] MEDS: metoprolol tartrate 25 mg Tablet 12.5 MG PO (02:34)
[2023-03-21] MEDS: gabapentin 100 mg Capsule 200 MG PO ×3 (08:25→21:16)
[2023-03-21] MEDS: metoprolol tartrate 25 mg Tablet PO ×2 (08:25→17:20)
[2023-03-21] MEDS: rivaroxaban 10 mg Tablet 20 MG PO (08:26)
[2023-03-21] MEDS: diclofenac 75 mg DR Tablet PO ×2 (08:26→17:20)
[2023-03-21] MEDS: sennosides-docusate Tablet 2 TAB PO ×2 (08:26→17:19)
[2023-03-21] MEDS: pantoprazole DR 40 mg Tablet PO (08:26)
[2023-03-21] MEDS: dexamethasone 4 mg Tablet 8 MG PO (08:26)
[2023-03-21] MEDS: famotidine 20 mg Tablet PO ×2 (08:26→17:20)
[2023-03-21] MEDS: oxyCODONE 10 mg ER (12 HR) Tablet PO ×2 (08:26→17:22)
[2023-03-21] MEDS: polyethylene glycol 3350 Pkt 17 gm 34 GM PO ×2 (08:32→17:19)
--- NOTE | 2023-03-21 11:10 | ECG_ITS ---
[facility] Test Date: 2023-03-21 Pat Name: Matthew Case Department: Room: 268 Gender: Male Laboratory Operations Coordinator: : 1940 Requested By: Gokul Josue Order Number: [id number] Shannan MD: Romelia Alvarado M.D. Measurements Intervals [place] Rate: 102 P: 0 DC: 0 QRS: -85 QRSD: 239 T: 180 QT: 403 QTc: 526 Interpretive Statements ATRIAL FLUTTER WITH RAPID VENTRICULAR RESPONSE LEFT AXIS DEVIATION [QRS AXIS < -30] RIGHT BUNDLE BRANCH BLOCK [120+ ms QRS DURATION, UPRIGHT V1, 40+ ms S IN I/aVL/V4/V5/V6] MODERATE T-WAVE ABNORMALITY, CONSIDER LATERAL ISCHEMIA [-0.1+ mV T-WAVE IN I/aVL/V5/V6] Compared to ECG 03/21/2023 00:11:06 Left-axis deviation now present Left anterior fascicular block no longer present T-wave abnormality still present Possible ischemia still present Electronically Signed On 03-21-2023 18:33:15 [employer] by Romelia Alvarado M.D. [id number]
[2023-03-21] MEDS: bisacodyl 10 mg Supp PR (11:44)
[2023-03-21] MEDS: lactulose oral liq 20 gm/30 mL UDC 30 GM PO (12:58)
--- NOTE | 2023-03-21 13:20 | P.PN_ITS ---
Subjective Medications: Medication Review Details: Patient wants to go home with home health services he only wants to get referral of hospice however does not want to activate at this point He is willing to use opioids and go home and follow-up with his palliative therapy at [facility] Vitals/I&O/Wt Last Vital Signs Temp 97.9 F 03/21/23 11:36 Pulse 88 03/21/23 11:36 Resp 17 03/21/23 11:36 BP 117/62 03/21/23 11:36 Pulse Ox 97 03/21/23 11:36 O2 Del Method Room Air 03/21/23 11:36 03/20/23 03/21/23 03/21/23 22:59 06:59 14:59 Intake Total 600 / 1200 240 / 240 Balance 600 / 1200 240 / 240 Physical Exam Narrative: Awake and alert Pleasant GCS 15 Brother at the bedside Pleasant and cooperative Currently on room air S1, S2 variable tachycardia Abdomen soft No active chest pain Data 03/19/23 12:55 03/20/23 10:22 A&P Assessment and plan (1) Hypercalcemia: (2) Cancer, metastatic to bone: (3) Constipation due to opioid therapy: (4) Malignant neoplasm of prostate: (5) GERD (gastroesophageal reflux disease): (6) Atrial flutter: Plan I will give lactulose this morning for severe constipation, Brother at the bedside, had detailed family meeting Patient will go home tomorrow with home health and referral of hospice We will continue opioids He will attend his palliative radiotherapy appointment in [place] CODE STATUS discussed in detail, patient stating that he does not want to be resuscitated with chest compressions defibrillation or intubation, in case of cardiac event he should be made comfort care He is stating that his medical DPOA is his daughter Continue rivaroxaban he does carry history of atrial flutter Attestations Medical Necessity Statement*: Discharge tomorrow Diagnoses Hypercalcemia E83.52 Cancer, metastatic to bone C79.51 Constipation due to opioid therapy K59.03; T40.2X5A Malignant neoplasm of prostate C61 GERD (gastroesophageal reflux disease) K21.9 Atrial flutter I48.92
--- NOTE | 2023-03-21 14:46 | PC.SOCIAL ---
IMM Update pg 2 of IMM not updated w/ patient As patient is currently in observation status.
[2023-03-21] MEDS: terbinafine 1% Cream 15 gm 1 APPLIC TOPICAL (17:19)
[2023-03-21] MEDS: sodium chloride 0.9% 1,000 ML 75 ML IV (17:22)
[2023-03-21] MEDS: tamsulosin 0.4 mg Capsule PO (21:16)
[2023-03-22] VITALS: BP 103/70; PULSE 94; RESP 18; TEMP 36.3; O2SAT 99
[2023-03-22 04:00] VITALS: BP 109/75; PULSE 105; RESP 17; TEMP 36.4; O2SAT 94
[2023-03-22 08:00] VITALS: BP 119/74; PULSE 130; RESP 18; O2SAT 98
[2023-03-22] MEDS: pantoprazole DR 40 mg Tablet PO (10:05)
[2023-03-22] MEDS: rivaroxaban 10 mg Tablet 20 MG PO (10:05)
[2023-03-22] MEDS: gabapentin 100 mg Capsule 200 MG PO (10:05)
[2023-03-22] MEDS: dexamethasone 4 mg Tablet 8 MG PO (10:05)
[2023-03-22] MEDS: sennosides-docusate Tablet 2 TAB PO (10:05)
[2023-03-22] MEDS: famotidine 20 mg Tablet PO (10:05)
[2023-03-22] MEDS: oxyCODONE 5 mg IR Tab/Cap 10 MG PO (10:06)
[2023-03-22] MEDS: diclofenac 75 mg DR Tablet PO (10:06)
[2023-03-22] MEDS: metoprolol tartrate 25 mg Tablet PO (10:07)
[2023-03-22] MEDS: lactulose oral liq 20 gm/30 mL UDC 10 GM PO (10:08)
[2023-03-22] MEDS: polyethylene glycol 3350 Pkt 17 gm 34 GM PO (10:10)
[2023-03-22] MEDS: terbinafine 1% Cream 15 gm 1 APPLIC TOPICAL (10:18)
--- NOTE | 2023-03-22 10:39 | P.DS_ITS ---
Discharge Providers Date of Admission: 03/19/23 15:15 Date of Discharge: March 22, 2023 Attending Provider at Admission: Eduar Delaney MD Attending Provider at Discharge: Gokul Josue MD Primary Care Provider: Hubert Benedict DO Diagnoses at Discharge Discharge Diagnosis (1) Hypercalcemia: Status: Acute (2) Cancer, metastatic to bone: Status: Acute (3) Constipation due to opioid therapy: Status: Acute (4) Malignant neoplasm of prostate: Status: Acute (5) GERD (gastroesophageal reflux disease): Status: Acute (6) Atrial flutter: Status: Acute Reason for Visit Reason for Visit: back pain,contipated,terminal cancer Hospital Course Hospital Course CODE STATUS discussed: [id number] male with prostate cancer with mets atrial flutter on Xarelto, GERD, lives alone, has been referred to [facility] for targeted radioactive treatment presented to hospital for intractable pain, patient was given OxyContin 10 mg twice daily along with oxycodone IR 10 mg as needed for moderate breakthrough pain and he was given IV hydromorphone for severe pain which improved his pain he was also given gabapentin for neuropathic pain, patient wants hospice referral, he does not want to go to any rehab or long term at this point, he is planning to return home with better pain control and would activate hospice care once he is ready, he is planning to attend his palliative radiotherapy treatment in [facility], he is also suffering from constipation related to opioids, responded to lactulose I will add senna S along lactulose at the time of discharge, his hypercalcemia is related to metastatic bone cancer, he has not started hospice yet I will continue his atrial flutter Xarelto and metoprolol Family meeting was conducted, 1 brother was at the bedside, he is from [place],He is respecting his brother's wishes and agreeable with discharge planning to home with better pain management and hospice referral CODE STATUS: DNR/DNI Physical Exam Narrative: Euvolemic GCS 15 Nonfocal neuro exam Currently on room air Pleasant and cooperative S1, S2 Discharge Data Studies Completed and Pending Completed Studies During Hospitalization Category Date Time Status XR acute abdomen series [id number] Stat Exams 03/19/23 12:53 Completed XR lumbar spine 2-3V* [id number] Stat Exams 03/19/23 12:53 Completed XR pelvis 1-2V* [id number] Stat Exams 03/19/23 12:53 Completed Radiology Impressions Chest/Abdomen X-ray 03/19/23 12:53 IMPRESSION: 1. Probable adynamic ileus and/or gastroenteritis. 2. Probable constipation. 3. Additional details as above. Lumbar Spine X-Ray 03/19/23 12:53 IMPRESSION: 1. Suspect a metastasis in the left L4 pedicle or the inferior left L3 facet. 2. Additional details as above. Chronic. Pelvis X-Ray 03/19/23 12:53 IMPRESSION: Osseous metastatic disease. No acute findings. Laboratory Results WBC 9.67 10^3/uL (3.29-11.43) 03/19/23 12:55 RBC 4.33 10^6/uL (3.85-5.65) 03/19/23 12:55 Hgb 11.90 g/dL (11.27-16.99) 03/19/23 12:55 Hct 37.1 % (37-53) 03/19/23 12:55 MCV 85.7 fl (82-101) 03/19/23 12:55 MCH 27.5 pg (27-33) 03/19/23 12:55 MCHC 32.1 g/dL (30-55) 03/19/23 12:55 RDW 15.9 % (12.1-15.1) H 03/19/23 12:55 Plt Count 207 10^3/cmm (157-399) 03/19/23 12:55 MPV 10.0 fL (7.4-10.4) 03/19/23 12:55 Neut % (Auto) 85.7 % 03/19/23 12:55 Lymph % (Auto) 6.6 % 03/19/23 12:55 [place] % (Auto) 7.0 % 03/19/23 12:55 Eos % (Auto) 0.1 % 03/19/23 12:55 Baso % (Auto) 0.2 % 03/19/23 12:55 Neut # (Auto) 8.28 10^3/uL (1.8-7.7) H 03/19/23 12:55 Lymph # (Auto) 0.6 10^3/uL (0.8-4.8) L 03/19/23 12:55 [place] # (Auto) 0.7 10^3/uL (0.2-0.9) 03/19/23 12:55 Eos # (Auto) 0.0 10^3/uL (0.0-0.8) 03/19/23 12:55 Baso # (Auto) 0.0 10^3/uL (0.0-0.1) 03/19/23 12:55 Nucleated RBC % (auto) 0 % 03/19/23 12:55 Nucleated RBCs # 0.0 /100WBC 03/19/23 12:55 Sodium 133 mmol/L (136-145) L 03/20/23 10:22 Potassium 4.9 mmol/L (3.5-5.1) 03/20/23 10:22 Chloride 94 mmol/L (98-107) L 03/20/23 10:22 Carbon Dioxide 27 mmol/L (22-29) 03/20/23 10:22 Anion Gap 16.9 (5-19) 03/20/23 10:22 BUN 29 mg/dL (8-23) H 03/20/23 10:22 Creatinine 1.3 mg/dL (0.7-1.2) H 03/20/23 10:22 GFR Calculation Not Reportable 03/20/23 10:22 Glucose 202 mg/dL (65-115) H 03/20/23 10:22 Calculated Osmolality 276 mOsm/kg (285-295) L 03/19/23 12:55 Calcium 9.8 mg/dL (8.5-10.5) 03/20/23 10:22 Ionized Calcium Deysi 1.2 mmol/L (1.1-1.4) 03/20/23 10:22 Phosphorus 4.6 mg/dL (2.5-4.5) H 03/20/23 10:22 Magnesium 2.2 mg/dL (1.7-2.3) 03/20/23 10:22 Total Bilirubin 0.6 mg/dL (0.15-1.2) 03/19/23 12:55 AST 22 U/L (0-40) 03/19/23 12:55 ALT 11 U/L (0-41) 03/19/23 12:55 Alkaline Phosphatase 216 U/L (40-130) H 03/19/23 12:55 Total Protein 7.7 g/dL (6.6-8.7) 03/19/23 12:55 Albumin 4.0 g/dL (3.5-5.2) 03/20/23 10:22 Globulin 3.3 g/dL (1.3-4.6) 03/19/23 12:55 Urine Color Yellow (Yellow) 03/19/23 14:40 Urine Appearance Clear (CLEAR) 03/19/23 14:40 Urine pH 5 (5-7) 03/19/23 14:40 Ur Specific [place] 1.025 (1.005-1.030) 03/19/23 14:40 Urine Protein Neg (Negative) 03/19/23 14:40 Urine Glucose (UA) Norm (Normal) 03/19/23 14:40 Urine Ketones 2+ (Negative) H 03/19/23 14:40 Urine Blood Neg (Negative) 03/19/23 14:40 Urine Nitrate Negative (Negative) 03/19/23 14:40 Urine Bilirubin Neg (Negative) 03/19/23 14:40 Urine Urobilinogen Norm mg/dL (Negative) 03/19/23 14:40 Ur Leukocyte Esterase Negative (Negative) 03/19/23 14:40 Vitals Last Vital Signs Temp 97.6 F 03/22/23 04:00 Pulse 130 H 03/22/23 08:00 Resp 18 03/22/23 08:00 BP 119/74 03/22/23 08:00 Pulse Ox 98 03/22/23 08:00 O2 Del Method Room Air 03/22/23 08:00 Discharge Plan Discharge Patient Disposition: Home Health Service Condition: Stable Prescriptions: New oxycodone 5 mg Tablet 10 mg PO Q3H PRN (Reason: Moderate Pain 4-6) Qty: 30 0RF oxycodone [OxyContin] 10 mg Tablet,Oral Only,Ext.Rel.12 Hr 10 mg PO BID Qty: 60 0RF pantoprazole 40 mg Tablet,Delayed Release (Dr/Ec) 40 mg PO DAILY Qty: 30 0RF gabapentin 100 mg Capsule 200 mg PO BID Qty: 60 0RF lactulose 20 gram/30 mL Solution 20 g PO DAILY Qty: 3000 2RF sennosides-docusate sodium [Stool Softener-Laxative] 8.6-50 mg Tablet 2 tab PO BID Qty: 120 0RF Continued Lumigan 0.01 % drops 1 drop ophthalmic (eye) DAILY PreserVision AREDS [id number] capsule 1 cap PO BID Lucentis 0.5 mg/0.05 mL syringe 0.5 mg INTRAVITRE .COMPLEX Rx Instructions: 0.5 mg intravitreal every 2 to 3 months; left eye last injected 04/06/22 rigt eye due in May Xarelto 20 mg tablet 20 mg PO DAILY Qty: 90 3RF Rx Instructions: must administer with evening meal ondansetron HCl 4 mg tablet 4 mg PO Q8H PRN (Reason: nausea and vomiting) Qty: 60 0RF prochlorperazine maleate [Compazine] 10 mg tablet 10 mg PO Q6H PRN (Reason: nausea and vomiting) Qty: 30 2RF Rx Instructions: OK to start on day 1 of chemotherapy alprazolam 0.5 mg tablet 0.5 mg PO .COMPLEX PRN (Reason: Anxiety) Rx Instructions: 0.5 mg orally HS for sleep PRN; famotidine 20 mg tablet See Rx Instructions .ROUTE .COMPLEX Qty: 180 3RF Dose Instruction: TAKE 1 TABLET BY MOUTH TWICE A DAY Rx Instructions: TAKE 1 TABLET BY MOUTH TWICE A DAY lubiprostone [Amitiza] 24 mcg capsule 24 mcg PO BID Qty: 60 0RF metoprolol tartrate 25 mg tablet See Rx Instructions .ROUTE .COMPLEX Qty: 180 1RF Dose Instruction: TAKE 1 TABLET BY MOUTH TWICE A DAY Rx Instructions: TAKE 1 TABLET BY MOUTH TWICE A DAY prednisone 5 mg tablet See Rx Instructions .ROUTE .COMPLEX Qty: 60 0RF Dose Instruction: TAKE 1 TABLET BY MOUTH TWICE A DAY Rx Instructions: TAKE 1 TABLET BY MOUTH TWICE A DAY tamsulosin 0.4 mg capsule 0.4 mg PO BEDTIME Qty: 90 3RF meloxicam 15 mg tablet See Rx Instructions .ROUTE .COMPLEX Qty: 30 2RF Dose Instruction: TAKE 1 TABLET BY MOUTH ONCE DAILY Rx Instructions: TAKE 1 TABLET BY MOUTH ONCE DAILY lorazepam 1 mg tablet 0.5 - 1 mg PO Q6H PRN (Reason: Severe Nausea) Qty: 30 3RF acetaminophen 325 mg Tablet 325 mg PO QID PRN (Reason: Pain) fluticasone propionate 50 mcg/actuation spray,suspension 1 spray INTRANASAL BID PRN (Reason: nasal congestion) Discontinued docusate sodium [Stool Softener] 100 mg capsule 200 mg PO BID PRN (Reason: Constipation) sennosides [Senna Lax] 8.6 mg tablet 17.2 mg PO BID PRN (Reason: Constipation) ketoconazole 2 % shampoo 1 applic TOPICAL . TWICE WEEKLY PRN (Reason: Itching) Rx Instructions: Lather into scalp 2 times weekly. Allow to sit on scalp for 5 minutes before rinsing. Discharge Orders: Discharge Order (Routine); Ordered 03/22/23 Ordered By: Gokul Josue Referrals: [facility]) [Outside] Hubert Benedict DO [Primary Care Provider] - Patient Instructions: Opioid Safety Discharge Attestations Time Spent in Discharge Care*: greater than 30 min Quality Metrics Clinical Quality Measures [ No reported AMI, CVA or VTE this stay] Coding Level of Care Code Acute Code for Chg Fwd Diagnoses Hypercalcemia E83.52 Cancer, metastatic to bone C79.51 Constipation due to opioid therapy K59.03; T40.2X5A Malignant neoplasm of prostate C61 GERD (gastroesophageal reflux disease) K21.9 Atrial flutter I48.92
[2023-03-22 11:40] VITALS: BP 100/67; PULSE 108; RESP 18; TEMP 36.6; O2SAT 96
[2023-03-22 11:48] VITALS: BP 100/67; PULSE 108; RESP 18; TEMP 36.6; O2SAT 96
== END 2023-03-22 13:55 | disposition hospice, home (50) ==
LOC: ER 15:15 → MEDSURG 16:21
PROVIDERS: Internal Medicine; Admitting Provider Internal Medicine; Emergency Provider Emergency Medicine; PCP Internal Medicine; Visit Provider Internal Medicine
DX: E83.52 Hypercalcemia (principal); C61 Malignant neoplasm of prostate; C79.51 Secondary malignant neoplasm of bone; K59.03 Drug induced constipation; T40.2X5A Adverse effect of other opioids, initial encounter; K21.9 Gastro-esophageal reflux disease without esophagitis; I48.92 Unspecified atrial flutter; Z66 Do not resuscitate; Z79.01 Long term (current) use of anticoagulants; Z87.891 Personal history of nicotine dependence
CPT/HCPCS: 72100; 72170; 74022; 80053; 80069; 81003; 82330; 83735; 85025; 93005; 96361; 96374; 96375; 99285; G0378; J1100; J1170; J2405; J7030; J8540; Q0162

== ENCOUNTER 2023-04-21 11:18 | Oncology outpatient (recurring) (ONCR) | payer OTHER, SELFPAY ==
[2023-04-21 11:50] VITALS: BP 102/66; PULSE 128; RESP 16; TEMP 36.3; O2SAT 97
[2023-04-21 12:24] LABS: Basophils % 0.3 %; Eosinophils % 0.3 %; Hematocrit 35.2 % (37-53); Lymphocytes # 0.5 10^3/uL (0.8-4.8); Mean Corpuscular HGB Conc 30.4 g/dL (30-55); Mean Corpuscular Volume 88.7 fl (82-101); Mean Platelet Volume 10.4 fL (7.4-10.4); Monocytes # 0.6 10^3/uL (0.2-0.9); Monocytes % 9.1 %; Neutrophils # 5.05 10^3/uL (1.8-7.7); Neutrophils % 82.1 %; Nucleated Red Blood Cells % 0 %; Platelet Count 170 10^3/cmm (157-399); Red Blood Count 3.97 10^6/uL (3.85-5.65); Red Cell Distribution Width 18.5 % (12.1-15.1); White Blood Count 6.15 10^3/uL (3.29-11.43)
[2023-04-21 12:53] LABS: Alanine Aminotransferase 19 U/L (0-41); Albumin Level 3.9 g/dL (3.5-5.2); Alkaline Phosphatase 157 U/L (40-130); Anion Gap 12.2 (5-19); Aspartate Amino Transferase 18 U/L (0-40); Blood Urea Nitrogen 23 mg/dL (8-23); Calcium 8.8 mg/dL (8.5-10.5); Carbon Dioxide 29 mmol/L (22-29); Chloride 101 mmol/L (98-107); Globulin 2.2 g/dL (1.3-4.6); Glucose 123 mg/dL (65-115); Osmolality Calculated 291 mOsm/kg (285-295); Potassium 4.2 mmol/L (3.5-5.1); Sodium 138 mmol/L (136-145); Total Bilirubin 0.3 mg/dL (0.15-1.2); Total Protein 6.1 g/dL (6.6-8.7)
== END 2023-05-08 23:59 | disposition home or self-care (01) ==
LOC: ONCMED 11:18
PROVIDERS: PCP Internal Medicine; Visit Provider Internal Medicine Medical Oncology
DX: C61 Malignant neoplasm of prostate (principal); M50.321 Other cervical disc degeneration at C4-C5 level; M19.012 Primary osteoarthritis, left shoulder; C79.51 Secondary malignant neoplasm of bone; C77.8 Secondary and unspecified malignant neoplasm of lymph nodes of multiple regions; M51.37 Other intervertebral disc degeneration, lumbosacral region; M16.12 Unilateral primary osteoarthritis, left hip; M47.816 Spondylosis without myelopathy or radiculopathy, lumbar region; M48.062 Spinal stenosis, lumbar region with neurogenic claudication; G89.3 Neoplasm related pain (acute) (chronic); Z79.52 Long term (current) use of systemic steroids; Z79.818 Long term (current) use of other agents affecting estrogen receptors and estrogen levels; Z79.891 Long term (current) use of opiate analgesic; Z79.899 Other long term (current) drug therapy; Z87.891 Personal history of nicotine dependence
CPT/HCPCS: 36415; 72100; 72170; 80053; 84153; 85025; 99214

== ENCOUNTER 2023-06-07 10:40 | Oncology outpatient (recurring) (ONCR) | payer OTHER, SELFPAY ==
[2023-06-07 11:02] LABS: Basophils % 0.5 %; Eosinophils % 0.5 %; Hematocrit 35.4 % (37-53); Lymphocytes # 0.5 10^3/uL (0.8-4.8); Lymphocytes % 7.9 %; Mean Corpuscular HGB Conc 31.9 g/dL (30-55); Mean Corpuscular Hemoglobin 28.9 pg (27-33); Mean Corpuscular Volume 90.5 fl (82-101); Mean Platelet Volume 9.4 fL (7.4-10.4); Monocytes # 0.5 10^3/uL (0.2-0.9); Monocytes % 8.6 %; Neutrophils # 5.09 10^3/uL (1.8-7.7); Neutrophils % 82.2 %; Nucleated Red Blood Cells % 0 %; Platelet Count 171 10^3/cmm (157-399); Red Blood Count 3.91 10^6/uL (3.85-5.65); Red Cell Distribution Width 18.2 % (12.1-15.1); White Blood Count 6.19 10^3/uL (3.29-11.43)
--- NOTE | 2023-06-07 11:29 | ECG_ITS ---
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 Measurements Intervals [place] Rate: 109 P: 0 AL: 0 QRS: -75 QRSD: 143 T: 42 QT: 378 QTc: 510 Interpretive Statements ATRIAL FLUTTER WITH RAPID VENTRICULAR RESPONSE RIGHT BUNDLE BRANCH BLOCK [120+ ms QRS DURATION, UPRIGHT V1, 40+ ms S IN I/aVL/V4/V5/V6] LEFT ANTERIOR FASCICULAR BLOCK [QRS AXIS <= -45, QR IN I, RS IN II] Compared to ECG 03/21/2023 11:10:48 Left anterior fascicular block now present Left-axis deviation no longer present T-wave abnormality no longer present Possible ischemia no longer present Electronically Signed On 06-07-2023 18:33:48 CLOTH BLEACHING SUPERVISOR by Edward Correia M.D. [id number]
[2023-06-07 11:30] LABS: Alanine Aminotransferase 17 U/L (0-41); Albumin Level 3.8 g/dL (3.5-5.2); Alkaline Phosphatase 166 U/L (40-130); Anion Gap 12.9 (5-19); Aspartate Amino Transferase 17 U/L (0-40); Blood Urea Nitrogen 24 mg/dL (8-23); Calcium 9.3 mg/dL (8.5-10.5); Carbon Dioxide 29 mmol/L (22-29); Chloride 101 mmol/L (98-107); Creatinine Clr Calc Pharmacy 62.6852; Globulin 3.2 g/dL (1.3-4.6); Glucose 122 mg/dL (65-115); Osmolality Calculated 291 mOsm/kg (285-295); Potassium 4.9 mmol/L (3.5-5.1); Sodium 138 mmol/L (136-145); Total Bilirubin 0.3 mg/dL (0.15-1.2)
[2023-06-07] MEDS: denosumab 120 mg SDV SUBCUT (12:52)
== END 2023-06-08 23:59 | disposition home or self-care (01) ==
PROVIDERS: PCP Internal Medicine; Visit Provider Internal Medicine Medical Oncology
DX: C61 Malignant neoplasm of prostate (principal); I48.92 Unspecified atrial flutter; R00.0 Tachycardia, unspecified; I45.2 Bifascicular block; C79.51 Secondary malignant neoplasm of bone; Z79.899 Other long term (current) drug therapy
CPT/HCPCS: 36415; 80053; 84153; 85025; 93005; 96372; 99214; J0897

== ENCOUNTER → 2023-06-22 09:28 | Outpatient (BNVA) | payer OTHER, SELFPAY | PROVIDERS: PCP Internal Medicine; Visit Provider Nurse Practitioner Family | DX: I48.3 Typical atrial flutter (principal); Z87.891 Personal history of nicotine dependence; Z79.01 Long term (current) use of anticoagulants | CPT/HCPCS: 99213 ==

== ENCOUNTER 2023-07-05 12:30 | Oncology outpatient (recurring) (ONCR) | payer MEDICARE, SELFPAY ==
[2023-06-10 10:36] VITALS: BMI 15.9
[2023-06-10 10:37] VITALS: BP 113/69; PULSE 88; RESP 18; TEMP 35.9; O2SAT 93
[2023-06-10] MEDS: leuprolide 22.5 mg Kit IM (10:52)
[2023-07-05] MEDS: denosumab 120 mg SDV SUBCUT (12:51)
[2023-07-05 12:54] VITALS: BP 104/78; PULSE 110; RESP 17; TEMP 36.1; O2SAT 96
== END 2023-07-07 23:59 | disposition home or self-care (01) ==
PROVIDERS: PCP Internal Medicine; Visit Provider Internal Medicine Medical Oncology
DX: Z53.9 Procedure and treatment not carried out, unspecified reason (principal); Z51.11 Encounter for antineoplastic chemotherapy; C79.51 Secondary malignant neoplasm of bone
CPT/HCPCS: 96372; 96402; J0897; J9217

== ENCOUNTER → 2023-07-07 09:12 | Outpatient (BNVA) | payer MEDICARE, SELFPAY | PROVIDERS: PCP Internal Medicine; Visit Provider Nurse Practitioner Family | DX: I48.3 Typical atrial flutter (principal); R94.31 Abnormal electrocardiogram [ECG] [EKG] | CPT/HCPCS: 93005; 99213 ==

== ENCOUNTER 2023-08-02 13:30 | Oncology outpatient (recurring) (ONCR) | payer MEDICARE, SELFPAY ==
[2023-07-19 14:40] LABS: Basophils % 0.4 %; Eosinophils # 0.1 10^3/uL (0.0-0.8); Eosinophils % 1.3 %; Hematocrit 33.2 % (37-53); Lymphocytes # 0.5 10^3/uL (0.8-4.8); Lymphocytes % 9.8 %; Mean Corpuscular HGB Conc 31.6 g/dL (30-55); Mean Corpuscular Hemoglobin 28.5 pg (27-33); Mean Corpuscular Volume 90.2 fl (82-101); Mean Platelet Volume 9.7 fL (7.4-10.4); Monocytes # 0.6 10^3/uL (0.2-0.9); Monocytes % 11.7 %; Neutrophils # 4.13 10^3/uL (1.8-7.7); Neutrophils % 76.4 %; Nucleated Red Blood Cells % 0 %; Platelet Count 141 10^3/cmm (157-399); Red Blood Count 3.68 10^6/uL (3.85-5.65); Red Cell Distribution Width 16.1 % (12.1-15.1)
[2023-07-19 15:17] LABS: Alanine Aminotransferase 16 U/L (0-41); Albumin Level 3.7 g/dL (3.5-5.2); Alkaline Phosphatase 142 U/L (40-130); Anion Gap 13.8 (5-19); Aspartate Amino Transferase 16 U/L (0-40); Blood Urea Nitrogen 22 mg/dL (8-23); Calcium 7.8 mg/dL (8.5-10.5); Carbon Dioxide 24 mmol/L (22-29); Chloride 102 mmol/L (98-107); Globulin 2.5 g/dL (1.3-4.6); Glucose 85 mg/dL (65-115); Osmolality Calculated 283 mOsm/kg (285-295); Potassium 4.8 mmol/L (3.5-5.1); Sodium 135 mmol/L (136-145); Total Bilirubin 0.4 mg/dL (0.15-1.2); Total Protein 6.2 g/dL (6.6-8.7)
[2023-08-02 14:14] VITALS: BP 111/74; PULSE 104; RESP 16; TEMP 36.9; O2SAT 96
[2023-08-02] MEDS: denosumab 120 mg SDV SUBCUT (14:21)
== END 2023-08-07 23:59 | disposition home or self-care (01) ==
PROVIDERS: Radiology Radiation Oncology; PCP Internal Medicine; Visit Provider Internal Medicine Medical Oncology
DX: C61 Malignant neoplasm of prostate (principal); Z51.11 Encounter for antineoplastic chemotherapy
CPT/HCPCS: 36415; 80053; 84153; 85025; 96372; J0897

== ENCOUNTER 2023-09-02 10:00 | Oncology outpatient (recurring) (ONCR) | payer MEDICARE, SELFPAY ==
[2023-08-29 14:27] LABS: Basophils % 0.3 %; Eosinophils % 0.3 %; Hematocrit 35.2 % (37-53); Lymphocytes # 0.4 10^3/uL (0.8-4.8); Lymphocytes % 7.6 %; Mean Corpuscular Hemoglobin 29.3 pg (27-33); Mean Corpuscular Volume 94.6 fl (82-101); Mean Platelet Volume 9.6 fL (7.4-10.4); Monocytes # 0.5 10^3/uL (0.2-0.9); Monocytes % 8.6 %; Neutrophils # 4.79 10^3/uL (1.8-7.7); Neutrophils % 82.9 %; Nucleated Red Blood Cells % 0 %; Platelet Count 141 10^3/cmm (157-399); Red Blood Count 3.72 10^6/uL (3.85-5.65); Red Cell Distribution Width 18.1 % (12.1-15.1); White Blood Count 5.79 10^3/uL (3.29-11.43)
[2023-08-29 14:57] LABS: Alanine Aminotransferase 22 U/L (0-41); Alkaline Phosphatase 128 U/L (40-130); Anion Gap 13.3 (5-19); Aspartate Amino Transferase 24 U/L (0-40); Blood Urea Nitrogen 26 mg/dL (8-23); Calcium 8.8 mg/dL (8.5-10.5); Carbon Dioxide 25 mmol/L (22-29); Chloride 106 mmol/L (98-107); Globulin 2.7 g/dL (1.3-4.6); Glucose 119 mg/dL (65-115); Osmolality Calculated 294 mOsm/kg (285-295); Potassium 5.3 mmol/L (3.5-5.1); Sodium 139 mmol/L (136-145); Testosterone Total 2.5 ng/dL (193-740); Total Bilirubin 0.3 mg/dL (0.15-1.2); Total Protein 6.7 g/dL (6.6-8.7)
[2023-09-02] MEDS: denosumab 120 mg SDV SUBCUT (10:30)
[2023-09-02] MEDS: leuprolide 22.5 mg Kit IM (10:32)
[2023-09-02 10:40] VITALS: BP 103/67; PULSE 74; RESP 16; O2SAT 98
== END 2023-09-06 23:59 | disposition home or self-care (01) ==
PROVIDERS: PCP Internal Medicine; Visit Provider Internal Medicine Medical Oncology
DX: C61 Malignant neoplasm of prostate (principal); Z53.9 Procedure and treatment not carried out, unspecified reason; Z51.11 Encounter for antineoplastic chemotherapy
CPT/HCPCS: 36415; 80053; 84153; 84403; 85025; 96372; 96401; 99214; J0897; J9217

== ENCOUNTER 2023-09-30 09:37 | Oncology outpatient (recurring) (ONCR) | payer MEDICARE, SELFPAY ==
[2023-09-30 09:53] VITALS: BMI 21.5
[2023-09-30 09:54] VITALS: BP 96/66; PULSE 101; RESP 17; TEMP 36.5; O2SAT 91
[2023-09-30 10:12] LABS: Basophils % 0.9 %; Eosinophils % 1.2 %; Hematocrit 38.7 % (37-53); Lymphocytes # 0.4 10^3/uL (0.8-4.8); Lymphocytes % 10.6 %; Mean Corpuscular HGB Conc 30.5 g/dL (30-55); Mean Corpuscular Hemoglobin 28.6 pg (27-33); Mean Corpuscular Volume 93.7 fl (82-101); Monocytes # 0.4 10^3/uL (0.2-0.9); Monocytes % 11.7 %; Neutrophils # 2.57 10^3/uL (1.8-7.7); Neutrophils % 75.3 %; Nucleated Red Blood Cells % 0 %; Platelet Count 140 10^3/cmm (157-399); Red Blood Count 4.13 10^6/uL (3.85-5.65); Red Cell Distribution Width 17.9 % (12.1-15.1); White Blood Count 3.41 10^3/uL (3.29-11.43)
[2023-09-30 10:35] LABS: Alanine Aminotransferase 13 U/L (0-41); Albumin Level 3.6 g/dL (3.5-5.2); Alkaline Phosphatase 147 U/L (40-130); Anion Gap 12.3 (5-19); Aspartate Amino Transferase 18 U/L (0-40); Blood Urea Nitrogen 12 mg/dL (8-23); Calcium 8.8 mg/dL (8.5-10.5); Carbon Dioxide 25 mmol/L (22-29); Chloride 102 mmol/L (98-107); Glucose 100 mg/dL (65-115); Osmolality Calculated 280 mOsm/kg (285-295); Potassium 4.3 mmol/L (3.5-5.1); Sodium 135 mmol/L (136-145); Total Bilirubin 0.5 mg/dL (0.15-1.2); Total Protein 6.6 g/dL (6.6-8.7)
[2023-09-30] MEDS: denosumab 120 mg SDV SUBCUT (11:06)
== END 2023-10-07 23:59 | disposition home or self-care (01) ==
LOC: ONCMED 09:38
PROVIDERS: Nurse Practitioner Family; PCP Internal Medicine; Visit Provider Internal Medicine Medical Oncology
DX: C79.51 Secondary malignant neoplasm of bone (principal); Z51.11 Encounter for antineoplastic chemotherapy
CPT/HCPCS: 36415; 80053; 84153; 85025; 96372; J0897

== ENCOUNTER 2023-10-28 09:45 | Oncology outpatient (recurring) (ONCR) | payer MEDICARE, SELFPAY ==
[2023-10-10 14:24] LABS: Basophils % 0.2 %; Eosinophils % 0.4 %; Hematocrit 34.7 % (37-53); Lymphocytes # 0.4 10^3/uL (0.8-4.8); Mean Corpuscular HGB Conc 30.8 g/dL (30-55); Mean Corpuscular Hemoglobin 29.4 pg (27-33); Mean Corpuscular Volume 95.3 fl (82-101); Mean Platelet Volume 10.3 fL (7.4-10.4); Monocytes # 0.4 10^3/uL (0.2-0.9); Neutrophils # 3.98 10^3/uL (1.8-7.7); Neutrophils % 81.6 %; Nucleated Red Blood Cells % 0 %; Platelet Count 152 10^3/cmm (157-399); Red Blood Count 3.64 10^6/uL (3.85-5.65); Red Cell Distribution Width 18.4 % (12.1-15.1); White Blood Count 4.88 10^3/uL (3.29-11.43)
[2023-10-10 14:40] LABS: Alanine Aminotransferase 26 U/L (0-41); Alkaline Phosphatase 155 U/L (40-130); Aspartate Amino Transferase 24 U/L (0-40); Blood Urea Nitrogen 25 mg/dL (8-23); Calcium 7.9 mg/dL (8.5-10.5); Carbon Dioxide 26 mmol/L (22-29); Chloride 107 mmol/L (98-107); Globulin 2.4 g/dL (1.3-4.6); Glucose 108 mg/dL (65-115); Osmolality Calculated 295 mOsm/kg (285-295); Sodium 140 mmol/L (136-145); Total Bilirubin 0.2 mg/dL (0.15-1.2); Total Protein 6.4 g/dL (6.6-8.7)
== END 2023-11-06 23:59 | disposition home or self-care (01) ==
PROVIDERS: Radiology Radiation Oncology; PCP Internal Medicine; Visit Provider Internal Medicine Medical Oncology
DX: Z53.9 Procedure and treatment not carried out, unspecified reason (principal); C61 Malignant neoplasm of prostate; Z87.891 Personal history of nicotine dependence; C79.51 Secondary malignant neoplasm of bone; R55 Syncope and collapse; Z92.21 Personal history of antineoplastic chemotherapy
CPT/HCPCS: 36415; 80053; 84153; 85025; 99214

== ENCOUNTER 2023-10-28 10:07 | Emergency (ER) | payer MEDICARE, SELFPAY ==
[2023-10-28] VITALS (55 sets, daily range): BP systolic 91–123; BP diastolic 57–93; PULSE 60–127; RESP 13–42; TEMP 36.4; O2SAT 92–100; BMI 21.9
--- NOTE | 2023-10-28 10:39 | XR_ITS ---
WS: [id number] Exam: XR chest 1V portable [id number] Date/Time of Exam: 10/28/2023 10:39 AM Reason For Exam: dyspnea/cough Comparison 10/14/2022. The lungs are clear and fully expanded. Normal cardiomediastinal silhouette. No pleural effusions. Junior ny structures are intact. XR/XR chest 1V portable [id number] IMPRESSION: 1. Negative chest.
--- NOTE | 2023-10-28 10:39 | CTR_ITS ---
PROCEDURE INFORMATION: Exam: CT Head Without Contrast Exam date and time: 10/28/2023 11:01 AM Age: 83 years old Clinical indication: Syncope and collapse; Patient HX: 5x fainting spells over the last few weeks; Additional info: Loc TECHNIQUE: Imaging protocol: Computed tomography of the head without contrast. Radiation optimization: All CT scans at this facility use at least one of these dose optimization techniques: automated exposure control; mA and/or kV adjustment per patient size (includes targeted exams where dose is matched to clinical indication); or iterative reconstruction. COMPARISON: NM bone scan whole body* [id number] 01/14/2023 9:00 AM RADIATION DOSE METRICS: Total DLP (mGy-cm): 1070.38 FINDINGS: Brain: No evidence of mass effect, intracranial hemorrhage or extra-axial collection. No acute infarct. Cerebral ventricles: Ventricular size and configuration within normal limits for age. Paranasal sinuses: No significant pathology. Mastoid air cells: Mastoids are within normal limits. Orbital cavities: Orbits are within normal limits. Bones: Unremarkable. No acute fracture. Soft tissues: No significant pathology. CT/CT head wo con* [id number] IMPRESSION: No significant pathology.
--- NOTE | 2023-10-28 10:40 | ECG_ITS ---
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 Measurements Intervals [place] Rate: 78 P: 0 MO: 0 QRS: -77 QRSD: 160 T: -85 QT: 500 QTc: 570 Interpretive Statements ATRIAL FLUTTER RIGHT BUNDLE BRANCH BLOCK [120+ ms QRS DURATION, UPRIGHT V1, 40+ ms S IN I/aVL/V4/V5/V6] LEFT ANTERIOR FASCICULAR BLOCK [QRS AXIS <= -45, QR IN I, RS IN II] ST DEVIATION AND MODERATE T-WAVE ABNORMALITY, CONSIDER LATERAL ISCHEMIA [-0.1+ mV T-WAVE IN I/aVL/V5/V6] ST DEVIATION AND MODERATE T-WAVE ABNORMALITY, CONSIDER INFERIOR ISCHEMIA [-0.1+ mV T-WAVE IN II/aVF] Compared to ECG 07/07/2023 09:21:42 Left anterior fascicular block now present T-wave abnormality still present Possible ischemia still present Electronically Signed On 10-28-2023 13:42:58 CDT by Darrell Cunha M.D. [id number]
--- NOTE | 2023-10-28 10:42 | W.ED.SYNCOPE ---
HPI - Syncope General: Chief Complaint: Syncope Stated Complaint: passing out Time Seen by Provider: 10/28/23 10:10 History of Present Illness: 83-year-old male has a history of prostate cancer is currently being treated at the oncology center has had a couple of syncopal episodes the last few days has passed out. In talking to him each of the episodes has been when he is essentially doing some kind of Valsalva like maneuver. Twice it was when he squatted down outdoors to do a task. The other time he was sitting on the toilet. Not strike his head did not lose consciousness he denies chest pain. He has a history of atrial fibrillation he is on amiodarone and metoprolol but he felt like the metoprolol may be causing a problem so he stopped it earlier this week he continues to take the amiodarone on arrival here he is not in A-fib with RVR but he still is in atrial fibrillation. He denies fevers sweats chills or chest pain. These episodes have occurred usually while he has been standing or shortly after standing up. 1 episode occurred while he was using the restroom sitting on the toilet with Valsalva maneuver. He is asymptomatic at this time. Prodromal symptoms: lightheaded Witnessed: Yes - by Bystander Associated symptoms: Reports lightheadedness; Deny abdominal pain, chest pain or fever(s) Treatments prior to arrival: none Review of Systems Const: Denies: fever(s) or chills Card: Reports: lightheadedness; Denies: chest pain Resp: Denies: dyspnea GI: Denies: abdominal pain : Denies: dysuria, urinary frequency or urinary urgency Musc: Denies: neck pain or back pain Skin/Breast: Denies: rash [facility] ED PFSH: Medical History Atrial flutter Hypercalcemia Constipation due to opioid therapy Low back pain Chemotherapy induced nausea and vomiting Neck pain Impingement syndrome, shoulder, left Lumbar stenosis with neurogenic claudication Facet arthritis, degenerative, 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 Prostate cancer Degenerative arthritis Glaucoma GERD (gastroesophageal reflux disease) 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 Surgical History Hx of prostate biopsy (~05/2018) TRUSP with biopsy H/O cataract extraction Hx of tonsillectomy History of hernia repair Family History Father Cancer skin Brother Cancer colon Brother Cancer prostate Social History Smoking and tobacco/nicotine status: former use of tobacco/nicotine (45 years) Quit status (tobacco/nicotine): has quit using Year quit tobacco: Quit 1985 Smoked for 20 y Alcohol intake: current Alcohol intake frequency: 0-2 Drinks per Day Alcohol type: wine Physical Exam Const: COMMON NORMALS: no acute distress GENERAL APPEARANCE: cooperative and comfortable ORIENTATION/CONSCIOUSNESS: Yes awake, Yes oriented to person, Yes oriented to place and Yes oriented to time HENMT: COMMON NORMALS: normocephalic, atraumatic and hearing grossly normal bilaterally HEAD & SCALP: normocephalic and atraumatic Resp: COMMON NORMALS: normal respiratory effort, No retractions, No use of accessory muscles and clear to auscultation bilaterally AUSCULTATION: clear to auscultation bilaterally Cardio: COMMON NORMALS: regular rate, regular rhythm and No murmurs present (Cardio) RATE: regular rate RHYTHM: regular rhythm GI: COMMON NORMALS: Soft to palpation and No hepatosplenomegaly present AUSCULTATION: Yes normoactive bowel sounds PALPATION: Yes Soft to palpation, No Tenderness to palpation present (GI), No Guarding due to palpation present (GI) and Yes No hepatosplenomegaly present Extremity: COMMON NORMALS: normal to inspection, capillary refill normal, no clubbing, cyanosis or edema, no calf tenderness and no pedal edema Neuro: SENSORIUM/ORIENTATION: Yes oriented to person, Yes oriented to place and Yes oriented to time Skin: COMMON NORMALS: no rashes or lesions noted GENERAL SKIN EXAM: no rashes or lesions noted Course Vital Signs: Vital signs: Vital Signs Temperature 97.6 F 10/28/23 10:15 Pulse Rate 84 10/28/23 14:35 Respiratory Rate 26 H 10/28/23 14:35 Blood Pressure 123/93 10/28/23 14:40 Pulse Oximetry 100 10/28/23 14:40 Oxygen Delivery Me thod Room Air 10/28/23 14:40 MDM - Syncope Medical Decision Making Labs and imaging reviewed. Patient is asymptomatic at this time. He is given IV fluids he is feeling much better he would prefer to go home we will set him up for an outpatient stress test and a 48-hour Holter monitor. Medical Records I reviewed the patient's medical records. Lab Data I reviewed the patient's lab results. 10/28/23 10:25 10/28/23 10:25 Radiology Impressions Chest X-Ray 10/28/23 10:39 IMPRESSION: 1. Negative chest. Head CT 10/28/23 10:39 IMPRESSION: No significant pathology. Laboratory Results WBC 6.04 10^3/uL (3.29-11.43) 10/28/23 10:25 RBC 4.35 10^6/uL (3.85-5.65) 10/28/23 10:25 Hgb 12.90 g/dL (11.27-16.99) 10/28/23 10:25 Hct 41.3 % (37-53) 10/28/23 10:25 MCV 94.9 fl (82-101) 10/28/23 10:25 MCH 29.7 pg (27-33) 10/28/23 10:25 MCHC 31.2 g/dL (30-55) 10/28/23 10:25 RDW 18.4 % (12.1-15.1) H 10/28/23 10:25 Plt Count 128 10^3/cmm (157-399) L 10/28/23 10:25 MPV 9.8 fL (7.4-10.4) 10/28/23 10:25 Neut % (Auto) 84.4 % 10/28/23 10:25 Lymph % (Auto) 7.6 % 10/28/23 10:25 R[place] % (Auto) 7.1 % 10/28/23 10:25 Eos % (Auto) 0.5 % 10/28/23 10:25 Baso % (Auto) 0.2 % 10/28/23 10:25 Neut # (Auto) 5.10 10^3/uL (1.8-7.7) 10/28/23 10:25 Lymph # (Auto) 0.5 10^3/uL (0.8-4.8) L 10/28/23 10:25 Rains # (Auto) 0.4 10^3/uL (0.2-0.9) 10/28/23 10:25 Eos # (Auto) 0.0 10^3/uL (0.0-0.8) 10/28/23 10:25 Baso # (Auto) 0.0 10^3/uL (0.0-0.1) 10/28/23 10:25 Nucleated RBC % (auto) 0 % 10/28/23 10:25 Nucleated RBCs # 0.0 /100WBC 10/28/23 10:25 Sodium 138 mmol/L (136-145) 10/28/23 10:25 Potassium 4.9 mmol/L (3.5-5.1) 10/28/23 10:25 Chloride 106 mmol/L (98-107) 10/28/23 10:25 Carbon Dioxide 22 mmol/L (22-29) 10/28/23 10:25 Anion Gap 14.9 (5-19) 10/28/23 10:25 BUN 22 mg/dL (8-23) 10/28/23 10:25 Creatinine 1.0 mg/dL (0.7-1.2) 10/28/23 10:25 GFR Calculation Not Reportable 10/28/23 10:25 Glucose 136 mg/dL (65-115) H 10/28/23 10:25 Calculated Osmolality 291 mOsm/kg (285-295) 10/28/23 10:25 Calcium 8.4 mg/dL (8.5-10.5) L 10/28/23 10:25 Magnesium 2.5 mg/dL (1.7-2.3) H 10/28/23 10:25 Total Bilirubin 0.4 mg/dL (0.15-1.2) 10/28/23 10:25 AST 18 U/L (0-40) 10/28/23 10:25 ALT 16 U/L (0-41) 10/28/23 10:25 Alkaline Phosphatase 211 U/L (40-130) H 10/28/23 10:25 Troponin T Baseline 25 ng/L (0-15) H 10/28/23 10:25 Troponin T 120 Minute 20.55 ng/L (0-15) H 10/28/23 12:48 Delta Troponin T -4.45 ABS# (0-10) L 10/28/23 12:48 NT-Pro-B Natriuret Pep 1223 pg/mL (0-450) H 10/28/23 10:25 Total Protein 6.6 g/dL (6.6-8.7) 10/28/23 10:25 Albumin 4.3 g/dL (3.5-5.2) 10/28/23 10:25 Globulin 2.3 g/dL (1.3-4.6) 10/28/23 10:25 Urine Color Yellow (Yellow) 10/28/23 11:40 Urine Appearance Clear (CLEAR) 10/28/23 11:40 Urine pH 5 (5-7) 10/28/23 11:40 Ur Specific [place] 1.025 (1.005-1.030) 10/28/23 11:40 Urine Protein Trace (Negative) 10/28/23 11:40 Urine Glucose (UA) Norm (Normal) 10/28/23 11:40 Urine Ketones 1+ (Negative) H 10/28/23 11:40 Urine Blood Neg (Negative) 10/28/23 11:40 Urine Nitrate Negative (Negative) 10/28/23 11:40 Urine Bilirubin Neg (Negative) 10/28/23 11:40 Urine Urobilinogen Norm mg/dL (Negative) 10/28/23 11:40 Ur Leukocyte Esterase Negative (Negative) 10/28/23 11:40 Urine RBC None /hpf (0-2) 10/28/23 11:40 Urine WBC 0-4 /hpf (0-5) H 10/28/23 11:40 Ur Squamous Epith Cells 0-4 /hpf (0-5) H 10/28/23 11:40 Uric Acid Crystals 5-10 /hpf H 10/28/23 11:40 Amorphous Sediment Not Reportable 10/28/23 11:40 Urine Bacteria None /hpf (NONE) 10/28/23 11:40 Urine Mucus 1+ /hpf 10/28/23 11:40 All radiology interpretation(s) finalized by discharge Discharge Plan Discharge Patient Disposition: Home Clinical Impression: Syncope due to orthostatic hypotension, Malignant neoplasm of prostate Condition: Stable Prescriptions: No Action Lumigan 0.01 % drops 1 drop ophthalmic (eye) DAILY PreserVision AREDS [id number] capsule 1 cap PO BID amiodarone 200 mg tablet 200 mg PO DAILY Qty: 90 1RF fentanyl 50 mcg/hr patch 72 hour 1 patch topical Q72H tamsulosin 0.4 mg capsule 0.4 mg PO BEDTIME Qty: 90 3RF Xarelto 20 mg tablet 20 mg PO DAILY Qty: 90 3RF Rx Instructions: must administer with evening meal hydrocodone-acetaminophen 5-325 mg tablet 1 tab PO BID PRN (Reason: pain) 30 Days Qty: 60 0RF prednisone 5 mg tablet See Rx Instructions .ROUTE .COMPLEX Qty: 60 0RF Dose Instruction: TAKE 1 TABLET BY MOUTH TWICE A DAY Rx Instructions: TAKE 1 TABLET BY MOUTH TWICE A DAY sennosides-docusate sodium [Stool Softener-Laxative] 8.6-50 mg Tablet 2 tab PO BID Qty: 120 0RF gabapentin 100 mg Capsule 200 mg PO BID Qty: 60 0RF alprazolam 0.5 mg tablet 0.5 mg PO BEDTIME famotidine 20 mg tablet 20 mg PO BID nitroglycerin 0.4 mg tablet, sublingual See Rx Instructions .ROUTE .COMPLEX Rx Instructions: TAKE 1 TABLET BY MOUTH NEEDED FOR CHEST PAINS MAY REPEAT EVERY 5 MINUTES MAX DAILY DOSE OF 3 metoprolol tartrate 25 mg tablet 25 mg PO BID meloxicam 15 mg tablet 15 mg PO DAILY ondansetron HCl 4 mg tablet 4 mg PO Q8H PRN (Reason: Nausea And Vomiting) acetaminophen 325 mg Tablet 325 mg PO QID PRN (Reason: Pain) fluticasone propionate 50 mcg/actuation spray,suspension 1 spray INTRANASAL BID PRN (Reason: nasal congestion) Discharge Orders: Discharge ED (Routine); Ordered 10/28/23 Ordered By: Dio Monge Referrals: Hubert Benedict DO [Primary Care Provider] - Discharge Diet: Usual diet Discharge Activity: Increase activity as tolerated Patient Instructions: Opioid Safety, Pain Management Activity Restrictions/Additional Instructions: Thank you for choosing [facility] for your healthcare needs today. It is very important that you follow up as instructed or that you return to the Emergency Department should you have concerns or if your condition changes or worsens in any way. You were seen today after a couple of episodes of syncope. Suspect these are related to side effects of your medication and your ongoing cancer treatments. He would indicated you recently had a Holter monitor to monitor your heart rhythm. You should follow-up with cardiology with this additionally will set up an outpatient echocardiogram. Return if you have further problems. Coding Level of Care Code ED Motorbike Courier for Noreen Hooper
[2023-10-28 10:47] LABS: Basophils % 0.2 %; Eosinophils % 0.5 %; Hematocrit 41.3 % (37-53); Lymphocytes # 0.5 10^3/uL (0.8-4.8); Lymphocytes % 7.6 %; Mean Corpuscular HGB Conc 31.2 g/dL (30-55); Mean Corpuscular Hemoglobin 29.7 pg (27-33); Mean Corpuscular Volume 94.9 fl (82-101); Mean Platelet Volume 9.8 fL (7.4-10.4); Monocytes # 0.4 10^3/uL (0.2-0.9); Monocytes % 7.1 %; Neutrophils % 84.4 %; Nucleated Red Blood Cells % 0 %; Platelet Count 128 10^3/cmm (157-399); Red Blood Count 4.35 10^6/uL (3.85-5.65); Red Cell Distribution Width 18.4 % (12.1-15.1); White Blood Count 6.04 10^3/uL (3.29-11.43)
[2023-10-28 11:11] LABS: Troponin(5th) Baseline 25 ng/L (0-15)
[2023-10-28 11:20] LABS: Alanine Aminotransferase 16 U/L (0-41); Albumin Level 4.3 g/dL (3.5-5.2); Alkaline Phosphatase 211 U/L (40-130); Anion Gap 14.9 (5-19); Aspartate Amino Transferase 18 U/L (0-40); Blood Urea Nitrogen 22 mg/dL (8-23); Calcium 8.4 mg/dL (8.5-10.5); Carbon Dioxide 22 mmol/L (22-29); Chloride 106 mmol/L (98-107); Creatinine Clr Calc Pharmacy 62.2391; Globulin 2.3 g/dL (1.3-4.6); Glucose 136 mg/dL (65-115); Magnesium 2.5 mg/dL (1.7-2.3); NT Pro B Type Natriuretic Pept 1223 pg/mL (0-450); Osmolality Calculated 291 mOsm/kg (285-295); Potassium 4.9 mmol/L (3.5-5.1); Sodium 138 mmol/L (136-145); Total Bilirubin 0.4 mg/dL (0.15-1.2); Total Protein 6.6 g/dL (6.6-8.7)
[2023-10-28 11:51] LABS: Add Urine Microscopic? YES; Bilirubin Urine Neg (Negative); Blood Urine Neg (Negative); Glucose Urine UA Norm (Normal); Ketones Urine 1+ (Negative); Leukocyte Esterase Urine Negative (Negative); Nitrate Urine Negative (Negative); Protein Urine Trace (Negative); Specific Gravity, Urine 1.025 (1.005-1.030); Urine Appearance Clear (CLEAR); Urine Color Yellow (Yellow); Urobilinogen Urine Norm (Negative); pH Urine 5 (5-7)
[2023-10-28 11:55] LABS: Add Urine Culture? No; Mucus Urine 1+ /hpf; Squamous Epithelial Cell Urine 0-4 /hpf (0-5); WBC Urine 0-4 /hpf (0-5)
--- NOTE | 2023-10-28 12:40 | ECG_ITS ---
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 Measurements Intervals [place] Rate: 91 P: 0 AK: 0 QRS: -79 QRSD: 138 T: -40 QT: 399 QTc: 492 Interpretive Statements ATRIAL FLUTTER/TACHYCARDIA LEFT AXIS DEVIATION [QRS AXIS < -30] RIGHT BUNDLE BRANCH BLOCK [120+ ms QRS DURATION, UPRIGHT V1, 40+ ms S IN I/aVL/V4/V5/V6] POSSIBLE ANTERIOR MYOCARDIAL INFARCTION , OF INDETERMINATE AGE [30 ms Q WAVE IN V3/V4, OR R < 0.2 mV IN V4] Compared to ECG 10/28/2023 10:19:55 Left-axis deviation now present Myocardial infarct finding now present Left anterior fascicular block no longer present T-wave abnormality no longer present Possible ischemia no longer present Electronically Signed On 10-28-2023 14:02:39 CDT by Darrell Cunha M.D. [id number]
[2023-10-28] MEDS: sodium chloride 0.9% 1,000 ML 999 ML IV (12:56)
[2023-10-28 13:10] LABS: Troponin 5 2HR 20.55 ng/L (0-15)
[2023-10-28 13:13] LABS: Troponin 5 2HR Delta -4.45 ABS# (0-10)
== END 2023-10-28 14:45 | disposition home or self-care (01) ==
PROVIDERS: Emergency Provider Family Medicine; PCP Internal Medicine
DX: I95.1 Orthostatic hypotension (principal); C61 Malignant neoplasm of prostate; Z87.891 Personal history of nicotine dependence; Z85.830 Personal history of malignant neoplasm of bone; Z85.72 Personal history of non-Hodgkin lymphomas; Z92.21 Personal history of antineoplastic chemotherapy
CPT/HCPCS: 36415; 70450; 71045; 80053; 81001; 83735; 83880; 84484; 85025; 93005; 99285; J7030

== ENCOUNTER 2023-11-23 12:00 | Outpatient (CLI) | payer MEDICARE, SELFPAY ==
--- NOTE | 2023-11-23 11:58 | USCV_ITS ---
Matthew Case Age: 83 Gender: M : 1940 Exam Date: 11/23/2023 12:10 Ordering Phys: Dio Monge DO Technologist: CT [place] [facility] [place]ication: afib, ao regurg BP: 106 / 66 HR: 92 Rhythm: Sinus Technical Quality: Adequate MEASUREMENTS (Male / Female) Normal Values 2D ECHO LVOT Diameter 2.2 cm LV Ejection Fraction MOD 4C 56.2 % LV Ejection Fraction MOD 2C 45.3 % LV Ejection Fraction 2C AL 47.6 % LA Diameter 3.7 cm RA Systolic Volume 4C AL 134.3 ml RA Systolic Volume 4C MOD 131.4 ml LA Sys Volume AL 60.6 cm cubed LA Sys Volume Index AL 30.6 cm cubed/m squared Aorta at Sinotubular Diameter 2.4 cm IVC Diameter 2.4 cm DOPPLER AV Peak Velocity 100.0 cm/s AV Area Cont Eq vti 3.0 cm squared AV Area Cont Eq pk 2.8 cm squared MV Peak Velocity 95.0 cm/s MV Area PHT 4.5 cm squared Mitral E to A Ratio 2.5 TV Peak Velocity 260.5 cm/s TR Peak Velocity 275.5 cm/s TR Peak Gradient 30.4 mmHg TR Mean Velocity 177.0 cm/s TR Mean Gradient 15.9 mmHg TR Velocity Time Integral 77.3 cm TV Peak E Velocity 72.0 cm/s Right Atrial Pressure 3.0 mmHg Pulmonary Artery Systolic Pressu 33.4 mmHg PV Peak Velocity 105.5 cm/s FINDINGS Left Ventricle Normal LV size with slightly limited ejection fraction of 50%. Mild diffuse hypokinesia of the left ventricle Right Ventricle Mildly dilated right ventricle with a slightly diminished ejection fraction. Right Atrium Moderately increased right atrial size. Left Atrium Mildly increased left atrial size. Mitral Valve Mild mitral valve regurgitation. Aortic Valve Thickened aortic valve. Tricuspid Valve Moderate to severe tricuspid valve regurgitation. Estimated pulmonary artery peak systolic pressure Pulmonic Valve No gross abnormalities noted Pericardium No pericardial effusion. Aorta Normal ascending aorta dimension. IVC Normal IVC dimension with <50% respiratory change of the inferior vena cava. CONCLUSIONS Normal LV size with slightly limited ejection fraction of 50%. Mild diffuse hypokinesia of the left ventricle. Mildly dilated right ventricle with a slightly diminished ejection fraction. Mildly dilated left atrium Moderately increased right atrial size. Moderate to severe tricuspid valve regurgitation. Estimated pulmonary artery peak systolic pressure 39 mmHg There is no pericardial effusion. Thickened aortic valve. There is no pericardial effusion. There are no intracardiac masses. Dr Sandra Bo MD [facility] (Electronically Signed) Final Date: 23 November 2023 14:21 S
== END 2023-11-23 12:01 | disposition home or self-care (01) ==
PROVIDERS: PCP Internal Medicine; Visit Provider Family Medicine
DX: R55 Syncope and collapse (principal); I35.0 Nonrheumatic aortic (valve) stenosis; I34.0 Nonrheumatic mitral (valve) insufficiency; I07.1 Rheumatic tricuspid insufficiency
CPT/HCPCS: 93306

== ENCOUNTER 2023-11-25 08:52 | Oncology outpatient (recurring) (ONCR) | payer MEDICARE, SELFPAY ==
[2023-11-25 09:14] LABS: Basophils % 0.7 %; Eosinophils % 1.4 %; Hematocrit 36.6 % (37-53); Lymphocytes # 0.6 10^3/uL (0.8-4.8); Lymphocytes % 20.8 %; Mean Corpuscular HGB Conc 31.7 g/dL (30-55); Mean Corpuscular Hemoglobin 30.4 pg (27-33); Mean Corpuscular Volume 95.8 fl (82-101); Mean Platelet Volume 9.1 fL (7.4-10.4); Monocytes # 0.4 10^3/uL (0.2-0.9); Monocytes % 13.4 %; Neutrophils % 63.3 %; Nucleated Red Blood Cells % 0 %; Platelet Count 103 10^3/cmm (157-399); Red Blood Count 3.82 10^6/uL (3.85-5.65); White Blood Count 2.84 10^3/uL (3.29-11.43)
[2023-11-25 10:31] LABS: Alanine Aminotransferase 17 U/L (0-41); Albumin Level 3.8 g/dL (3.5-5.2); Alkaline Phosphatase 182 U/L (40-130); Anion Gap 15.4 (5-19); Aspartate Amino Transferase 22 U/L (0-40); Blood Urea Nitrogen 21 mg/dL (8-23); Carbon Dioxide 23 mmol/L (22-29); Chloride 104 mmol/L (98-107); Globulin 2.5 g/dL (1.3-4.6); Glucose 82 mg/dL (65-115); Osmolality Calculated 288 mOsm/kg (285-295); Potassium 4.4 mmol/L (3.5-5.1); Sodium 138 mmol/L (136-145); Total Bilirubin 0.3 mg/dL (0.15-1.2); Total Protein 6.3 g/dL (6.6-8.7)
[2023-11-25 10:32] LABS: Testosterone Total < 2.5 ng/dL (193-740)
== END 2023-12-07 23:59 | disposition home or self-care (01) ==
PROVIDERS: Nurse Practitioner Family; PCP Internal Medicine; Visit Provider Internal Medicine Medical Oncology
DX: C61 Malignant neoplasm of prostate; R55 Syncope and collapse
CPT/HCPCS: 36415; 80053; 84153; 84403; 85025; 99214

== ENCOUNTER → 2023-12-21 12:24 | Outpatient (BNVA) | payer MEDICARE, SELFPAY | PROVIDERS: PCP Internal Medicine; Visit Provider Internal Medicine | DX: I48.3 Typical atrial flutter (principal); K21.9 Gastro-esophageal reflux disease without esophagitis; C61 Malignant neoplasm of prostate; C79.51 Secondary malignant neoplasm of bone; M48.062 Spinal stenosis, lumbar region with neurogenic claudication; Z87.891 Personal history of nicotine dependence; R55 Syncope and collapse | CPT/HCPCS: 99214 ==

== ENCOUNTER 2023-12-23 08:42 | Oncology outpatient (recurring) (ONCR) | payer MEDICARE, SELFPAY ==
[2023-12-23 09:16] LABS: Basophils % 0.4 %; Eosinophils % 0.7 %; Hematocrit 36.6 % (37-53); Lymphocytes # 0.5 10^3/uL (0.8-4.8); Lymphocytes % 9.7 %; Mean Corpuscular Hemoglobin 30.9 pg (27-33); Mean Corpuscular Volume 96.6 fl (82-101); Mean Platelet Volume 9.6 fL (7.4-10.4); Monocytes # 0.4 10^3/uL (0.2-0.9); Neutrophils # 4.45 10^3/uL (1.8-7.7); Neutrophils % 81.8 %; Nucleated Red Blood Cells % 0 %; Platelet Count 101 10^3/cmm (157-399); Red Blood Count 3.79 10^6/uL (3.85-5.65); Red Cell Distribution Width 16.2 % (12.1-15.1); White Blood Count 5.44 10^3/uL (3.29-11.43)
[2023-12-23 09:46] LABS: Alanine Aminotransferase 26 U/L (0-41); Alkaline Phosphatase 271 U/L (40-130); Anion Gap 14.5 (5-19); Aspartate Amino Transferase 28 U/L (0-40); Blood Urea Nitrogen 21 mg/dL (8-23); Calcium 8.1 mg/dL (8.5-10.5); Carbon Dioxide 24 mmol/L (22-29); Chloride 104 mmol/L (98-107); Globulin 2.4 g/dL (1.3-4.6); Glucose 120 mg/dL (65-115); Osmolality Calculated 290 mOsm/kg (285-295); Potassium 4.5 mmol/L (3.5-5.1); Sodium 138 mmol/L (136-145); Testosterone Total 2.5 ng/dL (193-740); Total Bilirubin 0.4 mg/dL (0.15-1.2); Total Protein 6.4 g/dL (6.6-8.7)
[2023-12-23] MEDS: denosumab 120 mg SDV SUBCUT (10:26)
== END 2024-01-07 23:59 | disposition home or self-care (01) ==
PROVIDERS: Nurse Practitioner Family; PCP Internal Medicine; Visit Provider Internal Medicine Medical Oncology
DX: C61 Malignant neoplasm of prostate (principal); Z79.899 Other long term (current) drug therapy
CPT/HCPCS: 36415; 80053; 84153; 84403; 85025; 96372; 99214; J0897

== ENCOUNTER 2024-01-20 07:37 | Oncology outpatient (recurring) (ONCR) | payer MEDICARE, SELFPAY ==
[2024-01-20 08:06] LABS: Basophils % 0.7 %; Eosinophils # 0.1 10^3/uL (0.0-0.8); Eosinophils % 1.2 %; Hematocrit 36.1 % (37-53); Lymphocytes # 0.6 10^3/uL (0.8-4.8); Mean Corpuscular HGB Conc 30.7 g/dL (30-55); Mean Corpuscular Volume 100.8 fl (82-101); Mean Platelet Volume 9.5 fL (7.4-10.4); Monocytes # 0.5 10^3/uL (0.2-0.9); Monocytes % 12.4 %; Neutrophils # 2.92 10^3/uL (1.8-7.7); Neutrophils % 69.6 %; Nucleated Red Blood Cells % 0 %; Platelet Count 125 10^3/cmm (157-399); Red Blood Count 3.58 10^6/uL (3.85-5.65); Red Cell Distribution Width 15.8 % (12.1-15.1)
[2024-01-20 08:27] LABS: Alanine Aminotransferase 17 U/L (0-41); Alkaline Phosphatase 311 U/L (40-130); Anion Gap 12.7 (5-19); Aspartate Amino Transferase 23 U/L (0-40); Blood Urea Nitrogen 17 mg/dL (8-23); Calcium 8.4 mg/dL (8.5-10.5); Carbon Dioxide 26 mmol/L (22-29); Chloride 106 mmol/L (98-107); Globulin 2.6 g/dL (1.3-4.6); Glucose 120 mg/dL (65-115); Osmolality Calculated 293 mOsm/kg (285-295); Potassium 4.7 mmol/L (3.5-5.1); Sodium 140 mmol/L (136-145); Testosterone Total 2.5 ng/dL (193-740); Total Bilirubin 0.3 mg/dL (0.15-1.2); Total Protein 6.6 g/dL (6.6-8.7)
[2024-01-20] MEDS: sodium chloride 0.9% 500 ML 999 ML IV (09:12)
[2024-01-20] MEDS: denosumab 120 mg SDV SUBCUT (10:19)
[2024-01-20 10:24] VITALS: BP 124/75; PULSE 74; RESP 17; TEMP 35.8; O2SAT 96
== END 2024-02-06 23:59 | disposition home or self-care (01) ==
PROVIDERS: PCP Internal Medicine; Visit Provider Internal Medicine Medical Oncology
DX: C61 Malignant neoplasm of prostate (principal); Z79.899 Other long term (current) drug therapy; Z53.9 Procedure and treatment not carried out, unspecified reason; C79.51 Secondary malignant neoplasm of bone; Z92.3 Personal history of irradiation
CPT/HCPCS: 36415; 80053; 84153; 84403; 85025; 96360; 96372; 99214; J0897; J7040

== ENCOUNTER 2024-02-21 11:13 | Observation (INO) | payer MEDICARE, SELFPAY ==
[2024-02-21] VITALS (9 sets, daily range): BP systolic 119–166; BP diastolic 78–98; PULSE 78–98; RESP 16–19; TEMP 36.7–36.9; O2SAT 96–100; BMI 20.3
--- NOTE | 2024-02-21 11:17 | XRR_ITS ---
PROCEDURE INFORMATION: Exam: XR Chest Exam date and time: 02/21/2024 11:22 AM Age: 84 years old Clinical indication: Other: Weakness. No history of recent trauma or surgery is provided. TECHNIQUE: Imaging protocol: Radiologic exam of the chest. 2image(s) are provided. Views: 1 view. COMPARISON: 1. CR XR chest 1V portable [id number] 10/28/2023 10:44 AM 2. CR XR chest 1V portable [id number] 10/14/2022 11:59 AM FINDINGS: Lungs: No lobar consolidation is appreciated.There is minimal subsegmental atelectasis versus post inflammatory scarring demonstrated. There is some chronic air trapping appearance similar. Pleural spaces: No pneumothorax or significant pleural effusion is appreciated. Heart/Mediastinum: The cardiomediastinal silhouette is upper normal in size.No cardiac decompensation is appreciated. Diaphragm: The hemidiaphragms are symmetric. Bones/joints: No interval displaced fracture or dislocation is appreciated.There is some heterogeneous overall bone mineralization overall correspondingly. For example including some sclerosis of the vertebral and right scapular margins. There are some degenerative changes of the shoulders and spine overall present. Soft tissues: No radiopaque foreign body or subcutaneous emphysema is appreciated. Other findings: No other significant interval changes are appreciated. XR/XR chest 1V portable [id number] IMPRESSION: No lobar consolidation is appreciated.No interval acute cardiopulmonary changes are appreciated.
--- NOTE | 2024-02-21 11:35 | ED_ITS ---
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 Patient states that he has had increasing weakness with difficulty walking. He does live home alone. EMS states that he does get home health as well but he is considering hospice denies any fever denies any vomiting denies any his head when he fell. Associated symptoms: Denies chest pain, chills, dysuria, fever(s), headache(s), nausea or vomiting Review of Systems 2 Const: Reports: fatigue and malaise; Denies: fever(s), chills, body aches or change in appetite ENMT: Denies: throat pain or dental pain Card: Denies: chest pain Resp: Denies: dyspnea GI: Denies: abdominal pain, nausea, vomiting or diarrhea : Denies: dysuria Musc: Denies: neck pain or back pain Skin/Breast: Denies: rash Neuro: Denies: headache(s) PFSH ED 2 PFSH: Medical History Atrial flutter Hypercalcemia Constipation due to opioid therapy Low back pain Chemotherapy induced nausea and vomiting Neck pain Impingement syndrome, shoulder, left Lumbar stenosis with neurogenic claudication Facet arthritis, degenerative, 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 Prostate cancer Degenerative arthritis Glaucoma GERD (gastroesophageal reflux disease) 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 Surgical History Hx of prostate biopsy (~05/2018) TRUSP with biopsy H/O cataract extraction Hx of tonsillectomy History of hernia repair Family History Father Cancer skin Brother Cancer colon Brother Cancer prostate Social History Smoking and tobacco/nicotine status: never used tobacco/nicotine Quit status (tobacco/nicotine): has quit using Year quit tobacco: Quit 1985 Smoked for 20 y Alcohol intake: current Alcohol intake frequency: 0-2 Drinks per Day Alcohol type: wine Physical Exam 2 Const: COMMON NORMALS: patient oriented x3 HENMT: COMMON NORMALS: normocephalic and atraumatic HEAD & SCALP: n ormocephalic and atraumatic Eye: COMMON NORMALS: Equal, round and reactive pupils present and EOMs intact bilaterally PUPIL: Yes Equal, round and reactive pupils present Neck/C-Spine: COMMON NORMALS: full ROM and supple Chest: COMMONS NORMALS: normal inspection of the chest and normal palpation of entire chest wall Resp: COMMON NORMALS: normal respiratory effort, No retractions, No use of accessory muscles and clear to auscultation bilaterally AUSCULTATION: clear to auscultation bilaterally Cardio: COMMON NORMALS: regular rate, regular rhythm and No murmurs present (Cardio) RATE: regular rate RHYTHM: regular rhythm GI: COMMON NORMALS: Normal to inspection, nondistended, normoactive bowel sounds present, Soft to palpation, non-tender and no masses PALPATION: Yes Soft to palpation Extremity: COMMON NORMALS: normal to inspection and full ROM Neuro: COMMON NORMALS: patient oriented x3, moves all extremities and no focal motor deficits Psych: COMMON NORMALS: mental status grossly normal, Normal thought process present and cooperative THOUGHT PROCESS: Normal thought process present Skin: COMMON NORMALS: no rashes or lesions noted and no wounds GENERAL SKIN EXAM: no rashes or lesions noted Course 2 Vital Signs: Vital signs: Vital Signs Temperature 98.1 F 02/21/24 11:31 Pulse Rate 91 02/21/24 11:31 Respiratory Rate 18 02/21/24 11:31 Blood Pressure 143/90 02/21/24 11:31 Pulse Oximetry 99 02/21/24 11:31 Oxygen Delivery Me thod Room Air 02/21/24 11:31 MDM - Weakness Medical Decision Making Patient presents here with generalized weakness carries not been able to ambulate on his own had not require assistance to ambulate he does live home alone spoke to family they feel like he needs [place] [facility] placement which I agree will admit at this time due to his severe weakness. Medical Records I reviewed the patient's medical records. Lab Data I reviewed the patient's lab results. 02/21/24 11:40 02/21/24 11:40 Radiology Impressions Chest X-Ray 02/21/24 11:17 IMPRESSION: No lobar consolidation is appreciated.No interval acute cardiopulmonary changes are appreciated. Laboratory Results WBC 5.65 10^3/uL (3.29-11.43) 02/21/24 11:40 RBC 3.64 10^6/uL (3.85-5.65) L 02/21/24 11:40 Hgb 11.10 g/dL (11.27-16.99) L 02/21/24 11:40 Hct 34.7 % (37-53) L 02/21/24 11:40 MCV 95.3 fl (82-101) 02/21/24 11:40 MCH 30.5 pg (27-33) 02/21/24 11:40 MCHC 32.0 g/dL (30-55) 02/21/24 11:40 RDW 14.5 % (12.1-15.1) 02/21/24 11:40 Plt Count 129 10^3/cmm (157-399) L 02/21/24 11:40 MPV 8.9 fL (7.4-10.4) 02/21/24 11:40 Neut % (Auto) 83.1 % 02/21/24 11:40 Lymph % (Auto) 6.9 % 02/21/24 11:40 [place] % (Auto) 8.7 % 02/21/24 11:40 Eos % (Auto) 0.4 % 02/21/24 11:40 Baso % (Auto) 0.4 % 02/21/24 11:40 Neut # (Auto) 4.70 10^3/uL (1.8-7.7) 02/21/24 11:40 Lymph # (Auto) 0.4 10^3/uL (0.8-4.8) L 02/21/24 11:40 [place] # (Auto) 0.5 10^3/uL (0.2-0.9) 02/21/24 11:40 Eos # (Auto) 0.0 10^3/uL (0.0-0.8) 02/21/24 11:40 Baso # (Auto) 0.0 10^3/uL (0.0-0.1) 02/21/24 11:40 Nucleated RBC % (auto) 0 % 02/21/24 11:40 Nucleated RBCs # 0.0 /100WBC 02/21/24 11:40 PT 15.40 SECONDS (12.1-14.9) H 02/21/24 11:40 INR 1.18 (0.8-1.2) 02/21/24 11:40 Sodium 136 mmol/L (136-145) 02/21/24 11:40 Potassium 4.6 mmol/L (3.5-5.1) 02/21/24 11:40 Chloride 103 mmol/L (98-107) 02/21/24 11:40 Carbon Dioxide 25 mmol/L (22-29) 02/21/24 11:40 Anion Gap 12.6 (5-19) 02/21/24 11:40 BUN 22 mg/dL (8-23) 02/21/24 11:40 Creatinine 1.1 mg/dL (0.7-1.2) 02/21/24 11:40 GFR Calculation Not Reportable 02/21/24 11:40 Glucose 86 mg/dL (65-115) 02/21/24 11:40 Calculated Osmolality 285 mOsm/kg (285-295) 02/21/24 11:40 Calcium 7.9 mg/dL (8.5-10.5) L 02/21/24 11:40 Total Bilirubin 0.4 mg/dL (0.15-1.2) 02/21/24 11:40 AST 41 U/L (0-40) H 02/21/24 11:40 ALT 16 U/L (0-41) 02/21/24 11:40 Alkaline Phosphatase 346 U/L (40-130) H 02/21/24 11:40 Total Protein 6.3 g/dL (6.6-8.7) L 02/21/24 11:40 Albumin 4.1 g/dL (3.5-5.2) 02/21/24 11:40 Globulin 2.2 g/dL (1.3-4.6) 02/21/24 11:40 Urine Color Yellow (Yellow) 02/21/24 12:02 Urine Appearance Clear (CLEAR) 02/21/24 12:02 Urine pH 5.5 (5-7) 02/21/24 12:02 Ur Specific [place] 1.018 (1.005-1.030) 02/21/24 12:02 Urine Protein Trace (Negative) A 02/21/24 12:02 Urine Glucose (UA) Negative (Normal) 02/21/24 12:02 Urine Ketones Trace (Negative) 02/21/24 12:02 Urine Blood Negative (Negative) 02/21/24 12:02 Urine Nitrate Negative (Negative) 02/21/24 12:02 Urine Bilirubin Negative (Negative) 02/21/24 12:02 Urine Urobilinogen 1.0 mg/dL (Negative) 02/21/24 12:02 Ur Leukocyte Esterase Negative (Negative) 02/21/24 12:02 Urine RBC 0-2 /hpf (0-2) 02/21/24 12:02 Urine WBC 0-5 /hpf (0-5) 02/21/24 12:02 Ur Squamous Epith Cells 0-5 /hpf (0-5) 02/21/24 12:02 Amorphous Sediment Not Reportable 02/21/24 12:02 Urine Bacteria None seen /hpf (NONE) 02/21/24 12: Hyaline Casts 0.81 /lpf 02/21/24 12:02 All radiology interpretation(s) finalized by discharge EKG Data EKG 1: I personally reviewed and interpreted this EKG as follows: EKG interpretation date: 02/21/24 EKG interpretation time: 11:40 Interpretation: afib hr [address] elevation qrs 166 qtc 464 Discharge Plan Discharge Patient Disposition: Admitted As Inpatient Clinical Impression: Malignant neoplasm of prostate, Generalized weakness Condition: Stable Prescriptions: No Action Lumigan 0.01 % drops 1 drop ophthalmic (eye) DAILY calcium citrate 250 mg calcium tablet 250 mg PO BID Patient Comments: AM and PM fentanyl 50 mcg/hr patch 72 hour 1 patch topical Q72H tamsulosin 0.4 mg capsule 0.4 mg PO BEDTIME Qty: 90 3RF famotidine 20 mg tablet 20 mg PO BID Qty: 180 0RF amiodarone 200 mg tablet 200 mg PO DAILY Qty: 90 1RF meloxicam 15 mg tablet 15 mg PO DAILY Qty: 30 5RF sennosides-docusate sodium [Stool Softener-Laxative] 8.6-50 mg Tablet 2 tab PO BID Qty: 120 0RF gabapentin 100 mg Capsule 200 mg PO BID Qty: 60 0RF alprazolam 0.5 mg tablet 0.5 mg PO BEDTIME nitroglycerin 0.4 mg tablet, sublingual See Rx Instructions .ROUTE .COMPLEX Rx Instructions: TAKE 1 TABLET BY MOUTH NEEDED FOR CHEST PAINS MAY REPEAT EVERY 5 MINUTES MAX DAILY DOSE OF 3 ondansetron HCl 4 mg tablet 4 mg PO Q8H PRN (Reason: Nausea And Vomiting) prednisone 5 mg tablet 5 mg PO BID metoprolol tartrate 25 mg tablet 25 mg PO BID acetaminophen 325 mg Tablet 325 mg PO QID PRN (Reason: Pain) fluticasone propionate 50 mcg/actuation spray,suspension 1 spray INTRANASAL BID PRN (Reason: nasal congestion) Referrals: Hubert Benedict DO [Primary Care Provider] - Coding Level of Care Code ED Aircraft Communicator for Chg Fwd Related Data Home Medications Medication Instructions Recorded Confirmed bimatoprost 0.01 % eye drops 1 drop ophthalmic (eye) DAILY 02/20/20 02/21/24 (Lumigan) acetaminophen 325 mg tablet 325 mg PO QID PRN Pain 04/08/22 02/21/24 fluticasone propionate 50 1 spray intranasal BID PRN nasal 08/02/22 02/21/24 mcg/actuation nasal congestion spray,suspension fentanyl 50 mcg/hr transdermal 1 patch topical Q72H 09/02/23 02/21/24 patch alprazolam 0.5 mg tablet 0.5 mg PO BEDTIME 10/28/23 02/21/24 nitroglycerin 0.4 mg sublingual See Rx Instructions .Route .COMPLEX 10/28/23 02/21/24 tablet ondansetron HCl 4 mg tablet 4 mg PO Q8H PRN Nausea And Vomiting 10/28/23 02/21/24 calcium citrate 250 mg PO BID 12/23/23 02/21/24 metoprolol tartrate 25 mg tablet 25 mg PO BID 02/21/24 02/21/24 prednisone 5 mg tablet 5 mg PO BID 02/21/24 02/21/24 Previous Rx's Medication Instructions Recorded tamsulosin 0.4 mg capsule 0.4 mg PO BEDTIME #90 caps 03/09/23 gabapentin 100 mg capsule 200 mg (2 x 100 mg) PO BID #60 caps 03/22/23 sennosides 8.6 mg-docusate sodium 2 tab PO BID #120 tabs 03/22/23 50 mg tablet (Stool Softener-Laxative) famotidine 20 mg tablet 20 mg PO BID #180 tabs 12/07/23 amiodarone 200 mg tablet 200 mg PO DAILY #90 tabs 12/09/23 meloxicam 15 mg tablet 15 mg PO DAILY #30 tabs 01/16/24 Allergies Allergy/AdvReac Type Severity Reaction Status Date / Time synthetic fabrics Allergy Mild ADR-Itching Uncoded 01/20/24 08:04
--- NOTE | 2024-02-21 11:40 | ECG_ITS ---
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 Measurements Intervals [place] Rate: 81 P: 0 NV: 0 QRS: -72 QRSD: 166 T: 50 QT: 427 QTc: 496 Interpretive Statements ATRIAL FIBRILLATION RIGHT BUNDLE BRANCH BLOCK [120+ ms QRS DURATION, UPRIGHT V1, 40+ ms S IN I/aVL/V4/V5/V6] LEFT ANTERIOR FASCICULAR BLOCK [QRS AXIS <= -45, QR IN I, RS IN II] Compared to ECG 10/28/2023 12:30:13 Left anterior fascicular block now present Atrial flutter no longer present Left-axis deviation no longer present Myocardial infarct finding no longer present Electronically Signed On 02-22-2024 01:05:41 CDT by Sandra Bo M.D. [id number]
[2024-02-21 11:46] LABS: Basophils % 0.4 %; Eosinophils % 0.4 %; Hematocrit 34.7 % (37-53); Lymphocytes # 0.4 10^3/uL (0.8-4.8); Lymphocytes % 6.9 %; Mean Corpuscular Hemoglobin 30.5 pg (27-33); Mean Corpuscular Volume 95.3 fl (82-101); Mean Platelet Volume 8.9 fL (7.4-10.4); Monocytes # 0.5 10^3/uL (0.2-0.9); Monocytes % 8.7 %; Neutrophils % 83.1 %; Nucleated Red Blood Cells % 0 %; Platelet Count 129 10^3/cmm (157-399); Red Blood Count 3.64 10^6/uL (3.85-5.65); Red Cell Distribution Width 14.5 % (12.1-15.1); White Blood Count 5.65 10^3/uL (3.29-11.43)
[2024-02-21 12:07] LABS: INR 1.18 (0.8-1.2)
[2024-02-21 12:10] LABS: Alanine Aminotransferase 16 U/L (0-41); Albumin Level 4.1 g/dL (3.5-5.2); Alkaline Phosphatase 346 U/L (40-130); Anion Gap 12.6 (5-19); Aspartate Amino Transferase 41 U/L (0-40); Blood Urea Nitrogen 22 mg/dL (8-23); Calcium 7.9 mg/dL (8.5-10.5); Carbon Dioxide 25 mmol/L (22-29); Chloride 103 mmol/L (98-107); Creatinine Clr Calc Pharmacy 54.0276; Globulin 2.2 g/dL (1.3-4.6); Glucose 86 mg/dL (65-115); Osmolality Calculated 285 mOsm/kg (285-295); Potassium 4.6 mmol/L (3.5-5.1); Sodium 136 mmol/L (136-145); Total Bilirubin 0.4 mg/dL (0.15-1.2); Total Protein 6.3 g/dL (6.6-8.7)
[2024-02-21 12:18] LABS: Bilirubin Urine Negative (Negative); Blood Urine Negative (Negative); Glucose Urine UA Negative (Normal); Ketones Urine Trace (Negative); Leukocyte Esterase Urine Negative (Negative); Nitrate Urine Negative (Negative); Protein Urine Trace (Negative); Specific Gravity, Urine 1.018 (1.005-1.030); Urine Appearance Clear (CLEAR); Urine Color Yellow (Yellow); pH Urine 5.5 (5-7)
[2024-02-21 12:23] LABS: Add Urine Microscopic? YES; Bacteria Urine None Seen /hpf; Hyaline Casts Urine 0.81 /lpf; RBC Urine 0-2 /hpf (0-2); Squamous Epithelial Cell Urine 0-5 /hpf (0-5); WBC Urine 0-5 /hpf (0-5)
--- NOTE | 2024-02-21 17:08 | P.HP_ITS ---
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 After the patient he has not had a bowel movement over last 1 week. Denies any abdominal pain. States he lives by himself is not able to take care of his ADLs currently and is feeling severely weak. Patient was apparently on [facility] in but was discharged from the services. He denies any headache, dizziness, chest pain, palpitations, dysuria, runny nose, diarrhea, sick contacts, difficulty in breathing. Review of Systems 2 General: Reports: 10 or more systems reviewed and unremarkable except in HPI and below Const: Denies: fever(s), chills, body aches, change in appetite, change in weight, malaise, night sweats, diaphoresis, change in sleep pattern, daytime sleepiness or snoring Eyes: Denies: change in vision, blurry vision, photophobia, eye discomfort or eye discharge ENMT: Denies: throat pain, enlarged tonsils, hoarseness, mouth pain, oral sores, dry mouth, tinnitus, nasal congestion or post nasal drip Card: Denies: chest pain, palpitations, irregular heart rhythm, edema, swelling of feet/ankles, lightheadedness, syncope, pre-syncope, dyspnea on exertion, orthopnea, leg pain with exertion or acrocyanosis Resp: Denies: dyspnea, productive cough, non-productive cough, wheezing, stridor, pain on inspiration, change in phlegm color, hemoptysis or chest congestion GI: Denies: abdominal pain, nausea, vomiting, hematemesis, coffee ground emesis, dysphagia, heartburn, diarrhea, constipation, bloating, GI cramping, change in bowel habits, pain on defecation, hematochezia or melena : Denies: flank pain, difficulty urinating, dysuria, urinary frequency, urinary urgency, urinary hesitancy, urinary dribbling, difficulty starting urination, change in urine stream, nocturia or hematuria Musc: Denies: neck pain, back pain, extremity pain, joint pain, joint swelling, joint redness, joint stiffness or limited range of motion Neuro: Denies: headache(s), numbness in extremities, weakness in extremities, sensory changes, lack of coordination, difficulty walking, frequent falls, dizziness, vertigo, confusion, Slurred speech present, difficulty communicating thoughts or seizure-like activity Psych: Denies: anxiety, depression, mood swings, panic attacks, hopelessness or irritability Endo: Denies: polyuria, polydipsia, tired all the time, cold intolerance, excessive sweating, flushing or heat intolerance Nacho/Lymph: Denies: easy bruising or easy bleeding All/Imm: Denies: tongue swelling, facial swelling or acute wheezing Medications/Allergies Home Medications Medication Instructions Recorded Confirmed Last Taken Type bimatoprost 0.01 % eye drops 1 drop ophthalmic (eye) DAILY 02/20/20 02/21/24 02/20/24 History ([facility]) acetaminophen 325 mg tablet 325 mg PO QID PRN Pain 04/08/22 02/21/24 10/14/22 History fluticasone propionate 50 1 spray intranasal BID PRN nasal 08/02/22 02/21/24 02/20/24 History mcg/actuation nasal congestion spray,suspension tamsulosin 0.4 mg capsule 0.4 mg PO BEDTIME #90 caps 03/09/23 02/21/24 10/27/23 Rx gabapentin 100 mg capsule 200 mg (2 x 100 mg) PO BID #60 caps 03/22/23 02/21/24 02/20/24 Rx sennosides 8.6 mg-docusate sodium 2 tab PO BID #120 tabs 03/22/23 02/21/24 10/28/23 Rx 50 mg tablet (Stool Softener-Laxative) fentanyl 50 mcg/hr transdermal 1 patch topical Q72H 09/02/23 02/21/24 10/27/23 History patch alprazolam 0.5 mg tablet 0.5 mg PO BEDTIME 10/28/23 02/21/24 02/20/24 History nitroglycerin 0.4 mg sublingual See Rx Instructions .Route .COMPLEX 10/28/23 02/21/24 Unknown History tablet ondansetron HCl 4 mg tablet 4 mg PO Q8H PRN Nausea And Vomiting 10/28/23 02/21/24 Unknown History famotidine 20 mg tablet 20 mg PO BID #180 tabs 12/07/23 02/21/24 02/20/24 Rx amiodarone 200 mg tablet 200 mg PO DAILY #90 tabs 12/09/23 02/21/24 02/20/24 Rx calcium citrate 250 mg PO BID 12/23/23 02/21/24 02/20/24 History meloxicam 15 mg tablet 15 mg PO DAILY #30 tabs 01/16/24 02/21/24 02/20/24 Rx metoprolol tartrate 25 mg tablet 25 mg PO BID 02/21/24 02/21/24 02/20/24 History prednisone 5 mg tablet 5 mg PO BID 02/21/24 02/21/24 Unknown History Allergies Allergy/AdvReac Type Severity Reaction Status Date / Time synthetic fabrics Allergy Mild ADR-Itching Uncoded 01/20/24 08:04 PFSH Acute 2 PFSH: Medical History (Updated 02/21/24 @ 22:44 by Jeremy Underwood MD) Nausea & vomiting Atrial flutter Hypercalcemia Constipation due to opioid therapy Low back pain Chemotherapy induced nausea and vomiting Neck pain Impingement syndrome, shoulder, left Lumbar stenosis with neurogenic claudication Facet arthritis, degenerative, 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 Prostate cancer Degenerative arthritis Glaucoma GERD (gastroesophageal reflux disease) 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 Surgical History Hx of prostate biopsy (~05/2018) TRUSP with biopsy H/O cataract extraction Hx of tonsillectomy History of hernia repair Family History Father Cancer skin Brother Cancer colon Brother Cancer prostate Social History Smoking and tobacco/nicotine status: never used tobacco/nicotine Quit status (tobacco/nicotine): has quit using Year quit tobacco: Quit 1985 Smoked for 20 y Alcohol intake: current Alcohol intake frequency: 0-2 Drinks per Day Alcohol type: wine Vitals/I&O/Wt Last Vital Signs Temp 98.1 F 02/21/24 11:31 Pulse 96 02/21/24 16:09 Resp 18 02/21/24 16:09 BP 137/95 02/21/24 16:09 Pulse Ox 98 02/21/24 16:09 O2 Del Method Room Air 02/21/24 15:11 Weight last 48 hrs Weight 68.039 kg Physical Exam 2 Narrative: General: No acute distress, AO x3, tired appearing, chronically sick appearing, bitemporal wastage HEENT: PERRLA, pupils bilaterally equal and reactive Chest: Normal vesicular breath sounds, no added sounds, equal good air entry bilaterally CVS: S1-S2 regular, no murmurs, no tachycardia, no gallops, no rubs Abdomen: Soft, nontender, no organomegaly, bowel sounds present Neuro: No focal deficits, no facial deformity, AO x3, power 5/5 in all limbs Data 02/21/24 11:40 02/21/24 11:40 A&P Assessment and plan (1) Nausea & vomiting: (2) Malignant neoplasm of prostate: (3) Generalized weakness: (4) Atrial flutter: Qualifiers: Atrial flutter type: typical Qualified Code(s): I48.3 - Typical atrial flutter (5) Goals of care, counseling/discussion: Plan 84-year-old gentleman with past medical history of 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 Nausea/vomiting: Keep n.p.o. Zofran as needed, Phenergan Q6 hourly as needed. If persistent nausea can plan for scopolamine patch. Protonix daily IV IV fluids with normal saline at 75 cc/h. Check CT abdomen pelvis to rule out small bowel obstruction, significant constipation. If small bowel obstruction is ruled out can plan for stool softeners versus enema. Patient have generalized weakness, is severely deconditioned, is chronically sick appearing, lives by himself and is unable to take care of his ADLs. He is requesting possible transition to jail. Patient does not have any sign of infection. No dysuria. No leukocytosis, UA not consistent with UTI. Remains on room air. Hold off IV antibiotics for now. Discussed goals of care in detail with the patient given significant advanced prostate cancer, generalized weakness. Patient wishes to transition to hospice if possible to jail. Case management consult Hospice referral CODE STATUS: Discussed today with the patient. He does not want any heroic measures or resuscitative measures in case of cardiac arrest. DNR/DNI. Sister will be the DPOA. N.p.o. Protonix for PUD prophylaxis Heparin for DVT prophylaxis Attestations 2 Medical Necessity Statement*: Admission under observation for management of nausea and vomiting while safe discharge planning and hospice is set up in a patient with advanced prostate cancer Diagnoses Nausea & vomiting R11.2 Malignant neoplasm of prostate C61 Generalized weakness R53.1 Typical atrial flutter I48.3 Atrial flutter type: typical Goals of care, counseling/discussion Z71.89
--- NOTE | 2024-02-21 17:53 | CTR_ITS ---
PROCEDURE INFORMATION: Exam: CT Abdomen And Pelvis Without Contrast Exam date and time: 02/21/2024 10:05 PM Age: 84 years old Clinical indication: Nausea and vomiting; Prior surgery; Surgery date: 6+ months; Surgery type: Hernia repair; Additional info: N/v TECHNIQUE: Imaging protocol: Computed tomography of the abdomen and pelvis without contrast. Radiation optimization: All CT scans at this facility use at least one of these dose optimization techniques: automated exposure control; mA and/or kV adjustment per patient size (includes targeted exams where dose is matched to clinical indication); or iterative reconstruction. COMPARISON: CT abdomen pelvis w con* [id number] 01/14/2023 10:35 AM RADIATION DOSE METRICS: Total DLP (mGy-cm): 447.04 FINDINGS: Lungs: Linear opacities at the right lung base are compelling for scar, similar to prior. No acute airspace disease. Pleural spaces: No pleural fluid or pneumothorax. Heart: Heart size is normal. Liver: Cyst noted in the medial segment left hepatic lobe. Liver parenchyma is otherwise homogeneous on this noncontrast exam. Gallbladder and biliary ducts: There is high density material in the lumen of the gallbladder which could reflect vicarious excretion of contrast from any recent intravenous contrast administration. Alternatively, findings could reflect [id number]. No gallbladder inflammatory change or biliary tree dilation. Pancreas: No visible pancreatic edema. It is difficult to exclude pancreatic mass lesion on this noncontrast exam. Spleen: Normal. No splenomegaly. Adrenal glands: Normal configuration. Kidneys and ureters: Simple cyst upper pole left kidney. No intrarenal stones. No evidence of renal obstruction on either side. Stomach and bowel: Postprandial stomach. Normal caliber small bowel. Distal colonic diverticulosis without evidence of acute diverticulitis. There is large volume fecal debris throughout the colon with desiccated appearing feces in the distal colon. Appendix: Normal appendix is confirmed. Intraperitoneal space: No free air. No significant fluid collection. Vasculature: Mild aortoiliac calcific atherosclerosis without aneurysm. Lymph nodes: No enlarged lymph nodes. Urinary bladder: Unremarkable as visualized. Reproductive: Small prostate. Bones/joints: Extensive mixed lytic and sclerotic bony lesions are demonstrated, progressed when compared to the prior exam. There is an acute or subacute fracture of the right L5 pedicle across the base. There is also a linear cleft in the left iliac wing without distal extension. Remainder of the bony pelvis is intact. Proximal femora are intact. Soft tissues: Prior right inguinal herniorrhaphy. CT/CT abdomen pelvis wo con [id number] IMPRESSION: 1. Extensive osseous metastatic disease has progressed from prior exam. Acute or subacute pathologic fractures the left L5 pedicle and left iliac crest are noted. 2. Large volume fecal debris throughout the colon suggests constipation which may be symptomatic. No other acute intra-abdominal abnormality. COMMENTS: Consistent with the [employer]'s Incidental Findings Committee white paper (J Am Sumit Radiol 2018): Any incidental renal lesion less than 1 cm or classified as too small to characterize, or any incidental cystic renal lesion characterized as simple-appearing, is likely benign. No follow-up imaging is recommended for these lesions per consensus recommendations based on imaging criteria.
[2024-02-21] MEDS: fentaNYL 50 mcg Patch 1 PATCH TRANSDERMA (18:04)
[2024-02-21] MEDS: pantoprazole 40 mg SDV IVP (18:04)
[2024-02-21] MEDS: ondansetron 2 mg/ML SDV 2 mL 4 MG IVP (18:04)
[2024-02-21] MEDS: heparin 5,000 unit/mL INJ 1 mL 5000 UNIT SUBCUT (18:05)
[2024-02-21 18:26] LABS: Procalcitonin 0.07 ng/mL (0-0.5)
--- NOTE | 2024-02-21 18:31 | PC.NURSE ---
50 mcg fentanyl patch placed on left upper arm. Previous patch was on right upper arm and removed.
--- NOTE | 2024-02-21 19:18 | PC.NURSE ---
Patient states it is ok to give information to a Gene Manpreet (brother) [phone]
[2024-02-21] MEDS: tamsulosin 0.4 mg Capsule PO (21:39)
[2024-02-22] VITALS (9 sets, daily range): BP systolic 111–154; BP diastolic 67–94; PULSE 69–110; RESP 16–18; TEMP 36.6–36.9; O2SAT 94–99; BMI 16.7
[2024-02-22] MEDS: heparin 5,000 unit/mL INJ 1 mL 5000 UNIT SUBCUT ×3 (02:59→18:21)
[2024-02-22 05:32] LABS: Basophils % 0.1 %; Eosinophils % 0.1 %; Hematocrit 35.9 % (37-53); Lymphocytes # 0.4 10^3/uL (0.8-4.8); Lymphocytes % 5.7 %; Mean Corpuscular HGB Conc 32.3 g/dL (30-55); Mean Corpuscular Hemoglobin 30.4 pg (27-33); Mean Platelet Volume 9.3 fL (7.4-10.4); Monocytes # 0.5 10^3/uL (0.2-0.9); Monocytes % 7.5 %; Neutrophils # 6.02 10^3/uL (1.8-7.7); Neutrophils % 85.9 %; Nucleated Red Blood Cells % 0 %; Platelet Count 127 10^3/cmm (157-399); Red Blood Count 3.82 10^6/uL (3.85-5.65); Red Cell Distribution Width 14.3 % (12.1-15.1); White Blood Count 7.02 10^3/uL (3.29-11.43)
[2024-02-22 05:46] LABS: Estmated Average Glucose 117; Hemoglobin A1C 5.7 % (4.0-6.0)
[2024-02-22 05:49] LABS: Chol HDL Ratio 3.15 mg/dL (1.0-5.00); Cholesterol 189 mg/dL (0-200); HDL Cholesterol 60 mg/dL (60-100); LDL Cholesterol Calculated 116 mg/dL (50-129); LDL HDL Ratio 1.93 RATIO (0.00-3.22); Triglycerides 66 mg/dL (0-150)
[2024-02-22 05:53] LABS: Alanine Aminotransferase 16 U/L (0-41); Albumin Level 3.8 g/dL (3.5-5.2); Alkaline Phosphatase 362 U/L (40-130); Anion Gap 18.5 (5-19); Aspartate Amino Transferase 42 U/L (0-40); Blood Urea Nitrogen 17 mg/dL (8-23); Calcium 7.6 mg/dL (8.5-10.5); Carbon Dioxide 19 mmol/L (22-29); Chloride 100 mmol/L (98-107); Creatinine Clr Calc Pharmacy 50.0384; Globulin 2.5 g/dL (1.3-4.6); Glucose 80 mg/dL (65-115); Magnesium 2.2 mg/dL (1.7-2.3); Osmolality Calculated 277 mOsm/kg (285-295); Phosphorus 1.5 mg/dL (2.5-4.5); Potassium 4.5 mmol/L (3.5-5.1); Sodium 133 mmol/L (136-145); Total Bilirubin 0.5 mg/dL (0.15-1.2); Total Protein 6.3 g/dL (6.6-8.7)
[2024-02-22] MEDS: sennosides-docusate Tablet 2 TAB PO ×2 (10:05→18:20)
[2024-02-22] MEDS: gabapentin 100 mg Capsule 200 MG PO ×2 (10:06→18:20)
[2024-02-22] MEDS: amiodarone 200 mg Tablet PO (10:06)
[2024-02-22] MEDS: predniSONE 5 mg Tablet PO ×2 (10:07→18:20)
[2024-02-22] MEDS: famotidine 20 mg Tablet PO ×2 (10:07→18:20)
[2024-02-22] MEDS: metoprolol tartrate 25 mg Tablet PO ×2 (10:07→18:20)
--- NOTE | 2024-02-22 10:29 | PC.CHAP ---
Pastoral Care Encounter/Spiritual Assessment Type of Contact [] Declined maternal child nurse visit [] Patient/Family/Request visit [] Outpatient visit [] Follow-up visit [] Physician referral [] Code/Alert [] Routine visit [] Staff referral [] Actively dying [] Patient sleeping [] Family support [] [] Out of room [] Palliative care [] [x] Receiving care in room [] Pre-surgical visit [] Trauma [] Long length of stay [] ICU visit [] Other: Relational/Emotional Strength [] Patient feels connected with others/family/visitors/staff [] Distress [] Loneliness/isolation [] Abandonment Spirituality of Patient [] Person of Penelope [] Attends Taoist of their Penelope [] Believes in Prayer [] Reads Bible or Orthodoxy materials [] There are Spiritual issues to be addressed Well Reactivator Operator Interventions [] Prayer [] Active listening [] Non-anxious presence [] Spiritual/emotional support [] Crisis/trauma care [] Spiritual counseling [] Bereavement support [] Provided bereavement packet [] Provided Bible/devotional materials [] Provided toy/stuffed animal, coloring book to patient or family member [] Provided Communion [] Anointing/[place] [] Salvation [] Completed spiritual assessment [] Other: Impact on Illness or Injury [] Angry [] Fearful [] Anxious [] Often cries [] Exhaustion [] Unable to work [] Unable to attend mu-ism [] Unable to walk/stand [] Unable to read [] Unable to drive [] Unable to eat/drink [] Unable to sleep [] Unable to be with family [] Patient intubated [] Other: Summary Time spent with patient
[2024-02-22] MEDS: magnesium hydroxide 30 mL UDC PO (10:52)
--- NOTE | 2024-02-22 12:55 | PC.OT ---
OT EVALUATION HELD DUE TO ENEMA APPLICATION. WILL ATTEMPT AGAIN TOMORROW.
--- NOTE | 2024-02-22 14:47 | P.PN_ITS ---
Subjective 2 Subjective: Today morning on examination seen with brother and [id number] at bedside. Patient is more comfortable. Complaining of dry heaving but no further episode of vomiting. Did have an enema and oral stool softeners after which he had a good bowel movement. Otherwise patient states he is comfortable. Vitals/I&O/Wt Last Vital Signs Temp 98.2 F 02/22/24 11:35 Pulse 69 02/22/24 11:35 Resp 16 02/22/24 11:35 BP 128/69 02/22/24 11:35 Pulse Ox 94 02/22/24 11:35 O2 Del Method Room Air 02/22/24 11:35 02/21/24 02/22/24 02/22/24 22:59 06:59 14:59 Output Total 500 / 500 Balance -500 / -500 Weight last 48 hrs Weight 55.905 kg Weight 55.905 kg Weight 68.039 kg Physical Exam 2 Narrative: General: No acute distress, AO x3, tired appearing, chronically sick appearing, bitemporal wastage HEENT: PERRLA, pupils bilaterally equal and reactive Chest: Normal vesicular breath sounds, no added sounds, equal good air entry bilaterally CVS: S1-S2 regular, no murmurs, no tachycardia, no gallops, no rubs Abdomen: Soft, nontender, no organomegaly, bowel sounds present Neuro: No focal deficits, no facial deformity, AO x3, power 5/5 in all limbs Urinary Catheter Management: Finnegan: Cath Placed During This Visit: yes Reason for Continuing Indwelling Catheter: Acute Urinary Retention or Obstruction Urinary Catheter Date of Insertion: 02/22/24 Urinary Catheter Time of Insertion: 03:19 Data 02/22/24 05:17 02/22/24 05:17 A&P Assessment and plan (1) Nausea & vomiting: (2) Malignant neoplasm of prostate: (3) Generalized weakness: (4) Atrial flutter: Qualifiers: Atrial flutter type: typical Qualified Code(s): I48.3 - Typical atrial flutter (5) Goals of care, counseling/discussion: Plan 84-year-old gentleman with past medical history of 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 Nausea/vomiting: Keep n.p.o. Zofran as needed, Phenergan Q6 hourly as needed. Scopolamine patch. Protonix daily IV IV fluids with normal saline at 75 cc/h. Check CT abdomen pelvis to rule out small bowel obstruction, significant constipation. If small bowel obstruction is ruled out can plan for stool softeners versus enema. Patient have generalized weakness, is severely deconditioned, is chronically sick appearing, lives by himself and is unable to take care of his ADLs. He is requesting possible transition to correction. Patient does not have any sign of infection. No dysuria. No leukocytosis, UA not consistent with UTI. Remains on room air. Hold off IV antibiotics for now. Discussed goals of care in detail with the patient given significant advanced prostate cancer, generalized weakness. Patient wishes to transition to hospice if possible to correction. Case management consult Hospice referral CODE STATUS: Discussed today with the patient. He does not want any heroic measures or resuscitative measures in case of cardiac arrest. DNR/DNI. Sister will be the DPOA. N.p.o. Protonix for PUD prophylaxis Heparin for DVT prophylaxis Plan for the day: Severe constipation. No further episode of nausea or vomiting. Normal saline at 75 cc/h for 1 bag. Aggressive bowel regimen with milk of magnesia daily along with senna Colace. Care discussed in detail with patient's brother at bedside. Plan to transition to hospice most likely to SNF. Case management alerted. Continue with scopolamine patch. Attestations 2 Medical Necessity Statement*: Requires further hospitalization while hospice is set up in a patient with malignant prostate cancer with metastasis in setting of advanced prostate cancer Diagnoses Nausea & vomiting R11.2 Malignant neoplasm of prostate C61 Generalized weakness R53.1 Typical atrial flutter I48.3 Atrial flutter type: typical Goals of care, counseling/discussion Z71.89
[2024-02-22] MEDS: sodium chloride 0.9% 1,000 ML 75 ML IV (15:24)
[2024-02-22] MEDS: tamsulosin 0.4 mg Capsule PO (21:59)
[2024-02-22] MEDS: acetaminophen 325 mg Tablet PO (21:59)
[2024-02-22] MEDS: ALPRAZolam 0.5 mg Tablet PO (21:59)
[2024-02-23] VITALS: BP 109/71; PULSE 82; RESP 17; TEMP 36.7; O2SAT 97
[2024-02-23] MEDS: heparin 5,000 unit/mL INJ 1 mL 5000 UNIT SUBCUT ×2 (02:27→09:39)
[2024-02-23 04:00] VITALS: BP 99/63; PULSE 99; RESP 16; TEMP 36.9; O2SAT 97
--- NOTE | 2024-02-23 05:37 | PC.NURSE ---
Patient now saying he needs to go home d/t his pets and valuables being at home. Patient states all of my things are at home: my computer, my finances, my cats, my telephone. Patient also states, I can't afford to go to the skilled nursing. It's $200 a day. Patient states that his family lives out of state. Patient points to a quad cane in his room and says he needs a cane like that at home. He says he has three canes at home, but the quad cane that we have works better for him.
[2024-02-23 06:00] VITALS: PULSE 81
[2024-02-23 07:58] VITALS: BP 98/63; PULSE 90; RESP 15; TEMP 36.4; O2SAT 97
[2024-02-23] MEDS: predniSONE 5 mg Tablet PO (08:08)
[2024-02-23] MEDS: gabapentin 100 mg Capsule 200 MG PO (08:08)
[2024-02-23] MEDS: famotidine 20 mg Tablet PO (08:08)
[2024-02-23] MEDS: sennosides-docusate Tablet 2 TAB PO (08:08)
[2024-02-23] MEDS: magnesium hydroxide 30 mL UDC PO (08:09)
--- NOTE | 2024-02-23 08:51 | PM.DCS ---
Discharge Providers Date of Admission: 02/21/24 17:41 Date of Discharge: February 23, 2024 Attending Provider at Admission: Jeremy Underwood MD Attending Provider at Discharge: Jeremy Underwood MD Primary Care Provider: Hubert Benedict DO Diagnoses at Discharge Discharge Diagnosis (1) Nausea & vomiting: Status: Acute (2) Malignant neoplasm of prostate: Status: Acute (3) Generalized weakness: Status: Acute (4) Atrial flutter: Status: Acute Qualifiers: Atrial flutter type: typical Qualified Code(s): I48.3 - Typical atrial flutter (5) Goals of care, counseling/discussion: Status: Acute Reason for Visit Reason for Visit: Weakness, Post fall Hospital Course Hospital Course Matthew Case is a 84 year old male with past medical history of stage IV prostate cancer with metastasis to bone, brain, atrial flutter presents to the ER today with his brother because of severe generalized weakness getting worse over last few months, persistent nausea and vomiting over the last few days which is limited his oral intake. After the patient he has not had a bowel movement over last 1 week. Denies any abdominal pain. States he lives by himself is not able to take care of his ADLs currently and is feeling severely weak. Patient was apparently on [facility] in 03/31 but was discharged from the services. He denies any headache, dizziness, chest pain, palpitations, dysuria, runny nose, diarrhea, sick contacts, difficulty in breathing. Patient was admitted and further goals of care discussions were done in detail with patient and brother at bedside. Infectious causes of his weakness were ruled out. CT abdomen pelvis was done because of persistent nausea and vomiting which is consistent with severe constipation for which she received aggressive bowel regimen along with enema after which he started having soft bowel movements. Both patient and brother requested hospice to be set up. Physical Exam Narrative: General: No acute distress, AO x3, tired appearing, chronically sick appearing, bitemporal wastage HEENT: PERRLA, pupils bilaterally equal and reactive Chest: Normal vesicular breath sounds, no added sounds, equal good air entry bilaterally CVS: S1-S2 regular, no murmurs, no tachycardia, no gallops, no rubs Abdomen: Soft, nontender, no organomegaly, bowel sounds present Neuro: No focal deficits, no facial deformity, AO x3, power 5/5 in all limbs Urinary Catheter Management: Finnegan: Cath Placed During This Visit: yes Reason for Continuing Indwelling Catheter: Acute Urinary Retention or Obstruction Urinary Catheter Date of Insertion: 02/22/24 Urinary Catheter Time of Insertion: 03:19 Discharge Data Studies Completed and Pending Completed Studies During Hospitalization Category Date Time Status CT abdomen pelvis wo con [id number] Routine Cat Scan 02/21/24 17:53 Completed XR chest 1V portable [id number] Stat Exams 02/21/24 11:17 Completed Pending at discharge Category Date Time Status COVID [SARS Covid-2 Antigen] Routine Lab 02/23/24 07:58 Uncollected Radiology Impressions Chest X-Ray 02/21/24 11:17 IMPRESSION: No lobar consolidation is appreciated.No interval acute cardiopulmonary changes are appreciated. Abdomen/Pelvis CT 02/21/24 17:53 IMPRESSION: 1. Extensive osseous metastatic disease has progressed from prior exam. Acute or subacute pathologic fractures the left L5 pedicle and left iliac crest are noted. 2. Large volume fecal debris throughout the colon suggests constipation which may be symptomatic. No other acute intra-abdominal abnormality. COMMENTS: Consistent with the [employer]'s Incidental Findings Committee white paper (J Am Sumit Radiol 2018): Any incidental renal lesion less than 1 cm or classified as too small to characterize, or any incidental cystic renal lesion characterized as simple-appearing, is likely benign. No follow-up imaging is recommended for these lesions per consensus recommendations based on imaging criteria. Laboratory Results WBC 7.02 10^3/uL (3.29-11.43) 02/22/24 05:17 RBC 3.82 10^6/uL (3.85-5.65) L 02/22/24 05:17 Hgb 11.60 g/dL (11.27-16.99) 02/22/24 05:17 Hct 35.9 % (37-53) L 02/22/24 05:17 MCV 94.0 fl (82-101) 02/22/24 05:17 MCH 30.4 pg (27-33) 02/22/24 05:17 MCHC 32.3 g/dL (30-55) 02/22/24 05:17 RDW 14.3 % (12.1-15.1) 02/22/24 05:17 Plt Count 127 10^3/cmm (157-399) L 02/22/24 05:17 MPV 9.3 fL (7.4-10.4) 02/22/24 05:17 Neut % (Auto) 85.9 % 02/22/24 05:17 Lymph % (Auto) 5.7 % 02/22/24 05:17 [place] % (Auto) 7.5 % 02/22/24 05:17 Eos % (Auto) 0.1 % 02/22/24 05:17 Baso % (Auto) 0.1 % 02/22/24 05:17 Neut # (Auto) 6.02 10^3/uL (1.8-7.7) 02/22/24 05:17 Lymph # (Auto) 0.4 10^3/uL (0.8-4.8) L 02/22/24 05:17 [place] # (Auto) 0.5 10^3/uL (0.2-0.9) 02/22/24 05:17 Eos # (Auto) 0.0 10^3/uL (0.0-0.8) 02/22/24 05:17 Baso # (Auto) 0.0 10^3/uL (0.0-0.1) 02/22/24 05:17 Nucleated RBC % (auto) 0 % 02/22/24 05:17 Nucleated RBCs # 0.0 /100WBC 02/22/24 05:17 PT 15.40 SECONDS (12.1-14.9) H 02/21/24 11:40 INR 1.18 (0.8-1.2) 02/21/24 11:40 Sodium 133 mmol/L (136-145) L 02/22/24 05:17 Potassium 4.5 mmol/L (3.5-5.1) 02/22/24 05:17 Chloride 100 mmol/L (98-107) 02/22/24 05:17 Carbon Dioxide 19 mmol/L (22-29) L 02/22/24 05:17 Anion Gap 18.5 (5-19) 02/22/24 05:17 BUN 17 mg/dL (8-23) 02/22/24 05:17 Creatinine 0.9 mg/dL (0.7-1.2) 02/22/24 05:17 GFR Calculation Not Reportable 02/22/24 05:17 Glucose 80 mg/dL (65-115) 02/22/24 05:17 Estimat Average Glucose 117 02/22/24 05:17 Hemoglobin A1c 5.7 % (4.0-6.0) 02/22/24 05:17 Calculated Osmolality 277 mOsm/kg (285-295) L 02/22/24 05:17 Calcium 7.6 mg/dL (8.5-10.5) L 02/22/24 05:17 Phosphorus 1.5 mg/dL (2.5-4.5) L 02/22/24 05:17 Magnesium 2.2 mg/dL (1.7-2.3) 02/22/24 05:17 Total Bilirubin 0.5 mg/dL (0.15-1.2) 02/22/24 05:17 AST 42 U/L (0-40) H 02/22/24 05:17 ALT 16 U/L (0-41) 02/22/24 05:17 Alkaline Phosphatase 362 U/L (40-130) H 02/22/24 05:17 Total Protein 6.3 g/dL (6.6-8.7) L 02/22/24 05:17 Albumin 3.8 g/dL (3.5-5.2) 02/22/24 05:17 Globulin 2.5 g/dL (1.3-4.6) 02/22/24 05:17 Triglycerides 66 mg/dL (0-150) 02/22/24 05:17 Cholesterol 189 mg/dL (0-200) 02/22/24 05:17 LDL Cholesterol, Calc 116 mg/dL (50-129) 02/22/24 05:17 HDL Cholesterol 60 mg/dL (60-100) 02/22/24 05:17 LDL/HDL Ratio 1.93 RATIO (0.00-3.22) 02/22/24 05:17 Cholesterol/HDL Ratio 3.15 mg/dL (1.0-5.00) 02/22/24 05:17 Procalcitonin 0.07 ng/mL (0-0.5) 02/21/24 11:40 TSH 3.30 uIU/mL (0.27-4.20) 02/21/24 11:40 Urine Color Yellow (Yellow) 02/21/24 12:02 Urine Appearance Clear (CLEAR) 02/21/24 12:02 Urine pH 5.5 (5-7) 02/21/24 12:02 Ur Specific [place] 1.018 (1.005-1.030) 02/21/24 12:02 Urine Protein Trace (Negative) A 02/21/24 12:02 Urine Glucose (UA) Negative (Normal) 02/21/24 12:02 Urine Ketones Trace (Negative) 02/21/24 12:02 Urine Blood Negative (Negative) 02/21/24 12:02 Urine Nitrate Negative (Negative) 02/21/24 12:02 Urine Bilirubin Negative (Negative) 02/21/24 12: Urine Urobilinogen 1.0 mg/dL (Negative) 02/21/24 12:02 Ur Leukocyte Esterase Negative (Negative) 02/21/24 12:02 Urine RBC 0-2 /hpf (0-2) 02/21/24 12:02 Urine WBC 0-5 /hpf (0-5) 02/21/24 12:02 Ur Squamous Epith Cells 0-5 /hpf (0-5) 02/21/24 12:02 Amorphous Sediment Not Reportable 02/21/24 12:02 Urine Bacteria None seen /hpf (NONE) 02/21/24 12:02 Hyaline Casts 0.81 /lpf 02/21/24 12:02 Vitals Last Vital Signs Temp 97.6 F 02/23/24 07:58 Pulse 90 02/23/24 07:58 Resp 15 02/23/24 07:58 BP 98/63 02/23/24 07:58 Pulse Ox 97 02/23/24 07:58 O2 Del Method Room Air 02/23/24 07:58 Discharge Plan Discharge Patient Disposition: Hospice - Medical Facility Condition: Stable Prescriptions: New magnesium hydroxide [Milk of Magnesia] 400 mg/5 mL Suspension 30 ml PO DAILY Qty: 3000 0RF Continued Lumigan 0.01 % drops 1 drop ophthalmic (eye) DAILY calcium citrate 250 mg calcium tablet 250 mg PO BID Patient Comments: AM and PM fentanyl 50 mcg/hr patch 72 hour 1 patch topical Q72H tamsulosin 0.4 mg capsule 0.4 mg PO BEDTIME Qty: 90 3RF famotidine 20 mg tablet 20 mg PO BID Qty: 180 0RF amiodarone 200 mg tablet 200 mg PO DAILY Qty: 90 1RF sennosides-docusate sodium [Stool Softener-Laxative] 8.6-50 mg Tablet 2 tab PO BID Qty: 120 0RF gabapentin 100 mg Capsule 200 mg PO BID Qty: 60 0RF alprazolam 0.5 mg tablet 0.5 mg PO BEDTIME nitroglycerin 0.4 mg tablet, sublingual See Rx Instructions .ROUTE .COMPLEX Rx Instructions: TAKE 1 TABLET BY MOUTH NEEDED FOR CHEST PAINS MAY REPEAT EVERY 5 MINUTES MAX DAILY DOSE OF 3 ondansetron HCl 4 mg tablet 4 mg PO Q8H PRN (Reason: Nausea And Vomiting) prednisone 5 mg tablet 5 mg PO BID metoprolol tartrate 25 mg tablet 25 mg PO BID hydrocodone-acetaminophen 5-325 mg tablet 1 tab PO BID PRN (Reason: Pain) acetaminophen 325 mg Tablet 325 mg PO QID PRN (Reason: Pain) fluticasone propionate 50 mcg/actuation spray,suspension 1 spray INTRANASAL BID PRN (Reason: nasal congestion) Discontinued meloxicam 15 mg tablet 15 mg PO DAILY Qty: 30 5RF Discharge Orders: Discharge Order (Routine); Ordered 02/23/24 Ordered By: Jeremy Underwood Referrals: [facility] [Outside] [facility] [Outside] Hubert Benedict DO [Primary Care Provider] - Discharge Diet: As Directed Discharge Activity: Resume usual activity and Increase activity as tolerated Patient Instructions: Magnesium Hydroxide (By mouth), Opioid Safety Activity Restrictions/Additional Instructions: Hospice with SNF Discharge Attestations Time Spent in Discharge Care*: greater than 30 min Specific Discharge Activities: educating patient, educating and/or supporting family/caregiver, discussing with pcp/other providers, discussing with nurse case management/social workers/dc planners, documenting/other paperwork and evaluating patient/reviewing data Status at Discharge: Cognitive status at discharge: cognitively intact, Behavioral status at discharge: cooperative, Functional status at discharge: independent ambulation, Overall status at discharge: patient is back to baseline Quality Metrics Clinical Quality Measures [ No reported AMI, CVA or VTE this stay] Coding Level of Care Code 71869 Total time (in minutes) for Discharge: 50 Diagnoses Nausea & vomiting R11.2 Malignant neoplasm of prostate C61 Generalized weakness R53.1 Typical atrial flutter I48.3 Atrial flutter type: typical Goals of care, counseling/discussion Z71.89
[2024-02-23 10:00] VITALS: BMI 19.7
[2024-02-23] MEDS: amiodarone 200 mg Tablet PO (10:52)
[2024-02-23 11:04] LABS: SARS Covid-2 Antigen negative (Negative)
[2024-02-23 11:28] VITALS: BP 94/55; PULSE 92; RESP 16; TEMP 36.8; O2SAT 99
== END 2024-02-23 15:16 | disposition hospice, inpatient (51) ==
LOC: ER 15:04 → MEDSURG 02-22 08:03
PROVIDERS: Admitting Provider Student in an Organized Health Care Education/Training Program; Emergency Provider Emergency Medicine; PCP Internal Medicine; Visit Provider Student in an Organized Health Care Education/Training Program
DX: R53.1 Weakness (principal); R11.2 Nausea with vomiting, unspecified; C61 Malignant neoplasm of prostate; C79.51 Secondary malignant neoplasm of bone; C79.31 Secondary malignant neoplasm of brain; I48.3 Typical atrial flutter; Z71.89 Other specified counseling; K59.00 Constipation, unspecified; Z79.891 Long term (current) use of opiate analgesic; K21.9 Gastro-esophageal reflux disease without esophagitis
CPT/HCPCS: 36415; 51702; 71045; 74176; 80053; 80061; 81001; 83036; 83735; 84100; 84145; 84443; 85025; 85610; 87426; 93005; 94664; 96372; 96374; 96375; 99285; G0378; J1644; J2405; J2470; J7030; J7512